=== PATIENT | male | born 1980 | race Caucasian/White ===

== ENCOUNTER 2022-07-29 08:32 | Emergency (ER) | payer OTHER, SELFPAY ==
--- NOTE | ~2022-07-29 | XR_ITS ---
EXAMINATION: XR SHOULDER, LEFT CLINICAL INFORMATION: Left shoulder pain. COMPARISON: None available. TECHNIQUE: AP, Grashey, and scapular Y views of the left shoulder. FINDINGS: Irregular calcifications adjacent to the greater tuberosity in the region of the distal supraspinatus tendon measuring up to 1.4 and 0.8 cm, consistent with calcific tendinitis. No acute fracture or dislocation. No joint space narrowing or marginal osteophytes. No concerning lytic or blastic osseous lesion. XR/XR shoulder LT min 2V IMPRESSION: 1. Supraspinatus calcific tendinitis. 2. No acute fracture or dislocation.
[2022-07-29 08:43] VITALS: BP 107/55; PULSE 81; RESP 16; TEMP 36.5; O2SAT 98; BMI 28.2
--- NOTE | 2022-07-29 10:04 | ED.EXTPRO ---
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 Reports pain worse with palpation and movement. Denies direct injury/trauma or fall, CP/SOB, numbness, tingling, weakness Complaint: extremity pain Onset (ago): day(s) Related Data Previous Rx's Medication Instructions Recorded acetaminophen 500 mg tablet 500 mg PO Q6H PRN fever or pain 07/29/22 (Tylenol Extra Strength) #14 tabs lidocaine 5 % topical patch 1 patch topical DAILY PRN pain #30 07/29/22 (Lidoderm) ea naproxen 500 mg tablet 500 mg PO BID PRN pain 10 days #20 07/29/22 tabs Allergies Allergy/AdvReac Type Severity Reaction Status Date / Time No Known Allergies Allergy Verified 07/29/22 08:47 Review of Systems Review of Systems: Constitutional: No Fever, No Chills ENT/Mouth: No Ear Pain, No Nasal Congestion, No sore throat, No Rhinorrhea, No Swallowing Difficulty Cardiovascular: No Chest Pain, No SOB Respiratory: No Cough, No Sputum Gastrointestinal: No Nausea, No Vomiting, No Abdominal pain Genitourinary: No Dysuria, No Urinary Frequency, No Hematuria, No Urinary Incontinence/retention Musculoskeletal: + joint pain, No Myalgias, + Joint Swelling Skin: No Skin Lesions, No rash Neuro: No Weakness, No Numbness, No Paresthesias Yes all other systems are reviewed and are negative Constitutional: Constitutional: Reports as per HPI [facility] Past Medical History Attestation statement: The following information was validated with the patient. Social History Social History Advance Directives: No Advance Directives Information Provided: Yes Physical Exam Vital Signs: Vital Signs: Last Vital Signs Temp 97.7 F 07/29/22 08:43 Pulse 81 07/29/22 08:43 Resp 16 07/29/22 08:43 BP 107/55 L 07/29/22 08:43 Pulse Ox 98 07/29/22 08:43 O2 Del Method Room Air 07/29/22 08:43 BMI result Body Mass Index 28.2 Const: General: cooperative, healthy appearing and no acute distress Orientation/consciousness: patient oriented x3 Limitations: no limitations HEENT: Head: Yes normal to inspection and Yes atraumatic Ears: hearing grossly normal bilaterally General nose exam: Normal external nose present Face and sinus: Yes normal facial exam Eyes: General: appearance normal, both eyes and all related structures EOM: EOMs intact bilaterally Neck: Neck: Yes normal visual inspection and Yes no meningeal signs Chest: Chest palpation & inspection: normal inspection of the chest Resp: Effort & Inspection: normal respiratory effort and no respiratory distress Cardio: Rate: regular rate Heart sounds: S1 normal heart sound present and S2 normal heart sound present Peripheral pulses: radial pulses present and ulnar radial pulses present Back/Spine/Pelvis: Other: No midline cervical/thoracic/lumbar spinous tenderness/step-off or deformity Skin: Rashes: no rashes Wounds: no wounds Neuro: General: patient oriented x3, tone normal and no meningeal signs Gait exam (Neuro): Normal gait present Extrem: Other: Left shoulder without appreciable deformity, no erythema or warmth. + tender to palpation > AC joint/anterior aspect. ROM limited secondary to pain. Neurovascularly intact distally General: Yes normal to inspection Course Course Course Narrative: XR shoulder LT min 2V IMPRESSION: 1. Supraspinatus calcific tendinitis. ? 2. No acute fracture or dislocation. Results discussed with patient including worrisome signs and symptoms and strict return precautions, and when to return to the emergency department. They verbalized understanding and feel safe for discharge at this time. 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 On exam vital signs stable, NAD, physical exam as above. Concern for strain vs tendinitis vs tendon/ligamental injury/tear or rotator cuff injury. Lower suspicion for fracture/dislocation. No evidence of septic joint/arthritis Plan: X-rays, IM Toradol Please refer to course for remaining clinical decision making, interpretation of labs/imaging results, and discussions with consultants and/or family members. Differential Diagnosis Differential Diagnoses: The differential diagnosis associated with the presentation includes As above Admission/Observation Consideration of admission/observation: Escalation of care including admission/observation considered Lab Data MDM Lab Attestation statement: I reviewed the patient's lab results. Radiology Impression Discussion of test interpretation with radiology: I have reviewed the radiologist's reading. External Record Review External record reviewed: Inpatient record, Office record, Outpatient record, Prior outpatient labs, Prior outpatient radiology, Primary care record and Outside ED record Discharge Plan Discharge Clinical Impression: Calcific supraspinatus tendinitis Patient Disposition: Home, Self-Care Instructions: Calcific Tendinitis (ED) Additional Instructions: Your x-ray is suggestive of tendinitis which is an overuse injury Rest Ice Naproxen as an anti-inflammatory/pain medication In addition take Tylenol Follow-up with your doctor and Orthopedics as needed Prescriptions: New acetaminophen [Tylenol Extra Strength] 500 mg tablet 500 mg PO Q6H PRN (Reason: fever or pain) Qty: 14 0RF lidocaine [Lidoderm] 5 % adhesive patch,medicated 1 patch topical DAILY MDD remove after 12 hours PRN (Reason: pain) Qty: 30 0RF Rx Instructions: leave on most painful area for up to 12 hrs naproxen 500 mg tablet 500 mg PO BID PRN (Reason: pain) 10 Days Qty: 20 0RF [place]: [facility] [facility] [Provider Group] (as needed) Physician,None [Primary Care Provider] - Interventions: ED Discharge Assessment Last Done: 07/29/22 11:27 Discharge Date/Time: 07/29/22 11:27
[2022-07-29] MEDS: Ketorolac Tromethamine 30 MG/ML VIAL IM (10:57)
--- NOTE | 2022-07-29 11:11 | MHC.EDTECH ---
pt refused EKG
== END 2022-07-29 11:27 | disposition home or self-care (01) ==
PROVIDERS: Emergency Provider Emergency Medicine
DX: M75.32 Calcific tendinitis of left shoulder (principal); M25.512 Pain in left shoulder
CPT/HCPCS: 73030; 96372; 99283; 99284; J1885

== ENCOUNTER 2022-11-28 15:55 | Outpatient (AMB) | payer OTHER, SELFPAY ==
[2022-11-28 15:57] VITALS: BP 104/62; PULSE 91; O2SAT 98; BMI 27.8
--- NOTE | 2022-11-28 15:57 | MHC.PC.OV ---
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 Patient has a past medical history significant for generalized anxiety disorder, HLD. .. HLD: Does report doing keto diet and report he was found to have elevated cholesterol. He reports whenever he is on the keto diet he gets very thirsty and drinks about a gal and 2 of water though when not on keto diet he does not have the symptoms .. Concern--> reports he has chronic ankle and Achilles tendon pain worse when running and standing for long periods of time. Has had full workup while in [facility] with MRI though no concerning findings. Has used shoe inserts which have been somewhat helpful. .. Generalized anxiety disorder: He reports he has had generalized anxiety since he has been a teenager. He does use clonazepam 0.5 mg on a nearly daily basis to help him sleep in reduce anxiety. He does admit he may be dependent on benzodiazepine at this time. He is open to the idea of starting SSRI therapy for his daily anxiety. Previous PCP was in [facility]. 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 1. Little interest or pleasure in doing things: several days 2. Feeling down, depressed, or hopeless: more than half the days 3. Trouble falling or staying asleep, or sleeping too much: nearly every day 4. Feeling tired or having little energy: several days 5. Poor appetite or overeating: several days 6. Feeling bad about yourself - or that you are a failure or have let yourself or your family down: not at all 7. Trouble concentrating on things, such as reading the newspaper or watching television: several days 8. Moving or speaking so slowly that other people could have noticed. Or the opposite - being so fidgety or restless that you have been moving around a lot more than usual: several days 9. Thoughts that you would be better off or of hurting yourself in some way: not at all Total score: 10 Depression Screening Interpretation: Positive 86176 - PHQ-9 Billing: Yes Source: Developed by Drs. Nigel Ingram, Jesenia Cummings, Primo Montana and colleagues, with an educational tyson from [employer]. Thrive Questionnaire Date Thrive assessed: 11/28/22 I am a: Patient What is your living situation today?: I have a steady place to live Within the past 12 months, did the food you bought not last and you didn't have the money to get more?: Never true Within the past 12 months, did you worry whether your food would run out before you got money to buy more?: Never true Do you have trouble paying for medicines?: No Do you have trouble getting transportation to medical appointments?: No Do you have trouble paying your heating and electricity bill?: No Do you have trouble taking care of your child, family member or friend?: No Do you have trouble with day-to-day activities such as bathing, preparing meals, shopping, managing finances, etc.?: No Are you currently unemployed and looking for a job?: No Are you interested in more education?: No Currently or been in a relationship where the following occur: no concerns reported AUDIT C Alcohol Use Questionnaire (AUDIT-C) 1. How often do you have a drink containing alcohol?: Never 3. How often do you have six or more drinks on one occasion?: Never Total Score: 0 JOSE-7 AMB Questionnaire JOSE-7 Date JOSE - 7 assessed: 11/28/22 Feeling nervous, anxious, or on edge: 3 = Nearly every day Not being able to stop or control worryin = More than half the days Worrying too much about different things: 0 = Not at all Trouble relaxin = Nearly every day Being so restless that it is hard to sit still: 1 = Several days Becoming easily annoyed or irritable: 2 = More than half the days Feeling afraid as if something awful might happen: 0 = Not at all Total JOSE-7 score (0-4 normal; 5-9 mild; 10-14 moderate; 15-21 severe): 11 Source: Developed by Drs. Nigel Ingram, Jesenia Cummings, Primo Montana and colleagues, with an educational tyson from [employer]. JOSE-7 Assessment Billing JOSE-7 Assessment Tool: JOSE-7 Assessment 18972 Review of Systems Const Denies body aches, Denies chills, Denies excessive sweating, Denies fatigue, Denies fever(s) and Denies headache(s) Eyes Denies blurry vision ENT Denies dysphagia, Denies vertigo, Denies dizziness, Denies headache(s), Denies hearing loss and Denies tinnitus Card Denies chest pain, Denies chest pain with activity, Denies syncope, Denies irregular heart rhythm and Denies dyspnea Resp Denies chest congestion, Denies cough, Denies hemoptysis, Denies dyspnea and Denies wheezing GI Denies abdominal pain, Denies melena, Denies hematochezia, Denies coffee ground emesis, Denies dysphagia, Denies diarrhea, Denies nausea and Denies vomiting Denies difficulty urinating, Denies dysuria, Denies urinary frequency, Denies urinary hesitancy and Denies urinary urgency Musc Denies arthralgias, Denies limited range of motion, Denies muscle cramps and Denies muscle weakness Skin/Breast Denies rash and Denies skin ulcer Neuro Denies Abnormal speech present, Denies confusion, Denies vertigo, Denies dizziness, Denies syncope, Denies headache(s), Denies memory loss and Denies seizure-like activity Psych Reports abnormal sleep pattern, Reports anxiety, Denies confusion, Reports depression, Denies memory loss, Denies panic attacks and Denies paranoia Endo Denies excessive sweating, Denies fatigue, Denies flushing, Denies polydipsia and Denies polyuria Aller/Immun Denies wheezing Physical exam (Primary Care) Vital Signs: Last Vital Signs Pulse 91 11/28/22 15:57 BP 104/62 11/28/22 15:57 Pulse Ox 98 11/28/22 15:57 Oxygen Delivery Method Room Air 11/28/22 15:57 BMI result Body Mass Index 27.8 Tobacco/Smoking Status: Tobacco use Status Tobacco use date assessed 11/28/22 11/28/22 16:18 Patient Tobacco Use Status Never used Tobacco 11/28/22 16:18 PHQ-9: PHQ-9 Score PHQ-9: Total score 10 11/28/22 17:04 Depression Screening Interpretation: Positive Thrive Assessment: Date of Thrive Assessment Date Thrive assessed 11/28/22 11/28/22 16:18 Currently or been in a relationship where the following occur: no concerns reported Const General: cooperative, comfortable, no acute distress, alert and awake; No confusion Orientation/consciousness: oriented to person, oriented to place, patient oriented x3 and No confusion HENMT Head: Yes normocephalic Ears: external ears normal and TM's normal bilaterally Face and sinus: No sinus tenderness Mouth: Normal oral and palatal mucosa present and tongue normal Teeth and gingiva: dentition normal and gingiva normal Throat: Yes posterior oropharynx normal, Yes tonsils normal and Yes uvula midline Eyes Conjunctivae: conjunctivae normal Sclerae: sclerae normal Pupils: Equal, round and reactive pupils present EOM: EOMs intact bilaterally Direct Ophthalmoscopy: No no photophobia Neck Neck: Yes no lymphadenopathy, No tender and Yes no JVD Thyroid: Thyroid normal Carotids: no bruits Chest Chest palpation & inspection: no tenderness Resp Effort & Inspection: normal respiratory effort, no audible wheezes, not labored and no stridor Auscultation: no crackles, no rales, no rhonchi and no wheezes Cardio Jugular venous distension: no JVD Rate: regular rate, not bradycardic and not tachycardic Rhythm: regular rhythm Bruits: no carotid bruits Peripheral pulses: Peripheral pulses 2+ throughout GI Inspection: Yes normal to inspection, No abdominal wall ecchymosis and No visible herniation Palpation (GI): Soft to palpation, nontender, no guarding, not rigid and No hepatosplenomegaly present Auscultation: normoactive bowel sounds General: Yes no CVA tenderness Back/Spine/Pelvis Back: no CVA tenderness and No back tenderness Cervical Spine: cervical ROM normal Thoracic/Lumbar Spine: thoracic and lumbar spine normal to inspection, straight leg raise negative bilaterally, No thoraco-lumbar ROM limited and No lumbar spinal tenderness Skin Lesions: no lesions Rashes: no rashes Wounds: no wounds Neuro General: oriented to person, oriented to place, patient oriented x3, CN's II-XI intact bilaterally and No confusion Cranial nerves: Yes Equal, round and reactive pupils present and Yes Normal accommodation reflex present Cognition (Neuro): normal cognition Speech: No Abnormal speech present Gait exam (Neuro): Normal gait present Motor exam (neuro): 5/5 motor strength present throughout Extrem Right upper extremity: full ROM; no cyanosis Left upper extremity: full ROM; no cyanosis Right lower extremity: no edema Left lower extremity: no edema Psych Appearance: grossly normal Mental Status: mental status grossly normal Affect: normal affect Attitude: cooperative Thought process: Normal thought process present Assessment and Plan Assessment & Plan (1) Annual physical exam: Code(s): Z00.00 - Encounter for general adult medical examination without abnormal findings (2) Generalized anxiety disorder: Code(s): F41.1 - Generalized anxiety disorder Plan: Patient's JOSE-7 score positive for moderate anxiety. As per HPI patient does have a chronic history of anxiety disorder to which he takes clonazepam for. He does understand that this medication can become habit-forming and cause dependency any feels he is dependent. He is willing to transition to low-dose SSRI therapy to help his anxiety. (3) Screening for diabetes mellitus (DM): Code(s): Z13.1 - Encounter for screening for diabetes mellitus (4) Polydipsia: Code(s): R63.1 - Polydipsia Plan: Reports polydipsia when on keto diet. (5) Achilles tendinitis: Code(s): M76.60 - Achilles tendinitis, unspecified leg Qualifiers: Laterality: right Qualified Code(s): M76.61 - Achilles tendinitis, right leg Plan: Patient's signs and symptoms of right ankle pain radiating intake have most consistent with an Achilles tendinitis. Will likely benefit from formal physical therapy. Will consider podiatry referral if physical therapy ineffective. (6) Borderline high cholesterol: Code(s): E78.9 - Disorder of lipoprotein metabolism, unspecified Plan: Patient reports having an elevated cholesterol when on keto diet. Will check lipid cholesterol to assure normal. Orders: Orders PT Evaluation and Treatment 11/28/22 M76.61 - Achilles tendinitis, right leg Comprehensive Ovid. Panel Fast 11/28/22 Z13.1 - Encounter for screening for diabetes mellitus Lipid Panel 11/28/22 E78.9 - Disorder of lipoprotein metabolism, unspecified Medications: New escitalopram oxalate (Lexapro) 5 mg PO DAILY 30 days 30 tabs 1RF F41.1 - Generalized anxiety disorder Coding Level of Care Code New Pt Prev Care 40-64y(40759) Diagnoses Annual physical exam Z00.00 Generalized anxiety disorder F41.1 Screening for diabetes mellitus (DM) Z13.1 Polydipsia R63.1 Achilles tendinitis M76.61 Laterality: right Borderline high cholesterol E78.9 Additional Codes JOSE-7 Assessment Billing - JOSE-7 Assessment Tool: JOSE-7 Assessment [id number] ([id number])
== END 2022-11-28 16:51 | disposition home or self-care (01) ==
PROVIDERS: PCP Physician Assistant; Visit Provider Physician Assistant
DX: Z00.00 Encounter for general adult medical examination without abnormal findings (principal); F41.1 Generalized anxiety disorder; Z13.1 Encounter for screening for diabetes mellitus; R63.1 Polydipsia; M76.61 Achilles tendinitis, right leg; E78.9 Disorder of lipoprotein metabolism, unspecified
CPT/HCPCS: 99386

== ENCOUNTER 2025-01-28 15:12 | Outpatient (AMB) | payer OTHER, SELFPAY ==
[2025-01-28 15:23] VITALS: BP 116/80; PULSE 96; O2SAT 98; BMI 32.2
--- NOTE | 2025-01-28 15:23 | A.OFFPC_ITS ---
Vital Signs 01/28/25 15:23 Height 5 ft 5 in Weight 193 lb 6 oz BMI 32.2 BP 116/80 Blood Pressure Location Lt brachial Position Sitting Pulse 96 Pulse Source Pulse Oximeter Pulse Oximetry (%) 98 Oxygen Delivery Method Room Air Intake Visit Reasons: annual exam Rv Servicer Required: No Accompanied by: Self / Same As Patient Allergies No Known Allergies Allergy (Verified 01/28/25 15:30) Medication List - Last Reconciled 01/28/25 by Fermín Red PA-C clonazepam 0.25 mg PO BEDTIME escitalopram oxalate (Lexapro) 5 mg PO DAILY 30 days Tobacco use date assessed: 01/28/25 Dental Screening Dental Screen Date: 01/28/25 HPI annual exam HPI Details Patient is a 44 year-old male here today for an annual physical Patient has a past medical history significant for generalized anxiety disorder, HLD. 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 Recently had a right shoulder surgery in his recovering. Concern--> The patient reports facial skin issues, diagnosed as acne rosacea, which causes redness and irritation, particularly after washing his face. He has been using a combination of antifungal and cortisone treatments, which provided temporary relief. Also concerned about ADD disorder--> The patient suspects he may have ADHD, noting difficulties with focus and hyperactivity, which affect his personal and professional life. He experiences racing thoughts and difficulty relaxing, which he initially considered normal. .. HLD: Patient does have a history of hyperlipidemia, has gained a significant amount of weight since last office visit. Will check his fasting lipids .. Class 1 obesity: BMI now at 32. Have noted significant weight gain since last office visit in 2022. .. ? Latent TB: The patient has a history of latent tuberculosis, identified through a positive skin test and chest X-ray findings, although he was cleared after further testing. 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 .. .. Generalized anxiety disorder: Patient was previously pretty anxious and was started on SSRI therapy though has never taken the medication. He is doing better now without medication. 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 1. Little interest or pleasure in doing things: not at all 2. Feeling down, depressed, or hopeless: not at all 3. Trouble falling or staying asleep, or sleeping too much: several days 4. Feeling tired or having little energy: not at all 5. Poor appetite or overeating: not at all 6. Feeling bad about yourself - or that you are a failure or have let yourself or your family down: not at all 7. Trouble concentrating on things, such as reading the newspaper or watching television: several days 8. Moving or speaking so slowly that other people could have noticed. Or the opposite - being so fidgety or restless that you have been moving around a lot more than usual: several days 9. Thoughts that you would be better off or of hurting yourself in some way: not at all Total score: 3 Source: Developed by Drs. Nigel Ingram, Jesenia Cummings, Primo Montana and colleagues, with an educational tyson from [employer]. Thrive Questionnaire Date Thrive assessed: 01/28/25 I am a: Patient What is your living situation today?: I have a steady place to live Within the past 12 months, did the food you bought not last and you didn't have the money to get more?: Never true Within the past 12 months, did you worry whether your food would run out before you got money to buy more?: Never true Do you have trouble paying for medicines?: No Do you have trouble getting transportation to medical appointments?: No Do you have trouble paying your heating and electricity bill?: No Do you have trouble taking care of your child, family member or friend?: I choose not to answer this question Do you have trouble with day-to-day activities such as bathing, preparing meals, shopping, managing finances, etc.?: Yes Are you currently unemployed and looking for a job?: No Are you interested in more education?: No Please select the resources that you would like help with: None Currently or been in a relationship where the following occur: I choose not to answer THRIVE Score: 0 AUDIT C Alcohol Use Questionnaire (AUDIT-C) 1. How often do you have a drink containing alcohol?: Never 3. How often do you have six or more drinks on one occasion?: Never Total Score: 0 JOSE-7 AMB Questionnaire JOSE-7 Date JOSE - 7 assessed: 01/28/25 Feeling nervous, anxious, or on edge: 1 = Several days Not being able to stop or control worryin = Several days Worrying too much about different things: 0 = Not at all Trouble relaxin = Several days Being so restless that it is hard to sit still: 1 = Several days Becoming easily annoyed or irritable: 1 = Several days Feeling afraid as if something awful might happen: 1 = Several days Total JOSE-7 score (0-4 normal; 5-9 mild; 10-14 moderate; 15-21 severe): 6 Source: Developed by Drs. Nigel Ingram, Jesenia Cummings, Primo Montana and colleagues, with an educational tyson from [employer]. Review of Systems Const Denies body aches, Denies chills, Denies excessive sweating, Denies fatigue, Denies fever(s) and Denies headache(s) Eyes Denies blurry vision ENT Denies dysphagia, Denies vertigo, Denies dizziness, Denies headache(s), Denies hearing loss and Denies tinnitus Card Denies chest pain, Denies chest pain with activity, Denies syncope, Denies irregular heart rhythm and Denies dyspnea Resp Denies chest congestion, Denies cough, Denies hemoptysis, Denies dyspnea and Denies wheezing GI Denies abdominal pain, Denies melena, Denies hematochezia, Denies coffee ground emesis, Denies dysphagia, Denies diarrhea, Denies nausea and Denies vomiting Denies difficulty urinating, Denies dysuria, Denies urinary frequency, Denies urinary hesitancy and Denies urinary urgency Musc Denies arthralgias, Denies limited range of motion, Denies muscle cramps and Denies muscle weakness Skin/Breast Denies rash and Denies skin ulcer Neuro Denies Abnormal speech present, Denies confusion, Denies vertigo, Denies dizziness, Denies syncope, Denies headache(s), Denies memory loss and Denies seizure-like activity Psych Denies anxiety, Denies confusion, Denies depression, Denies memory loss, Denies panic attacks and Denies paranoia Endo Denies excessive sweating, Denies fatigue, Denies flushing, Denies polydipsia and Denies polyuria Aller/Immun Denies wheezing Physical exam (Primary Care) Vital Signs: Last Vital Signs Pulse 96 01/28/25 15:23 BP 116/80 01/28/25 15:23 Pulse Ox 98 01/28/25 15:23 Oxygen Delivery Method Room Air 01/28/25 15:23 BMI result Body Mass Index 32.2 BMI Assessment/Plan discussion: High BMI High, discussed plan: lifestyle, weight reduction, dietary and physical activity Tobacco/Smoking Status: Tobacco use Status Tobacco use date assessed 01/28/25 01/28/25 15:29 Patient Tobacco Use Status Never used Tobacco 01/28/25 15:29 PHQ-9: PHQ-9 Score PHQ-9: Total score 3 01/28/25 15:44 Thrive Assessment: Date of Thrive Assessment Date Thrive assessed 01/28/25 01/28/25 15:29 Currently or been in a relationship where the following occur: I choose not to answer Const Other: Obese General: cooperative, comfortable, no acute distress, alert and awake; No confusion Orientation/consciousness: oriented to person, oriented to place, patient oriented x3 and No confusion HENMT Head: Yes normocephalic Ears: external ears normal and TM's normal bilaterally Face and sinus: No sinus tenderness Mouth: Normal oral and palatal mucosa present and tongue normal Teeth and gingiva: dentition normal and gingiva normal Throat: Yes posterior oropharynx normal, Yes tonsils normal and Yes uvula midline Eyes Conjunctivae: conjunctivae normal Sclerae: sclerae normal Pupils: Equal, round and reactive pupils present EOM: EOMs intact bilaterally Direct Ophthalmoscopy: No no photophobia Neck Neck: Yes no lymphadenopathy, No tender and Yes no JVD Thyroid: Thyroid normal Carotids: no bruits Chest Chest palpation & inspection: no tenderness Resp Effort & Inspection: normal respiratory effort, no audible wheezes, not labored and no stridor Auscultation: no crackles, no rales, no rhonchi and no wheezes Cardio Jugular venous distension: no JVD Rate: regular rate, not bradycardic and not tachycardic Rhythm: regular rhythm Bruits: no carotid bruits Peripheral pulses: Peripheral pulses 2+ throughout GI Inspection: Yes normal to inspection, No abdominal wall ecchymosis and No visible herniation Palpation (GI): Soft to palpation, nontender, no guarding, not rigid and No hepatosplenomegaly present Auscultation: normoactive bowel sounds General: Yes no CVA tenderness Back/Spine/Pelvis Back: no CVA tenderness and No back tenderness Cervical Spine: cervical ROM normal Thoracic/Lumbar Spine: thoracic and lumbar spine normal to inspection, straight leg raise negative bilaterally, No thoraco-lumbar ROM limited and No lumbar spinal tenderness Skin Lesions: no lesions Rashes: no rashes Wounds: no wounds Neuro General: oriented to person, oriented to place, patient oriented x3, CN's II-XI intact bilaterally and No confusion Cranial nerves: Yes Equal, round and reactive pupils present and Yes Normal accommodation reflex present Cognition (Neuro): normal cognition Speech: No Abnormal speech present Gait exam (Neuro): Normal gait present Motor exam (neuro): 5/5 motor strength present throughout Extrem Right upper extremity: full ROM; no cyanosis Left upper extremity: full ROM; no cyanosis Right lower extremity: no edema Left lower extremity: no edema Psych Appearance: grossly normal Mental Status: mental status grossly normal Affect: normal affect Attitude: cooperative Thought process: Normal thought process present Coding Level of Care Code Est Pt Prev Care 40-64y([id number]) Diagnoses Annual physical exam Z00.00 Borderline high cholesterol E78.9 Generalized anxiety disorder F41.1 Attention deficit hyperactivity disorder (ADHD), combined type F90.2 Attention deficit type: attention deficit hyperactivity disorder (ADHD) Attention deficit-hyperactivity disorder type: combined inattentive- hyperactive Latent tuberculosis by blood test Z22.7 Acne rosacea L71.9 Herpes simplex B00.9 Class 1 obesity E66.811 Assessment & Plan Assessment & Plan (1) Annual physical exam: Code(s): Z00.00 - Encounter for general adult medical examination without abnormal findings Category: Medical Plan: As per HPI (2) Borderline high cholesterol: Code(s): E78.9 - Disorder of lipoprotein metabolism, unspecified Category: Medical Plan: Patient has a history of borderline high cholesterol will recheck his fasting lipid panel to ensure stable total cholesterol and LDL. (3) Generalized anxiety disorder: Code(s): F41.1 - Generalized anxiety disorder Category: Medical Plan: Patient has a history of generalized anxiety disorder. He felt his anxious symptoms were only temporary. Was to start SSRI therapy though felt he did not need the medication. (4) ADD (attention deficit disorder): Code(s): F98.8 - Other specified behavioral and emotional disorders with onset usually occurring in childhood and adolescence Category: Medical Qualifiers: Attention deficit type: attention deficit hyperactivity disorder (ADHD) Attention deficit-hyperactivity disorder type: combined inattentive-hyperactive Qualified Code(s): F90.2 - Attention-deficit hyperactivity disorder, combined type Plan: The patient will be evaluated for ADHD, with a trial of Wellbutrin to assess its effectiveness in managing symptoms of inattention and hyperactivity. (5) Latent tuberculosis by blood test: Code(s): Z22.7 - Latent tuberculosis Category: Medical Plan: Patient has been told he had latent TB (6) Acne rosacea: Code(s): L71.9 - Rosacea, unspecified Category: Medical Plan: For the facial skin condition, a dermatology referral will be provided, and a topical treatment will be prescribed to address acne rosacea. (7) Herpes simplex: Code(s): B00.9 - Herpesviral infection, unspecified Category: Medical Plan: Will supply patient with antiviral to use as needed (8) Class 1 obesity: Code(s): E66.811 - Obesity, class 1 Category: Medical Plan: Patient does understand his BMI is over 30 will work on being more physically active and adapting better eating habits to reduce his weight Orders: Orders Lipid Panel 01/28/25 E78.9 - Disorder of lipoprotein metabolism, unspecified Complete Blood Count no Diff 01/28/25 E78.9 - Disorder of lipoprotein metabolism, unspecified Comprehensive [place]. Panel Fast 01/28/25 E78.9 - Disorder of lipoprotein metabolism, unspecified Referrals Infectious Disease Referral Z22.7 - Latent tuberculosis Dermatology Referral L71.9 - Rosacea, unspecified Medications: New metronidazole 1% (Metrogel) 1 appl topical DAILY 60 grams 0RF 4 weeks L71.9 - Rosacea, unspecified bupropion HCl SR (Wellbutrin SR) 150 mg PO DAILY 30 tabs 1RF 30 days F90.2 - Attention-deficit hyperactivity disorder, combined type valacyclovir (Valtrex) 500 mg PO BID PRN 20 tabs 0RF recurrences 10 days B00.9 - Herpesviral infection, unspecified ketoconazole 2% 1 appl topical 2XW 120 mL 1RF 4 weeks B35.0 - Tinea barbae and tinea capitis Discontinued escitalopram oxalate (Lexapro) Discontinued Reason: Doctor's Order 5 mg PO DAILY 30 days 30 tabs 3RF F41.1 - Generalized anxiety disorder
--- OUTSIDE RECORDS SUMMARY | 2025-01-28 19:03 | XMS_ITS | Continuity of Care Document ---
Author Organization [place] [facility] - [facility] PT Address [address] [place] [address] Care Team Providers Care Surfboard Designer Name Role Phone FERMÍN PRECIADO Primary Care Provider Assessment Encounter Date Assessment Date Assessment LastModified by Organization Details LastModified Time 01/28/2025 01/28/2025 Assessment: Nice improvement with flexion motion measure. Plan: Continue 2x/wk with gradual progression of motions and with remaining precautions. [email or web address] Not available 01/28/2025 12:27:22 Plan of Treatment Reminders Order Date Submit Date Provider Last Modified By Organization Details Last Modified Time Details Appointments PT FOLLOW-U P 2024 11:30A M Fermín Brewstre, DPT Not available Not available Not available PT FOLLOW-U P 2024 11:30A M Fermín Brewster, DPT Not available Not available Not available PT FOLLOW-U P 2024 01:30P M El Smith, PT Not available Not available Not available PT FOLLOW-U P 2024 12:30P M El Smith, PT Not available Not available Not available PT FOLLOW-U P 2024 01:00P M El Smith, PT Not available Not available Not available PT FOLLOW-U P 2024 01:30P M El Smith, PT Not available Not available Not available PT FOLLOW-U P 2024 02:00P M El Smith, PT Not available Not available Not available POST OP 15 2024 02:30P M Manas damon, PA-C Not available Not available Not available PT FOLLOW-U P 2024 02:00P M El Smith, PT Not available Not available Not available PT FOLLOW-U P 2024 11:00A M Fermín Brewster, DPT Not available Not available Not available PT FOLLOW-U P 2024 10:00A M Fermín Brewster, DPT Not available Not available Not available PT FOLLOW-U P 2024 11:30A M Fermín Brewster, DPT Not available Not available Not available PT FOLLOW-U P 2024 11:30A M Fermín Brewster, DPT Not available Not available Not available PT FOLLOW-U P 2024 11:00A M Fermín Brewster, DPT Not available Not available Not available PT FOLLOW-U P 2024 10:00A M Fermín Brewster, DPT Not available Not available Not available PT FOLLOW-U P 2024 12:00P M El Smith, PT Not available Not available Not available PT FOLLOW-U P 2024 01:00P M El Smith, PT Not available Not available Not available PT FOLLOW-U P 2024 10:00A M El Smith, PT Not available Not available Not available PT FOLLOW-U P 2024 10:00A M Ellilia Michaelek, PT Not available Not available Not available PT FOLLOW-U P 2024 11:30A M Fermín Brewster, DPT Not available Not available Not available RECHECK 15 2024 09:30A M En Magallanes MD Not available Not available Not available PT FOLLOW-U P 2024 10:00A M Fermín Brewster, DPT Not available Not available Not available PT FOLLOW-U P 2024 11:00A M Fermín Brewster, DPT Not available Not available Not available PT FOLLOW-U P 2025 10:00A M Fermín Brewster, DPT Not available Not available Not available POST OP 15 2025 09:30A M Marielos Phillips MD Not available Not available Not available Lab None recorded . Referral None recorded . Procedures None recorded . Surgeries None recorded . Imaging None recorded . Medication Orders None recorded . Patient TargetsNo targets recorded. Patient InstructionsNo instructions recorded. Reason for Referral None Reported. Problems Name Problem SNOMED Code Status Onset Date Resolution Date Notes Provider Name and Address Organization Details Recorded Time Acquired pes planus of right foot 040592366070033 Active 2023 En Magallanes MD [address], [facility] [place], [address], [facility] 4 16:55:50 Sinus tarsi syndrome of right ankle 262533539043197 07 Active 2023 En Magallanes MD [address], [place], [address], [facility] 4 16:55:51 Problem Notes None recorded. Procedures Surgical History Date Name Laterality Status Provider Name and Address Organization Details Recorded Time 5 61442 Therapeutic Exercise (1:1) completed Yordy Vega, AT [address], [place], [address], [facility] 01/28/2025 12:22:44 5 02148: Hot or Cold Pack completed Yordy Vega AT [address], [place], [address], [facility] 01/28/2025 12:22:44 5 87198: Manual therapy completed Yordy Vega, AT [address], [place], [address], [facility] 01/28/2025 12:22:44 5 37455 Therapeutic Exercise (1:1) completed Yordy Vega AT [address], [place], [address], [facility] 01/25/2025 13:31:43 5 76877: Hot or Cold Pack completed Yordy Vega, AT [address], [place], [address], [facility] 01/25/2025 13:31:43 08204: Manual therapy completed Yordy Vega, AT [address], [place], [address], [facility] 01/25/2025 13:31:43 43887 Therapeutic Exercise (1:1) completed Yordy Vega, AT [address], [place], [address], [facility] 01/21/2025 12:59:15 05071: Hot or Cold Pack completed Yordy Vega, AT [address], [place], [address], [facility] 01/21/2025 12:59:15 57673: Manual therapy completed Yordy Vega, AT [address], [place], [address], [facility] 01/21/2025 12:59:15 22880 Therapeutic Exercise (1:1) completed Yordy Vega, AT [address], [place], [address], [facility] 01/18/2025 14:48:44 29712: Hot or Cold Pack completed Yordy Vega, AT [address], [place], [address], [facility] 01/18/2025 14:48:44 54445: Manual therapy completed Yordy Vega, AT [address], [place], [address], [facility] 01/18/2025 14:48:44 90935 Therapeutic Exercise (1:1) completed Yordy Vega, AT [address], [place], [address], [facility] 01/15/2025 14:57:04 5 92390: Hot or Cold Pack completed Yordy Vega, AT [address], [place], [address], [facility] 01/15/2025 14:57:33 5 52765: Manual therapy completed Yordy Vega, AT [address], [place], [address], [facility] 01/15/2025 14:57:12 74910 Therapeutic Exercise (1:1) completed El Smith, PT [address], [place], [address], [facility] 01/14/2025 11:34:09 5 19281: Low complexity PT Eval completed El Smith, PT [address], [place], [address], [facility] 01/14/2025 11:34:11 4 Sports Shoulder completed Manas Vazquez PA-C [address] [facility], [place], [address], [facility] 09/25/2023 11:21:46 Imaging Results None recorded. Procedure Notes None recorded. Medical Equipment None Reported. Allergies No known drug allergies Medications Name Sig Start Date Stop Date Status Note LastModified by Organization Details LastModified Time Colace 100 mg capsule Take 1 capsule every day by oral route as needed. 2024 active Not Available Not Available Not Avai lable aspirin 325 mg tablet Take 1 tablet every day by oral route for 14 days. 01/15 completed Not Available Not Available Not Available acetaminophe n 500 mg tablet Take 2 tablets 3 times a day by oral route. 2024 active Not Available Not Available Not Avai lable naproxen 500 mg tablet Take 1 tablet twice a day by oral route for 5 days. 01/065 completed Not Available Not Available Not Available oxycodone 5 mg tablet Take 1 tablet every 4 hours by oral route as needed. 2024 active Not Available Not Available Not Avai lable escitalopram 5 mg tablet TAKE 1 TABLET BY MOUTH EVERY DAY active Not Available Not Available No t Available Vitals None Recorded Social History None recorded. Functional Status None recorded. Mental Status None recorded. Family History Nothing Reported. Medical History Condition Response Allergies/Hayfever N Coronary Artery Disease N Anxiety/Depression N Breathing or lung disorders N Emphysema N Nerve Disorders N Thyroid Problems N COPD N Pacemaker N Anemia N Kidney/Bladder Problems N Vascular Disease N Heart Trouble N Heart Attack ([place]) N Gastrointestinal Disease N Cholesterol N Diabetes N Autoimmune disease N Inflammatory Joint disease N Bleeding Disorder N Orthotics N Arthritis N Seizures/Epilepsy N Blood Clot N AIDS/HIV N Congestive Heart Failure (CHF) N Acid Reflux (GERD) N Cancer N Stroke N Asthma N Circulation Problems N Peripheral Vascular Disease N Sleep Apnea N Hepatitis Y Heart Disease N Rheumatoid Arthritis N Arrhythmia Y Pulmonary Embolism N Headaches N Fibromyalgia N Hypertension N Osteoporosis N Past Encounters Encounter ID Performer Location Encounter Start Date Encounter Closed Date Diagnosis/Indication Diagnosis SNOMED-CT Code Diagnosis ICD10 Code Diagnosis IMO Codes Diagnosis Note [id number] MD TIFFANI Morse [address] [place] [address] [place] [address] 01/15/2025 10:48:54 01/26/2025 12:35:56 Follow-up orthopedic assessment [id number] Z47.89 [id number] El Smith, PT [facility] PT [address] [place] [address] 01/14/2025 13:58:22 01/14/2025 17:16:55 Rupture of rotator cuff of right shoulder [id number] M75.772 [id number] Yordy Vega AT [facility] PT [address] [place] [address] 01/15/2025 13:30:50 01/15/2025 14:54:23 Rupture of rotator cuff of right shoulder 7979876386 [id number] M75.336 [id number] Yordy Vega AT [facility] PT [address] [place] [address] 01/18/2025 13:28:36 01/18/2025 14:09:17 Rupture of rotator cuff of right shoulder [id number] [id number] M75.050 [id number] [facility]ordy Vega[facility] [address] [place] [address] 01/21/2025 12:47:26 01/21/2025 13:49:12 Rupture of rotator cuff of right shoulder 2639725116 [id number] M75.519 [id number] Yordy Vega, AT [facility] [address] [place] [address] 01/25/2025 13:26:42 01/25/2025 14:43:58 Rupture of rotator cuff of right shoulder 2467740581 4107018 M75.219 [id number] [facility] [address] [place] [address] 01/28/2025 11:24:30 01/28/2025 12:44:29 Rupture of rotator cuff of right shoulder [id number] M75.101 Health Concerns Section Related Observation LastModified by Organization Detai ls LastModified Time None Recorded Concern Status LastModified by Organization Details LastModified Time None Recorded Payers Encounter Date Sequence Insurance Name Policy Number Policy Urbina Covered Member ID Urbina Member ID Guarantor Name 01/28/2025 1 [employer]UE [employer] [facility] (PPO) [id number] Giuliano Huitron [id number] Giuliano Huitron Notes Date Note Type Note Provider Name and Address Organization Details Recorded Time 01/28/2025 text/html Patient presents today reporting 4/10 pain. Pt states feeling comfortable out of the sling at home sometimes. Yordy Vega, AT [address], [place], [address], [facility] [place] [facility] 01/28/2025 12:27:43
--- OUTSIDE RECORDS SUMMARY | 2025-01-28 19:03 | XMS_ITS | Continuity of Care Document ---
Author Organization [place] [facility] [place] [facility] - [facility] Address [address] [place] [address] Care Team Providers Care Personalized Living Manager Nurse Name Role Phone FERMÍN PRECIADO Primary Care Provider [phone] Assessment Encounter Date Assessment Date Assessment LastModified by Organization Details LastModified Time 01/25/2025 01/25/2025 Assessment: Primary restriction remains ER. Plan: Continue 2x/wk with gradual progression of motions and with remaining precautions. [email or web address] Not available 01/25/2025 14:18:44 Plan of Treatment Reminders Order Date Submit [...] PT FOLLOW-U P 2024 11:30A M Fermín Brwester, DPT Not available Not available Not available PT FOLLOW-U P 2024 11:00A M Fermín Brewster, DPT Not available Not available Not available PT FOLLOW-U P 2024 10:00A M Fermín Brewster, DPT Not available Not available Not available PT FOLLOW-U P 2024 12:00P M El Smith, PT Not available Not available Not available PT FOLLOW-U P 2024 01:00P M El Michaelek, PT Not available Not available Not [...] PT FOLLOW-U P 2025 10:00A M Fermín Catjakis, DPT Not available Not available Not available [...] Time Acquired pes planus of right foot 337461226352542 Active 2023 En Magallanes MD [address], [place], [address], [facility] 4 16:55:50 Sinus tarsi syndrome of right ankle 114043968992454 07 Active 2023 En Magallanes MD [address], [place], [address], [facility] 16:55:51 Problem Notes None recorded. Procedures Surgical History Date Name Laterality Status Provider Name and Address Organization Details Recorded Time 5 19136 Therapeutic Exercise (1:1) completed Yordy Vega, AT [address], [place], [address], [facility] 01/28/2025 12:22:44 5 79900: Hot or Cold Pack completed Yordy Vega AT [address], [place], [address], [facility] 01/28/2025 12:22:44 5 51603: Manual therapy completed Yordy Vega, AT [address], [place], [address], [facility] 01/28/2025 12:22:44 5 35752 Therapeutic Exercise (1:1) completed Yordy Vega AT [address], [place], [address], [facility] 01/25/2025 13:31:43 5 01415: Hot or Cold Pack completed Yordy Vega, AT [address], [place], [address], [facility] 01/25/2025 13:31:43 96442: Manual therapy completed Yordy Vega, AT [address], [place], [address], [facility] 01/25/2025 13:31:43 81207 Therapeutic Exercise (1:1) completed Yordy Vega, AT [address], [place], [address], [facility] [place] [facility] 01/21/2025 12:59:15 89402: Hot or Cold Pack completed Yordy Vega, AT [address], [place], [address], [facility] 01/21/2025 12:59:15 01565: Manual therapy completed Yordy Vega, AT [address], [place], [address], [facility] [place] [facility] 01/21/2025 12:59:15 36738 Therapeutic Exercise (1:1) completed Yordy Vega, AT [address], [place], [address], [facility] 01/18/2025 14:48:44 30537: Hot or Cold Pack completed Yordy Vega, AT [address], [place], [address], [facility] 01/18/2025 14:48:44 11083: Manual therapy completed Yordy Vega, AT [address], [place], [address], [facility] 01/18/2025 14:48:44 20144 Therapeutic Exercise (1:1) completed Yordy Vega, AT [address], [place], [address], [facility] 01/15/2025 14:57:04 5 32850: Hot or Cold Pack completed Yordy Vega, AT [address], [place], [address], [facility] 01/15/2025 14:57:33 5 09705: Manual therapy completed Yordy Vega, AT [address], [place], [address], [facility] 01/15/2025 14:57:12 16870 Therapeutic Exercise (1:1) completed El Smith, PT [address] [facility], [place], [address], [facility] 01/14/2025 11:34:09 5 75025: Low complexity PT Eval completed El Smith, PT [address] [facility], [place], [address], [facility] 01/14/2025 11:34:11 4 Sports Shoulder completed Manas Vazquez PA-C [address] [facility], [place], [address], [facility] 09/25/2023 11:21:46 Imaging Results [...] day by oral route for 5 days. 01/06 completed Not Available Not Available Not Available [...] Disease N Heart Trouble N Heart Attack ([place]) N Gastrointestinal Disease N Cholesterol N Diabetes [...] ICD10 Code Diagnosis IMO Codes Diagnosis Note [id number] MD TIFFANI Morse [facility] [place] [address] 01/15/2025 10:48:54 01/26/2025 12:35:56 Follow-up orthopedic assessment [id number] Z47.89 [id number] [facility] [address] [place] [address] 01/14/2025 13:58:22 01/14/2025 17:16:55 Rupture of rotator cuff of right shoulder 6299713044 [id number] M75.245 [id number] Yordy Vega AT [facility] PT [address] [place] [address] 01/15/2025 13:30:50 01/15/2025 14:54:23 Rupture of rotator cuff of right shoulder 7560447821 [id number] M75.926 [id number] Yordy Vega AT [facility] PT [address] [place] [address] 01/18/2025 13:28:36 01/18/2025 14:09:17 Rupture of rotator cuff of right shoulder 9690296560 [id number] M75.539 [id number] Yordy Vega, AT [facility] PT [address] [place] [address] 01/21/2025 12:47:26 01/21/2025 13:49:12 Rupture of rotator cuff of right shoulder 1636753966 [id number] M75.247 [id number] Yordy Vega, AT [facility] PT [address] [place] [address] 01/25/2025 13:26:42 01/25/2025 14:43:58 Rupture of rotator cuff of right shoulder 4259502655 [id number] M75.101 Health Concerns Section Related Observation LastModified by Organization Detai ls LastModified Time None Recorded Concern Status LastModified by Organization Details LastModified Time None Recorded Payers Encounter Date Sequence Insurance Name Policy Number Policy Urbina Covered Member ID Urbina Member ID Guarantor Name 01/25/2025 1 [employer] [facility] (PP[place]) [id number] Giuliano Huitron [id number] Giuliano Huitron Notes Date Note Type Note Provider Name and Address Organization Details Recorded Time 01/25/2025 text/html Patient presents today reporting 4/10 pain. Pt states having front of the shoulder pains today after using the arm more for light activity. Yordy Vega, AT [address], [place], [address], [facility] [place] [facility] 01/25/2025 14:19:09
--- OUTSIDE RECORDS SUMMARY | 2025-01-28 19:03 | XMS_ITS | Data Portability ---
Author Organization [facility], [facility] Address [address] [place] [address] Care Team Providers Care Fiber Optics Engineer Name Role Phone FERMÍN PRECIADO Primary Care Provider [phone] Assessment Encounter Date Assessment Date Assessment LastModified by Organization Details LastModified Time 01/18/2025 01/18/2025 Assessment: Improved mobility from U-trap and diminished spasm. Plan: Continue skilled therapy per MD protocol. [email or web address] Not available 01/18/2025 14:50:51 01/21/2025 01/21/2025 Assessment: Nice gains with flexion measure. Plan: Continue 2x/wk with formal therapy and daily HEP. [email or web address] Not available 01/21/2025 13:47:55 01/25/2025 01/25/2025 Assessment: Primary restriction remains ER. Plan: Continue 2x/wk with gradual progression of motions and with remaining precautions. [email or web address] Not available 01/25/2025 14:18:44 01/28/2025 01/28/2025 Assessment: Nice improvement with flexion motion measure. Plan: Continue 2x/wk with gradual progression of motions and with remaining precautions. [email or web address] Not available 01/28/2025 12:27:22 Plan of Treatment Reminders Order Date Submit Date Provider Last Modified By Organization Details Last Modified Time Details Appointments PT FOLLOW-U P 2024 11:30A M Fermín Brewster DPT Not available Not available Not available PT FOLLOW-U P 2024 11:30A M Fermín Brewster DPT Not available Not available Not available PT FOLLOW-U P 2024 01:30P M [place], PT Not available Not available Not available PT FOLLOW-U P 2024 12:30P M [place], PT Not available Not available Not available PT FOLLOW-U P 2024 01:00P M [place], PT Not available Not available Not available PT FOLLOW-U P 2024 01:30P M [place], PT Not available Not available Not available PT FOLLOW-U P 2024 02:00P M [place], PT Not available Not available Not available POST OP 15 2024 02:30P M Manas damon PA-C Not available Not available Not available PT FOLLOW-U P 2024 02:00P M [place], PT Not available Not available Not available PT FOLLOW-U P 2024 11:00A M Fermín Brewster, DPT Not available Not available Not available PT FOLLOW-U P 2024 10:00A M Fermín Andersons, DPT Not available Not available Not available PT FOLLOW-U P 2024 11:30A M Fermín Monicas, DPT Not available Not available Not available PT FOLLOW-U P 2024 11:30A M Fermín Monicas, DPT Not available Not available Not available PT FOLLOW-U P 2024 11:00A M Fermín Monicas, DPT Not available Not available Not available PT FOLLOW-U P 2024 10:00A M Fremín Monicas, DPT Not available Not available Not available PT FOLLOW-U P 2024 12:00P M [place], PT Not available Not available Not available PT FOLLOW-U P 2024 01:00P M [place], PT Not available Not available Not available PT FOLLOW-U P 2024 10:00A M [place], PT Not available Not available Not available PT FOLLOW-U P 2024 10:00A M [place], PT Not available Not available Not available [...] Time Acquired pes planus of right foot [id number] Active 2023 En Magallanes MD [address], [place], [address], [facility] 4 16:55:50 Sinus tarsi syndrome of right ankle [id number] 07 Active 2023 En Magallanes MD [address], [place], [address], [facility] 4 16:55:51 Problem Notes None recorded. Procedures Surgical History Date Name Laterality Status Provider Name and Address Organization Details Recorded Time 5 75988 Therapeutic Exercise (1:1) completed Yordy Vega AT [address] [facility], [place], [address], [facility] 01/28/2025 12:22:44 5 25780: Hot or Cold Pack completed Yordy Vega AT [address] [facility], [place], [address], [facility] 01/28/2025 12:22:44 21557: Manual therapy completed Yordy Vega, AT [address], [place], [address], [facility] 01/28/2025 12:22:44 80654 Therapeutic Exercise (1:1) completed Yordy Vega, AT [address], [place], [address], [facility] 01/25/2025 13:31:43 18799: Hot or Cold Pack completed Yordy Vega, AT [address], [place], [address], [facility] 01/25/2025 13:31:43 56539: Manual therapy completed Yordy Vega, AT [address], [place], [address], [facility] 01/25/2025 13:31:43 04156 Therapeutic Exercise (1:1) completed Yordy Vega, AT [address], [place], [address], [facility] 01/21/2025 12:59:15 59280: Hot or Cold Pack completed Yordy Vega AT [address], [place], [address], [facility] 01/21/2025 12:59:15 47534: Manual therapy completed Yordy Vega, AT [address], [place], [address], [facility] 01/21/2025 12:59:15 87005 Therapeutic Exercise (1:1) completed Yordy Vega, AT [address], [place], [address], [facility] 01/18/2025 14:48:44 25785: Hot or Cold Pack completed Yordy Vega, AT [address], [place], [address], [facility] 01/18/2025 14:48:44 25012: Manual therapy completed Yordy Vega, AT [address], [place], [address], [facility] 01/18/2025 14:48:44 67437 Therapeutic Exercise (1:1) completed Yordy Vega, AT [address], [place], [address], [facility] 01/15/2025 14:57:04 08125: Hot or Cold Pack completed Yordy Vega, AT [address], [place], [address], [facility] 01/15/2025 14:57:33 96590: Manual therapy completed Yordy Vega, AT [address], [place], [address], [facility] 01/15/2025 14:57:12 34382 Therapeutic Exercise (1:1) completed El Smith, PT [address], [place], [address], [facility] 01/14/2025 11:34:09 5 39544: Low complexity PT Eval completed El Smith, PT [address], [place], [address], [facility] 01/14/2025 11:34:11 4 Sports Shoulder completed Manas Vazquez PA-C [address], [place], [address], [facility] 09/25/2023 11:21:46 [...] Available Not Available No t Available Vitals Date Recorded Body height Body mass index (BMI) Body weight Provider Name and Address Organization Details Last Updated DateTime 01/15/2025 165.1 cm 30 kg/m2 49025.63 g Terry Gallagher [facility] 01/15/2025 11:34:54 Social History None recorded. Functional Status None recorded. Mental Status None recorded. Family History Nothing Reported. Medical History Condition Response Allergies/Hayfever N Coronary Artery Disease N Anxiety/Depression N Breathing or lung disorders N Emphysema N Nerve Disorders N Thyroid Problems N COPD N Pacemaker N Anemia N Kidney/Bladder Problems N Vascular Disease N Heart Trouble N Heart Attack (ID) N Gastrointestinal Disease N Cholesterol N Diabetes [...] ICD10 Code Diagnosis IMO Codes Diagnosis Note [id number] MD Lwo Garza [address] [place] [address] 09/11/2023 13:26:03 10/09/2023 12:51:26 Ankle pain 106821898 M25.579 Acquired p es planus of right foot 7260133629 92467 M21.41 Sinus tars i syndrome of right ankle 7789863245 8175976 M25.836 [id number] SHU Ryder [address] [place] [address] 09/25/2023 10:39:23 10/30/2023 15:24:08 Pain of right shoulder joint 7133222999 6638509 M25.511 Calcific t endinitis of right shoulder 7638004064 25560 M75.31 [id number] MD [facility]FF[facility] [address] [place] [address] 11/13/2024 14:35:04 11/24/2024 09:27:50 Pain of right shoulder joint 2474450883 1810344 M25.511 806915 Pain of le ft shoulder joint 0177338645 6362329 M25.512 727400 Impingemen t syndrome of right shoulder region 0793875014 67145 M75.41 [id number] MD TIFFANI Morse [address] [place] [address] 12/04/2024 14:25:21 12/26/2024 08:10:46 Calcific tendinitis of right shoulder 2327396082 77522 M75.31 9411303 [id number] MD [facility] [address] [place] [address] 01/15/2025 10:48:54 01/26/2025 12:35:56 Follow-up orthopedic assessment 611583147 Z47.89 [id number] El Smith, PT [facility] [address] [place] [address] 01/14/2025 13:58:22 01/14/2025 17:16:55 Rupture of rotator cuff of right shoulder 4470336791 0090736 M75.528 [id number] Yordy Vega, AT [facility] [address] [place] [address] 01/15/2025 13:30:50 01/15/2025 14:54:23 Rupture of rotator cuff of right shoulder 7135820077 0622843 M75.936 [id number] Yordy Vivarolson, AT [facility] [address] [place] [address] 01/18/2025 13:28:36 01/18/2025 14:09:17 Rupture of rotator cuff of right shoulder 1564058055 9145469 M75.421 [id number] Yordy Vivarolson, AT [facility] [address] [place] [address] 01/21/2025 12:47:26 01/21/2025 13:49:12 Rupture of rotator cuff of right shoulder 9270124023 4875240 M75.233 [id number] Yordykisha VivarVega, AT [facility] [address] [place] [address] 01/25/2025 13:26:42 01/25/2025 14:43:58 Rupture of rotator cuff of right shoulder 1923960860 2021975 M75.973 [id number] Yordy Vivarolson, AT [facility] [address] [place] [address] 01/28/2025 11:24:30 01/28/2025 12:44:29 Rupture of rotator cuff of right shoulder 3614320629 0827479 M75.101 Health Concerns Section Related Observation LastModified by Organization Detai ls LastModified Time None Recorded Concern Status LastModified by Organization Details LastModified Time None Recorded Advance Directives Directive None Recorded Payers Insurance Date Sequence Insurance Name Policy Number Policy Urbina Covered Member ID Urbina Member ID Guarantor Name 09/25/2023 1 [employer]-[place] (PPO) Giuliano Huitron [id number] 33 Giuliano Huitron 01/27/2025 1 [facility] [id number] Giuliano Huitron [id number] Giuliano Huitron Notes Date Note Type Note Provider Name and Address Organization Details Recorded Time 01/15/2025 text/html Patient presents today reporting 4/10 pain. Pt states sleep is difficult. Yordy Vega, AT [address], [place], [address], [place] - [facility] 01/15/2025 14:59:49 01/15/2025 text/html Surgery: Right shoulder calcium excision with subsequent 1+1 double row supraspinatus repair, SAD DCE, 12/30/2024 Interval History: Giuliano returns today in follow-up now 2 weeks out from surgery as above, doing fairly well. The patient has been tolerating the sling. Weaning from narcotic medications. We have not yet started physical therapy. No issues with incisions. No numbness or tingling in arm or hand. We have not yet let the patient return to work. Past family, medical, social history and review of systems have been reviewed and updated on the medical history sheet saved to the patient's chart. A 12-point review of systems is negative x12 except as noted above and/or on the medical history sheet. Examination: Pleasant 44-year-old gentleman in no acute distress. On exam of the Right upper extremity, arthroscopic portal incisions are healing nicely. No significant swelling or bruising. No evidence for Juan deformity. Did not attempt range of motion of the shoulder today. Sensation intact in axillary and LABC distributions. Fires EPL, FPL and intrinsics. Hand is warm and well perfused. 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 Doing fairly well thus far. Plan: We will have the patient continue with sling use for another 4 weeks, though discussed that it is okay to begin taking some breaks from the sling when in a safe, quiet environment with the arm supported on the lap. We will start in with physical therapy at approximately 2 weeks postop. Copies of the therapy prescription and protocol were given to the patient today and scanned into the patient chart for future reference if needed. Therapy will consist of passive range of motion only to start, incorporating active assist range of motion at 5 weeks, active range of motion at 9 weeks, isometrics at 12 weeks and more advanced strengthening at 14 weeks postop. The patient will follow up with Mr. Augie Vazquez PA-C in 6 weeks to check on how the first few weeks of therapy have gone. I will plan to see the patient back at 4 months post-op, just before initiation of the strengthening phase of therapy. [facility] speech recognition degreaser operator software was used to create portions of this document. An attempt at proofreading has been made to minimize errors. Please call for corrections. Marielos Phillips MD [address] [facility], [place], [address], [facility] 01/15/2025 12:02:30 01/18/2025 text/html Patient presents today reporting 4/10 pain. Pt states having to take medication this weekend. Yordy Vega, AT [address] [facility] [address], [place], [address], [facility] 01/18/2025 14:51:18 01/21/2025 text/html Patient presents today reporting 4/10 pain. Pt states feeling less soreness with therapy. Yordy Vega, AT [address], [place], [address], [facility] 01/21/2025 13:48:15 01/25/2025 text/html Patient presents today reporting 4/10 pain. Pt states having front of the shoulder pains today after using the arm more for light activity. Yordy Vega, AT [address], [place], [address], [facility] 01/25/2025 14:19:09 01/28/2025 text/html Patient presents today reporting 4/10 pain. Pt states feeling comfortable out of the sling at home sometimes. Yordy Vega, AT [address], [place], [address], [facility] 01/28/2025 12:27:43
== END 2025-01-28 16:09 | disposition home or self-care (01) ==
LOC: HO.HMCH 15:13
PROVIDERS: PCP Physician Assistant; Visit Provider Physician Assistant
DX: Z00.00 Encounter for general adult medical examination without abnormal findings (principal); E78.9 Disorder of lipoprotein metabolism, unspecified; E66.811 Obesity, class 1; Z68.32 Body mass index [BMI] 32.0-32.9, adult; F41.1 Generalized anxiety disorder; F90.2 Attention-deficit hyperactivity disorder, combined type; Z22.7 Latent tuberculosis; L71.9 Rosacea, unspecified; B00.9 Herpesviral infection, unspecified

== ENCOUNTER 2025-02-05 15:00 | Outpatient (REF) | payer OTHER, SELFPAY ==
--- NOTE | ~2025-02-05 | XR_ITS ---
EXAMINATION: XR CHEST CLINICAL INFORMATION: Z22.7 - Latent tuberculosis COMPARISON: None available. TECHNIQUE: 2 views of the chest were obtained. FINDINGS: Cardiac and mediastinal silhouette is within normal limits. Pulmonary vascularity is within normal limits. The right feliciano slightly more prominent as compared to left side. No focal consolidation or effusion. No pneumothorax is seen. No acute osseous findings. No acute findings in the upper abdomen. XR/XR chest 2V IMPRESSION: No evidence of focal airspace disease. Slight asymmetric prominence of the right hilar as compared to the left side. Lymphadenopathy cannot be excluded. Given the clinical history, recommend correlation with prior imaging. Consider CT chest evaluation as clinically indicated. Electronically signed by: Lavon Garcia MD 02/05/2025 04:49 PM EDT
[2025-02-05 16:12] LABS: Hematocrit 45.3 % (42.0-52.0); Hemoglobin 16.1 g/dl (14.0-18.0); Mean Corpuscular HGB Conc 35.5 g/dl (31.0-36.0); Mean Corpuscular Hemoglobin 29.9 pg (27.0-33.0); Mean Corpuscular Volume 84.0 fL (80.0-98.0); NRBC Abs Auto 0.000 X10*3/uL (0.0-0.012); NRBC Pct Auto 0.0 /100WBC (0.0-0.2); Platelet Count 278 X10*3/uL (160-400); Red Blood Count 5.39 X10*6/uL (4.60-5.80); White Blood Count 9.3 X10*3/uL (4.8-10.8)
[2025-02-05 16:21] LABS: Alanine Aminotransferase 50 U/L (0-40); Albumin Level 5.0 g/dL (3.5-5.0); Alkaline Phosphatase 64 U/L (39-117); Anion Gap 11 (12-20); Aspartate Amino Transferase 31 U/L (5-37); Blood Urea Nitrogen 11 mg/dL (9-16); Calcium 9.6 mg/dL (8.4-10.2); Carbon Dioxide 29 mmol/L (22-29); Chloride 105 mmol/L (96-108); Cholesterol 263 mg/dL (<200); Estimated Glomerular Filt Rate > 60; HDL Cholesterol 41 mg/dL (>40); Potassium 4.2 mmol/L (3.3-5.1); Sodium 141 mmol/L (135-145); Total Protein 8.0 g/dL (6.5-8.0); Triglycerides 182 mg/dL (<150)
[2025-02-08 11:34] LABS: TS Negative Control Passed; TS Panel A 20; TS Panel B 35; TS Positive Control Passed; TSpotTB Positive (Negative)
== END 2025-02-05 15:01 | disposition home or self-care (01) ==
LOC: HO.XRAY 15:00
PROVIDERS: Absent Provider Physician Assistant; PCP Physician Assistant; Visit Provider Internal Medicine
DX: E78.9 Disorder of lipoprotein metabolism, unspecified (principal); Z22.7 Latent tuberculosis
CPT/HCPCS: 36415; 71046; 80053; 80061; 85027; 86481

== ENCOUNTER 2025-02-05 15:00 | Outpatient (AMB) | payer OTHER, SELFPAY ==
[2025-02-05 15:00] VITALS: PULSE 61; O2SAT 98; BMI 31.5
--- NOTE | 2025-02-05 15:00 | A.OFFVIS_ITS ---
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 Following a positive skin test for tuberculosis, indicating potential exposure to Mycobacterium tuberculosis, the patient has been referred by Dr. Ted Red. The patient denies any symptoms typically associated with tuberculosis, including cough, hemoptysis, weight loss, or lymphadenopathy. He is not aware of any recent exposure to individuals with active tuberculosis. Despite the positive test, the patient has not experienced any respiratory or systemic symptoms. Further diagnostics have revealed slight asymmetric prominence of the right hilar region on chest X-ray, necessitating further evaluation with a chest CT due to the need to rule out left-sided lymphadenopathy and to confirm the presence or absence of active disease. Review of Systems - Respiratory: Denies coughing, hemoptysis - Constitutional: Denies weight loss - Lymphatic: Denies lymphadenopathy - General: Denies any recent illness Physical Exam - Vital Signs- Stable - HEENT- Pupils equally round and reactive to light; oropharynx clear - Respiratory- Lungs clear - Cardiovascular- Heart rate and rhythm regular - Abdominal- Abdomen soft, non-tender - Musculoskeletal- Extremities non-tender - Neurological- Neurological exam grossly intact Results - Imaging: Chest X-ray showing slight asymmetric prominence of the right hilar region Plan Patient was informed and verbally consented to the use of an ambient scribe for clinic note documentation during this visit. 1. Nonspecific reaction to tuberculin skin test without active tuberculosis R76.11 Due to the positive tuberculosis test, additional evaluation is warranted to discern between latent and active tuberculosis, given the chest X-ray findings and absence of symptoms. A CT of the chest is required to gain clarity on the hilar prominence and exclude left-sided lymphadenopathy. Given the current stable health status, the emphasis lies in determining if the patient has latent tuberculosis infection, followed by appropriate counseling and treatment plan to avert any future points of activation. Discussion Notes I explained to the patient that although the tuberculosis skin test is positive, indicating potential exposure, he displays no current symptoms of active tuberculosis. I discussed the necessity of further diagnostic imaging via a chest CT to clarify any unusual findings noted on the chest X-ray, particularly the prominence at the right hilar region, and to rule out lymphadenopathy on the left side. The patient is aware that the primary objective is to exclude active tuberculosis and, if concluded as a latent infection, to consider prophylactic treatment options. He understands the plan of monitoring and agreed to the outlined CT scan and follow-up actions. Medical Decision Making Considering the positive tuberculosis test, my primary suspicion is latent tuberculosis infection, as the patient presents with no symptoms typical of active disease and no known recent exposures. The chest X-ray noted a right hilar prominence which necessitates further investigation via CT scan to determine the presence of any underlying pathology or lymphadenopathy. The emphasis remains on ruling out active disease and establishing a diagnosis of latent tuberculosis, with the intention to provide treatment if indicated to prevent future activation. The patient is asymptomatic, and the risk of progressing to active disease is low, but vigilance in evaluation is paramount. Patient Instructions - Undergo a CT scan of the chest to assess current findings more accurately. - Report any new symptoms such as cough, fever, or weight loss immediately. - Follow up as instructed for results discussion and further management plan. 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
--- OUTSIDE RECORDS SUMMARY | 2025-02-05 16:40 | XMS_ITS | Continuity of Care Document ---
Author Organization [place] [facility], [facility] Address [address] [place] [address] Care Team Providers Care Physician Relations Specialist Name Role Phone FERMÍN PRECIADO Primary Care Provider [phone] Assessment Encounter Date Assessment Date Assessment LastModified by Organization Details LastModified Time 02/04/2025 02/04/2025 Assessment: Weekly gains with P/AAROM measures. Plan: Continue 2x/wk with P/AAROM and wean from sling use. Sling at all times for 4 wks, especially when sleeping. No driving until at least 6 wks Weeks 3-5: Gentle PROM -Limit IR to stomach Weeks 6-8: Continue Gentle PROM to tolerance. May Begin AAROM Sling in unsupervised settings Weeks 9-11: Continue PROM and AAROM as tolerated. May begin AROM starting in a supine position. D/C sling fully Weeks 12-13: Progress AROM Begin Submaximal Isometrics. Weeks 14-16: Once full ROM with good control and biomechanics, add T-Bands with light resistance. [email or web address] Not available 02/04/2025 15:23:14 Plan of Treatment Reminders Order Date Submit Date Provider Last Modified By Organization Details Last Modified Time Details Appointments PT FOLLOW-U P 2024 04:30P M Fermín Brewster DPT Not available Not available Not available PT FOLLOW-U P 2024 01:00P M El Smith, PT Not available Not available Not available PT FOLLOW-U P 2024 01:30P Casie Smith, PT Not available Not available Not [...] PT FOLLOW-U P 2025 10:00A M Fermín Brewster DPT Not available Not [...] Time Acquired pes planus of right foot [id number] Active 2023 En Magallanes MD [address], [place], [address], [facility] 4 16:55:50 Sinus tarsi syndrome of right ankle 897796111032211 07 Active 2023 En Magallanes MD [address], [place], [address], [facility] 4 16:55:51 Problem Notes None recorded. Procedures Surgical History Date Name Laterality Status Provider Name and Address Organization Details Recorded Time 5 09222 Therapeutic Exercise (1:1) completed El Smith, PT [address] [facility], [place], [address], [facility] 02/04/2025 15:22:07 5 46175: Hot or Cold Pack completed El Smith, PT [address], [place], [address], [facility] 02/04/2025 07:04:59 5 23992: Manual therapy completed El Smith, PT [address], [place], [address], [facility] 02/04/2025 07:04:59 5 51152 Therapeutic Exercise (1:1) completed Yordy Vega, AT [address], [place], [address], [facility] 02/01/2025 14:30:41 40114: Hot or Cold Pack completed Yordy Vega, AT [address], [place], [address], [facility] 02/01/2025 14:30:41 17921: Manual therapy completed Yordy Vega, AT [address], [place], [address], [facility] 02/01/2025 14:30:41 47467 Therapeutic Exercise (1:1) completed Yordy Vega, AT [address], [place], [address], [facility] 01/28/2025 12:22:44 88407: Hot or Cold Pack completed Yordy Vega, AT [address], [place], [address], [facility] 01/28/2025 12:22:44 85699: Manual therapy completed Yordy Vega, AT [address], [place], [address], [facility] 01/28/2025 12:22:44 73657 Therapeutic Exercise (1:1) completed Yordy Vega, AT [address], [place], [address], [facility] 01/25/2025 13:31:43 01036: Hot or Cold Pack completed Yordy Vega, AT [address], [place], [address], [facility] 01/25/2025 13:31:43 44002: Manual therapy completed Yordy Vega, AT [address], [place], [address], [facility] 01/25/2025 13:31:43 90143 Therapeutic Exercise (1:1) completed Yordy Vega, AT [address], [place], [address], [facility] 01/21/2025 12:59:15 12869: Hot or Cold Pack completed Yordy Vega, AT [address], [place], [address], [facility] 01/21/2025 12:59:15 71302: Manual therapy completed Yordy Vega, AT [address], [place], [address], [facility] 01/21/2025 12:59:15 81157 Therapeutic Exercise (1:1) completed Yordy Vega, AT [address], [place], [address], [facility] 01/18/2025 14:48:44 32197: Hot or Cold Pack completed Yordy Vega, AT [address], [place], [address], [facility] 01/18/2025 14:48:44 47161: Manual therapy completed Yordy Vega, AT [address], [place], [address], [facility] 01/18/2025 14:48:44 23290 Therapeutic Exercise (1:1) completed Yordy Vega, AT [address], [place], [address], [facility] 01/15/2025 14:57:04 25917: Hot or Cold Pack completed Yordy Vega, AT [address], [place], [address], [facility] 01/15/2025 14:57:33 98541: Manual therapy completed Yordy Vega, AT [address], [place], [address], [facility] 01/15/2025 14:57:12 5 05418 Therapeutic Exercise (1:1) completed El Smith, PT [address], [place], [address], [facility] 01/14/2025 11:34:09 5 94032: Low complexity PT Eval completed El Smith, PT [address], [place], [address], [facility] 01/14/2025 11:34:11 4 Sports Shoulder completed Manas Vazquez PA-C [address], [place], [address], [facility] 09/25/2023 [...] Disease N Heart Trouble N Heart Attack ([place]) N Gastrointestinal Disease N Cholesterol N Diabetes [...] ICD10 Code Diagnosis IMO Codes Diagnosis Note [id number] MD TI[facility] Morse [address] [place] [address] 01/15/2025 10:48:54 01/26/2025 12:35:56 Follow-up orthopedic assessment [id number] Z47.89 [id number] El Smith, PT [facility] [address] [place] [address] 01/14/2025 13:58:22 01/14/2025 17:16:55 Rupture of rotator cuff of right shoulder 1633070464 7134445 M75.017 [id number] Yordy Vega, AT [facility] [address] [place] [address] 01/15/2025 13:30:50 01/15/2025 14:54:23 Rupture of rotator cuff of right shoulder 6303388287 6256731 M75.903 [id number] [facility], AT [facility] [address] [place] [address] 01/18/2025 13:28:36 01/18/2025 14:09:17 Rupture of rotator cuff of right shoulder 2180424162 6517793 M75.022 [id number] Yordy Vega, AT [facility] [address] [place] [address] 01/21/2025 12:47:26 01/21/2025 13:49:12 Rupture of rotator cuff of right shoulder 8513052893 9044458 M75.569 [id number] Yordy Vega, AT [facility] [address] [place] [address] 01/25/2025 13:26:42 01/25/2025 14:43:58 Rupture of rotator cuff of right shoulder 0172843829 5499350 M75.107 [id number] Yordy Vega, AT [facility] [address] [place] [address] 01/28/2025 11:24:30 01/28/2025 12:44:29 Rupture of rotator cuff of right shoulder 0672712626 1647876 M75.904 [id number] Yordy Vega, AT [facility] [address] [place] [address] 02/01/2025 11:30:11 02/01/2025 12:08:36 Rupture of rotator cuff of right shoulder 5342136189 6314837 M75.578 [id number] El Smith, PT [facility] [address] [place] [address] 02/04/2025 13:19:30 02/04/2025 14:04:40 Rupture of rotator cuff of right shoulder 9625798898 7578632 M75.101 Health Concerns Section Related Observation LastModified by Organization Detai ls LastModified Time None Recorded Concern Status LastModified by Organization Details LastModified Time None Recorded Payers Encounter Date Sequence Insurance Name Policy Number Policy Urbina Covered Member ID Urbina Member ID Guarantor Name 02/04/2025 1 [employer] [facility] (PPO) [id number] Giuliano Huitron [id number] Giuliano Huitron Notes Date Note Type Note Provider Name and Address Organization Details Recorded Time 02/04/2025 text/html Patient states pain 0/10 at rest, El Smith, PT [address], [place], [address], [facility] 02/04/2025 15:24:11
--- OUTSIDE RECORDS SUMMARY | 2025-02-05 16:40 | XMS_ITS | Data Portability ---
Author Organization [place] [facility], [facility] Sells Address [address] [place] [address] Care Team Providers Care Push Button Switch Assembler Name Role Phone FERMÍN PRECIADO Primary Care Provider Assessment Encounter Date Assessment Date Assessment LastModified by Organization Details LastModified Time 01/21/2025 01/21/2025 Assessment: Nice gains with flexion measure. Plan: Continue 2x/wk with formal therapy and daily HEP. [email or web address] Not available 01/21/2025 13:47:55 01/25/2025 01/25/2025 Assessment: Primary restriction remains ER. Plan: Continue 2x/wk with gradual progression of motions and with remaining precautions. [email or web address] Not available 01/25/2025 14:18:44 01/28/2025 01/28/2025 Assessment: Nice improvement with flexion motion measure. Plan: Continue 2x/wk with gradual progression of motions and with remaining precautions. [email or web address] Not available 01/28/2025 12:27:22 02/01/2025 02/01/2025 Assessment: Weekly gains with P/AAROM measures. Plan: Continue 2x/wk with P/AAROM and wean from sling use. [email or web address] Not available 02/01/2025 14:32:51 02/04/2025 02/04/2025 Assessment: Weekly gains with P/AAROM [...] PT FOLLOW-U P 2024 04:30P M Fermín Brewster, DPT Not available Not [...] available PT FOLLOW-U P 2024 02:00P M lE Smith, PT Not available Not available Not [...] Time Acquired pes planus of right foot 804702467385912 Active 2023 En Magallanes MD [address], [place], [address], [facility] 4 16:55:50 Sinus tarsi syndrome of right ankle 394461701507919 07 Active 2023 En Magallanes MD [address], [place], [address], [facility] [place] 4 16:55:51 Problem Notes None recorded. Procedures Surgical History Date Name Laterality Status Provider Name and Address Organization Details Recorded Time 05487 Therapeutic Exercise (1:1) completed El Smith, PT [address], [place], [address], [facility] 02/04/2025 15:22:07 55456: Hot or Cold Pack completed El Smith, PT [address], [place], [address], [facility] 02/04/2025 07:04:59 35450: Manual therapy completed El Smith, PT [address], [place], [address], [facility] 02/04/2025 07:04:59 23273 Therapeutic Exercise (1:1) completed Yordy Vega, AT [address], [place], [address], [facility] 02/01/2025 14:30:41 42809: Hot or Cold Pack completed Yordy Vega, AT [address], [place], [address], [facility] 02/01/2025 14:30:41 16513: Manual therapy completed Yordy Vega, AT [address], [place], [address], [facility] 02/01/2025 14:30:41 92108 Therapeutic Exercise (1:1) completed Yordy Vega, AT [address], [place], [address], [facility] 01/28/2025 12:22:44 20030: Hot or Cold Pack completed Yordy Vega, AT [address], [place], [address], [facility] 01/28/2025 12:22:44 96759: Manual therapy completed Yordy Vega, AT [address], [place], [address], [facility] 01/28/2025 12:22:44 92756 Therapeutic Exercise (1:1) completed Yordy Vega, AT [address], [place], [address], [facility] 01/25/2025 13:31:43 70779: Hot or Cold Pack completed Yordy Vega, AT [address], [place], [address], [facility] 01/25/2025 13:31:43 80283: Manual therapy completed Yordy Vega, AT [address] [facility] [address] [facility], [place], [address], [facility] 01/25/2025 13:31:43 43084 Therapeutic Exercise (1:1) completed Yordy Vega, AT [address], [place], [address], [facility] 01/21/2025 12:59:15 62291: Hot or Cold Pack completed Yordy Vega, AT [address], [place], [address], [facility] 01/21/2025 12:59:15 01046: Manual therapy completed Yordy Vega, AT [address], [place], [address], [facility] 01/21/2025 12:59:15 46690 Therapeutic Exercise (1:1) completed Yordy Vega, AT [address], [place], [address], [facility] 01/18/2025 14:48:44 5 69551: Hot or Cold Pack completed Yordy Vega AT [address], [place], [address], [facility] 01/18/2025 14:48:44 5 65713: Manual therapy completed Yordy Vega, AT [address] [facility], [place], [address], [facility] 01/18/2025 14:48:44 5 07112 Therapeutic Exercise (1:1) completed Yordy Vega, AT [address], [place], [address], [facility] 01/15/2025 14:57:04 5 01584: Hot or Cold Pack completed Yordy Vega, AT [email or web address] [facility], [place], [address], [facility] 01/15/2025 14:57:33 5 32845: Manual therapy completed Yordy Vega, AT [email or web address] [facility], [place], [address], [facility] 01/15/2025 14:57:12 5 24240 Therapeutic Exercise (1:1) completed El Smith, PT [email or web address] [facility], [place], [address], [facility] 01/14/2025 11:34:09 5 21093: Low complexity PT Eval completed El Smith, PT [address] [facility], [place], [address], [facility] 01/14/2025 11:34:11 4 Sports Shoulder completed Manas Vazquez PA-C [address] [facility], [place], [address], [facility] 09/25/2023 11:21:46 Imaging Results None recorded. Procedure [...] Disease N Heart Trouble N Heart Attack ([place]) N Gastrointestinal Disease N Cholesterol N Diabetes [...] ICD10 Code Diagnosis IMO Codes Diagnosis Note [id number] MD Low Garza [address] [place] [address] 09/11/2023 13:26:03 10/09/2023 12:51:26 Ankle pain [id number] M25.579 Acquired p es planus of right foot 0361628802 93327 M21.41 Sinus tars i syndrome of right ankle 7733408507 4494533 M25.757 [id number] SHU Ryder 2nd floor [address] [place] [address] 09/25/2023 10:39:23 10/30/2023 15:24:08 Pain of right shoulder joint 8679840136 0108455 M25.511 Calcific t endinitis of right shoulder 5595089445 38834 M75.31 [id number] MD [facility] Clinical [address] [place] [address] 11/13/2024 14:35:04 11/24/2024 09:27:50 Pain of right shoulder joint 9748449031 1077408 M25.511 118104 Pain of le ft shoulder joint 8219908483 2230144 M25.512 195407 Impingemen t syndrome of right shoulder region 2970084328 99678 M75.41 [id number] MD TIFFANI Morse 2nd floor [address] [place] [address] 12/04/2024 14:25:21 12/26/2024 08:10:46 Calcific tendinitis of right shoulder 8674108560 90030 M75.31 [id number] MD [facility] [address] [place] [address] 01/15/2025 10:48:54 01/26/2025 12:35:56 Follow-up orthopedic assessment [id number] Z47.89 [id number] El Smith, PT [facility] [address] [place] [address] 01/14/2025 13:58:22 01/14/2025 17:16:55 Rupture of rotator cuff of right shoulder 4658712900 0915546 M75.125 [id number] Yordy Vega, AT [facility] [address] [place] [address] 01/15/2025 13:30:50 01/15/2025 14:54:23 Rupture of rotator cuff of right shoulder 9850373650 7899742 M75.147 [id number] Yordy Vega, AT [facility] [address] [place] [address] 01/18/2025 13:28:36 01/18/2025 14:09:17 Rupture of rotator cuff of right shoulder 0629874944 0849933 M75.417 [id number] Yordy Vega, AT [facility] [address] [place] [address] 01/21/2025 12:47:26 01/21/2025 13:49:12 Rupture of rotator cuff of right shoulder 0397685535 9841475 M75.272 [id number] Yordy Vivarolson, AT [facility] [address] [place] [address] 01/25/2025 13:26:42 01/25/2025 14:43:58 Rupture of rotator cuff of right shoulder 4599416545 7912816 M75.029 [id number] Yordy Gary, AT [facility] [address] [place] [address] 01/28/2025 11:24:30 01/28/2025 12:44:29 Rupture of rotator cuff of right shoulder 1144328144 7928951 M75.633 [id number] Yordy Vivarolson, AT [facility] [address] [place] [address] 02/01/2025 11:30:11 02/01/2025 12:08:36 Rupture of rotator cuff of right shoulder 8226712824 6850868 M75.685 [id number] El Smith, PT [facility] [address] [place] [address] 02/04/2025 13:19:30 02/04/2025 14:04:40 Rupture of rotator cuff of right shoulder 4928568545 3807266 M75.101 Health Concerns Section Related Observation LastModified by Organization Detai ls LastModified Time None Recorded Concern Status LastModified by Organization Details LastModified Time None Recorded Advance Directives Directive None Recorded Payers Insurance Date Sequence Insurance Name Policy Number Policy Urbina Covered Member ID Urbina Member ID Guarantor Name 09/25/2023 1 BIJAN (PPO) Giuliano Huitron [id number] Giuliano Huitron 02/02/2025 1 [employer] [facility] (PPO) [id number] Giuliano Huitron [id number] Giuliano Huitron Notes Date Note Type Note Provider Name and Address Organization Details Recorded Time 01/21/2025 text/html Patient presents today reporting 4/10 pain. Pt states feeling less soreness with therapy. Yordy Vega, AT [email or web address], [place], [address], [facility] 01/21/2025 13:48:15 01/25/2025 text/html Patient presents today reporting 4/10 pain. Pt states having front of the shoulder pains today after using the arm more for light activity. Yordy Vega, AT [address], [place], [address], [facility] 01/25/2025 14:19:09 01/28/2025 text/html Patient presents today reporting 4/10 pain. Pt states feeling comfortable out of the sling at home sometimes. Yordy Vega, AT [email or web address], [place], [address], [facility] 01/28/2025 12:27:43 02/01/2025 text/html Patient presents today reporting 3/10 pain. Pt states sleeping much better lately. Yordy Vega, AT [address], [place], [address], [facility] 02/01/2025 14:33:46 02/04/2025 text/html Patient states pain 0/10 at rest, El Smith, PT [address], [place], [address], [facility] 02/04/2025 15:24:11
--- OUTSIDE RECORDS SUMMARY | 2025-02-05 16:40 | XMS_ITS | Continuity of Care Document ---
Author Organization [place] - [facility], [facility] Address [address] [place] [address] Care Team Providers Care Sales And Operations Trainee Name Role Phone FERMÍN PRECIADO Primary Care Provider [phone] Assessment Encounter Date Assessment Date Assessment LastModified by Organization Details LastModified Time 02/01/2025 02/01/2025 Assessment: Weekly gains with P/AAROM measures. Plan: Continue 2x/wk with P/AAROM and wean from sling use. [email or web address] Not available 02/01/2025 14:32:51 Plan of Treatment Reminders Order Date Submit Date Provider Last Modified By Organization Details Last Modified Time Details Appointments PT FOLLOW-U P 2024 04:30P JAXON BatresT Not available Not available Not available PT FOLLOW-U P 2024 01:00P M El Smith, PT Not available Not available Not available PT FOLLOW-U P 2024 01:30P M El Smith, PT Not available Not available Not available PT FOLLOW-U P 2024 02:00P M El Smith, PT Not available Not available Not available POST OP 15 2024 02:30P M Manas dmaon PA-C Not available Not available Not available PT FOLLOW-U P 2024 02:00P M El Smith, PT Not available Not available Not available PT FOLLOW-U P 2024 11:00A M JAXON GraysonT Not available Not available Not available PT [...] PT FOLLOW-U P 2024 10:00A M Fermín Shaikhshericekatie, DPT Not available Not available Not available PT FOLLOW-U P 2024 12:00P M Ellilia Smith, PT Not available Not available Not available PT FOLLOW-U P 2024 01:00P M Ellilia Michaelek, PT Not available Not available Not available PT FOLLOW-U P 2024 10:00A M Ellilia Michaelek, PT Not available Not available Not available PT FOLLOW-U P 2024 10:00A M Ellilia Michaelek, PT Not available Not available Not available PT FOLLOW-U P 2024 11:30A M Fermín Andersonkatie, DPT Not available Not available Not available RECHECK 15 2024 09:30A M En Magallanes MD Not available Not available Not available PT FOLLOW-U P 2024 10:00A M Fermín Ney, DPT Not available Not available Not available PT FOLLOW-U P 2024 11:00A M Fermín Ney, DPT Not available Not available Not available PT FOLLOW-U P 2025 10:00A M Fermín Ney, DPT Not available Not available Not available [...] Time Acquired pes planus of right foot [id number] Active 2023 En Magallanes MD [address], [place], [address], [facility] 4 16:55:50 Sinus tarsi syndrome of right ankle 488624827121919 07 Active 2023 En Magallanes MD [address], [place], [address], [facility] 4 16:55:51 Problem Notes None recorded. Procedures Surgical History Date Name Laterality Status Provider Name and Address Organization Details Recorded Time 65660 Therapeutic Exercise (1:1) completed El Smith, PT [address], [place], [address], [facility] 02/04/2025 15:22:07 94180: Hot or Cold Pack completed El Smith, PT [address], [place], [address], [facility] 02/04/2025 07:04:59 39521: Manual therapy completed El Smith, PT [address], [place], [address], [facility] 02/04/2025 07:04:59 5 85677 Therapeutic Exercise (1:1) completed Yordy Vega, AT [address], [place], [address], [facility] 02/01/2025 14:30:41 5 38370: Hot or Cold Pack completed Yordy Vega, AT [address], [place], [address], [facility] 02/01/2025 14:30:41 40938: Manual therapy completed Yordy Vega, AT [address], [place], [address], [facility] 02/01/2025 14:30:41 04730 Therapeutic Exercise (1:1) completed Yordy Vega, AT [address], [place], [address], [facility] 01/28/2025 12:22:44 70329: Hot or Cold Pack completed Yordy Vega, AT [address], [place], [address], [facility] 01/28/2025 12:22:44 70236: Manual therapy completed Yordy Vega, AT [address], [place], [address], [facility] 01/28/2025 12:22:44 26074 Therapeutic Exercise (1:1) completed Yordy Vega, AT [address], [place], [address], [facility] 01/25/2025 13:31:43 28773: Hot or Cold Pack completed Yordy Vega, AT [address], [place], [address], [facility] 01/25/2025 13:31:43 64717: Manual therapy completed Yordy Vega, AT [address], [place], [address], [facility] 01/25/2025 13:31:43 10551 Therapeutic Exercise (1:1) completed Yordy Vega, AT [address], [place], [address], [facility] 01/21/2025 12:59:15 46717: Hot or Cold Pack completed Yordy Vega AT [address], [place], [address], [facility] 01/21/2025 12:59:15 25874: Manual therapy completed Yordy Vega, AT [address], [place], [address], [facility] 01/21/2025 12:59:15 86903 Therapeutic Exercise (1:1) completed Yordy Vega, AT [address], [place], [address], [facility] 01/18/2025 14:48:44 76942: Hot or Cold Pack completed Yordy Vega, AT [address], [place], [address], [facility] 01/18/2025 14:48:44 73012: Manual therapy completed Yordy Vega, AT [address], [place], [address], [facility] 01/18/2025 14:48:44 44980 Therapeutic Exercise (1:1) completed Yordy Vega, AT [address], [place], [address], [facility] 01/15/2025 14:57:04 75724: Hot or Cold Pack completed Yordy Vega, AT [address], [place], [address], [facility] 01/15/2025 14:57:33 59194: Manual therapy completed Yordy Vega, AT [address], [place], [address], [facility] 01/15/2025 14:57:12 19969 Therapeutic Exercise (1:1) completed El Smith, PT [address], [place], [address], [facility] 01/14/2025 11:34:09 55262: Low complexity PT Eval completed El Smith, PT [address], [place], [address], [facility] 01/14/2025 11:34:11 4 Sports Shoulder completed Manas Vazquez PA-C [address], [place], [address], [facility] 09/25/2023 11:21:46 Imaging Results [...] Disease N Heart Trouble N Heart Attack (VT) N Gastrointestinal Disease N Cholesterol N Diabetes [...] ICD10 Code Diagnosis IMO Codes Diagnosis Note [id number] [place] [address] [place] [address] 01/15/2025 10:48:54 01/26/2025 12:35:56 Follow-up orthopedic assessment [id number] Z47.89 [id number] El Smith, PT [facility] [address] [place] [address] 01/14/2025 13:58:22 01/14/2025 17:16:55 Rupture of rotator cuff of right shoulder [id number] M75.916 [id number] Yordy Vega, AT [facility] [address] [place] [address] 01/15/2025 13:30:50 01/15/2025 14:54:23 Rupture of rotator cuff of right shoulder 6660622076 [id number] M75.191 [id number] Yordy Vega, AT [facility] [address] [place] [address] 01/18/2025 13:28:36 01/18/2025 14:09:17 Rupture of rotator cuff of right shoulder [id number] M75.213 [id number] Yordy Vega, AT [facility] [address] [place] [address] 01/21/2025 12:47:26 01/21/2025 13:49:12 Rupture of rotator cuff of right shoulder [id number] M75.891 [id number] Yordy Vega, AT [facility] [address] [place] [address] 01/25/2025 13:26:42 01/25/2025 14:43:58 Rupture of rotator cuff of right shoulder 0769733354 [id number] M75.331 [id number] Yordy Vega, AT [facility] [address] [place] [address] 01/28/2025 11:24:30 01/28/2025 12:44:29 Rupture of rotator cuff of right shoulder 8507430646 [id number] M75.087 [id number] Yordy Vega, AT [facility] [address] [place] [address] 02/01/2025 11:30:11 02/01/2025 12:08:36 Rupture of rotator cuff of right shoulder [id number] M75.101 Health Concerns Section Related Observation LastModified by Organization Detai ls LastModified Time None Recorded Concern Status LastModified by Organization Details LastModified Time None Recorded Payers Encounter Date Sequence Insurance Name Policy Number Policy Urbina Covered Member ID Urbina Member ID Guarantor Name 02/01/2025 1 [employer] [facility] (PPO) [id number] Giuliano Huitron [id number] Giuliano Huitron Notes Date Note Type Note Provider Name and Address Organization Details Recorded Time 02/01/2025 text/html Patient presents today reporting 3/10 pain. Pt states sleeping much better lately. Yordy Vega, AT [address], [place], [address], [facility] 02/01/2025 14:33:46
== END 2025-02-05 15:41 | disposition home or self-care (01) ==
LOC: HO.HID 15:00
PROVIDERS: PCP Physician Assistant; Visit Provider Internal Medicine
DX: Z22.7 Latent tuberculosis (principal)
CPT/HCPCS: 99203

== ENCOUNTER → 2025-02-05 15:55 | Outpatient (BNV) | payer OTHER, SELFPAY | PROVIDERS: Absent Provider Physician Assistant; PCP Physician Assistant; Visit Provider Radiology Diagnostic Ultrasound | DX: Z22.7 Latent tuberculosis (principal) | CPT/HCPCS: 71046 ==

== ENCOUNTER 2025-03-01 13:15 | Outpatient (AMB) | payer OTHER, SELFPAY ==
--- NOTE | 2025-03-01 13:18 | MHC.PC.OV ---
Vital Signs 03/01/25 13:19 Height 5 ft 6 in Weight 182 lb 8 oz BMI 29.5 BP 120/78 Blood Pressure Location Lt brachial Position Sitting Pulse 77 Pulse Source Pulse Oximeter Temp 97.3 F Temp Source Temporal Artery Scan Pulse Oximetry (%) 98 Oxygen Delivery Method Room Air Intake Visit Reasons: ( ADD med) Intake Note: Patient is here to follow up on Med review. 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 ? Attention deficit disorder with hyperactivity: The patient was recently started on bupropion (Wellbutrin) on 02/08, but experienced increased impulsivity, which led to a disciplinary issue at work, as well as insomnia. He has since stopped taking the medication. He describes lifelong symptoms consistent with hyperactivity and inattention, such as difficulty sitting still, needing background noise to concentrate or sleep, and trouble starting and finishing tasks, noting a family history of similar traits. Patient interested in being referred to Psychiatry for more in-depth analysis and proper diagnosis. .. HILAR LYMPHADENOPATHY: Has followed up with our infectious disease specialist about his positive TB. The patient reports a recent chest x-ray showed a slight asymmetric prominence of the right hilum compared to the left, with a note that lymphadenopathy cannot be excluded. A prior chest x-ray from March of the previous year was reportedly normal. He reports some shortness of breath when agitated but had no respiratory symptoms during strenuous activity like biking and hiking over the summer. He has a CT of the chest scheduled for March 15. // Hyperlipidemia: Regarding hypercholesterolemia, a past lipid panel showed a total cholesterol of 263 mg/dL and an LDL of 186 mg/dL. He has a family history of high cholesterol on his mother's side. He has since made intentional lifestyle changes, including dietary modifications such as cutting out red meat, cream, and butter, and has been practicing intermittent fasting. This has resulted in a 10-pound weight loss, from 193 lbs to 182 lbs. .. Acne rosacea: Had tried topical metronidazole though felt it was ineffective and burned his skin. He has an appointment with Dermatology though not until summer which is much too far for him. He would like to do research on his own and find a new thai masseur [facility] Medical History (Updated 03/01/25 @ 13:38 by Fermín Red PA-C) Latent tuberculosis Arrhythmia Surgical History History of arthroplasty of right shoulder Family History Maternal Grandfather Lung cancer Father Diabetes Paternal Grandfather Diabetes Brother Skin cancer Other Latent tuberculosis Mental health disorder Substance use disorder Social History Household Members: Significant Other Housing: House Alcohol intake: never Patient Tobacco Use Status: Never used Tobacco e-Cigarette/Vaping Use: Never Used Second Hand Smoke Exposure: No service: No Current occupational status: employed 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 Cognitive needs: No Hearing needs: No Vision needs: No Questionnaire Thrive Questionnaire Date Thrive assessed: 01/28/25 I am a: Patient What is your living situation today?: I have a steady place to live Within the past 12 months, did the food you bought not last and you didn't have the money to get more?: Never true Within the past 12 months, did you worry whether your food would run out before you got money to buy more?: Never true Do you have trouble paying for medicines?: No Do you have trouble getting transportation to medical appointments?: No Do you have trouble paying your heating and electricity bill?: No Do you have trouble taking care of your child, family member or friend?: I choose not to answer this question Do you have trouble with day-to-day activities such as bathing, preparing meals, shopping, managing finances, etc.?: Yes Are you currently unemployed and looking for a job?: No Are you interested in more education?: No Please select the resources that you would like help with: None Currently or been in a relationship where the following occur: I choose not to answer THRIVE Score: 0 AUDIT C Alcohol Use Questionnaire (AUDIT-C) 2. How many drinks containing alcohol do you have on a typical day when you are drinking?: 1 or 2 3. How often do you have six or more drinks on one occasion?: Never Total Score: 0 JOSE-7 AMB Questionnaire JOSE-7 Date JOSE - 7 assessed: 01/28/25 Source: Developed by Drs. Nigel Ingram, Jesenia Cummings, Primo Montana and colleagues, with an educational tyson from [employer]. Review of Systems Const Denies headache(s) Eyes Denies loss of vision ENT Denies vertigo, Denies dizziness, Denies headache(s) and Denies sore throat Card Denies chest pain, Denies leg edema and Denies lightheadedness Resp Denies cough, Denies hemoptysis and Denies wheezing GI Denies abdominal pain, Denies melena, Denies constipation, Denies diarrhea and Denies vomiting Denies dysuria, Denies urinary frequency and Denies urinary urgency Musc Denies arthralgias, Denies joint swelling, Denies numbness and Denies tingling Neuro Denies Abnormal speech present, Denies behavioral changes, Denies vertigo, Denies dizziness, Denies headache(s), Denies loss of vision, Denies memory loss, Denies numbness and Denies tingling Psych Denies anxiety, Denies behavioral changes, Denies depression, Denies memory loss and Denies panic attacks Benson/Lymph Denies easy bleeding and Denies easy bruising Aller/Immun Denies wheezing Physical exam (Primary Care) Vital Signs: Last Vital Signs Temp 97.3 F 03/01/25 13:19 Pulse 77 03/01/25 13:19 BP 120/78 03/01/25 13:19 Pulse Ox 98 03/01/25 13:19 Oxygen Delivery Method Room Air 03/01/25 13:19 BMI result Body Mass Index 29.5 Tobacco/Smoking Status: Tobacco use Status Tobacco use date assessed 03/01/25 03/01/25 13:25 Patient Tobacco Use Status Never used Tobacco 03/01/25 13:25 e-Cigarette/Vaping Use Never Used 03/01/25 13:25 Thrive Assessment: Date of Thrive Assessment Date Thrive assessed 01/28/25 03/01/25 13:25 Currently or been in a relationship where the following occur: I choose not to answer Const General: healthy appearing, no acute distress, alert and awake Nutritional Appearance: well nourished Orientation/consciousness: oriented to person, oriented to place and oriented to time HENMT Ears: TM's normal bilaterally General nose exam: Normal nasal mucous membranes and turbinates present Eyes Conjunctivae: conjunctivae normal Sclerae: sclerae normal Pupils: Equal, round and reactive pupils present Neck Neck: Yes no lymphadenopathy and Yes no JVD Thyroid: Thyroid normal Carotids: no bruits Resp Effort & Inspection: normal respiratory effort and not tachypneic Auscultation: no crackles, no rales, no rhonchi and no wheezes Cardio Rate: regular rate Rhythm: regular rhythm Heart sounds: no murmurs and normal S1 and S2 GI Palpation (GI): Soft to palpation, nontender, no hepatomegaly and no splenomegaly Auscultation: normal bowel sounds Skin General skin exam: no rashes or lesions noted and dry skin Neuro General: oriented to person, oriented to place and oriented to time Cranial nerves: Yes Equal, round and reactive pupils present Speech: No Abnormal speech present Gait exam (Neuro): Normal gait present Motor exam (neuro): no tremor noted Extrem Right upper extremity: full ROM Left upper extremity: full ROM Right lower extremity: full ROM; no edema Left lower extremity: full ROM; no edema Psych Mental Status: mental status grossly normal Speech and movement: Normal speech and movement present Affect: normal affect Attitude: cooperative Thought process: Normal thought process present Coding Level of Care Code Est Pt Level 4 (04939) Diagnoses Attention deficit hyperactivity disorder (ADHD), combined type F90.2 Attention deficit type: attention deficit hyperactivity disorder (ADHD) Attention deficit-hyperactivity disorder type: combined inattentive-hyperactive Mixed hyperlipidemia E78.2 Hyperlipidemia type: mixed hyperlipidemia Acne rosacea L71.9 Assessment & Plan Assessment & Plan (1) ADD (attention deficit disorder): Code(s): F98.8 - Other specified behavioral and emotional disorders with onset usually occurring in childhood and adolescence Category: Medical Qualifiers: Attention deficit type: attention deficit hyperactivity disorder (ADHD) Attention deficit-hyperactivity disorder type: combined inattentive-hyperactive Qualified Code(s): F90.2 - Attention-deficit hyperactivity disorder, combined type Plan: The patient will discontinue bupropion due to adverse effects, including impulsivity and insomnia, and it will be added to his adverse reaction list. A referral will be provided to psychiatry for formal diagnostic testing for ADHD. We will hold off on starting a different medication at this time. (2) HLD (hyperlipidemia): Code(s): E78.5 - Hyperlipidemia, unspecified Category: Medical Qualifiers: Hyperlipidemia type: mixed hyperlipidemia Qualified Code(s): E78.2 - Mixed hyperlipidemia Plan: For hypercholesterolemia, the patient will continue his current lifestyle modifications. An order will be placed for a fasting lipid panel to be completed in 3 months (around April). Based on those results, a decision on initiating pharmacotherapy will be made. (3) Acne rosacea: Code(s): L71.9 - Rosacea, unspecified Category: Medical Plan: Topical antibiotic treatment though felt it was ineffective and burn to his skin. A new, generic referral to dermatology will be printed for the patient to find a new provider for his skin condition due to the long wait time for his current appointment. Orders: Referrals Dermatology Referral L71.9 - Rosacea, unspecified Psychiatry Referral F90.2 - Attention-deficit hyperactivity disorder, combined type Medications: Discontinued metronidazole 1% (Metrogel) Discontinued Reason: Doctor's Order 1 appl topical DAILY 4 weeks 60 grams 0RF L71.9 - Rosacea, unspecified bupropion HCl SR (Wellbutrin SR) Discontinued Reason: Doctor's Order 150 mg PO DAILY 30 days 30 tabs 1RF F90.2 - Attention-deficit hyperactivity disorder, combined type
[2025-03-01 13:19] VITALS: BP 120/78; PULSE 77; TEMP 36.3; O2SAT 98; BMI 29.5
--- OUTSIDE RECORDS SUMMARY | 2025-03-02 02:06 | XMS_ITS | Continuity of Care Document ---
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 Plan: Continue 2x/wk with P/AAROM per MD protocol. Sling at all times for 4 wks, [...] and biomechanics, add T-Bands with light resistance. [email or web address] Not available 02/10/2025 18:21:18 Plan of Treatment Reminders Order Date Submit Date Provider Last Modified By Organization Details Last Modified Time Details Appointments PT FOLLOW-U P 2024 10:00A M Fermín Brewster DPT Not available Not available Not available PT FOLLOW-U P 2024 11:30A M Fermín Brewster DPT Not available Not available Not available PT FOLLOW-U P 2024 11:30A M Fermín Brewster DPT Not available Not available Not available PT FOLLOW-U P 2024 05:30P M Fermín Ney, DPT Not available Not [...] Time Acquired pes planus of right foot [id number] Active 2023 En Magallanes MD [address], [place], [address], [facility] 16:55:50 Sinus tarsi syndrome of right ankle [id number] 07 Active 2023 En Magallanes MD [address], [place], [address], [facility] 4 16:55:51 Problem Notes None recorded. Procedures Surgical History Date Name Laterality Status Provider Name and Address Organization Details Recorded Time 29730 Therapeutic Exercise (1:1) active Yordy Vega, AT [address], [place], [address], [facility] 03/01/2025 11:19:44 5 70811: Hot or Cold Pack active Yordy Vega, AT [address], [place], [address], [facility] 03/01/2025 11:19:44 5 01379: Manual therapy active Yordy Vega, AT [address], [place], [address], [facility] 03/01/2025 11:19:44 5 27605 Therapeutic Exercise (1:1) completed El Smith, PT [address], [place], [address], [facility] 02/24/2025 19:09:05 5 44302: Hot or Cold Pack completed El Smith, PT [address], [place], [address], [facility] 02/24/2025 19:09:05 5 41387: Manual therapy completed El Smith, PT [address], [place], [address], [facility] 02/24/2025 19:09:05 5 89421 Therapeutic Exercise (1:1) completed El Smith, PT [address], [place], [address], [facility] 02/21/2025 16:53:11 5 02562: Hot or Cold Pack completed El Smith, PT [address], [place], [address], [facility] 02/21/2025 16:53:11 5 43900: Manual therapy completed El Smith, PT [address], [place], [address], [facility] 02/21/2025 16:53:11 5 22929 Therapeutic Exercise (1:1) completed El Smith, PT [address], [place], [address], [facility] 02/17/2025 15:54:11 5 78996: Hot or Cold Pack completed El Smith, PT [address], [place], [address], [facility] 02/17/2025 15:54:11 5 14203: Manual therapy completed El Smith, PT [address], [place], [address], [facility] 02/17/2025 15:54:11 5 48656 Therapeutic Exercise (1:1) completed El Smith, PT [address], [place], [address], [facility] 02/14/2025 18:36:50 5 64835: Hot or Cold Pack completed El Smith, PT [address], [place], [address], [facility] 02/14/2025 18:36:50 5 30326: Manual therapy completed El Smith, PT [address], [place], [address], [facility] 02/14/2025 18:36:50 5 20235 Therapeutic Exercise (1:1) completed Yordy Vega, AT [address], [place], [address], [facility] 02/10/2025 18:15:04 19150: Hot or Cold Pack completed Yordy Vega, AT [address], [place], [address], [facility] 02/10/2025 18:15:04 84497: Manual therapy completed Yordy Vega, AT [address], [place], [address], [facility] 02/10/2025 18:15:04 58565 Therapeutic Exercise (1:1) completed El Smith, PT [address], [place], [address], [facility] 02/04/2025 15:22:07 04779: Hot or Cold Pack completed El Smith, PT [address], [place], [address], [facility] 02/04/2025 07:04:59 48236: Manual therapy completed El Smith, PT [address], [place], [address], [facility] 02/04/2025 07:04:59 43266 Therapeutic Exercise (1:1) completed Yordy Vega, AT [address], [place], [address], [facility] 02/01/2025 14:30:41 07800: Hot or Cold Pack completed Yordy Vega, AT [address], [place], [address], [facility] 02/01/2025 14:30:41 76418: Manual therapy completed Yordy Vega, AT [address], [place], [address], [facility] 02/01/2025 14:30:41 83158 Therapeutic Exercise (1:1) completed Yordy Vega, AT [address], [place], [address], [facility] 01/28/2025 12:22:44 88139: Hot or Cold Pack completed Yordy Vega, AT [address], [place], [address], [facility] 01/28/2025 12:22:44 73413: Manual therapy completed Yordy Vega, AT [address], [place], [address], [facility] 01/28/2025 12:22:44 22159 Therapeutic Exercise (1:1) completed Yordy Vega, AT [address], [place], [address], [facility] 01/25/2025 13:31:43 10705: Hot or Cold Pack completed Yordy Vega, AT [address], [place], [address], [facility] 01/25/2025 13:31:43 22259: Manual therapy completed Yordy Vega, AT [address], [place], [address], [facility] 01/25/2025 13:31:43 06848 Therapeutic Exercise (1:1) completed Yordy Vega, AT [address], [place], [address], [facility] 01/21/2025 12:59:15 24532: Hot or Cold Pack completed Yordy Vega, AT [address], [place], [address], [facility] 01/21/2025 12:59:15 64489: Manual therapy completed Yoryd Vega, AT [address], [place], [address], [facility] 01/21/2025 12:59:15 91537 Therapeutic Exercise (1:1) completed Yordy Vega, AT [address], [place], [address], [facility] 01/18/2025 14:48:44 35102: Hot or Cold Pack completed Yordy Vega, AT [address], [place], [address], [facility] 01/18/2025 14:48:44 36235: Manual therapy completed Yordy Vega, AT [address], [place], [address], [facility] 01/18/2025 14:48:44 35579 Therapeutic Exercise (1:1) completed Yordy Vega, AT [address], [place], [address], [facility] 01/15/2025 14:57:04 38920: Hot or Cold Pack completed Yordy Vega, AT [address], [place], [address], [facility] 01/15/2025 14:57:33 07834: Manual therapy completed Yordy Vega AT [address], [place], [address], [facility] 01/15/2025 14:57:12 40182 Therapeutic Exercise (1:1) completed El Smith, PT [address], [place], [address], [facility] 01/14/2025 11:34:09 18014: Low complexity PT Eval completed El Smith, PT [address], [place], [address], [facility] 01/14/2025 11:34:11 Sports Shoulder completed Manas Vazquez PA-C [address] [facility] [address], [place], [address], [facility] [place] [facility] 09/25/2023 11:21:46 Imaging Results None recorded. Procedure Notes None recorded. Medical Equipment None Reported. Allergies No known drug allergies Medications Name Sig Start Date Stop Date Status Note LastModified by Organization Details LastModified Time aspirin 325 mg tablet Take 1 tablet every day by oral route for 14 days. 01/15 completed Not Available Not Available Not Available acetaminophe n 500 mg tablet Take 2 tablets 3 times a day by oral route. 2024 active Not Available Not Available Not Avai lable docusate sodium 100 mg capsule TAKE 1 CAPSULE BY MOUTH EVERY DAY NEEDED active Not Available Not Available No t Available naproxen 500 mg tablet Take 1 tablet [...] Response Allergies/Hayfever N Coronary Artery Disease N Breathing or lung disorders N Anxiety/Depression N Emphysema N Nerve Disorders N Thyroid Problems N COPD N Pacemaker N Kidney/Bladder Problems N Anemia N Vascular Disease N Heart Trouble N Heart Attack (ID) N Gastrointestinal Disease N Cholesterol N Diabetes N Autoimmune disease N Inflammatory Joint disease N Bleeding Disorder N Orthotics N Seizures/Epilepsy N Arthritis N Blood Clot N AIDS/HIV N Congestive Heart Failure (CHF) N Acid Reflux (GERD) N Cancer N Stroke N Asthma N Circulation Problems N Peripheral Vascular Disease N Sleep Apnea N Hepatitis Y Heart Disease N Rheumatoid Arthritis N Pulmonary Embolism N Arrhythmia Y Headaches N Fibromyalgia N Hypertension N Osteoporosis N Past Encounters Encounter ID Performer Location Encounter Start Date Encounter Closed Date Diagnosis/Indication Diagnosis SNOMED-CT Code Diagnosis ICD10 Code Diagnosis IMO Codes Diagnosis Note [id number] [place] [address] 01/15/2025 10:48:54 01/26/2025 12:35:56 Follow-up orthopedic assessment [id number] Z47.89 [id number] El Luis, PT [facility] [address] [place] [address] 01/14/2025 13:58:22 01/14/2025 17:16:55 Rupture of rotator cuff of right shoulder [id number] M75.950 [id number] [facility] [address] [place] [address] 01/15/2025 13:30:50 01/15/2025 14:54:23 Rupture of rotator cuff of right shoulder [id number] M75.881 [id number] Yordy Vega, AT [facility] [address] [place] [address] 01/18/2025 13:28:36 01/18/2025 14:09:17 Rupture of rotator cuff of right shoulder [id number] M75.697 [id number] Yordy Vega, AT [facility] [address] [place] [address] 01/21/2025 12:47:26 01/21/2025 13:49:12 Rupture of rotator cuff of right shoulder [id number] M75.260 [id number] [facility]y Vega[facility] [address] [place] [address] 01/25/2025 13:26:42 01/25/2025 14:43:58 Rupture of rotator cuff of right shoulder [id number] M75.282 [id number] Y[facility]y Vega, [facility] [address] [place] [address] 01/28/2025 11:24:30 01/28/2025 12:44:29 Rupture of rotator cuff of right shoulder [id number] M75.903 [id number] Yordy Vega, AT [facility] [address] [place] [address] 02/01/2025 11:30:11 02/01/2025 12:08:36 Rupture of rotator cuff of right shoulder [id number] M75.566 [id number] El Smith, PT [facility] [address] [place] [address] 02/04/2025 13:19:30 02/04/2025 14:04:40 Rupture of rotator cuff of right shoulder [id number] M75.644 [id number] Yordy Vega, AT [facility] [address] [place] [address] 02/10/2025 16:10:37 02/10/2025 17:00:46 Rupture of rotator cuff of right shoulder [id number] M75.101 Health Concerns Section Related Observation LastModified by Organization Detai ls LastModified Time None Recorded Concern Status LastModified by Organization Details LastModified Time None Recorded Payers Encounter Date Sequence Insurance Name Policy Number Policy Urbina Covered Member ID Urbina Member ID Guarantor Name 02/10/2025 1 [employer] [facility] [id number] Giuliano Huitron [id number] Giuliano Huitron Notes Date Note Type Note Provider Name and Address Organization Details Recorded Time 02/10/2025 text/html Patient presents today reporting 0/10 pain. Pt states feeling ready to be out of the sling, no big pains anymore. Yordy Vega, AT [address], [place], [address], [facility] 02/10/2025 18:21:38
--- OUTSIDE RECORDS SUMMARY | 2025-03-02 02:06 | XMS_ITS | Continuity of Care Document ---
Author Organization [place] - [facility], [facility] Address [address] [place] [address] Care Team Providers Care Traveling Secretary Name Role Phone FERMÍN PRECIADO Primary Care Provider [phone] Assessment Encounter Date Assessment Date Assessment LastModified by Organization Details LastModified Time 02/18/2025 02/18/2025 Assessment: Making gains in ROM, a little more sore from painting a fence. Plan: Continue 2x/wk with P/AAROM per MD [...] T-Bands with light resistance. [email or web address] Not available 02/17/2025 15:54:11 Plan of Treatment Reminders Order Date Submit Date Provider Last Modified By Organization Details Last Modified Time Details Appointments PT FOLLOW-U P 2024 10:00A M JAXON GraysonT Not available Not available Not available PT FOLLOW-U P 2024 11:30A M JAXON GraysonT Not available Not available Not available PT FOLLOW-U P 2024 11:30A M Fermín Catjakis, DPT Not available Not [...] Time Acquired pes planus of right foot [id number] Active 2023 En Magallanes MD [address], [place], [address], [facility] - [facility] 4 16:55:50 Sinus tarsi syndrome of right ankle [id number] 07 Active 2023 En Magallanes MD [address], [place], [address], [facility] 4 16:55:51 Problem Notes None recorded. Procedures Surgical History Date Name Laterality Status Provider Name and Address Organization Details Recorded Time 5 40125 Therapeutic Exercise (1:1) active Yordy Vega, AT [address], [place], [address], [facility] 03/01/2025 11:19:44 5 43713: Hot or Cold Pack active Yordy Vega, AT [address], [place], [address], [facility] 03/01/2025 11:19:44 5 21813: Manual therapy active Yordy Vega, AT [address], [place], [address], [facility] 03/01/2025 11:19:44 5 40927 Therapeutic Exercise (1:1) completed El Smith, PT [address], [place], [address], [facility] 02/24/2025 19:09:05 5 26100: Hot or Cold Pack completed El Smith, PT [address], [place], [address], [facility] 02/24/2025 19:09:05 5 92140: Manual therapy completed El Smith, PT [address], [place], [address], [facility] 02/24/2025 19:09:05 5 00347 Therapeutic Exercise (1:1) completed El Smith, PT [address], [place], [address], [facility] 02/21/2025 16:53:11 5 34551: Hot or Cold Pack completed El Smith, PT [address], [place], [address], [facility] 02/21/2025 16:53:11 5 57399: Manual therapy completed El Smith, PT [address], [place], [address], [facility] 02/21/2025 16:53:11 5 13379 Therapeutic Exercise (1:1) completed El Smith, PT [address], [place], [address], [facility] 02/17/2025 15:54:11 5 90291: Hot or Cold Pack completed El Smith, PT [address], [place], [address], [facility] 02/17/2025 15:54:11 5 72987: Manual therapy completed El Smith, PT [address], [place], [address], [facility] 02/17/2025 15:54:11 5 75688 Therapeutic Exercise (1:1) completed El Smith, PT [address], [place], [address], [facility] 02/14/2025 18:36:50 5 39474: Hot or Cold Pack completed El Smith, PT [address], [place], [address], [facility] 02/14/2025 18:36:50 5 26013: Manual therapy completed El Smith, PT [address], [place], [address], [facility] 02/14/2025 18:36:50 5 30591 Therapeutic Exercise (1:1) completed Yordy Vega AT [address], [place], [address], [facility] 02/10/2025 18:15:04 12236: Hot or Cold Pack completed Yordy Vega, AT [address], [place], [address], [facility] 02/10/2025 18:15:04 28870: Manual therapy completed Yordy Vega, AT [address], [place], [address], [facility] 02/10/2025 18:15:04 19299 Therapeutic Exercise (1:1) completed El Smith, PT [address], [place], [address], [facility] 02/04/2025 15:22:07 41063: Hot or Cold Pack completed El Smith, PT [address], [place], [address], [facility] 02/04/2025 07:04:59 12280: Manual therapy completed El Smith, PT [address], [place], [address], [facility] 02/04/2025 07:04:59 18076 Therapeutic Exercise (1:1) completed Yordy Vega, AT [address], [place], [address], [facility] 02/01/2025 14:30:41 33173: Hot or Cold Pack completed Yordy Vega, AT [address], [place], [address], [facility] 02/01/2025 14:30:41 25667: Manual therapy completed Yordy Vega, AT [address], [place], [address], [facility] 02/01/2025 14:30:41 44766 Therapeutic Exercise (1:1) completed Yordy Vega, AT [address], [place], [address], [facility] 01/28/2025 12:22:44 72220: Hot or Cold Pack completed Yordy Vega, AT [address], [place], [address], [facility] 01/28/2025 12:22:44 97125: Manual therapy completed Yordy Vega, AT [address], [place], [address], [facility] 01/28/2025 12:22:44 62624 Therapeutic Exercise (1:1) completed Yordy Vega, AT [address], [place], [address], [facility] 01/25/2025 13:31:43 94646: Hot or Cold Pack completed Yordy Vega, AT [address], [place], [address], [facility] 01/25/2025 13:31:43 79752: Manual therapy completed Yordy Vega, AT [address], [place], [address], [facility] 01/25/2025 13:31:43 93286 Therapeutic Exercise (1:1) completed Yordy Vega, AT [address], [place], [address], [facility] 01/21/2025 12:59:15 85328: Hot or Cold Pack completed Yordy Vega, AT [address], [place], [address], [facility] 01/21/2025 12:59:15 35782: Manual therapy completed Yordy Vega, AT [address], [place], [address], [facility] 01/21/2025 12:59:15 82223 Therapeutic Exercise (1:1) completed Yordy Vega, AT [address], [place], [address], [facility] 01/18/2025 14:48:44 88436: Hot or Cold Pack completed Yordy Vega, AT [address] [facility], [place], [address], [facility] 01/18/2025 14:48:44 54418: Manual therapy completed Yordy Vega, AT [address] [facility], [place], [address], [facility] 01/18/2025 14:48:44 04646 Therapeutic Exercise (1:1) completed Yordy Vega, AT [address] [facility] [address] [facility], [place], [address], [facility] 01/15/2025 14:57:04 52993: Hot or Cold Pack completed Yordy Vega, AT [address] [facility] [address], [place], [address], [facility] 01/15/2025 14:57:33 67334: Manual therapy completed Yordy Vega, AT [address], [place], [address], [facility] 01/15/2025 14:57:12 15169 Therapeutic Exercise (1:1) completed El Smith, PT [address] [facility] [address] [facility], [place], [address], [facility] 01/14/2025 11:34:09 28922: Low complexity PT Eval completed El Smith, PT [address] [facility] [address] [facility], [place], [address], [facility] 01/14/2025 11:34:11 Sports Shoulder completed Manas Vazquez PA-C [facility] [address], [place], [address], [facility] - [facility] 09/25/2023 11:21:46 Imaging Results [...] Disease N Heart Trouble N Heart Attack ([place]) N Gastrointestinal Disease N Cholesterol N Diabetes [...] ICD10 Code Diagnosis IMO Codes Diagnosis Note [id number] Yordy Vega, AT [facility] [address] [place] [address] 01/18/2025 13:28:36 01/18/2025 14:09:17 Rupture of rotator cuff of right shoulder [id number] M75.643 [id number] Yordy Gary, AT [facility] [address] [place] [address] 01/21/2025 12:47:26 01/21/2025 13:49:12 Rupture of rotator cuff of right shoulder [id number] 4191274 M75.942 [id number] Yordy Gary, AT [facility] - [facility] [address] [place] [address] 01/25/2025 13:26:42 01/25/2025 14:43:58 Rupture of rotator cuff of right shoulder [id number] 8380961 M75.048 [id number] Yordy Vega, AT [facility] - [facility] [address] [place] [address] 01/28/2025 11:24:30 01/28/2025 12:44:29 Rupture of rotator cuff of right shoulder 4847791606 7587442 M75.326 [id number] Yordy Gary, AT [facility] [address] [place] [address] 02/01/2025 11:30:11 02/01/2025 12:08:36 Rupture of rotator cuff of right shoulder 1119298030 [id number] M75.395 [id number] El Smith, PT [facility] [address] [place] [address] 02/04/2025 13:19:30 02/04/2025 14:04:40 Rupture of rotator cuff of right shoulder [id number] 4907746 M75.681 [id number] Yordy Vega, AT [facility] [address] [place] [address] 02/10/2025 16:10:37 02/10/2025 17:00:46 Rupture of rotator cuff of right shoulder [id number] [id number] M75.189 [id number] El Smith, PT [facility] [address] [place] [address] 02/15/2025 12:58:31 02/15/2025 13:28:56 Rupture of rotator cuff of right shoulder [id number] [id number] M75.383 [id number] El Smith, PT [facility] [address] [place] [address] 02/18/2025 13:26:19 02/18/2025 17:15:10 Rupture of rotator cuff of right shoulder [id number] M75.101 Health Concerns Section Related Observation LastModified by Organization Detai ls LastModified Time None Recorded Concern Status LastModified by Organization Details LastModified Time None Recorded Payers Encounter Date Sequence Insurance Name Policy Number Policy Urbina Covered Member ID Urbina Member ID Guarantor Name 02/18/2025 1 [employer] [facility] [id number] Giuliano Huitron [id number] Giuliano Huitron Notes Date Note Type Note Provider Name and Address Organization Details Recorded Time 02/18/2025 text/html Patient state pain 0/10 at rest, pain 4/10 with movement. El Smith, PT [address], [place], [address], [facility] 02/19/2025 06:40:41
--- OUTSIDE RECORDS SUMMARY | 2025-03-02 02:06 | XMS_ITS | Continuity of Care Document ---
Author Organization [place] [facility], [facility] Address [address] [place] [address] Care Team Providers Care Cfd Engineer Name Role Phone FERMÍN PRECIADO Primary Care Provider Assessment Encounter Date Assessment Date Assessment LastModified by Organization Details LastModified Time 02/25/2025 02/25/2025 Assessment: Making gains in ROM, good biomechanics with all movements. Plan: Continue 2x/wk with P/AAROM per MD [...] T-Bands with light resistance. [email or web address] Not available 02/24/2025 19:09:05 Plan of Treatment Reminders Order Date Submit [...] PT FOLLOW-U P 2024 05:30P M Fermín Brewster, DPT Not available Not [...] Time Acquired pes planus of right foot [id number] Active 2023 En Magallanes MD [address], [place], [address], [place] [facility] 4 16:55:50 Sinus tarsi syndrome of right ankle [id number] 07 Active 2023 En Magallanes MD [address], [place], [address], [facility] 4 16:55:51 Problem Notes None recorded. Procedures Surgical History Date Name Laterality Status Provider Name and Address Organization Details Recorded Time 74427 Therapeutic Exercise (1:1) active Yordy Vega, AT [address], [place], [address], [facility] 03/01/2025 11:19:44 5 50059: Hot or Cold Pack active Yordy Vega, AT [address], [place], [address], [facility] 03/01/2025 11:19:44 5 13598: Manual therapy active Yordy Vega, AT [address], [place], [address], [facility] 03/01/2025 11:19:44 5 06617 Therapeutic Exercise (1:1) completed El Smith, PT [address], [place], [address], [facility] 02/24/2025 19:09:05 5 95815: Hot or Cold Pack completed El Smith, PT [address], [place], [address], [facility] 02/24/2025 19:09:05 5 20201: Manual therapy completed El Smith, PT [address], [place], [address], [facility] 02/24/2025 19:09:05 5 33374 Therapeutic Exercise (1:1) completed El Smith, PT [address], [place], [address], [facility] 02/21/2025 16:53:11 5 90528: Hot or Cold Pack completed El Smith, PT [address], [place], [address], [facility] 02/21/2025 16:53:11 5 04952: Manual therapy completed El Smith, PT [address], [place], [address], [facility] 02/21/2025 16:53:11 5 85125 Therapeutic Exercise (1:1) completed El Smith, PT [address], [place], [address], [facility] 02/17/2025 15:54:11 5 11953: Hot or Cold Pack completed El Smith, PT [address], [place], [address], [facility] 02/17/2025 15:54:11 5 39325: Manual therapy completed El Smith, PT [address], [place], [address], [facility] 02/17/2025 15:54:11 5 02992 Therapeutic Exercise (1:1) completed El Smith, PT [address], [place], [address], [facility] 02/14/2025 18:36:50 5 79933: Hot or Cold Pack completed El Smith, PT [address], [place], [address], [facility] 02/14/2025 18:36:50 5 59184: Manual therapy completed El Smith, PT [address], [place], [address], [facility] 02/14/2025 18:36:50 5 21878 Therapeutic Exercise (1:1) completed Yordy Vega, AT [address], [place], [address], [facility] 02/10/2025 18:15:04 90372: Hot or Cold Pack completed Yodry Vega, AT [address], [place], [address], [facility] 02/10/2025 18:15:04 69588: Manual therapy completed Yordy Vega, AT [address], [place], [address], [facility] 02/10/2025 18:15:04 39105 Therapeutic Exercise (1:1) completed El Smith, PT [address], [place], [address], [facility] 02/04/2025 15:22:07 35219: Hot or Cold Pack completed El Smith, PT [address], [place], [address], [facility] 02/04/2025 07:04:59 02788: Manual therapy completed El Smith, PT [address], [place], [address], [facility] 02/04/2025 07:04:59 33489 Therapeutic Exercise (1:1) completed Yordy Vega, AT [address], [place], [address], [facility] 02/01/2025 14:30:41 72438: Hot or Cold Pack completed Yordy Vega, AT [address], [place], [address], [facility] 02/01/2025 14:30:41 65437: Manual therapy completed Yordy Vega, AT [address], [place], [address], [facility] 02/01/2025 14:30:41 73119 Therapeutic Exercise (1:1) completed Yordy Vega, AT [address], [place], [address], [facility] 01/28/2025 12:22:44 07303: Hot or Cold Pack completed Yordy Vega, AT [address], [place], [address], [facility] 01/28/2025 12:22:44 17501: Manual therapy completed Yordy Vega, AT [address], [place], [address], [facility] 01/28/2025 12:22:44 38414 Therapeutic Exercise (1:1) completed Yordy Vega, AT [address], [place], [address], [facility] 01/25/2025 13:31:43 35176: Hot or Cold Pack completed Yordy Vega, AT [address], [place], [address], [facility] 01/25/2025 13:31:43 58407: Manual therapy completed Yordy Vega, AT [address], [place], [address], [facility] 01/25/2025 13:31:43 35342 Therapeutic Exercise (1:1) completed Yordy Vega, AT [address], [place], [address], [facility] 01/21/2025 12:59:15 84147: Hot or Cold Pack completed Yordy Vega, AT [address], [place], [address], [facility] 01/21/2025 12:59:15 49961: Manual therapy completed Yordy Vega, AT [address], [place], [address], [facility] 01/21/2025 12:59:15 47548 Therapeutic Exercise (1:1) completed Yordy Vega, AT [address], [place], [address], [facility] 01/18/2025 14:48:44 97241: Hot or Cold Pack completed Yordy Vega, AT [address], [place], [address], [facility] 01/18/2025 14:48:44 55604: Manual therapy completed Yordy Vega, AT [address], [place], [address], [facility] 01/18/2025 14:48:44 08372 Therapeutic Exercise (1:1) completed Yordy Vega, AT [address], [place], [address], [facility] 01/15/2025 14:57:04 21818: Hot or Cold Pack completed Yordy Vega AT [address], [place], [address], [facility] 01/15/2025 14:57:33 05208: Manual therapy completed Yordy Vega AT [address], [place], [address], [facility] 01/15/2025 14:57:12 06747 Therapeutic Exercise (1:1) completed El Smith, PT [address] [facility], [place], [address], [facility] 01/14/2025 11:34:09 94025: Low complexity PT Eval completed El Smith, PT [address], [place], [address], [facility] 01/14/2025 11:34:11 Sports Shoulder completed Manas Vazquez PA-C [address], [place], [address], [facility] 09/25/2023 11:21:46 Imaging Results [...] Disease N Heart Trouble N Heart Attack ([place]) N Gastrointestinal Disease N Cholesterol N Diabetes [...] ICD10 Code Diagnosis IMO Codes Diagnosis Note [id number] Yordy Vega, AT [facility] [address] [place] [address] 01/25/2025 13:26:42 01/25/2025 14:43:58 Rupture of rotator cuff of right shoulder [id number] M75.321 [id number] Yordy Vega, AT [facility] [address] [place] [address] 01/28/2025 11:24:30 01/28/2025 12:44:29 Rupture of rotator cuff of right shoulder [id number] [id number] M75.941 [id number] Yordy Vivarolson, AT [facility] [address] [place] [address] 02/01/2025 11:30:11 02/01/2025 12:08:36 Rupture of rotator cuff of right shoulder [id number] 0512041 M75.696 [id number] El Smith, PT [facility] [address] [place] [address] 02/04/2025 13:19:30 02/04/2025 14:04:40 Rupture of rotator cuff of right shoulder [id number] M75.314 [id number] Yordy Vega, AT [facility] [address] [place] [address] 02/10/2025 16:10:37 02/10/2025 17:00:46 Rupture of rotator cuff of right shoulder 8546315282 [id number] M75.480 [id number] El Smith, PT [facility] [address] [place] [address] 02/15/2025 12:58:31 02/15/2025 13:28:56 Rupture of rotator cuff of right shoulder [id number] 3305215 M75.145 [id number] El Smith, PT [facility] [address] [place] [address] 02/18/2025 13:26:19 02/18/2025 17:15:10 Rupture of rotator cuff of right shoulder [id number] 4806754 M75.142 [id number] El Smith, PT [facility] [address] [place] [address] 02/22/2025 13:59:50 02/23/2025 06:43:13 Rupture of rotator cuff of right shoulder 6799538120 1886057 M75.640 [id number] El Smith, PT [facility] [address] [place] [address] 02/25/2025 14:00:12 02/25/2025 14:31:29 Rupture of rotator cuff of right shoulder [id number] 3065842 M75.101 Health Concerns Section Related Observation LastModified by Organization Detai ls LastModified Time None Recorded Concern Status LastModified by Organization Details LastModified Time None Recorded Payers Encounter Date Sequence Insurance Name Policy Number Policy Urbina Covered Member ID Urbina Member ID Guarantor Name 02/25/2025 1 [employer] [facility] [id number] Giuliano Huitron [id number] Giuliano Huitron Notes Date Note Type Note Provider Name and Address Organization Details Recorded Time 02/25/2025 text/html Patient states pain 0/10 at rest, Did not sleep well last night. El Smith, PT [address], [place], [address], [facility] 02/25/2025 15:29:27
--- OUTSIDE RECORDS SUMMARY | 2025-03-02 02:06 | XMS_ITS | Continuity of Care Document ---
Author Organization [place] - [facility], [facility] Address [address] [place] [address] Care Team Providers Care Fire And Safety Helper Name Role Phone FERMÍN PRECIADO Primary Care Provider Assessment Encounter Date Assessment Date Assessment LastModified by Organization Details LastModified Time 02/01/2025 02/01/2025 Assessment: Weekly gains with P/AAROM measures. Plan: Continue 2x/wk with P/AAROM and wean from sling use. [email or web address] Not available 02/01/2025 14:32:51 Plan of Treatment [...] PT FOLLOW-U P 2024 05:30P M Fermín Brewster DPT Not available Not [...] Time Acquired pes planus of right foot [id number] Active 2023 En Magallanes MD [address], [place], [address], [facility] 4 16:55:50 Sinus tarsi syndrome of right ankle 909068636002064 07 Active 2023 En Magallanes MD [address], [place], [address], [facility] 4 16:55:51 Problem Notes None recorded. Procedures Surgical History Date Name Laterality Status Provider Name and Address Organization Details Recorded Time 5 43969 Therapeutic Exercise (1:1) active MARYELLEN Cornell [address], [place], [address], [facility] 03/01/2025 11:19:44 5 34249: Hot or Cold Pack active Yordy Vega, AT [address], [place], [address], [facility] 03/01/2025 11:19:44 5 41006: Manual therapy active Yordy Vega, AT [address], [place], [address], [facility] 03/01/2025 11:19:44 5 69553 Therapeutic Exercise (1:1) completed Ellilia Smith, PT [address], [place], [address], [facility] 02/24/2025 19:09:05 5 63440: Hot or Cold Pack completed El Smith, PT [address], [place], [address], [facility] 02/24/2025 19:09:05 5 98289: Manual therapy completed El Smith, PT [address], [place], [address], [facility] 02/24/2025 19:09:05 5 22094 Therapeutic Exercise (1:1) completed El Smith, PT [address], [place], [address], [facility] 02/21/2025 16:53:11 5 28060: Hot or Cold Pack completed El Smith, PT [address], [place], [address], [facility] 02/21/2025 16:53:11 5 92666: Manual therapy completed El Smith, PT [address], [place], [address], [facility] 02/21/2025 16:53:11 5 99279 Therapeutic Exercise (1:1) completed El Smith, PT [address], [place], [address], [facility] 02/17/2025 15:54:11 5 39581: Hot or Cold Pack completed El Smith, PT [address], [place], [address], [facility] 02/17/2025 15:54:11 5 34272: Manual therapy completed El Smith, PT [address], [place], [address], [facility] 02/17/2025 15:54:11 5 62296 Therapeutic Exercise (1:1) completed El Smith, PT [address], [place], [address], [facility] 02/14/2025 18:36:50 5 96496: Hot or Cold Pack completed El Smith, PT [address], [place], [address], [facility] 02/14/2025 18:36:50 5 32660: Manual therapy completed El Smith, PT [address], [place], [address], [facility] 02/14/2025 18:36:50 5 14473 Therapeutic Exercise (1:1) completed Yordy Vega, AT [address], [place], [address], [facility] 02/10/2025 18:15:04 5 88564: Hot or Cold Pack completed Yordy Vega, AT [address], [place], [address], [facility] 02/10/2025 18:15:04 5 78452: Manual therapy completed Yordy Vega, AT [address], [place], [address], [facility] 02/10/2025 18:15:04 29938 Therapeutic Exercise (1:1) completed El Smith, PT [address], [place], [address], [facility] 02/04/2025 15:22:07 51145: Hot or Cold Pack completed El Smith, PT [address], [place], [address], [facility] 02/04/2025 07:04:59 34943: Manual therapy completed El Smith, PT [address], [place], [address], [facility] 02/04/2025 07:04:59 26235 Therapeutic Exercise (1:1) completed Yordy Vega, AT [address], [place], [address], [facility] 02/01/2025 14:30:41 96451: Hot or Cold Pack completed Yordy Vega, AT [address], [place], [address], [facility] 02/01/2025 14:30:41 01098: Manual therapy completed Yordy Vega, AT [address], [place], [address], [facility] 02/01/2025 14:30:41 35711 Therapeutic Exercise (1:1) completed Yordy Vega, AT [address], [place], [address], [facility] 01/28/2025 12:22:44 06074: Hot or Cold Pack completed Yordy Vega, AT [address], [place], [address], [facility] 01/28/2025 12:22:44 26200: Manual therapy completed Yordy Vega, AT [address], [place], [address], [facility] 01/28/2025 12:22:44 95476 Therapeutic Exercise (1:1) completed Yordy Vega, AT [address], [place], [address], [facility] 01/25/2025 13:31:43 67691: Hot or Cold Pack completed Yordy Vega, AT [address], [place], [address], [facility] 01/25/2025 13:31:43 80071: Manual therapy completed Yordy Vega, AT [address], [place], [address], [facility] 01/25/2025 13:31:43 64521 Therapeutic Exercise (1:1) completed Yordy Vega, AT [address], [place], [address], [facility] 01/21/2025 12:59:15 59389: Hot or Cold Pack completed Yordy Vega, AT [address], [place], [address], [facility] 01/21/2025 12:59:15 37885: Manual therapy completed Yordy Vega, AT [address], [place], [address], [facility] 01/21/2025 12:59:15 44562 Therapeutic Exercise (1:1) completed Yordy Vega, AT [address], [place], [address], [facility] 01/18/2025 14:48:44 63214: Hot or Cold Pack completed Yordy Vega, AT [address], [place], [address], [facility] 01/18/2025 14:48:44 5 05879: Manual therapy completed Yordy Vega, AT [address] [facility], [place], [address], [facility] 01/18/2025 14:48:44 5 36323 Therapeutic Exercise (1:1) completed Yordy Veag, AT [address] [facility], [place], [address], [facility] 01/15/2025 14:57:04 5 94151: Hot or Cold Pack completed Yordy Vega, AT [address] [facility], [place], [address], [facility] 01/15/2025 14:57:33 5 11169: Manual therapy completed Yordy Vega, AT [address] [facility], [place], [address], [facility] 01/15/2025 14:57:12 5 31100 Therapeutic Exercise (1:1) completed El Smith, PT [address] [facility], [place], [address], [facility] 01/14/2025 11:34:09 5 53814: Low complexity PT Eval completed El Smith, PT [address] [facility], [place], [address], [facility] 01/14/2025 11:34:11 4 Sports Shoulder completed Manas Vazquez PA-C [address] [facility], [place], [address], [facility] 09/25/2023 11:21:46 Imaging Results None recorded. [...] ICD10 Code Diagnosis IMO Codes Diagnosis Note [id number] MD [facility] [address] [place] [address] 01/15/2025 10:48:54 01/26/2025 12:35:56 Follow-up orthopedic assessment [id number] Z47.89 [id number] El Smith, PT [facility] [address] [place] [address] 01/14/2025 13:58:22 01/14/2025 17:16:55 Rupture of rotator cuff of right shoulder 6471153167 3268051 M75.511 [id number] Yordy Vega, AT [facility] [address] [place] [address] 01/15/2025 13:30:50 01/15/2025 14:54:23 Rupture of rotator cuff of right shoulder 6175876056 7286478 M75.536 [id number] Yordy Vega, AT [facility] [address] [place] [address] 01/18/2025 13:28:36 01/18/2025 14:09:17 Rupture of rotator cuff of right shoulder 5582328752 9907597 M75.397 [id number] Yordy Vega, AT [facility] [address] [place] [address] 01/21/2025 12:47:26 01/21/2025 13:49:12 Rupture of rotator cuff of right shoulder 5949935517 2669777 M75.762 [id number] Yordy Vega, AT [facility] [address] [place] [address] 01/25/2025 13:26:42 01/25/2025 14:43:58 Rupture of rotator cuff of right shoulder 7735269770 5791071 M75.074 [id number] Yordy Vega, AT [facility] [address] [place] [address] 01/28/2025 11:24:30 01/28/2025 12:44:29 Rupture of rotator cuff of right shoulder 3899653714 0592792 M75.363 [id number] Yordykisha VivarVega, AT [facility] [address] [place] [address] 02/01/2025 11:30:11 02/01/2025 12:08:36 Rupture of rotator cuff of right shoulder 2679831601 0379022 M75.101 Health Concerns Section Related Observation LastModified by Organization Detai ls LastModified Time None Recorded Concern Status LastModified by Organization Details LastModified Time None Recorded Payers Encounter Date Sequence Insurance Name Policy Number Policy Urbina Covered Member ID Urbina Member ID Guarantor Name 02/01/2025 1 [employer] [facility] [facility] ([place] [id number] Giuliano Huitron [id number] Giuliano Huitron Notes Date Note Type Note Provider Name and Address Organization Details Recorded Time 02/01/2025 text/html Patient presents today reporting 3/10 pain. Pt states sleeping much better lately. Yordy Vega, AT [address] [facility] [address], [place], [address], [facility] 02/01/2025 14:33:46
--- OUTSIDE RECORDS SUMMARY | 2025-03-02 02:06 | XMS_ITS | Continuity of Care Document ---
Author Organization [place] [facility], [facility] Address [address] [place] [address] Care Team Providers Care Middleware Systems Architect Name Role Phone FERMÍN PRECIADO Primary Care Provider Assessment No assessment recorded. Plan of Treatment Reminders Order Date Submit [...] PT FOLLOW-U P 2024 12:00P M Ellilia Michaelek, PT Not available Not available Not available PT FOLLOW-U P 2024 01:00P M El Fernandaek, PT Not available Not available Not available PT FOLLOW-U P 2024 10:00A M El Fernandaek, PT Not available Not available Not available [...] Time Acquired pes planus of right foot 328804303619235 Active 2023 nE Magallanes MD [address], [place], [address], [facility] 4 16:55:50 Sinus tarsi syndrome of right ankle 132993079380636 07 Active 2023 En Magallanes MD [address], [place], [address], [facility] 4 16:55:51 Problem Notes None recorded. Procedures Surgical History Date Name Laterality Status Provider Name and Address Organization Details Recorded Time 5 67429 Therapeutic Exercise (1:1) active Yordy Vega, AT [address], [place], [address], [facility] 03/01/2025 11:19:44 5 40944: Hot or Cold Pack active Yordy Vega, AT [address], [place], [address], [facility] 03/01/2025 11:19:44 5 50645: Manual therapy active Yordy Vega, AT [address], [place], [address], [facility] 03/01/2025 11:19:44 5 41828 Therapeutic Exercise (1:1) completed Ellilia Smith, PT [address], [place], [address], [facility] 02/24/2025 19:09:05 5 17510: Hot or Cold Pack completed Ellilia Smith, PT [address], [place], [address], [facility] 02/24/2025 19:09:05 5 76069: Manual therapy completed El Smith, PT [address], [place], [address], [facility] 02/24/2025 19:09:05 5 77533 Therapeutic Exercise (1:1) completed El Smith, PT [address], [place], [address], [facility] 02/21/2025 16:53:11 5 96424: Hot or Cold Pack completed El Smith, PT [address], [place], [address], [facility] 02/21/2025 16:53:11 5 95666: Manual therapy completed El Smith, PT [address], [place], [address], [facility] 02/21/2025 16:53:11 5 44596 Therapeutic Exercise (1:1) completed El Smith, PT [address], [place], [address], [facility] 02/17/2025 15:54:11 5 95620: Hot or Cold Pack completed Ellilia Smith, PT [address], [place], [address], [facility] 02/17/2025 15:54:11 5 92998: Manual therapy completed El Smith, PT [address], [place], [address], [facility] 02/17/2025 15:54:11 5 22512 Therapeutic Exercise (1:1) completed El Smith, PT [address], [place], [address], [facility] 02/14/2025 18:36:50 5 50902: Hot or Cold Pack completed El Smith, PT [address], [place], [address], [facility] 02/14/2025 18:36:50 5 39197: Manual therapy completed El Smith, PT [address], [place], [address], [facility] 02/14/2025 18:36:50 5 55729 Therapeutic Exercise (1:1) completed Yordy Vega, AT [address], [place], [address], [facility] 02/10/2025 18:15:04 5 73738: Hot or Cold Pack completed Yordy Vega, AT [address], [place], [address], [facility] 02/10/2025 18:15:04 5 77959: Manual therapy completed Yordy Vega, AT [address], [place], [address], [facility] 02/10/2025 18:15:04 5 56776 Therapeutic Exercise (1:1) completed El Smith, PT [address], [place], [address], [facility] 02/04/2025 15:22:07 82096: Hot or Cold Pack completed El Smith, PT [address], [place], [address], [facility] 02/04/2025 07:04:59 51186: Manual therapy completed El Smith, PT [address], [place], [address], [facility] 02/04/2025 07:04:59 88971 Therapeutic Exercise (1:1) completed Yordy Vega, AT [address], [place], [address], [facility] 02/01/2025 14:30:41 40371: Hot or Cold Pack completed Yordy Vega, AT [address], [place], [address], [facility] 02/01/2025 14:30:41 67855: Manual therapy completed Yordy Vega, AT [address], [place], [address], [facility] 02/01/2025 14:30:41 17437 Therapeutic Exercise (1:1) completed Yordy Vega, AT [address], [place], [address], [facility] 01/28/2025 12:22:44 46913: Hot or Cold Pack completed Yordy Vega, AT [address], [place], [address], [facility] 01/28/2025 12:22:44 70165: Manual therapy completed Yordy Vega, AT [address], [place], [address], [facility] 01/28/2025 12:22:44 78227 Therapeutic Exercise (1:1) completed Yordy Vega, AT [address], [place], [address], [facility] 01/25/2025 13:31:43 19531: Hot or Cold Pack completed Yordy Vega, AT [address], [place], [address], [facility] 01/25/2025 13:31:43 27885: Manual therapy completed Yordy Vega, AT [address], [place], [address], [facility] 01/25/2025 13:31:43 79522 Therapeutic Exercise (1:1) completed Yordy Vega, AT [address] [facility], [place], [address], [facility] 01/21/2025 12:59:15 30733: Hot or Cold Pack completed Yordy Vega, AT [address], [place], [address], [facility] 01/21/2025 12:59:15 61362: Manual therapy completed Yordy Vega, AT [address], [place], [address], [facility] 01/21/2025 12:59:15 77407 Therapeutic Exercise (1:1) completed Yordy Vega, AT [address], [place], [address], [facility] 01/18/2025 14:48:44 60845: Hot or Cold Pack completed Yordy Vega, AT [address], [place], [address], [facility] 01/18/2025 14:48:44 78260: Manual therapy completed Yordy Vega, AT [address], [place], [address], [facility] 01/18/2025 14:48:44 5 08833 Therapeutic Exercise (1:1) completed Yordy Vega, AT [address] [facility], [place], [address], [facility] 01/15/2025 14:57:04 5 08218: Hot or Cold Pack completed Yordy Vega, AT [address], [place], [address], [facility] 01/15/2025 14:57:33 5 43947: Manual therapy completed Yordy Vega, AT [address] [facility], [place], [address], [facility] 01/15/2025 14:57:12 5 89604 Therapeutic Exercise (1:1) completed El Smith, PT [address] [facility], [place], [address], [facility] 01/14/2025 11:34:09 5 62535: Low complexity PT Eval completed El Smith, PT [address] [facility], [place], [address], [facility] 01/14/2025 11:34:11 4 Sports Shoulder completed Manas Vazquez PA-C [address] [facility], [place], [address], [facility] 09/25/2023 11:21:46 [...] Updated DateTime 01/15/2025 165.1 cm 30 kg/m2 68539.63 g Terry Gallagher [facility] 01/15/2025 11:34:54 Social History None recorded. Functional Status None recorded. Mental Status None recorded. Family History Nothing Reported. Medical History Condition Response Allergies/Hayfever N Coronary Artery Disease N Breathing or lung disorders N Anxiety/Depression N Emphysema N Nerve Disorders N Thyroid Problems N COPD N Pacemaker N Kidney/Bladder Problems N Anemia N Vascular Disease N Heart Trouble N Heart Attack ([place]) N Gastrointestinal Disease N Cholesterol N Diabetes [...] ICD10 Code Diagnosis IMO Codes Diagnosis Note [id number] MD [facility] [address] [place] [address] 01/15/2025 10:48:54 01/26/2025 12:35:56 Follow-up orthopedic assessment [id number] Z47.89 [id number] El Smith, PT [facility] [address] [place] [address] 01/14/2025 13:58:22 01/14/2025 17:16:55 Rupture of rotator cuff of right shoulder 3200508874 [id number] M75.477 [id number] Yordy Vega, AT [facility] [address] [place] [address] 01/15/2025 13:30:50 01/15/2025 14:54:23 Rupture of rotator cuff of right shoulder 0583374610 2888298 M75.101 Health Concerns Section Related Observation LastModified by Organization Detai ls LastModified Time None Recorded Concern Status LastModified by Organization Details LastModified Time None Recorded Payers Encounter Date Sequence Insurance Name Policy Number Policy Urbina Covered Member ID Urbina Member ID Guarantor Name 01/15/2025 1 [employer] [facility] (PPO) [id number] Giuliano Huitron [id number] Giuliano Huitron Notes Date Note Type Note Provider Name and Address Organization Details Recorded Time 01/15/2025 text/html Patient presents today reporting 4/10 pain. Pt states sleep is difficult. Yordy Vega, AT [address], [place], [address], [facility] 01/15/2025 14:59:49 01/15/2025 text/html Surgery: Right shoulder calcium excision with subsequent 1+1 double row supraspinatus repair, [facility], 12/30/2024 Interval History: Giuliano returns today in [...] and well perfused. 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 [facility] speech recognition broadcast technician software was used to create portions of this document. An attempt at proofreading has been made to minimize errors. Please call for corrections. Marielos Phillips MD [address] [place] [address] [address], [place], [address], [facility] 01/15/2025 12:02:30
--- OUTSIDE RECORDS SUMMARY | 2025-03-02 02:06 | XMS_ITS | Continuity of Care Document ---
Author Organization [place] - [facility], [facility] Address [address] [place] [address] Care Team Providers Care Spanish Speaking Babysitter Name Role Phone FERMÍN PRECIADO Primary Care Provider [phone] Assessment Encounter Date Assessment Date Assessment LastModified by Organization Details LastModified Time 02/15/2025 02/15/2025 Assessment: Making gains in ROM, a little [...] T-Bands with light resistance. [email or web address] Not available 02/15/2025 13:54:10 Plan of Treatment Reminders Order Date Submit [...] Time Acquired pes planus of right foot [id number] Active 2023 En Magallanes MD [address], [place], [address], [facility] 4 16:55:50 Sinus tarsi syndrome of right ankle [id number] 07 Active 2023 En Magallanes MD [address], [place], [address], [facility] 4 16:55:51 Problem Notes None recorded. Procedures Surgical History Date Name Laterality Status Provider Name and Address Organization Details Recorded Time 5 03077 Therapeutic Exercise (1:1) active Yordy Vega, AT [address], [place], [address], [facility] 03/01/2025 11:19:44 5 50000: Hot or Cold Pack active Yordy Vega, AT [address], [place], [address], [facility] 03/01/2025 11:19:44 5 31462: Manual therapy active Yordy Vega, AT [address], [place], [address], [facility] 03/01/2025 11:19:44 5 05832 Therapeutic Exercise (1:1) completed El Smith, PT [address], [place], [address], [facility] 02/24/2025 19:09:05 5 18932: Hot or Cold Pack completed El Smith, PT [address], [place], [address], [facility] 02/24/2025 19:09:05 5 86651: Manual therapy completed El Smith, PT [address], [place], [address], [facility] 02/24/2025 19:09:05 5 57783 Therapeutic Exercise (1:1) completed El Smith, PT [address], [place], [address], [facility] 02/21/2025 16:53:11 5 19390: Hot or Cold Pack completed El Smith, PT [address], [place], [address], [facility] 02/21/2025 16:53:11 5 31322: Manual therapy completed El Smith, PT [address], [place], [address], [facility] 02/21/2025 16:53:11 5 47967 Therapeutic Exercise (1:1) completed El Smith, PT [address], [place], [address], [facility] 02/17/2025 15:54:11 5 83095: Hot or Cold Pack completed El Smith, PT [address], [place], [address], [facility] 02/17/2025 15:54:11 5 72745: Manual therapy completed El Smith, PT [address], [place], [address], [facility] 02/17/2025 15:54:11 5 47811 Therapeutic Exercise (1:1) completed El Smith, PT [address], [place], [address], [facility] 02/14/2025 18:36:50 5 75219: Hot or Cold Pack completed El Smith, PT [address], [place], [address], [facility] 02/14/2025 18:36:50 5 42140: Manual therapy completed El Smith, PT [address], [place], [address], [facility] 02/14/2025 18:36:50 5 95678 Therapeutic Exercise (1:1) completed Yordy Vega AT [address], [place], [address], [facility] 02/10/2025 18:15:04 53812: Hot or Cold Pack completed Yordy Vega, AT [address], [place], [address], [facility] 02/10/2025 18:15:04 55527: Manual therapy completed Yordy Vega, AT [address], [place], [address], [facility] 02/10/2025 18:15:04 03124 Therapeutic Exercise (1:1) completed El Smith, PT [address], [place], [address], [facility] 02/04/2025 15:22:07 87916: Hot or Cold Pack completed El Smith, PT [address], [place], [address], [facility] 02/04/2025 07:04:59 68126: Manual therapy completed El Smith, PT [address], [place], [address], [facility] 02/04/2025 07:04:59 04444 Therapeutic Exercise (1:1) completed Yordy Vega, AT [address], [place], [address], [facility] 02/01/2025 14:30:41 91960: Hot or Cold Pack completed Yordy Vega, AT [address], [place], [address], [facility] 02/01/2025 14:30:41 19058: Manual therapy completed Yordy Vega, AT [address], [place], [address], [facility] 02/01/2025 14:30:41 08751 Therapeutic Exercise (1:1) completed Yordy Vega, AT [address], [place], [address], [facility] 01/28/2025 12:22:44 01537: Hot or Cold Pack completed Yordy Vega, AT [address], [place], [address], [facility] 01/28/2025 12:22:44 76743: Manual therapy completed Yordy Vega, AT [address], [place], [address], [facility] 01/28/2025 12:22:44 12150 Therapeutic Exercise (1:1) completed Yordy Vega, AT [address], [place], [address], [facility] 01/25/2025 13:31:43 84458: Hot or Cold Pack completed Yordy Vega, AT [address], [place], [address], [facility] 01/25/2025 13:31:43 06246: Manual therapy completed Yordy Vega, AT [address], [place], [address], [facility] 01/25/2025 13:31:43 38626 Therapeutic Exercise (1:1) completed Yordy Vega, AT [address], [place], [address], [facility] 01/21/2025 12:59:15 02529: Hot or Cold Pack completed Yordy Vega, AT [address], [place], [address], [facility] 01/21/2025 12:59:15 90473: Manual therapy completed Yordy Vega, AT [address], [place], [address], [facility] 01/21/2025 12:59:15 59063 Therapeutic Exercise (1:1) completed Yordy Vega, AT [address], [place], [address], [facility] 01/18/2025 14:48:44 75303: Hot or Cold Pack completed Yordy Vega, AT [address] [facility], [place], [address], [facility] 01/18/2025 14:48:44 94321: Manual therapy completed Yordy Vega, AT [address] [facility], [place], [address], [facility] 01/18/2025 14:48:44 77171 Therapeutic Exercise (1:1) completed Yordy Vega, AT [address] [facility] [facility], [place], [address], [facility] 01/15/2025 14:57:04 41270: Hot or Cold Pack completed Yordy Vega, AT [address], [place], [address], [facility] 01/15/2025 14:57:33 54350: Manual therapy completed Yordy Vega, AT [address], [place], [address], [facility] 01/15/2025 14:57:12 07477 Therapeutic Exercise (1:1) completed El Smith, PT [address] [facility], [place], [address], [facility] 01/14/2025 11:34:09 37658: Low complexity PT Eval completed El Smith, PT [address] [facility], [place], [address], [facility] 01/14/2025 11:34:11 Sports Shoulder completed [facility] [address], [place], [address], [facility] 09/25/2023 11:21:46 Imaging Results [...] Disease N Heart Trouble N Heart Attack (PA) N Gastrointestinal Disease N Cholesterol N Diabetes [...] ICD10 Code Diagnosis IMO Codes Diagnosis Note [id number] Marielos Phillips MD [facility] [address] [place] [address] 01/15/2025 10:48:54 01/26/2025 12:35:56 Follow-up orthopedic assessment [id number] Z47.89 [id number] Yordy Vega, AT [facility] [address] [place] [address] 01/15/2025 13:30:50 01/15/2025 14:54:23 Rupture of rotator cuff of right shoulder [id number] M75.303 [id number] Yordy Vega, AT [facility] [address] [place] [address] 01/18/2025 13:28:36 01/18/2025 14:09:17 Rupture of rotator cuff of right shoulder [id number] M75.386 [id number] Yordy Vega, AT [facility] [address] [place] [address] 01/21/2025 12:47:26 01/21/2025 13:49:12 Rupture of rotator cuff of right shoulder [id number] M75.798 [id number] Yordy Vega, AT [facility] [address] [place] [address] 01/25/2025 13:26:42 01/25/2025 14:43:58 Rupture of rotator cuff of right shoulder [id number] M75.972 [id number] Yordy Vega, AT [facility] [address] [place] [address] 01/28/2025 11:24:30 01/28/2025 12:44:29 Rupture of rotator cuff of right shoulder [id number] [id number] M75.382 [id number] Yordy Vega, AT [facility] [address] [place] [address] 02/01/2025 11:30:11 02/01/2025 12:08:36 Rupture of rotator cuff of right shoulder [id number] M75.722 [id number] El Smith, PT [facility] [address] [place] [address] 02/04/2025 13:19:30 02/04/2025 14:04:40 Rupture of rotator cuff of right shoulder [id number] M75.535 [id number] Yordy Vega, AT [facility] [address] [place] [address] 02/10/2025 16:10:37 02/10/2025 17:00:46 Rupture of rotator cuff of right shoulder [id number] M75.653 [id number] El Smith, PT [facility] [address] [place] [address] 02/15/2025 12:58:31 02/15/2025 13:28:56 Rupture of rotator cuff of right shoulder [id number] [id number] M75.101 Health Concerns Section Related Observation LastModified by Organization Detai ls LastModified Time None Recorded Concern Status LastModified by Organization Details LastModified Time None Recorded Payers Encounter Date Sequence Insurance Name Policy Number Policy Urbina Covered Member ID Urbina Member ID Guarantor Name 02/15/2025 1 [employer] [facility] [id number] Giuliano Huitron [id number] Giuliano Huitron Notes Date Note Type Note Provider Name and Address Organization Details Recorded Time 02/15/2025 text/html Patient state pain 0/10 at rest, pain 4/10 with movement. El Smith, PT [address], [place], [address], [facility] 02/15/2025 13:54:22
--- OUTSIDE RECORDS SUMMARY | 2025-03-02 02:06 | XMS_ITS | Continuity of Care Document ---
Author Organization [place] - [facility], [facility] 2nd floor Address [address] [place] [address] Care Team Providers Care Quality Coordinator Name Role Phone FERMÍN PRECIADO Primary Care Provider [phone] Assessment No assessment recorded. Plan of Treatment Reminders Order Date Submit Date Provider Last Modified By Organization Details Last Modified Time Details Appointments PT FOLLOW-UP 2024 10:00A M Fermín Brewster DPT Not available Not available Not available PT FOLLOW-UP 2024 11:30A M Fermín Brewster DPT Not available Not available Not available PT FOLLOW-UP 2024 11:30A M Fermín Brewster, DPT Not available Not available Not available PT FOLLOW-UP 2024 05:30P M Fermín Brewster DPT Not available Not available Not available PT FOLLOW-UP 2024 12:00P M El Smith, PT Not available Not available Not available PT FOLLOW-UP 2024 01:00P M El Smith, PT Not available Not available Not available PT FOLLOW-UP 2024 10:00A M El Smith, PT Not available Not available Not available PT FOLLOW-UP 2024 10:00A M El Smith, PT Not available Not available Not available PT FOLLOW-UP 2024 11:30A M Fermín Brewster DPT Not available Not available Not available RECHECK 15 2024 09:30A M En Magallanes MD Not available Not available Not available PT FOLLOW-UP 2024 10:00A M Fermín Brewster, DPT Not available Not available Not available PT FOLLOW-UP 2024 11:00A M Fermín Brewster, DPT Not available Not available Not available PT FOLLOW-UP 2025 10:00A M Fermín Brewster, DPT Not available Not available Not available POST OP 15 2025 09:30A M Marielos Phillips MD Not available Not available Not available Lab None recorded. Referral None recorded. Procedures None recorded. Surgeries None recorded. Imaging None recorded. Medication Orders oxycodone [address] [id number] [address] [place], [address], 12/25/2024 17:20:37 Colace 100 [address] capsule [address] [id number], [address] [place] [address], [address], 12/25/2024 17:20:35 acetamino phen 500 mg tablet [address] [id number], [address] [place], [address], 12/25/2024 17:20:35 naproxen 500 [address] tablet [address] [id number] [address] [place], [address], 01/06/2025 05:01:36 aspirin 325 mg tablet [address] [id number] [address] [place], [address], 01/15/2025 05:01:57 Patient TargetsNo targets recorded. Patient InstructionsNo instructions recorded. Reason for Referral None Reported. Results Created Date Observation Date Name Description Value Unit Range Abnormal Flag Note LastModifiedBy Organization Detail LastModifiedTime 11/14/19 25 11/13/2024 XR, shoul debra, 2 or more view [email or web address] ?Encry pted=s hAaTro YD8dLq bEUv6g %2BXZw aYqtaq 0bqfl% 2Fg9IQ a4ajBk vP9nXo QUaueC m3YtLR FvZlgJ JJ8mAn HZtai3 2e6895 AC0Klb niGVqu lKiQtr MwF INTERFACE [facility] [address], [place], [address], 11/13/2024 15:34:27 11/14/19 25 11/13/2024 XR, shoul debra, 2 or more view [email or web address] ?Encry pted=s hAaTro YD8dLq bEUv6g %2BXZw aYqtaq 0bqfl% 2Fg9IQ a4ajBk vP9nXo QUaueC m3YtLR FvZl JJ8mAn HZtai3 3b8012 AC0Klb niGVqu lKiQtr MwF INTERFACE [facility] [address], [place], [address], 11/13/2024 15:34:29 11/14/19 25 11/13/2024 XR, shoul debra, 2 or more view [email or web address] ?Encry pted=s hAaTro YD8dLq bEUv6g %2BXZw aYqtaq 0bqfl% 2Fg9IQ a4ajBk vP9nXo QUaueC m3YtLR FvZlg JJ8mAn HZtai3 2l5594 AC0Klb niBUKa uKiQtr MwF INTERFACE [facility] [address], [place], [address], 11/13/2024 16:07:54 11/14/19 25 11/13/2024 XR, shoul debra, 2 or more view [email or web address] ?Encry pted=s Diana YD8dLq bEUv6g %2BXZw aYqtaq 0bqfl% 2Fg9IQ a4ajBk vP9nXo QUaueC m3YtLR FvZlgJ JJ8mAn HZtai3 1d8864 AC0Klb niBUKa uKiQtr MwF INTERFACE [facility] [address], [place], [address], 11/13/2024 16:07:56 11/21/19 25 11/19/2024 MRI, dipika richardson, w/o contr ast [facility] Access ion Number : [id number] Fabiana thibodeaux Name: Giuliano Huitron Record Number : [id number] Date of : 1979 Date of Exam: 2024 Referr ing Physic joy: Marielos Phillips [address], Attn.: [place] [address] Exam: MR Should er (C-) CPT 06294 - Right Room Descri ption: [place] GE Pion 3T Should er MRI right Clinic al Histor y: Pain Findin gs: Some sequen jad are degrad ed by motion artifa ct. The supras pinatu s tendon is intact . The infras pinatu s tendon is intact . Foci of calcif ic tendin itis/H ADD within footpr int fibers at the conflu ence of the supras pinatu s and infras pinatu s tendon s. Small amount of adjace nt soft tissue edema with a small adjace nt subacr omial/ subdel toid bursit is. The teres minor tendon is intact . The subsca pulari s tendon is intact . The long head of the biceps tendon is intact . Possib le SLAP III lesion within the superi or and three knife trimmer ior-ortiz perior labrum on image 15 of series 4. Impres kaushik: Foci of calcif ic tendin itis/H ADD within footpr int fibers at the conflu ence of the supras pinatu s and infras pinatu s tendon s. There is a small amount of adjace nt soft tissue edema and a small adjace nt subacr omial/ subdel toid bursit is. Foci of HADD may be active given the adjace nt edema and bursit is Possib le SLAP III lesion . Electr onical ly Signed By: Asad Beavers MD [email or web address] [facility] ([facility]) [address], [place], [address], 11/25/2024 08:54:20 Result Notes None recorded. Problems Name Problem SNOMED Code Status Onset Date Resolution Date Notes Provider Name and Address Organization Details Recorded Time Acquired pes planus of right foot 814989566290890 Active 2023 En Magallanes MD [address], [place], [address], [facility] 4 16:55:50 Sinus tarsi syndrome of right ankle 447767123414846 07 Active 2023 En Magallanes MD [address], [place], [address], [facility] 4 16:55:51 Problem Notes None recorded. Procedures Surgical History Date Name Laterality Status Provider Name and Address Organization Details Recorded Time 5 34854 Therapeutic Exercise (1:1) active Yordy Vega, AT [address], [place], [address], [facility] 03/01/2025 11:19:44 5 88319: Hot or Cold Pack active Yordy Vega, AT [address], [place], [address], [facility] 03/01/2025 11:19:44 5 27715: Manual therapy active Yordy Vega, AT [address], [place], [address], [facility] 03/01/2025 11:19:44 5 30397 Therapeutic Exercise (1:1) completed El Smith, PT [address], [place], [address], [facility] 02/24/2025 19:09:05 5 22220: Hot or Cold Pack completed Ellilia Smith, PT [address], [place], [address], [facility] 02/24/2025 19:09:05 5 12637: Manual therapy completed El Smith, PT [address], [place], [address], [facility] 02/24/2025 19:09:05 5 93726 Therapeutic Exercise (1:1) completed El Smith, PT [address], [place], [address], [facility] 02/21/2025 16:53:11 5 29562: Hot or Cold Pack completed El Smith, PT [address], [place], [address], [facility] 02/21/2025 16:53:11 5 27244: Manual therapy completed El Smith, PT [address], [place], [address], [facility] 02/21/2025 16:53:11 5 35884 Therapeutic Exercise (1:1) completed El Smith, PT [address], [place], [address], [facility] 02/17/2025 15:54:11 5 43245: Hot or Cold Pack completed El Smith, PT [address], [place], [address], [facility] 02/17/2025 15:54:11 5 10259: Manual therapy completed El Smith, PT [address], [place], [address], [facility] 02/17/2025 15:54:11 5 18434 Therapeutic Exercise (1:1) completed El Smith, PT [address], [place], [address], [facility] 02/14/2025 18:36:50 5 94608: Hot or Cold Pack completed El Smith, PT [address], [place], [address], [facility] 02/14/2025 18:36:50 5 18055: Manual therapy completed El Smith, PT [address], [place], [address], [facility] 02/14/2025 18:36:50 5 72931 Therapeutic Exercise (1:1) completed Yordy Vega, AT [address], [place], [address], [facility] 02/10/2025 18:15:04 5 97623: Hot or Cold Pack completed Yordy Vega, AT [address], [place], [address], [facility] 02/10/2025 18:15:04 5 52032: Manual therapy completed Yordy Vega, AT [address], [place], [address], [facility] 02/10/2025 18:15:04 5 63744 Therapeutic Exercise (1:1) completed El Smith, PT [address], [place], [address], [facility] 02/04/2025 15:22:07 5 35521: Hot or Cold Pack completed El Smith, PT [address], [place], [address], [facility] 02/04/2025 07:04:59 5 39727: Manual therapy completed El Smith, PT [address], [place], [address], [facility] 02/04/2025 07:04:59 97477 Therapeutic Exercise (1:1) completed Yordy Vega, AT [address], [place], [address], [facility] 02/01/2025 14:30:41 51149: Hot or Cold Pack completed Yordy Vega, AT [address], [place], [address], [facility] 02/01/2025 14:30:41 60932: Manual therapy completed Yordy Vega, AT [address], [place], [address], [facility] 02/01/2025 14:30:41 27977 Therapeutic Exercise (1:1) completed Yordy Vega, AT [address], [place], [address], [facility] 01/28/2025 12:22:44 98765: Hot or Cold Pack completed Yordy Vega, AT [address], [place], [address], [facility] 01/28/2025 12:22:44 57702: Manual therapy completed Yordy Vega, AT [address], [place], [address], [facility] 01/28/2025 12:22:44 99192 Therapeutic Exercise (1:1) completed Yordy Vega, AT [address], [place], [address], [facility] 01/25/2025 13:31:43 75544: Hot or Cold Pack completed Yordy Vega, AT [address], [place], [address], [facility] 01/25/2025 13:31:43 10639: Manual therapy completed Yordy Vega, AT [address], [place], [address], [facility] 01/25/2025 13:31:43 61721 Therapeutic Exercise (1:1) completed Yordy Vega, AT [address], [place], [address], [facility] 01/21/2025 12:59:15 79331: Hot or Cold Pack completed Yordy Vega, AT [address], [place], [address], [facility] 01/21/2025 12:59:15 06853: Manual therapy completed Yordy Vega, AT [address], [place], [address], [facility] 01/21/2025 12:59:15 16101 Therapeutic Exercise (1:1) completed Yordy Vega, AT [address], [place], [address], [facility] 01/18/2025 14:48:44 16720: Hot or Cold Pack completed Yordy Vega AT [address], [place], [address], [facility] 01/18/2025 14:48:44 31785: Manual therapy completed Yordy Vega, AT [address], [place], [address], [facility] 01/18/2025 14:48:44 56669 Therapeutic Exercise (1:1) completed Yordy Vega AT [address], [place], [address], [facility] 01/15/2025 14:57:04 5 54156: Hot or Cold Pack completed Yordy Vega, AT [address] [facility], [place], [address], [facility] 01/15/2025 14:57:33 5 55912: Manual therapy completed Yordy Vega, AT [address], [place], [address], [facility] 01/15/2025 14:57:12 5 59225 Therapeutic Exercise (1:1) completed El Smith, PT [address] [facility], [place], [address], [facility] 01/14/2025 11:34:09 5 67478: Low complexity PT Eval completed El Smith, PT [address], [place], [address], [facility] 01/14/2025 11:34:11 4 Sports Shoulder completed Manas Vazquez PA-C [address] [facility], [place], [address], [facility] 09/25/2023 11:21:46 Imaging Results None recorded. [...] height Body mass index (BMI) Body weight Body temperature Oxygen saturation Oxygen saturation in Arterial blood by Pulse oximetry Heart rate Systolic And Diastolic Provider Name and Address Organization Details Last Updated DateTime 165.1 cm 30 kg/m2 10822.6 3 g 97.5 [degF] 97 % 97 % 79 /min 116/74 mm[Hg] Terry Gallagher [place] - [facility] 14:33:49 Social History None recorded. Functional Status None recorded. Mental Status None recorded. Family History Nothing Reported. Medical History Condition Response Allergies/Hayfever N Coronary Artery Disease N Breathing or lung disorders N Anxiety/Depression N Emphysema N Nerve Disorders N Thyroid Problems N COPD N Pacemaker N Kidney/Bladder Problems N Anemia N Vascular Disease N Heart Trouble N Heart Attack ([place]) N Gastrointestinal Disease N Cholesterol N Diabetes [...] ICD10 Code Diagnosis IMO Codes Diagnosis Note [id number] MD TIFFANI Morse Abiel [address] [place] [address] 11/13/2024 14:35:04 11/24/2024 09:27:50 Pain of right shoulder joint 1340921770 [id number] M25.511 908496 Pain of le ft shoulder joint 6855237266 1960615 M25.512 207048 Impingemen t syndrome of right shoulder region 7229297823 21320 M75.41 [id number] MD TIFFANI Morse 2nd floor [address] [facility] [place] [address] 12/04/2024 14:25:21 12/26/2024 08:10:46 Calcific tendinitis of right shoulder [id number] 45162 M75.31 [id number] Health Concerns Section Related Observation LastModified by Organization Detai ls LastModified Time None Recorded Concern Status LastModified by Organization Details LastModified Time None Recorded Payers Encounter Date Sequence Insurance Name Policy Number Policy Urbina Covered Member ID Urbina Member ID Guarantor Name 12/04/2024 1 [employer] [facility] ([id number]) [id number] Giuliano Huitron [id number] Giuliano Huitron Notes Date Note Type Note Provider Name and Address Organization Details Recorded Time 12/04/2024 text/html URGICAL DECISION MAKING Issue: Right shoulder calcific tendinitis HPI: 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 I first met him 2 years ago, at which point his biggest complaint was pain in the left shoulder. He responded very well to cortisone injection here. Right shoulder diagnosis has been calcific tendinitis. Cortisone injection here has been beneficial, but symptoms have recurred over time. Had a second injection a year ago, which again provided temporary improvement in symptoms. Does have a history of a previous injury here at 30 years old, never treated. Pain is felt of the lateral brachium, exacerbated by overhead reach, weightbearing, lifting, repetitive activity. This is limited his ability to go to the gym, something that is very important for his mental health. . Given ongoing symptoms refractory to conservative management, we are planning to move forward with surgical intervention. 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 . Denies tobacco or alcohol use. Family Hx: noncontributory ROS: Negative x12 except as noted above in the HPI Past family, medical, social history and review of systems have been reviewed and updated on the medical history sheet saved to the patient's chart. A 12-point review of systems is negative x12 except as noted above and/or on the medical history sheet. Examination: Pleasant 44-year-old gentleman in no acute distress. 5 feet 5 inches, 180 pounds. Neuro: Awake, alert and orientedNeck: SuppleHEENT: Oropharynx clearChest: No increased work of breathing, no audible wheezeHeart: Regular rate by palpation peripherallyAbdomen: Soft nontender nondistended MSK: On exam of the Right upper surgery, skin over the shoulder is intact. No effusion, no gross atrophy. Tender to palpation throughout. Active and passive forward elevation 160 with positive Neer and Gonzalez. Passive external rotation 70 with negative ER lag. Internal rotation L4 with pain at end ranges throughout. 5/5 strength with internal and external rotation as well as empty can. Pain with empty can and resisted external rotation. Positive Yergason's. Mild positive cross body adduction. Mildly positive Sunflower's. Sensation intact in an axillary distribution. Fires EPL, FPL and intrinsics. Hand is warm and well-perfused.Imaging : 4 views of the right shoulder were ordered and obtained at [facility] 11/13/2024 were reviewed on OrthoPACS during the visit. These demonstrate a calcium deposit sitting adjacent to the mid tuberosity. This is larger than seen on previous x-rays, with some heterogeneity, suggesting an acute on chronic process. Mild a.c. arthrosis. Type II acromion. Humeral head centered on axillary view. Approximately the humeral head. Right shoulder MRI performed at [facility] 11/19/2024 independently reviewed by me on Ortho PACS during the visit today. These demonstrate multiple small and 1 larger calcium deposit sitting within the posterior superior cuff, near the border between supraspinatus and infraspinatus and extending posteriorly from here. Deposit takes up at least 50% of the bursal surface of the rotator cuff. Type II acromion. Moderate AC arthrosis. Possible type II SLAP tear. Subscapularis is intact. Minimal degenerative changes to glenohumeral articular cartilage surfaces. 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 Given ongoing symptoms refractory to conservative management, we are planning to move forward with surgical intervention. Plan: Plan for surgery will be arthroscopy with calcium excision, possible rotator cuff repair, SA D DCE, possible biceps tenodesis if SLAP pathology identified intraoperatively. The technical details of surgery were reviewed during the visit. The typical downtime and recovery from such a surgery was discussed, and postoperative restrictions and instructions reviewed with appropriate handouts given. 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 The patient and his expressed understanding of this discussion. Questions were elicited and answered to the patient's satisfaction. Postoperative pain medication prescriptions (Tylenol, naproxen and oxycodone) e-prescribed to the patient's pharmacy from the office today. Postop DVT prophylaxis will be: Aspirin 325 daily x 2 weeks. The postoperative medication regimen was discussed in detail, including the risks and benefits of each medication in turn. We will have the patient go down stairs at the end of the appointment to be fit for a postoperative sling. The patient would benefit from a preoperative nerve block, to be performed by anesthesia, for postoperative pain control. DME: The patient has weakness and instability of their extremity which requires stabilization for this semi-rigid/rigid orthosis to improve their function. Verbal and written instructions for the use and application of this item were given. Patient was instructed that should the brace result in increased pain, decreased sensation, increased swelling or an overall worsening of their medical condition, to please contact our office immediately. [employer] speech recognition it associate software was used to create portions of this document. An attempt at proofreading has been made to minimize errors. Please call for corrections. Marielos Phillips MD [address] [place], [place] [address], [place], [address], [facility] 12/25/2024 17:20:35
--- OUTSIDE RECORDS SUMMARY | 2025-03-02 02:06 | XMS_ITS | Data Portability ---
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 [email or web address] Not available 02/10/2025 18:21:18 02/15/2025 02/15/2025 Assessment: Making gains in ROM, [...] and biomechanics, add T-Bands with light resistance. Not available 02/15/2025 13:54:10 02/18/2025 02/18/2025 Assessment: Making gains in ROM, [...] and biomechanics, add T-Bands with light resistance. Not available 02/17/2025 15:54:11 02/22/2025 02/22/2025 Assessment: Making gains in ROM, good biomechanics [...] and biomechanics, add T-Bands with light resistance. Not available 02/22/2025 19:15:10 02/25/2025 02/25/2025 Assessment: Making gains in ROM, [...] and biomechanics, add T-Bands with light resistance. Not available 02/24/2025 19:09:05 Plan of Treatment [...] Time Acquired pes planus of right foot [id number] Active 2023 En Magallanes MD [address], [place], [address], [facility] 4 16:55:50 Sinus tarsi syndrome of right ankle [id number] 07 Active 2023 En Magallanes MD [address], [place], [address], [facility] 4 16:55:51 Problem Notes None recorded. Procedures Surgical History Date Name Laterality Status Provider Name and Address Organization Details Recorded Time 5 99568 Therapeutic Exercise (1:1) active Yordy Vega, AT [address], [place], [address], [facility] 03/01/2025 11:19:44 5 60431: Hot or Cold Pack active Yordy Vega, AT [address], [place], [address], [facility] 03/01/2025 11:19:44 5 40098: Manual therapy active Yordy Vega, AT [address], [place], [address], [facility] 03/01/2025 11:19:44 5 45342 Therapeutic Exercise (1:1) completed El Smith, PT [address], [place], [address], [facility] 02/24/2025 19:09:05 5 09425: Hot or Cold Pack completed El Florek, PT [address], [place], [address], [facility] 02/24/2025 19:09:05 5 78743: Manual therapy completed El Florek, PT [address], [place], [address], [facility] 02/24/2025 19:09:05 5 70193 Therapeutic Exercise (1:1) completed El Florek, PT [address], [place], [address], [facility] 02/21/2025 16:53:11 5 78849: Hot or Cold Pack completed El Fernandaek, PT [address], [place], [address], [facility] 02/21/2025 16:53:11 5 55132: Manual therapy completed El Florek, PT [address], [place], [address], [facility] 02/21/2025 16:53:11 5 48426 Therapeutic Exercise (1:1) completed Ellilia Michaelek, PT [address], [place], [address], [facility] 02/17/2025 15:54:11 5 33559: Hot or Cold Pack completed El Florek, PT [address], [place], [address], [facility] 02/17/2025 15:54:11 5 42534: Manual therapy completed El Florek, PT [address], [place], [address], [facility] 02/17/2025 15:54:11 5 32383 Therapeutic Exercise (1:1) completed El Florek, PT [address], [place], [address], [facility] 02/14/2025 18:36:50 5 19588: Hot or Cold Pack completed El Smith, PT [address], [place], [address], [facility] 02/14/2025 18:36:50 5 97475: Manual therapy completed El Smith, PT [address], [place], [address], [facility] 02/14/2025 18:36:50 5 00483 Therapeutic Exercise (1:1) completed Yordy Vega, AT [address], [place], [address], [facility] 02/10/2025 18:15:04 5 92782: Hot or Cold Pack completed Yordy Vgea, AT [address], [place], [address], [facility] 02/10/2025 18:15:04 95363: Manual therapy completed Yordy Vega, AT [address], [place], [address], [facility] 02/10/2025 18:15:04 5 66203 Therapeutic Exercise (1:1) completed El Smith, PT [address], [place], [address], [facility] 02/04/2025 15:22:07 5 83937: Hot or Cold Pack completed El Smith, PT [address], [place], [address], [facility] 02/04/2025 07:04:59 35031: Manual therapy completed El Smith, PT [address], [place], [address], [facility] 02/04/2025 07:04:59 86457 Therapeutic Exercise (1:1) completed Yordy Vega, AT [address], [place], [address], [facility] 02/01/2025 14:30:41 86833: Hot or Cold Pack completed Yordy Vega, AT [address], [place], [address], [facility] 02/01/2025 14:30:41 99847: Manual therapy completed Yordy Vega, AT [address], [place], [address], [facility] 02/01/2025 14:30:41 19893 Therapeutic Exercise (1:1) completed Yordy Vega, AT [address], [place], [address], [facility] 01/28/2025 12:22:44 40195: Hot or Cold Pack completed Yordy Vega, AT [address], [place], [address], [facility] 01/28/2025 12:22:44 96131: Manual therapy completed Yordy Vega, AT [address], [place], [address], [facility] 01/28/2025 12:22:44 10277 Therapeutic Exercise (1:1) completed Yordy Vega, AT [address], [place], [address], [facility] 01/25/2025 13:31:43 99858: Hot or Cold Pack completed Yordy Vega, AT [address], [place], [address], [facility] 01/25/2025 13:31:43 24892: Manual therapy completed Yordy Vega, AT [address], [place], [address], [facility] 01/25/2025 13:31:43 44307 Therapeutic Exercise (1:1) completed Yordy Vega, AT [address], [place], [address], [facility] 01/21/2025 12:59:15 97277: Hot or Cold Pack completed Yordy Vega, AT [address], [place], [address], [facility] 01/21/2025 12:59:15 73235: Manual therapy completed Yordy Vega, AT [address], [place], [address], [facility] 01/21/2025 12:59:15 49165 Therapeutic Exercise (1:1) completed Yordy Vega, AT [address], [place], [address], [facility] 01/18/2025 14:48:44 89866: Hot or Cold Pack completed Yordy Vega, AT [address], [place], [address], [facility] 01/18/2025 14:48:44 88582: Manual therapy completed Yordy Vega, AT [address], [place], [address], [facility] 01/18/2025 14:48:44 57117 Therapeutic Exercise (1:1) completed Yordy Vega, AT [address], [place], [address], [facility] 01/15/2025 14:57:04 22446: Hot or Cold Pack completed Yordy Vega, AT [address], [place], [address], [facility] 01/15/2025 14:57:33 5 71639: Manual therapy completed Yordy Vega, AT [address], [place], [address], [facility] 01/15/2025 14:57:12 5 02826 Therapeutic Exercise (1:1) completed El Smith, PT [address], [place], [address], [facility] 01/14/2025 11:34:09 5 61216: Low complexity PT Eval completed El Smith, PT [address], [place], [address], [facility] 01/14/2025 11:34:11 4 Sports Shoulder completed Manas Vazquez PA-C [address], [place], [address], [facility] 09/25/2023 11:21:46 Imaging Results None recorded. [...] Disease N Heart Trouble N Heart Attack ([place]) N Gastrointestinal Disease N Cholesterol N Diabetes [...] ICD10 Code Diagnosis IMO Codes Diagnosis Note [id number] En Magallanes MD [facility] 1st Floor [address] [facility] [place] [address] 09/11/2023 13:26:03 10/09/2023 12:51:26 Ankle pain 839476349 M25.579 Acquired p es planus of right foot 4731738145 06897 M21.41 Sinus tars i syndrome of right ankle 3455572856 9175539 M25.081 [id number] [facility] 2nd floor [address] [facility] [place] [address] 09/25/2023 10:39:23 10/30/2023 15:24:08 Pain of right shoulder joint 7857527014 6914400 M25.511 Calcific t endinitis of right shoulder 1394618687 11230 M75.31 [id number] MD TIFFANI Morse Abiel [address] [place] [address] 11/13/2024 14:35:04 11/24/2024 09:27:50 Pain of right shoulder joint 2843907960 4794574 M25.511 540779 Pain of le ft shoulder joint 3885432030 3028622 M25.512 033036 Impingemen t syndrome of right shoulder region 5332730280 38709 M75.41 [id number] [facility] 2nd floor [address] [place] [address] 12/04/2024 14:25:21 12/26/2024 08:10:46 Calcific tendinitis of right shoulder 5870961719 13626 M75.31 [id number] MD TIFFANI Morse [address] [place] [address] 01/15/2025 10:48:54 01/26/2025 12:35:56 Follow-up orthopedic assessment [id number] Z47.89 [id number] El Smith, PT [facility] [address] [place] [address] 01/14/2025 13:58:22 01/14/2025 17:16:55 Rupture of rotator cuff of right shoulder 7532931499 0528443 M75.791 [id number] Yordy Vega, AT [facility] PT [address] [place] [address] 01/15/2025 13:30:50 01/15/2025 14:54:23 Rupture of rotator cuff of right shoulder 9919043704 1984072 M75.009 [id number] Yordy Vega, AT [facility] PT [address] [place] [address] 01/18/2025 13:28:36 01/18/2025 14:09:17 Rupture of rotator cuff of right shoulder 2076041132 0536566 M75.807 [id number] Yordy Vega, AT [facility] PT [address] [place] [address] 01/21/2025 12:47:26 01/21/2025 13:49:12 Rupture of rotator cuff of right shoulder 1016976557 1393648 M75.514 [id number] [facility] [address] [place] [address] 01/25/2025 13:26:42 01/25/2025 14:43:58 Rupture of rotator cuff of right shoulder 8396346518 9148933 M75.142 [id number] Yordykisha VivarVega, AT [facility] [address] [place] [address] 01/28/2025 11:24:30 01/28/2025 12:44:29 Rupture of rotator cuff of right shoulder 9830330725 5248353 M75.755 [id number] Yordykisha VivarVega, AT [facility] [address] [place] [address] 02/01/2025 11:30:11 02/01/2025 12:08:36 Rupture of rotator cuff of right shoulder 6202905150 2691984 M75.956 [id number] El Luis, PT [facility] [address] [place] [address] 02/04/2025 13:19:30 02/04/2025 14:04:40 Rupture of rotator cuff of right shoulder 5106926753 2415690 M75.332 [id number] Yordy Vivarolson, AT [facility] [address] [place] [address] 02/10/2025 16:10:37 02/10/2025 17:00:46 Rupture of rotator cuff of right shoulder 4759887920 4850712 M75.138 [id number] El Luis, PT [facility] [address] [place] [address] 02/15/2025 12:58:31 02/15/2025 13:28:56 Rupture of rotator cuff of right shoulder 1107667749 0714971 M75.617 [id number] El Smith, PT [facility] [address] [place] [address] 02/18/2025 13:26:19 02/18/2025 17:15:10 Rupture of rotator cuff of right shoulder 5640222544 9674696 M75.447 [id number] El Smith, PT [facility] [address] [place] [address] 02/22/2025 13:59:50 02/23/2025 06:43:13 Rupture of rotator cuff of right shoulder 5156346324 7002234 M75.294 [id number] El Smith, PT [facility] [address] [place] [address] 02/25/2025 14:00:12 02/25/2025 14:31:29 Rupture of rotator cuff of right shoulder 6086318293 6736643 M75.737 [id number] Yordy Vega, AT [facility] [address] [address] 03/01/2025 11:10:45 03/01/2025 11:35:27 Rupture of rotator cuff of right shoulder 7274034405 6798712 M75.101 Health Concerns Section Related Observation LastModified by Organization Detai ls LastModified Time None Recorded Concern Status LastModified by Organization Details LastModified Time None Recorded Advance Directives Directive None Recorded Payers Insurance Date Sequence Insurance Name Policy Number Policy Urbina Covered Member ID Urbina Member ID Guarantor Name 09/25/2023 1 [facility] Giuliano Huitron [id number] Giuliano Huitron 02/25/2025 1 [employer] [employer] [employer] [facility] ([facility] [id number] Giuliano Huitron [id number] Giuliano Huitron Notes Date Note Type Note Provider Name and Address Organization Details Recorded Time 02/10/2025 text/html Patient presents today reporting 0/10 pain. Pt states feeling ready to be out of the sling, no big pains anymore. Yordy Vega, AT [address], [place], [address], [facility] 02/10/2025 18:21:38 02/15/2025 text/html Patient state pain 0/10 at rest, pain 4/10 with movement. El Smith, PT [address], [place], [address], [facility] 02/15/2025 13:54:22 02/18/2025 text/html Patient state pain 0/10 at rest, pain 4/10 with movement. El Smith, PT [address], [place], [address], [facility] 02/19/2025 06:40:41 02/22/2025 text/html Patient state pain 0/10 at rest, pain 4/10 with movement. El Smith, PT [address], [place], [address], [facility] 02/22/2025 19:15:29 02/25/2025 text/html Patient states pain 0/10 at rest, Did not sleep well last night. El Smith, PT [address], [place], [address], [facility] 02/25/2025 15:29:27
--- OUTSIDE RECORDS SUMMARY | 2025-03-02 02:06 | XMS_ITS | Continuity of Care Document ---
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 Phone FERMÍN PRECIADO Primary Care Provider [phone] Assessment Encounter Date Assessment Date Assessment LastModified [...] Time Acquired pes planus of right foot [id number] Active 2023 En Magallanes MD [address], [place], [address], [place] [facility] 4 16:55:50 Sinus tarsi syndrome of right ankle [id number] 07 Active 2023 En Magallanes MD [address], [place], [address], [facility] 4 16:55:51 Problem Notes None recorded. Procedures Surgical History Date Name Laterality Status Provider Name and Address Organization Details Recorded Time 86058 Therapeutic Exercise (1:1) active Yordy Vega, AT [address], [place], [address], [facility] 03/01/2025 11:19:44 5 86312: Hot or Cold Pack active Yordy Vega, AT [address], [place], [address], [facility] 03/01/2025 11:19:44 5 60862: Manual therapy active Yordy Vega, AT [address], [place], [address], [facility] 03/01/2025 11:19:44 5 85228 Therapeutic Exercise (1:1) completed El Smith, PT [address], [place], [address], [facility] 02/24/2025 19:09:05 5 63530: Hot or Cold Pack completed El Smith, PT [address], [place], [address], [facility] 02/24/2025 19:09:05 5 95524: Manual therapy completed El Smith, PT [address], [place], [address], [facility] 02/24/2025 19:09:05 5 06818 Therapeutic Exercise (1:1) completed El Smith, PT [address], [place], [address], [facility] 02/21/2025 16:53:11 5 04237: Hot or Cold Pack completed El Smith, PT [address], [place], [address], [facility] 02/21/2025 16:53:11 5 60322: Manual therapy completed El Smith, PT [address], [place], [address], [facility] 02/21/2025 16:53:11 5 44242 Therapeutic Exercise (1:1) completed El Smith, PT [address], [place], [address], [facility] 02/17/2025 15:54:11 5 61857: Hot or Cold Pack completed El Smith, PT [address], [place], [address], [facility] 02/17/2025 15:54:11 5 60116: Manual therapy completed El Smith, PT [address], [place], [address], [facility] 02/17/2025 15:54:11 5 13055 Therapeutic Exercise (1:1) completed El Smith, PT [address], [place], [address], [facility] 02/14/2025 18:36:50 5 23987: Hot or Cold Pack completed El Smith, PT [address], [place], [address], [facility] 02/14/2025 18:36:50 5 28853: Manual therapy completed El Smith, PT [address], [place], [address], [facility] 02/14/2025 18:36:50 5 38976 Therapeutic Exercise (1:1) completed Yordy Vega, AT [address], [place], [address], [facility] 02/10/2025 18:15:04 83155: Hot or Cold Pack completed Yordy Vega, AT [address], [place], [address], [facility] 02/10/2025 18:15:04 25674: Manual therapy completed Yordy Vega, AT [address], [place], [address], [facility] 02/10/2025 18:15:04 26783 Therapeutic Exercise (1:1) completed El Smith, PT [address], [place], [address], [facility] 02/04/2025 15:22:07 25182: Hot or Cold Pack completed El Smith, PT [address], [place], [address], [facility] 02/04/2025 07:04:59 10393: Manual therapy completed El Smith, PT [address], [place], [address], [facility] 02/04/2025 07:04:59 28342 Therapeutic Exercise (1:1) completed Yordy Vega, AT [address], [place], [address], [facility] 02/01/2025 14:30:41 03006: Hot or Cold Pack completed Yordy Vega, AT [address], [place], [address], [facility] 02/01/2025 14:30:41 02195: Manual therapy completed Yordy Vega, AT [address], [place], [address], [facility] 02/01/2025 14:30:41 80144 Therapeutic Exercise (1:1) completed Yordy Vega, AT [address], [place], [address], [facility] 01/28/2025 12:22:44 96775: Hot or Cold Pack completed Yordy Vega, AT [address], [place], [address], [facility] 01/28/2025 12:22:44 87711: Manual therapy completed Yordy Vega, AT [address], [place], [address], [facility] 01/28/2025 12:22:44 39864 Therapeutic Exercise (1:1) completed Yordy Vega, AT [address], [place], [address], [facility] 01/25/2025 13:31:43 78033: Hot or Cold Pack completed Yordy Vega, AT [address], [place], [address], [facility] 01/25/2025 13:31:43 83243: Manual therapy completed Yordy Vega, AT [address], [place], [address], [facility] 01/25/2025 13:31:43 63832 Therapeutic Exercise (1:1) completed Yordy Vega, AT [address], [place], [address], [facility] 01/21/2025 12:59:15 35417: Hot or Cold Pack completed Yordy Vega, AT [address], [place], [address], [facility] 01/21/2025 12:59:15 10338: Manual therapy completed Yordy Vega, AT [address], [place], [address], [facility] 01/21/2025 12:59:15 38000 Therapeutic Exercise (1:1) completed Yordy Vega, AT [address], [place], [address], [facility] 01/18/2025 14:48:44 28050: Hot or Cold Pack completed Yordy Vega, AT [address], [place], [address], [facility] 01/18/2025 14:48:44 29966: Manual therapy completed Yordy Vega, AT [address], [place], [address], [facility] 01/18/2025 14:48:44 10405 Therapeutic Exercise (1:1) completed Yordy Vega, AT [address], [place], [address], [facility] 01/15/2025 14:57:04 12934: Hot or Cold Pack completed Yordy Vega AT [address], [place], [address], [facility] 01/15/2025 14:57:33 99819: Manual therapy completed Yordy Vega AT [address], [place], [address], [facility] 01/15/2025 14:57:12 12283 Therapeutic Exercise (1:1) completed El Smith, PT [address] [facility], [place], [address], [facility] 01/14/2025 11:34:09 39990: Low complexity PT Eval completed El Smith, PT [address], [place], [address], [facility] 01/14/2025 11:34:11 Sports Shoulder completed SHU [address], [place], [address], [facility] 09/25/2023 11:21:46 Imaging Results [...] ICD10 Code Diagnosis IMO Codes Diagnosis Note [id number] Marielos Jacqueline, [place] [address] 01/15/2025 10:48:54 01/26/2025 12:35:56 Follow-up orthopedic assessment [id number] Z47.89 [id number] El Smith, PT [facility] [address] [place] [address] 01/14/2025 13:58:22 01/14/2025 17:16:55 Rupture of rotator cuff of right shoulder 7891276995 2894663 M75.362 [id number] Yordy Vega, AT [facility] [address] [place] [address] 01/15/2025 13:30:50 01/15/2025 14:54:23 Rupture of rotator cuff of right shoulder 8026160104 5813349 M75.379 [id number] Yordy Vega, AT [facility] [address] [place] [address] 01/18/2025 13:28:36 01/18/2025 14:09:17 Rupture of rotator cuff of right shoulder 3437146665 1317652 M75.319 [id number] Yordy Vega, AT [facility] [address] [place] [address] 01/21/2025 12:47:26 01/21/2025 13:49:12 Rupture of rotator cuff of right shoulder 9163623037 5172483 M75.011 [id number] Yordy Vega, AT [facility] [address] [place] [address] 01/25/2025 13:26:42 01/25/2025 14:43:58 Rupture of rotator cuff of right shoulder 3167011570 9264671 M75.383 [id number] Yordy Vega, AT [facility] [address] [place] [address] 01/28/2025 11:24:30 01/28/2025 12:44:29 Rupture of rotator cuff of right shoulder 3294249512 [id number] M75.341 [id number] Yordy Vega, AT [facility] [address] [place] [address] 02/01/2025 11:30:11 02/01/2025 12:08:36 Rupture of rotator cuff of right shoulder 3230682490 [id number] M75.903 [id number] El Smith, PT [facility] [address] [place] [address] 02/04/2025 13:19:30 02/04/2025 14:04:40 Rupture of rotator cuff of right shoulder 4386239614 6030475 M75.101 Health Concerns Section Related Observation LastModified by Organization Detai ls LastModified Time None Recorded Concern Status LastModified by Organization Details LastModified Time None Recorded Payers Encounter Date Sequence Insurance Name Policy Number Policy Urbina Covered Member ID Urbina Member ID Guarantor Name 02/04/2025 1 [employer] [facility] (PPO) [id number] Giuliano Huitron [id number] Giuliano Huitron Notes Date Note Type Note Provider Name and Address Organization Details Recorded Time 02/04/2025 text/html Patient states pain 0/10 at rest, El Smith, PT [address], [place], [address], [facility] 02/04/2025 15:24:11
--- OUTSIDE RECORDS SUMMARY | 2025-03-02 02:06 | XMS_ITS | Continuity of Care Document ---
Author Organization [place] [facility], [facility] Address [address] [place] [address] Care Team Providers Care Earring Maker Name Role Phone FERMÍN PRECIADO Primary Care Provider Assessment Encounter Date Assessment Date Assessment LastModified by Organization Details LastModified Time 01/21/2025 01/21/2025 Assessment: Nice gains with flexion measure. Plan: Continue 2x/wk with formal therapy and daily HEP. [email or web address] Not available 01/21/2025 13:47:55 Plan of Treatment Reminders Order Date Submit [...] Time Acquired pes planus of right foot 550234598343115 Active 2023 En Magallanes MD [address], [place], [address], [facility] 4 16:55:50 Sinus tarsi syndrome of right ankle 845466087128169 07 Active 2023 En Magallanes MD [address], [place], [address], [facility] 4 16:55:51 Problem Notes None recorded. Procedures Surgical History Date Name Laterality Status Provider Name and Address Organization Details Recorded Time 5 95602 Therapeutic Exercise (1:1) active MARYELLEN Cornell [address], [place], [address], [facility] 03/01/2025 11:19:44 5 73629: Hot or Cold Pack active Yordy Vega, AT [address], [place], [address], [facility] 03/01/2025 11:19:44 5 82223: Manual therapy active Yordy Vega, AT [address], [place], [address], [facility] 03/01/2025 11:19:44 5 80998 Therapeutic Exercise (1:1) completed Ellilia Smith, PT [address], [place], [address], [facility] 02/24/2025 19:09:05 5 84479: Hot or Cold Pack completed El Smith, PT [address], [place], [address], [facility] 02/24/2025 19:09:05 5 58243: Manual therapy completed El Smith, PT [address], [place], [address], [facility] 02/24/2025 19:09:05 5 16818 Therapeutic Exercise (1:1) completed El Smith, PT [address], [place], [address], [facility] 02/21/2025 16:53:11 5 30307: Hot or Cold Pack completed El Smith, PT [address], [place], [address], [facility] 02/21/2025 16:53:11 5 35988: Manual therapy completed El Smith, PT [address], [place], [address], [facility] 02/21/2025 16:53:11 5 99282 Therapeutic Exercise (1:1) completed El Smith, PT [address], [place], [address], [facility] 02/17/2025 15:54:11 5 19580: Hot or Cold Pack completed El Smith, PT [address], [place], [address], [facility] 02/17/2025 15:54:11 5 08724: Manual therapy completed El Smith, PT [address], [place], [address], [facility] 02/17/2025 15:54:11 5 10516 Therapeutic Exercise (1:1) completed El mSith, PT [address], [place], [address], [facility] 02/14/2025 18:36:50 5 16621: Hot or Cold Pack completed El Smith, PT [address], [place], [address], [facility] 02/14/2025 18:36:50 5 27564: Manual therapy completed El Smith, PT [address], [place], [address], [facility] 02/14/2025 18:36:50 5 54369 Therapeutic Exercise (1:1) completed Yordy Vega, AT [address], [place], [address], [facility] 02/10/2025 18:15:04 5 70315: Hot or Cold Pack completed Yordy Vega, AT [address], [place], [address], [facility] 02/10/2025 18:15:04 5 95513: Manual therapy completed Yordy Vega, AT [address], [place], [address], [facility] 02/10/2025 18:15:04 5 63874 Therapeutic Exercise (1:1) completed El Smith, PT [address], [place], [address], [facility] 02/04/2025 15:22:07 28538: Hot or Cold Pack completed El Smith, PT [address], [place], [address], [facility] 02/04/2025 07:04:59 02985: Manual therapy completed El Smith, PT [address], [place], [address], [facility] 02/04/2025 07:04:59 21206 Therapeutic Exercise (1:1) completed Yordy Vega, AT [address], [place], [address], [facility] 02/01/2025 14:30:41 38887: Hot or Cold Pack completed Yordy Vega, AT [address], [place], [address], [facility] 02/01/2025 14:30:41 53678: Manual therapy completed Yordy Vega, AT [address], [place], [address], [facility] 02/01/2025 14:30:41 19221 Therapeutic Exercise (1:1) completed Yordy Vega, AT [address], [place], [address], [facility] 01/28/2025 12:22:44 75360: Hot or Cold Pack completed Yordy Vega, AT [address], [place], [address], [facility] 01/28/2025 12:22:44 70051: Manual therapy completed Yordy Vega, AT [address], [place], [address], [facility] 01/28/2025 12:22:44 32263 Therapeutic Exercise (1:1) completed Yordy Vega, AT [address], [place], [address], [facility] 01/25/2025 13:31:43 5 20929: Hot or Cold Pack completed Yordy Vega, AT [address], [place], [address], [facility] 01/25/2025 13:31:43 36926: Manual therapy completed Yordy Vega, AT [address] [facility], [place], [address], [facility] 01/25/2025 13:31:43 87178 Therapeutic Exercise (1:1) completed Yordy Vega, AT [address], [place], [address], [facility] 01/21/2025 12:59:15 61871: Hot or Cold Pack completed Yordy Vega, AT [address], [place], [address], [facility] 01/21/2025 12:59:15 66936: Manual therapy completed Yordy Vega, AT [address], [place], [address], [facility] 01/21/2025 12:59:15 00869 Therapeutic Exercise (1:1) completed Yordy Vega, AT [address], [place], [address], [facility] 01/18/2025 14:48:44 12863: Hot or Cold Pack completed Yordy Vega AT [address], [place], [address], [facility] 01/18/2025 14:48:44 5 48878: Manual therapy completed Yordy Vega, AT [address] [facility], [place], [address], [facility] 01/18/2025 14:48:44 5 01613 Therapeutic Exercise (1:1) completed Yordy Vega, AT [address] [facility], [place], [address], [facility] 01/15/2025 14:57:04 5 44692: Hot or Cold Pack completed Yordy Vega, AT [address] [facility], [place], [address], [facility] 01/15/2025 14:57:33 5 98009: Manual therapy completed Yordy Vega, AT [address] [facility], [place], [address], [facility] 01/15/2025 14:57:12 5 07288 Therapeutic Exercise (1:1) completed El Smith, PT [address] [facility], [place], [address], [facility] 01/14/2025 11:34:09 5 73020: Low complexity PT Eval completed El Smith, PT [address] [facility], [place], [address], [facility] 01/14/2025 11:34:11 4 Sports Shoulder completed Manas Vazquez PA-C [address] [facility], [place], [address], [facility] 09/25/2023 11:21:46 Imaging Results None recorded. Procedure [...] Disease N Heart Trouble N Heart Attack ([place]) N Gastrointestinal Disease N Cholesterol N Diabetes [...] ICD10 Code Diagnosis IMO Codes Diagnosis Note [id number] MD [facility] [address] [place] [address] 01/15/2025 10:48:54 01/26/2025 12:35:56 Follow-up orthopedic assessment [id number] Z47.89 [id number] El Smith, PT [facility] [address] [place] [address] 01/14/2025 13:58:22 01/14/2025 17:16:55 Rupture of rotator cuff of right shoulder 3976208437 5433277 M75.366 [id number] Yordy Vega, AT [facility] [address] [place] [address] 01/15/2025 13:30:50 01/15/2025 14:54:23 Rupture of rotator cuff of right shoulder 2131530263 8998862 M75.466 [id number] Yordy Vega, AT [facility] [address] [place] [address] 01/18/2025 13:28:36 01/18/2025 14:09:17 Rupture of rotator cuff of right shoulder 7658998540 [id number] M75.411 [id number] [facility] [address] [place] [address] 01/21/2025 12:47:26 01/21/2025 13:49:12 Rupture of rotator cuff of right shoulder 1021299456 [id number] M75.101 Health Concerns Section Related Observation LastModified by Organization Detai ls LastModified Time None Recorded Concern Status LastModified by Organization Details LastModified Time None Recorded Payers Encounter Date Sequence Insurance Name Policy Number Policy Urbina Covered Member ID Urbina Member ID Guarantor Name 01/21/2025 1 [employer] [facility] (PPO) [id number] Giuliano Huitron [id number] Giuliano Huitron Notes Date Note Type Note Provider Name and Address Organization Details Recorded Time 01/21/2025 text/html Patient presents today reporting 4/10 pain. Pt states feeling less soreness with therapy. Yordy Vega, AT [address], [place], [address], [facility] 01/21/2025 13:48:15
--- OUTSIDE RECORDS SUMMARY | 2025-03-02 02:06 | XMS_ITS | Continuity of Care Document ---
Author Organization [place] [facility], [facility] Address [address] [place] [address] Care Team Providers Care Athletic Monitor Name Role Phone FERMÍN PRECIADO Primary Care Provider Assessment Encounter Date Assessment Date Assessment LastModified by Organization Details LastModified Time 02/22/2025 02/22/2025 Assessment: Making gains in ROM, [...] T-Bands with light resistance. [email or web address] Not available 02/22/2025 19:15:10 Plan of Treatment Reminders Order Date Submit [...] Time Acquired pes planus of right foot 365049004609059 Active 2023 En Magallanes MD [address], [place], [address], [place] [facility] 4 16:55:50 Sinus tarsi syndrome of right ankle [id number] 07 Active 2023 En Magallanes MD [address], [place], [address], [facility] 4 16:55:51 Problem Notes None recorded. Procedures Surgical History Date Name Laterality Status Provider Name and Address Organization Details Recorded Time 46713 Therapeutic Exercise (1:1) active Yordy Vega, AT [address], [place], [address], [facility] 03/01/2025 11:19:44 5 76342: Hot or Cold Pack active Yordy Vega, AT [address], [place], [address], [facility] 03/01/2025 11:19:44 5 31636: Manual therapy active Yordy Vega, AT [address], [place], [address], [facility] 03/01/2025 11:19:44 5 22937 Therapeutic Exercise (1:1) completed El Smith, PT [address], [place], [address], [facility] 02/24/2025 19:09:05 5 04598: Hot or Cold Pack completed El Smith, PT [address], [place], [address], [facility] 02/24/2025 19:09:05 5 83697: Manual therapy completed El Smith, PT [address], [place], [address], [facility] 02/24/2025 19:09:05 5 00618 Therapeutic Exercise (1:1) completed El Smith, PT [address], [place], [address], [facility] 02/21/2025 16:53:11 5 86885: Hot or Cold Pack completed El Smith, PT [address], [place], [address], [facility] 02/21/2025 16:53:11 5 54447: Manual therapy completed El Smith, PT [address], [place], [address], [facility] 02/21/2025 16:53:11 5 96992 Therapeutic Exercise (1:1) completed El Smith, PT [address], [place], [address], [facility] 02/17/2025 15:54:11 5 72739: Hot or Cold Pack completed El Smith, PT [address], [place], [address], [facility] 02/17/2025 15:54:11 5 03365: Manual therapy completed El Smith, PT [address], [place], [address], [facility] 02/17/2025 15:54:11 5 31312 Therapeutic Exercise (1:1) completed El Smith, PT [address], [place], [address], [facility] 02/14/2025 18:36:50 5 47995: Hot or Cold Pack completed El Smith, PT [address], [place], [address], [facility] 02/14/2025 18:36:50 5 26548: Manual therapy completed El Smith, PT [address], [place], [address], [facility] 02/14/2025 18:36:50 5 53402 Therapeutic Exercise (1:1) completed Yordy Vega, AT [address], [place], [address], [facility] 02/10/2025 18:15:04 10078: Hot or Cold Pack completed Yordy Vega, AT [address], [place], [address], [facility] 02/10/2025 18:15:04 62254: Manual therapy completed Yordy Vega, AT [address], [place], [address], [facility] 02/10/2025 18:15:04 05415 Therapeutic Exercise (1:1) completed El Smith, PT [address], [place], [address], [facility] 02/04/2025 15:22:07 14970: Hot or Cold Pack completed El Smith, PT [address], [place], [address], [facility] 02/04/2025 07:04:59 59831: Manual therapy completed El Smith, PT [address], [place], [address], [facility] 02/04/2025 07:04:59 00254 Therapeutic Exercise (1:1) completed Yordy Vega, AT [address], [place], [address], [facility] 02/01/2025 14:30:41 66028: Hot or Cold Pack completed Yordy Vega, AT [address], [place], [address], [facility] 02/01/2025 14:30:41 40140: Manual therapy completed Yordy Vega, AT [address], [place], [address], [facility] 02/01/2025 14:30:41 55232 Therapeutic Exercise (1:1) completed Yordy Vega, AT [address], [place], [address], [facility] 01/28/2025 12:22:44 01810: Hot or Cold Pack completed Yordy Vega, AT [address], [place], [address], [facility] 01/28/2025 12:22:44 60553: Manual therapy completed Yordy Vega, AT [address], [place], [address], [facility] 01/28/2025 12:22:44 68725 Therapeutic Exercise (1:1) completed Yordy Vega, AT [address], [place], [address], [facility] 01/25/2025 13:31:43 47973: Hot or Cold Pack completed Yordy Vega, AT [address], [place], [address], [facility] 01/25/2025 13:31:43 46826: Manual therapy completed Yordy Vega, AT [address], [place], [address], [facility] 01/25/2025 13:31:43 01091 Therapeutic Exercise (1:1) completed Yordy Vega, AT [address], [place], [address], [facility] 01/21/2025 12:59:15 64163: Hot or Cold Pack completed Yordy Vega, AT [address], [place], [address], [facility] 01/21/2025 12:59:15 36560: Manual therapy completed Yordy Vega, AT [address], [place], [address], [facility] 01/21/2025 12:59:15 89042 Therapeutic Exercise (1:1) completed Yordy Vega, AT [address], [place], [address], [facility] 01/18/2025 14:48:44 24581: Hot or Cold Pack completed Yordy Vega, AT [address], [place], [address], [facility] 01/18/2025 14:48:44 16520: Manual therapy completed Yordy Vega, AT [address], [place], [address], [facility] 01/18/2025 14:48:44 53037 Therapeutic Exercise (1:1) completed Yordy Vega, AT [address], [place], [address], [facility] 01/15/2025 14:57:04 33196: Hot or Cold Pack completed Yordy Vega AT [address], [place], [address], [facility] 01/15/2025 14:57:33 24993: Manual therapy completed Yordy Vega AT [address], [place], [address], [facility] 01/15/2025 14:57:12 46631 Therapeutic Exercise (1:1) completed El Smith, PT [address] [facility], [place], [address], [facility] 01/14/2025 11:34:09 09978: Low complexity PT Eval completed El Smith, PT [address], [place], [address], [facility] 01/14/2025 11:34:11 Sports Shoulder completed Manas Vazquez PA-C [address], [place], [address], [facility] 09/25/2023 11:21:46 Imaging Results [...] Disease N Heart Trouble N Heart Attack ([place]) N Gastrointestinal Disease N Cholesterol N Diabetes [...] ICD10 Code Diagnosis IMO Codes Diagnosis Note [id number] Yordy Vega, AT [facility] [address] [place] [address] 01/25/2025 13:26:42 01/25/2025 14:43:58 Rupture of rotator cuff of right shoulder 1492162251 0727705 M75.322 [id number] Yordy Vega, AT [facility] [address] [place] [address] 01/28/2025 11:24:30 01/28/2025 12:44:29 Rupture of rotator cuff of right shoulder 0166426319 0432615 M75.842 [id number] Yordy Vivarolson, AT [facility] [address] [place] [address] 02/01/2025 11:30:11 02/01/2025 12:08:36 Rupture of rotator cuff of right shoulder 9133218526 9851822 M75.900 [id number] El Smith, PT [facility] [address] [place] [address] 02/04/2025 13:19:30 02/04/2025 14:04:40 Rupture of rotator cuff of right shoulder 7559228299 0727178 M75.371 [id number] Yordy Vega, AT [facility] [address] [place] [address] 02/10/2025 16:10:37 02/10/2025 17:00:46 Rupture of rotator cuff of right shoulder 3043930409 8929365 M75.658 [id number] El Smith, PT [facility] [address] [place] [address] 02/15/2025 12:58:31 02/15/2025 13:28:56 Rupture of rotator cuff of right shoulder 3433381148 3597941 M75.337 [id number] El Smith, PT [facility] [address] [place] [address] 02/18/2025 13:26:19 02/18/2025 17:15:10 Rupture of rotator cuff of right shoulder 9849444171 8300785 M75.811 [id number] El Smith, PT [facility] [address] [place] [address] 02/22/2025 13:59:50 02/23/2025 06:43:13 Rupture of rotator cuff of right shoulder 3933418040 8104696 M75.101 Health Concerns Section Related Observation LastModified by Organization Detai ls LastModified Time None Recorded Concern Status LastModified by Organization Details LastModified Time None Recorded Payers Encounter Date Sequence Insurance Name Policy Number Policy Urbina Covered Member ID Urbina Member ID Guarantor Name 02/22/2025 1 [employer] [facility] (PPO) [id number] Giuliano Huitron [id number] Giuliano Huitron Notes Date Note Type Note Provider Name and Address Organization Details Recorded Time 02/22/2025 text/html Patient state pain 0/10 at rest, pain 4/10 with movement. El Smith, PT [address], [place], [address], [facility] 02/22/2025 19:15:29
--- OUTSIDE RECORDS SUMMARY | 2025-03-02 02:06 | XMS_ITS | Continuity of Care Document ---
Author Organization [place] [facility], [facility] Address [address] [place] [address] Care Team Providers Care Analysis Evaluator Name Role Phone FERMÍN PRECIADO Primary Care Provider Assessment Encounter Date Assessment Date Assessment LastModified by Organization Details LastModified Time 01/25/2025 01/25/2025 Assessment: Primary restriction remains ER. Plan: Continue 2x/wk with gradual progression of motions and with remaining precautions. [email or web address] Not available 01/25/2025 14:18:44 Plan of Treatment Reminders Order Date Submit Date Provider Last Modified By Organization Details Last Modified Time Details Appointments PT FOLLOW-U P 2024 10:00A M Fermín Brewster, DPT Not available Not available Not available PT FOLLOW-U P 2024 11:30A M Fermín Breswter DPT Not available Not available Not available [...] Time Acquired pes planus of right foot 008215629153093 Active 2023 En Magallanes MD [address], [place], [address], [facility] 4 16:55:50 Sinus tarsi syndrome of right ankle 685399725806862 07 Active 2023 En Magallanes MD [address], [place], [address], [facility] 4 16:55:51 Problem Notes None recorded. Procedures Surgical History Date Name Laterality Status Provider Name and Address Organization Details Recorded Time 5 17975 Therapeutic Exercise (1:1) active MARYELLEN Cornell [address], [place], [address], [facility] 03/01/2025 11:19:44 5 20207: Hot or Cold Pack active Yordy Vega, AT [address], [place], [address], [facility] 03/01/2025 11:19:44 5 32400: Manual therapy active Yordy Vega, AT [address], [place], [address], [facility] 03/01/2025 11:19:44 5 74496 Therapeutic Exercise (1:1) completed El Smith, PT [address], [place], [address], [facility] 02/24/2025 19:09:05 5 01738: Hot or Cold Pack completed El Smith, PT [address], [place], [address], [facility] 02/24/2025 19:09:05 5 89166: Manual therapy completed El Smith, PT [address], [place], [address], [facility] 02/24/2025 19:09:05 5 62804 Therapeutic Exercise (1:1) completed El Smith, PT [address], [place], [address], [facility] 02/21/2025 16:53:11 5 50046: Hot or Cold Pack completed El Smith, PT [address], [place], [address], [facility] 02/21/2025 16:53:11 5 73957: Manual therapy completed El Smith, PT [address], [place], [address], [facility] 02/21/2025 16:53:11 5 07010 Therapeutic Exercise (1:1) completed El Smith, PT [address], [place], [address], [facility] 02/17/2025 15:54:11 5 18207: Hot or Cold Pack completed El Smith, PT [address], [place], [address], [facility] 02/17/2025 15:54:11 5 94005: Manual therapy completed El Smith, PT [address], [place], [address], [facility] 02/17/2025 15:54:11 5 95842 Therapeutic Exercise (1:1) completed El Smith, PT [address], [place], [address], [facility] 02/14/2025 18:36:50 5 74544: Hot or Cold Pack completed El Smith, PT [address], [place], [address], [facility] 02/14/2025 18:36:50 5 92828: Manual therapy completed El Smith, PT [address], [place], [address], [facility] 02/14/2025 18:36:50 5 90106 Therapeutic Exercise (1:1) completed Yordy Vega, AT [address], [place], [address], [facility] 02/10/2025 18:15:04 5 01380: Hot or Cold Pack completed Yordy Vega, AT [address], [place], [address], [facility] 02/10/2025 18:15:04 5 90373: Manual therapy completed Yordy Vega, AT [address], [place], [address], [facility] 02/10/2025 18:15:04 38725 Therapeutic Exercise (1:1) completed El Smith, PT [address], [place], [address], [facility] 02/04/2025 15:22:07 28547: Hot or Cold Pack completed El Smith, PT [address], [place], [address], [facility] 02/04/2025 07:04:59 20114: Manual therapy completed El Smith, PT [address], [place], [address], [facility] 02/04/2025 07:04:59 14582 Therapeutic Exercise (1:1) completed Yordy Vega, AT [address], [place], [address], [facility] 02/01/2025 14:30:41 71248: Hot or Cold Pack completed Yordy Vega, AT [address], [place], [address], [facility] 02/01/2025 14:30:41 29764: Manual therapy completed Yordy Vega, AT [address], [place], [address], [facility] 02/01/2025 14:30:41 06768 Therapeutic Exercise (1:1) completed Yordy Vega, AT [address], [place], [address], [facility] 01/28/2025 12:22:44 76266: Hot or Cold Pack completed Yordy Vega, AT [address], [place], [address], [facility] 01/28/2025 12:22:44 16350: Manual therapy completed Yordy Vega, AT [address], [place], [address], [facility] 01/28/2025 12:22:44 86129 Therapeutic Exercise (1:1) completed Yordy Vega, AT [address], [place], [address], [facility] 01/25/2025 13:31:43 5 48192: Hot or Cold Pack completed Yordy Vega, AT [address], [place], [address], [facility] 01/25/2025 13:31:43 71280: Manual therapy completed Yordy Vega, AT [address] [facility], [place], [address], [facility] 01/25/2025 13:31:43 64146 Therapeutic Exercise (1:1) completed Yordy Vega, AT [address], [place], [address], [facility] 01/21/2025 12:59:15 93960: Hot or Cold Pack completed Yordy Vega, AT [address], [place], [address], [facility] 01/21/2025 12:59:15 50241: Manual therapy completed Yordy Vega, AT [address], [place], [address], [facility] 01/21/2025 12:59:15 65276 Therapeutic Exercise (1:1) completed Yordy Vega, AT [address], [place], [address], [facility] 01/18/2025 14:48:44 93498: Hot or Cold Pack completed Yordy Vega, AT [address], [place], [address], [facility] 01/18/2025 14:48:44 5 92177: Manual therapy completed Yordy Vega, AT [address] [facility], [place], [address], [facility] 01/18/2025 14:48:44 5 99554 Therapeutic Exercise (1:1) completed Yordy Vega, AT [address], [place], [address], [facility] 01/15/2025 14:57:04 5 50875: Hot or Cold Pack completed Yordy Vega, AT [address] [facility], [place], [address], [facility] 01/15/2025 14:57:33 5 99700: Manual therapy completed Yordy Vega, AT [address] [facility], [place], [address], [facility] 01/15/2025 14:57:12 5 19797 Therapeutic Exercise (1:1) completed El Smith, PT [address] [facility], [place], [address], [facility] 01/14/2025 11:34:09 5 27134: Low complexity PT Eval completed lE Smith, PT [address] [facility], [place], [address], [facility] 01/14/2025 11:34:11 4 Sports Shoulder completed Manas Vazquez PA-C [address] [facility], [place], [address], [facility] 09/25/2023 11:21:46 Imaging Results None recorded. [...] Disease N Heart Trouble N Heart Attack ([place]) N Gastrointestinal Disease N Cholesterol N Diabetes [...] ICD10 Code Diagnosis IMO Codes Diagnosis Note [id number] MD [facility] [address] [place] [address] 01/15/2025 10:48:54 01/26/2025 12:35:56 Follow-up orthopedic assessment [id number] Z47.89 [id number] El Smith, PT [facility] [address] [place] [address] 01/14/2025 13:58:22 01/14/2025 17:16:55 Rupture of rotator cuff of right shoulder 6293003666 8136307 M75.456 [id number] Yordy Vega, AT [facility] [address] [place] [address] 01/15/2025 13:30:50 01/15/2025 14:54:23 Rupture of rotator cuff of right shoulder 9471062825 6398975 M75.868 [id number] Yordy Vega, AT [facility] [address] [place] [address] 01/18/2025 13:28:36 01/18/2025 14:09:17 Rupture of rotator cuff of right shoulder 2523391369 7999462 M75.591 [id number] Yordy Vega, AT [facility] [address] [place] [address] 01/21/2025 12:47:26 01/21/2025 13:49:12 Rupture of rotator cuff of right shoulder 6459238920 0646762 M75.405 [id number] Yordy Vega, AT [facility] [address] [place] [address] 01/25/2025 13:26:42 01/25/2025 14:43:58 Rupture of rotator cuff of right shoulder 5818314792 4399698 M75.101 Health Concerns Section Related Observation LastModified by Organization Detai ls LastModified Time None Recorded Concern Status LastModified by Organization Details LastModified Time None Recorded Payers Encounter Date Sequence Insurance Name Policy Number Policy Urbina Covered Member ID Urbina Member ID Guarantor Name 01/25/2025 1 [employer] [facility] ([place] [id number] Giuliano Huitron [id number] Giuliano Huitron Notes Date Note Type Note Provider Name and Address Organization Details Recorded Time 01/25/2025 text/html Patient presents today reporting 4/10 pain. Pt states having front of the shoulder pains today after using the arm more for light activity. Yordy Vega, AT [address], [place], [address], [facility] 01/25/2025 14:19:09
--- OUTSIDE RECORDS SUMMARY | 2025-03-02 02:06 | XMS_ITS | Continuity of Care Document ---
Author Organization [place] [facility], [facility] Address [address] [place] [address] Care Team Providers Care Book Binder Name Role Phone FERMÍN PRECIADO Primary Care Provider [phone] Assessment Encounter Date Assessment Date Assessment LastModified by Organization Details LastModified Time 01/18/2025 01/18/2025 Assessment: Improved mobility from U-trap and diminished spasm. Plan: Continue skilled therapy per MD protocol. [email or web address] Not available 01/18/2025 14:50:51 Plan of Treatment Reminders Order Date Submit [...] Time Acquired pes planus of right foot [id number] Active 2023 En Magallanes MD [address], [place], [address], [facility] 4 16:55:50 Sinus tarsi syndrome of right ankle [id number] 07 Active 2023 En Magallanes MD [address], [place], [address], [facility] 4 16:55:51 Problem Notes None recorded. Procedures Surgical History Date Name Laterality Status Provider Name and Address Organization Details Recorded Time 5 39246 Therapeutic Exercise (1:1) active MARYELLEN Cornell [address], [place], [address], [facility] 03/01/2025 11:19:44 5 81888: Hot or Cold Pack active Yordy Vega, AT [address], [place], [address], [facility] 03/01/2025 11:19:44 5 17490: Manual therapy active Yordy Vega, AT [address], [place], [address], [facility] 03/01/2025 11:19:44 5 94712 Therapeutic Exercise (1:1) completed Ellilia Smith, PT [address], [place], [address], [facility] 02/24/2025 19:09:05 5 20451: Hot or Cold Pack completed El Smith, PT [address], [place], [address], [facility] 02/24/2025 19:09:05 5 28174: Manual therapy completed El Smith, PT [address], [place], [address], [facility] 02/24/2025 19:09:05 5 77503 Therapeutic Exercise (1:1) completed El Smith, PT [address], [place], [address], [facility] 02/21/2025 16:53:11 5 29700: Hot or Cold Pack completed El Smith, PT [address], [place], [address], [facility] 02/21/2025 16:53:11 5 02456: Manual therapy completed El Smith, PT [address], [place], [address], [facility] 02/21/2025 16:53:11 5 24638 Therapeutic Exercise (1:1) completed El Smith, PT [address], [place], [address], [facility] 02/17/2025 15:54:11 5 74026: Hot or Cold Pack completed El Smith, PT [address], [place], [address], [facility] 02/17/2025 15:54:11 5 10689: Manual therapy completed El Smith, PT [address], [place], [address], [facility] 02/17/2025 15:54:11 5 61273 Therapeutic Exercise (1:1) completed El Smith, PT [address], [place], [address], [facility] 02/14/2025 18:36:50 5 44899: Hot or Cold Pack completed El Smith, PT [address], [place], [address], [facility] 02/14/2025 18:36:50 5 22054: Manual therapy completed El Smith, PT [address], [place], [address], [facility] 02/14/2025 18:36:50 5 79439 Therapeutic Exercise (1:1) completed Yordy Vega, AT [address], [place], [address], [facility] 02/10/2025 18:15:04 5 13981: Hot or Cold Pack completed Yordy Vega, AT [address], [place], [address], [facility] 02/10/2025 18:15:04 5 05268: Manual therapy completed Yordy Vega, AT [address], [place], [address], [facility] 02/10/2025 18:15:04 5 28082 Therapeutic Exercise (1:1) completed El Smith, PT [address], [place], [address], [facility] 02/04/2025 15:22:07 31834: Hot or Cold Pack completed El Smith, PT [address], [place], [address], [facility] 02/04/2025 07:04:59 59764: Manual therapy completed El Smith, PT [address], [place], [address], [facility] 02/04/2025 07:04:59 50848 Therapeutic Exercise (1:1) completed Yordy Vega, AT [address], [place], [address], [facility] 02/01/2025 14:30:41 38152: Hot or Cold Pack completed Yordy Vega, AT [address], [place], [address], [facility] 02/01/2025 14:30:41 30702: Manual therapy completed Yordy Vega, AT [address], [place], [address], [facility] 02/01/2025 14:30:41 69871 Therapeutic Exercise (1:1) completed Yordy Vega, AT [address], [place], [address], [facility] 01/28/2025 12:22:44 88767: Hot or Cold Pack completed Yordy Vega, AT [address], [place], [address], [facility] 01/28/2025 12:22:44 73439: Manual therapy completed Yordy Vega, AT [address], [place], [address], [facility] 01/28/2025 12:22:44 75486 Therapeutic Exercise (1:1) completed Yordy Vega, AT [address], [place], [address], [facility] 01/25/2025 13:31:43 5 43552: Hot or Cold Pack completed Yordy Vega, AT [address], [place], [address], [facility] 01/25/2025 13:31:43 40817: Manual therapy completed Yordy Vega, AT [address] [facility], [place], [address], [facility] 01/25/2025 13:31:43 14068 Therapeutic Exercise (1:1) completed Yordy Vega, AT [address], [place], [address], [facility] 01/21/2025 12:59:15 45310: Hot or Cold Pack completed Yordy Vega, AT [address], [place], [address], [facility] 01/21/2025 12:59:15 64518: Manual therapy completed Yordy Vega, AT [address], [place], [address], [facility] 01/21/2025 12:59:15 33544 Therapeutic Exercise (1:1) completed Yordy Vega, AT [address], [place], [address], [facility] 01/18/2025 14:48:44 51279: Hot or Cold Pack completed Yordy Vega AT [address], [place], [address], [facility] 01/18/2025 14:48:44 5 81706: Manual therapy completed Yordy Vega, AT [address] [facility], [place], [address], [facility] 01/18/2025 14:48:44 5 40513 Therapeutic Exercise (1:1) completed Yordy Vega, AT [address] [facility], [place], [address], [facility] 01/15/2025 14:57:04 5 63236: Hot or Cold Pack completed Yordy Vega, AT [address] [facility], [place], [address], [facility] 01/15/2025 14:57:33 5 16654: Manual therapy completed Yordy Vega, AT [address] [facility], [place], [address], [facility] 01/15/2025 14:57:12 5 06101 Therapeutic Exercise (1:1) completed El Smith, PT [address] [facility], [place], [address], [facility] 01/14/2025 11:34:09 5 05996: Low complexity PT Eval completed El Smith, PT [address] [facility], [place], [address], [facility] 01/14/2025 11:34:11 4 Sports Shoulder completed Manas Vazquez PA-C [address] [facility], [place], [address], [facility] [...] Disease N Heart Trouble N Heart Attack ([place]) N Gastrointestinal Disease N Cholesterol N Diabetes [...] ICD10 Code Diagnosis IMO Codes Diagnosis Note [id number] MD TIFFANI Morse Clinical [address] [place] [address] 01/15/2025 10:48:54 01/26/2025 12:35:56 Follow-up orthopedic assessment [id number] Z47.89 [id number] El Smith, PT [facility] [address] [place] [address] 01/14/2025 13:58:22 01/14/2025 17:16:55 Rupture of rotator cuff of right shoulder 1732820146 1524917 M75.011 [id number] [facility] [address] [address] 01/15/2025 13:30:50 01/15/2025 14:54:23 Rupture of rotator cuff of right shoulder [id number] 1964026 M75.638 [id number] [facility] [address] [place] [address] 01/18/2025 13:28:36 01/18/2025 14:09:17 Rupture of rotator cuff of right shoulder [id number] 7402849 M75.101 Health Concerns Section Related Observation LastModified by Organization Detai ls LastModified Time None Recorded Concern Status LastModified by Organization Details LastModified Time None Recorded Payers Encounter Date Sequence Insurance Name Policy Number Policy Urbina Covered Member ID Urbina Member ID Guarantor Name 01/18/2025 1 [employer] [facility] [id number] Giuliano Huitron [id number] Giuliano Huitron Notes Date Note Type Note Provider Name and Address Organization Details Recorded Time 01/18/2025 text/html Patient presents today reporting 4/10 pain. Pt states having to take medication this weekend. Yordy Vega, AT [address], [place], [address], [facility] [place] [facility] 01/18/2025 14:51:18
--- OUTSIDE RECORDS SUMMARY | 2025-03-02 02:06 | XMS_ITS | Continuity of Care Document ---
Author Organization [place] [facility] [place] [facility], [facility] - [facility] Address [address] [place] [address] Care Team Providers Care Monotype Setter Name Role Phone FERMÍN PRECIADO Primary Care Provider [phone] Assessment Encounter Date Assessment Date Assessment LastModified by Organization Details LastModified Time 01/28/2025 01/28/2025 Assessment: Nice improvement with flexion motion measure. Plan: Continue 2x/wk with gradual progression of motions and with remaining precautions. [email or web address] Not available 01/28/2025 12:27:22 Plan of Treatment [...] Time Acquired pes planus of right foot [id number] Active 2023 En Magallanes MD [address], [place], [address], [facility] 4 16:55:50 Sinus tarsi syndrome of right ankle [id number] 07 Active 2023 En Magallanes MD [address], [place], [address], [facility] 4 16:55:51 Problem Notes None recorded. Procedures Surgical History Date Name Laterality Status Provider Name and Address Organization Details Recorded Time 5 29708 Therapeutic Exercise (1:1) active MARYELLEN Cornell [address], [place], [address], [facility] 03/01/2025 11:19:44 5 07699: Hot or Cold Pack active Yordy Vega, AT [address], [place], [address], [facility] 03/01/2025 11:19:44 5 07595: Manual therapy active Yordy Vega, AT [address], [place], [address], [facility] 03/01/2025 11:19:44 5 78748 Therapeutic Exercise (1:1) completed El Smith, PT [address], [place], [address], [facility] 02/24/2025 19:09:05 5 24035: Hot or Cold Pack completed El Smith, PT [address], [place], [address], [facility] 02/24/2025 19:09:05 5 94604: Manual therapy completed El Smith, PT [address], [place], [address], [facility] 02/24/2025 19:09:05 5 78870 Therapeutic Exercise (1:1) completed El Smith, PT [address], [place], [address], [facility] 02/21/2025 16:53:11 5 39255: Hot or Cold Pack completed El Smith, PT [address], [place], [address], [facility] 02/21/2025 16:53:11 5 25317: Manual therapy completed El Smith, PT [address], [place], [address], [facility] 02/21/2025 16:53:11 5 64741 Therapeutic Exercise (1:1) completed El Smith, PT [address], [place], [address], [facility] 02/17/2025 15:54:11 5 63667: Hot or Cold Pack completed El Smith, PT [address], [place], [address], [facility] 02/17/2025 15:54:11 5 03419: Manual therapy completed El Smith, PT [address], [place], [address], [facility] 02/17/2025 15:54:11 5 66291 Therapeutic Exercise (1:1) completed El Smith, PT [address], [place], [address], [facility] 02/14/2025 18:36:50 5 10560: Hot or Cold Pack completed El Smith, PT [address], [place], [address], [facility] 02/14/2025 18:36:50 5 30414: Manual therapy completed El Smith, PT [address], [place], [address], [facility] 02/14/2025 18:36:50 5 05688 Therapeutic Exercise (1:1) completed Yordy Vega, AT [address], [place], [address], [facility] 02/10/2025 18:15:04 5 95334: Hot or Cold Pack completed Yordy Vega, AT [address], [place], [address], [facility] 02/10/2025 18:15:04 5 38417: Manual therapy completed Yordy Vega, AT [address], [place], [address], [facility] 02/10/2025 18:15:04 52357 Therapeutic Exercise (1:1) completed El Smith, PT [address], [place], [address], [facility] 02/04/2025 15:22:07 39796: Hot or Cold Pack completed El Smith, PT [address], [place], [address], [facility] 02/04/2025 07:04:59 11944: Manual therapy completed El Smith, PT [address], [place], [address], [facility] 02/04/2025 07:04:59 33269 Therapeutic Exercise (1:1) completed Yordy Vega, AT [address], [place], [address], [facility] 02/01/2025 14:30:41 05201: Hot or Cold Pack completed Yordy Veag, AT [address], [place], [address], [facility] 02/01/2025 14:30:41 34216: Manual therapy completed Yordy Vega, AT [address], [place], [address], [facility] 02/01/2025 14:30:41 29662 Therapeutic Exercise (1:1) completed Yordy Vega, AT [address], [place], [address], [facility] 01/28/2025 12:22:44 09769: Hot or Cold Pack completed Yordy Vega, AT [address], [place], [address], [facility] 01/28/2025 12:22:44 64731: Manual therapy completed Yordy Vega, AT [address], [place], [address], [facility] [place] [facility] 01/28/2025 12:22:44 90601 Therapeutic Exercise (1:1) completed Yordy Vega, AT [address], [place], [address], [facility] 01/25/2025 13:31:43 38363: Hot or Cold Pack completed Yordy Vega, AT [address], [place], [address], [facility] [place] [facility] 01/25/2025 13:31:43 34185: Manual therapy completed Yordy Vega, AT [address], [place], [address], [facility] 01/25/2025 13:31:43 48161 Therapeutic Exercise (1:1) completed Yordy Vega, AT [address], [place], [address], [facility] [place] [facility] 01/21/2025 12:59:15 77628: Hot or Cold Pack completed Yordy Vega, AT [address], [place], [address], [facility] 01/21/2025 12:59:15 40720: Manual therapy completed Yordy Vega, AT [address], [place], [address], [facility] 01/21/2025 12:59:15 02508 Therapeutic Exercise (1:1) completed Yordy Vega, AT [address], [place], [address], [facility] 01/18/2025 14:48:44 97691: Hot or Cold Pack completed Yordy Vega, AT [address], [place], [address], [facility] 01/18/2025 14:48:44 5 62536: Manual therapy completed Yordy Vega, AT [address] [facility], [place], [address], [facility] 01/18/2025 14:48:44 5 16861 Therapeutic Exercise (1:1) completed Yordy Vega, AT [address] [facility], [place], [address], [facility] 01/15/2025 14:57:04 5 16952: Hot or Cold Pack completed Yordy Vega, AT [address] [facility], [place], [address], [facility] 01/15/2025 14:57:33 30460: Manual therapy completed Yordy eVga, AT [address] [facility], [place], [address], [facility] 01/15/2025 14:57:12 34862 Therapeutic Exercise (1:1) completed El Smith, PT [address] [facility], [place], [address], [facility] 01/14/2025 11:34:09 5 93262: Low complexity PT Eval completed El Smith PT [address] [facility], [place], [address], [facility] 01/14/2025 11:34:11 4 Sports Shoulder completed Manas Vazquez PA-C [address] [facility], [place], [address], [facility] 09/25/2023 11:21:46 Imaging Results None [...] Disease N Heart Trouble N Heart Attack ([place]) N Gastrointestinal Disease N Cholesterol N Diabetes [...] ICD10 Code Diagnosis IMO Codes Diagnosis Note [id number] MD TIFFANI Morse Clinical [address] [place] [address] 01/15/2025 10:48:54 01/26/2025 12:35:56 Follow-up orthopedic assessment [id number] Z47.89 [id number] El Smith, PT [facility] [address] [place] [address] 01/14/2025 13:58:22 01/14/2025 17:16:55 Rupture of rotator cuff of right shoulder 8771384200 8397702 M75.365 [id number] Yordy Vega, AT [facility] PT [address] [place] [address] 01/15/2025 13:30:50 01/15/2025 14:54:23 Rupture of rotator cuff of right shoulder 5570782242 6913353 M75.954 [id number] Yordy Vega, AT [facility] PT [address] [place] [address] 01/18/2025 13:28:36 01/18/2025 14:09:17 Rupture of rotator cuff of right shoulder 5928977460 4842421 M75.743 [id number] Yordy Vega, AT [facility] [address] [place] [address] 01/21/2025 12:47:26 01/21/2025 13:49:12 Rupture of rotator cuff of right shoulder 4733314673 2893910 M75.487 [id number] Yordy Vega, AT [facility] [address] [place] [address] 01/25/2025 13:26:42 01/25/2025 14:43:58 Rupture of rotator cuff of right shoulder 6943958542 1009257 M75.226 [id number] Yordy Vega, AT [facility] [address] [place] [address] 01/28/2025 11:24:30 01/28/2025 12:44:29 Rupture of rotator cuff of right shoulder 8068065564 5961652 M75.101 Health Concerns Section Related Observation LastModified by Organization Detai ls LastModified Time None Recorded Concern Status LastModified by Organization Details LastModified Time None Recorded Payers Encounter Date Sequence Insurance Name Policy Number Policy Urbina Covered Member ID Urbina Member ID Guarantor Name 01/28/2025 1 [employer] [facility] (PPO) [id number] Giuliano Huitron [id number] Giuliano Huitron Notes Date Note Type Note Provider Name and Address Organization Details Recorded Time 01/28/2025 text/html Patient presents today reporting 4/10 pain. Pt states feeling comfortable out of the sling at home sometimes. Yordy Vega, AT [address] [facility] [address], [place], [address], [facility] [place] [facility] 01/28/2025 12:27:43
--- OUTSIDE RECORDS SUMMARY | 2025-03-02 02:07 | XMS_ITS | Continuity of Care Document ---
Author Organization [place] [facility], [facility] Address [address] [place] [address] Care Team Providers Care Legal Secretary Receptionist Name Role Phone KAREEM PRECIADOOLAS Primary Care Provider Assessment Encounter Date Assessment Date Assessment LastModified by Organization Details LastModified Time 01/15/2025 01/15/2025 Assessment: Guarded and tight passive motions into ER/FF. Plan: Continue PT @ 2x/wk for 8 weeks to decrease pain, increase ROM, optimize mechanics for functional movement, and facilitate independence in ADL's. [email or web address] Not available 01/15/2025 14:59:29 Plan of Treatment Reminders Order Date Submit [...] Not available PT FOLLOW-U P 2024 01:00P Casie Smith, PT Not available Not available Not available PT FOLLOW-U P 2024 10:00A M El Smith, PT Not available Not available Not available PT FOLLOW-U P 2024 10:00A M El Smith, PT Not available Not available Not available PT FOLLOW-U P 2024 11:30A M Fermín Ney, DPT Not available Not [...] Time Acquired pes planus of right foot [id number] Active 2023 En Magallanes MD [address], [place], [address], [facility] 4 16:55:50 Sinus tarsi syndrome of right ankle [id number] 07 Active 2023 En Magallanes MD [address], [place], [address], [facility] 4 16:55:51 Problem Notes None recorded. Procedures Surgical History Date Name Laterality Status Provider Name and Address Organization Details Recorded Time 5 26362 Therapeutic Exercise (1:1) active MARYELLEN Cornell [address], [place], [address], [facility] 03/01/2025 11:19:44 5 96036: Hot or Cold Pack active Yordy Vega, AT [address], [place], [address], [facility] 03/01/2025 11:19:44 5 59347: Manual therapy active Yordy Vega, AT [address], [place], [address], [facility] 03/01/2025 11:19:44 5 49168 Therapeutic Exercise (1:1) completed Ellilia Smith, PT [address], [place], [address], [facility] 02/24/2025 19:09:05 5 29435: Hot or Cold Pack completed Ellilia Smith, PT [address], [place], [address], [facility] 02/24/2025 19:09:05 5 58878: Manual therapy completed El Smith, PT [address], [place], [address], [facility] 02/24/2025 19:09:05 5 44666 Therapeutic Exercise (1:1) completed El Smith, PT [address], [place], [address], [facility] 02/21/2025 16:53:11 5 19259: Hot or Cold Pack completed Ellilia Smith, PT [address], [place], [address], [facility] 02/21/2025 16:53:11 5 98703: Manual therapy completed Ellilia Smith, PT [address], [place], [address], [facility] 02/21/2025 16:53:11 5 24027 Therapeutic Exercise (1:1) completed Ellilia Smith, PT [address], [place], [address], [facility] 02/17/2025 15:54:11 5 54515: Hot or Cold Pack completed El Smith, PT [address], [place], [address], [facility] 02/17/2025 15:54:11 5 06174: Manual therapy completed El Smith, PT [address], [place], [address], [facility] 02/17/2025 15:54:11 5 29621 Therapeutic Exercise (1:1) completed El Smith, PT [address], [place], [address], [facility] 02/14/2025 18:36:50 5 53943: Hot or Cold Pack completed El Smith, PT [address], [place], [address], [facility] 02/14/2025 18:36:50 5 35594: Manual therapy completed El Smith, PT [address], [place], [address], [facility] 02/14/2025 18:36:50 5 87968 Therapeutic Exercise (1:1) completed Yordy Vega, AT [address], [place], [address], [facility] 02/10/2025 18:15:04 5 77692: Hot or Cold Pack completed Yordy Vega, AT [address], [place], [address], [facility] 02/10/2025 18:15:04 5 60734: Manual therapy completed Yordy Vega, AT [address], [place], [address], [facility] 02/10/2025 18:15:04 91141 Therapeutic Exercise (1:1) completed El Smith, PT [address], [place], [address], [facility] 02/04/2025 15:22:07 25218: Hot or Cold Pack completed El Smith, PT [address], [place], [address], [facility] 02/04/2025 07:04:59 64726: Manual therapy completed El Smith, PT [address], [place], [address], [facility] 02/04/2025 07:04:59 89385 Therapeutic Exercise (1:1) completed Yordy Vega, AT [address], [place], [address], [facility] 02/01/2025 14:30:41 86904: Hot or Cold Pack completed Yordy Vega, AT [address], [place], [address], [facility] 02/01/2025 14:30:41 67115: Manual therapy completed Yordy Vega, AT [address], [place], [address], [facility] 02/01/2025 14:30:41 11086 Therapeutic Exercise (1:1) completed Yordy Vega, AT [address], [place], [address], [facility] 01/28/2025 12:22:44 10012: Hot or Cold Pack completed Yordy Vega, AT [address], [place], [address], [facility] 01/28/2025 12:22:44 02979: Manual therapy completed Yordy Vega, AT [address], [place], [address], [facility] 01/28/2025 12:22:44 13832 Therapeutic Exercise (1:1) completed Yordy Vega, AT [address], [place], [address], [facility] 01/25/2025 13:31:43 87987: Hot or Cold Pack completed Yordy Vega, AT [address], [place], [address], [facility] 01/25/2025 13:31:43 43485: Manual therapy completed Yordy Vega, AT [address], [place], [address], [facility] 01/25/2025 13:31:43 45692 Therapeutic Exercise (1:1) completed Yordy Vega, AT [address], [place], [address], [facility] 01/21/2025 12:59:15 95036: Hot or Cold Pack completed Yordy Vega, AT [address], [place], [address], [facility] 01/21/2025 12:59:15 49581: Manual therapy completed Yordy Vega, AT [address], [place], [address], [facility] 01/21/2025 12:59:15 12779 Therapeutic Exercise (1:1) completed Yordy Vega, AT [address], [place], [address], [facility] 01/18/2025 14:48:44 66584: Hot or Cold Pack completed Yordy Vega, AT [address], [place], [address], [facility] 01/18/2025 14:48:44 5 81797: Manual therapy completed Yordy Vega, AT [address], [place], [address], [facility] 01/18/2025 14:48:44 93504 Therapeutic Exercise (1:1) completed Yordy Vega, AT [address], [place], [address], [facility] 01/15/2025 14:57:04 09774: Hot or Cold Pack completed Yordy Vega, AT [address], [place], [address], [facility] 01/15/2025 14:57:33 87621: Manual therapy completed Yordy Vega, AT [address], [place], [address], [facility] 01/15/2025 14:57:12 77284 Therapeutic Exercise (1:1) completed El Smith, PT [address] [facility], [place], [address], [facility] 01/14/2025 11:34:09 5 78505: Low complexity PT Eval completed El Smith, PT [address], [place], [address], [facility] 01/14/2025 11:34:11 4 Sports Shoulder completed Manas Vazquez PA-C [address], [place], [address], [facility] 09/25/2023 11:21:46 [...] Updated DateTime 01/15/2025 165.1 cm 30 kg/m2 52276.63 g Terry Gallagher MA [facility] 01/15/2025 11:34:54 Social History None recorded. Functional Status None recorded. Mental Status None recorded. Family History Nothing Reported. Medical History Condition Response Allergies/Hayfever N Coronary Artery Disease N Breathing or lung disorders N Anxiety/Depression N Emphysema N Nerve Disorders N Thyroid Problems N COPD N Pacemaker N Kidney/Bladder Problems N Anemia N Vascular Disease N Heart Trouble N Heart Attack ([place]) N Gastrointestinal Disease N Cholesterol N Diabetes [...] ICD10 Code Diagnosis IMO Codes Diagnosis Note [id number] [place] [address] 01/15/2025 10:48:54 01/26/2025 12:35:56 Follow-up orthopedic assessment [id number] Z47.89 [id number] El Smith, PT [facility] [address] [place] [address] 01/14/2025 13:58:22 01/14/2025 17:16:55 Rupture of rotator cuff of right shoulder [id number] M75.378 [id number] Yordy Vega, AT [facility] [address] [place] [address] 01/15/2025 13:30:50 01/15/2025 14:54:23 Rupture of rotator cuff of right shoulder [id number] M75.101 Health Concerns Section Related Observation LastModified by Organization Detai ls LastModified Time None Recorded Concern Status LastModified by Organization Details LastModified Time None Recorded Payers Encounter Date Sequence Insurance Name Policy Number Policy Urbina Covered Member ID Urbina Member ID Guarantor Name 01/15/2025 1 [employer] [facility] ([id number] Giuliano Huitron [id number] Giuliano Huitron Notes Date Note Type Note Provider Name and Address Organization Details Recorded Time 01/15/2025 text/html Patient presents today reporting 4/10 pain. Pt states sleep is difficult. Yordy Vega, AT [address], [place], [address], [facility] 01/15/2025 14:59:49 01/15/2025 text/html Surgery: Right shoulder calcium excision with subsequent 1+1 double row supraspinatus repair, [facility], 12/30/2024 Interval History: Giuliano returns today [...] and well perfused. 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 [facility] speech recognition packaging sales representative software was used to create portions of this document. An attempt at proofreading has been made to minimize errors. Please call for corrections. Marielos Phillips MD [address] [place], [place] [address], [place], [address], [facility] 01/15/2025 12:02:30
--- OUTSIDE RECORDS SUMMARY | 2025-03-02 02:07 | XMS_ITS | Continuity of Care Document ---
Author Organization [place] [facility], [facility] Address [address] [place] [address] Care Team Providers Care Exercise Physiologist Certified Name Role Phone FERMÍN PRECIADO Primary Care Provider Assessment Encounter Date Assessment Date Assessment LastModified by Organization Details LastModified Time 01/14/2025 01/14/2025 Assessment: Patient presents with signs and symptoms consistent with ARCR, including pain, decreased ROM, and strength deficits. Plan: Continue PT @ 2x/wk for 8 weeks to decrease pain, increase ROM, optimize mechanics for functional movement, and facilitate independence in ADL's. [email or web address] Not available 01/14/2025 11:32:36 Plan of Treatment Reminders Order Date Submit [...] . Medication Orders None recorded . Patient Targets Encounter Date Encounter Id Patient Goals Patient Target Last Modified By Organization Details Last Modified Time 01/14/2025 [id number] 3 weeks of Right Shoulder PROM motion: external rotation: at 0 degrees of abduction: passive motion right (30 deg.) Not available Not available Not available 3 weeks of Right Shoulder PROM Motion: Internal Rotation: At 0 Degrees Abduction: Passive Motion Right (60 deg.) Not available Not available Not available 3 weeks of Right Shoulder PROM (normal) motion: forward flexion: passive motion right (120 deg.) Not available Not available Not available rn long term care goal of Right Shoulder PROM (normal) motion: internal rotation: at 0 degrees abduction: passive motion right (90 deg.) Not available Not available Not available rn long term care goal of Right Shoulder PROM (normal) motion: forward flexion: passive motion right (180 deg.) Not available Not available Not available rn long term care goal of Right Shoulder PROM (normal) motion: external rotation: at 0 degrees of abduction: passive motion right (80 deg.) Not available Not available Not available rn long term care goal of Right Shoulder Strength (normal) strength: shoulders: external rotation: right: at 0 degrees of abduction 5 (0-5) Not available Not available Not available group home goal of Right Shoulder Strength (normal) strength: shoulders: flexion: right 5 (0-5) Not available Not available Not available group home goal of Right Shoulder Strength (normal) strength: shoulders: internal rotation: right 5 (0-5) Not available Not available Not available 3 weeks of Sleeping no trouble sleeping Not available Not available Not available 3 weeks of Overall ADL's WFL Not available Not available Not available group home goal of Overall ADL's unlimited Not available Not available Not available rn long term care goal of Reaching performs without symptoms Not available Not available Not available group home goal of Lifting performs without symptoms Not available Not available Not available 3 weeks of Pain <5/10 Not available Not available Not available group home goal of Pain 0/10 Not available Not available Not available Patient InstructionsNo instructions recorded. Reason for Referral None Reported. Problems Name Problem SNOMED Code Status Onset Date Resolution Date Notes Provider Name and Address Organization Details Recorded Time Acquired pes planus of right foot [id number] Active 2023 En Magallanes MD [address], [place], [address], [facility] 4 16:55:50 Sinus tarsi syndrome of right ankle [id number] 07 Active 2023 En Magallanes MD [address], [place], [address], [facility] 4 16:55:51 Problem Notes None recorded. Procedures Surgical History Date Name Laterality Status Provider Name and Address Organization Details Recorded Time 5 91598 Therapeutic Exercise (1:1) bushra Vega, AT [address], [place], [address], [facility] 03/01/2025 11:19:44 5 93018: Hot or Cold Pack active Yordy Vega, AT [address], [place], [address], [facility] 03/01/2025 11:19:44 5 69928: Manual therapy active Yordy Vega, AT [address], [place], [address], [facility] 03/01/2025 11:19:44 5 04345 Therapeutic Exercise (1:1) completed Ellilia Smith, PT [address], [place], [address], [facility] 02/24/2025 19:09:05 5 44326: Hot or Cold Pack completed Ellilia Smith, PT [address], [place], [address], [facility] 02/24/2025 19:09:05 5 76239: Manual therapy completed El Smith, PT [address], [place], [address], [facility] 02/24/2025 19:09:05 5 85138 Therapeutic Exercise (1:1) completed El Smith, PT [address], [place], [address], [facility] 02/21/2025 16:53:11 5 90793: Hot or Cold Pack completed El Smith, PT [address], [place], [address], [facility] 02/21/2025 16:53:11 5 85781: Manual therapy completed El Smith, PT [address], [place], [address], [facility] 02/21/2025 16:53:11 5 95955 Therapeutic Exercise (1:1) completed El Smith, PT [address], [place], [address], [facility] 02/17/2025 15:54:11 5 15124: Hot or Cold Pack completed El Smith, PT [address], [place], [address], [facility] 02/17/2025 15:54:11 5 43484: Manual therapy completed El Smith, PT [address], [place], [address], [facility] 02/17/2025 15:54:11 5 23456 Therapeutic Exercise (1:1) completed El Smith, PT [address], [place], [address], [facility] 02/14/2025 18:36:50 5 98917: Hot or Cold Pack completed El Smith, PT [address], [place], [address], [facility] 02/14/2025 18:36:50 5 72993: Manual therapy completed El Smith, PT [address], [place], [address], [facility] 02/14/2025 18:36:50 5 87612 Therapeutic Exercise (1:1) completed Yordy Vega, AT [address], [place], [address], [facility] 02/10/2025 18:15:04 5 90808: Hot or Cold Pack completed Yordy Vega, AT [address], [place], [address], [facility] 02/10/2025 18:15:04 5 93301: Manual therapy completed Yordy Vega, AT [address], [place], [address], [facility] 02/10/2025 18:15:04 5 85749 Therapeutic Exercise (1:1) completed El Smith, PT [address], [place], [address], [facility] 02/04/2025 15:22:07 62558: Hot or Cold Pack completed El Smith, PT [address], [place], [address], [facility] 02/04/2025 07:04:59 19694: Manual therapy completed El Smith, PT [address], [place], [address], [facility] 02/04/2025 07:04:59 98301 Therapeutic Exercise (1:1) completed Yordy Vega, AT [address], [place], [address], [facility] 02/01/2025 14:30:41 29402: Hot or Cold Pack completed Yordy Vega, AT [address], [place], [address], [facility] 02/01/2025 14:30:41 84622: Manual therapy completed Yordy Vega, AT [address], [place], [address], [facility] 02/01/2025 14:30:41 42559 Therapeutic Exercise (1:1) completed Yordy Vega, AT [address], [place], [address], [facility] 01/28/2025 12:22:44 27066: Hot or Cold Pack completed Yordy Vega, AT [address], [place], [address], [facility] 01/28/2025 12:22:44 83752: Manual therapy completed Yordy Vega, AT [address], [place], [address], [facility] 01/28/2025 12:22:44 32331 Therapeutic Exercise (1:1) completed Yordy Vega, AT [address], [place], [address], [facility] 01/25/2025 13:31:43 32453: Hot or Cold Pack completed Yordy Vega, AT [address], [place], [address], [facility] 01/25/2025 13:31:43 49165: Manual therapy completed Yordy Vega, AT [address], [place], [address], [facility] 01/25/2025 13:31:43 92524 Therapeutic Exercise (1:1) completed Yordy Vega, AT [address], [place], [address], [facility] 01/21/2025 12:59:15 63515: Hot or Cold Pack completed Yordy Vega, AT [address], [place], [address], [facility] 01/21/2025 12:59:15 26966: Manual therapy completed Yordy Vega, AT [address], [place], [address], [facility] 01/21/2025 12:59:15 48056 Therapeutic Exercise (1:1) completed Yordy Vega, AT [address], [place], [address], [facility] 01/18/2025 14:48:44 50292: Hot or Cold Pack completed Yordy Vega, AT [address], [place], [address], [facility] 01/18/2025 14:48:44 67836: Manual therapy completed Yordy Vega, AT [address], [place], [address], [facility] 01/18/2025 14:48:44 5 67870 Therapeutic Exercise (1:1) completed Yordy Vega, AT [address] [facility], [place], [address], [facility] 01/15/2025 14:57:04 5 21608: Hot or Cold Pack completed Yordy Vega, AT [address], [place], [address], [facility] 01/15/2025 14:57:33 5 50398: Manual therapy completed Yordy Vega, AT [address] [facility], [place], [address], [facility] 01/15/2025 14:57:12 5 40269 Therapeutic Exercise (1:1) completed El Smith, PT [address] [facility], [place], [address], [facility] 01/14/2025 11:34:09 5 15506: Low complexity PT Eval completed El Smith, PT [address] [facility], [place], [address], [facility] 01/14/2025 11:34:11 4 Sports Shoulder completed Manas Vazquez PA-C [address] [facility], [place], [address], [facility] 09/25/2023 11:21:46 Imaging Results None [...] Disease N Heart Trouble N Heart Attack ([place]) N Gastrointestinal Disease N Cholesterol N Diabetes [...] ICD10 Code Diagnosis IMO Codes Diagnosis Note [id number] El Smith, PT [facility] [address] [place] [address] 01/14/2025 13:58:22 01/14/2025 17:16:55 Rupture of rotator cuff of right shoulder [id number] M75.101 Health Concerns Section Related Observation LastModified by Organization Detai ls LastModified Time None Recorded Concern Status LastModified by Organization Details LastModified Time None Recorded Payers Encounter Date Sequence Insurance Name Policy Number Policy [place] Covered Member ID [place] Member ID Guarantor Name 01/14/2025 1 [employer] [facility] [id number] Giuliano Huitron [id number] Giuliano Huitron Notes Date Note Type Note Provider Name and Address Organization Details Recorded Time 01/14/2025 text/html Patient is 44 year old male with history of chronic shoulder pain and RTC tear, no specific injury, presenting today s/p ARCR. Reports moderate pain and is taking tylenol as needed to control symptoms. Has no numbness and tingling in shoulder/arm. Appears to be compliant with sling use and shoulder precautions. 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 Patient goal is to be able to exercise again. El Smith, PT [address], [place], [address], [facility] 01/14/2025 14:43:56
== END 2025-03-01 15:31 | disposition home or self-care (01) ==
LOC: HO.HMCH 13:16
PROVIDERS: PCP Physician Assistant; Visit Provider Physician Assistant
DX: F90.2 Attention-deficit hyperactivity disorder, combined type (principal); E78.2 Mixed hyperlipidemia; L71.9 Rosacea, unspecified

== ENCOUNTER 2025-03-15 14:47 | Outpatient (REF) | payer OTHER, SELFPAY ==
--- NOTE | ~2025-03-15 | CT_ITS ---
EXAMINATION: CT CHEST WITH CONTRAST CLINICAL INFORMATION: Z22.7 - Latent tuberculosis COMPARISON: Chest x-ray 02/05/2025 TECHNIQUE: Multidetector volumetric CT imaging of the chest was obtained after the administration of 50 mL of Omnipaque 350 intravenous contrast without immediate adverse reactions. Axial MIP volume rendering provided. Sagittal and coronal reformatted images were obtained. This CT examination was performed using dose optimization techniques as appropriate, variously including the following: *Automated exposure control *Adjustment of mA and/or kV according to patient size (this includes techniques or standardized protocols for targeted exams where dose is matched to indication/reason for exam; i.e. extremities or head) *Use of iterative reconstruction technique FINDINGS: LUNGS: The lungs are clear with no evidence of inflammation or nodules. MEDIASTINUM: Unremarkable. PLEURA: There is no pleural effusion. No pleural mass or thickening. AXILLA: No lymphadenopathy. UPPER ABDOMEN: Unremarkable OSSEOUS STRUCTURES: Unremarkable. CT/CT chest wo con - High Res IMPRESSION: No acute disease and no changes of chronic granulomatous disease. Fleischner guidelines were followed. Electronically signed by: John Clark MD 03/15/2025 04:25 PM MADAY KIM
--- OUTSIDE RECORDS SUMMARY | 2025-03-15 18:04 | XMS_ITS | Continuity of Care Document ---
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 Role Phone ILANA FERMÍN Primary Care [...] Time Details Appointments PT FOLLOW-U P 2024 05:30P M Fermín Brewster DPT Not available Not available Not available PT FOLLOW-U P 2024 12:00P M El Smith PT Not available Not available Not available PT FOLLOW-U P 2024 01:00P Casie Smith PT Not available Not available Not available [...] Time Acquired pes planus of right foot [id number] Active 2023 En Magallanes MD [address], [place], [address], [facility] 4 16:55:50 Sinus tarsi syndrome of right ankle [id number] 07 Active 2023 En Magallanes MD [address], [place], [address], [facility] 4 16:55:51 Problem Notes None recorded. Procedures Surgical History Date Name Laterality Status Provider Name and Address Organization Details Recorded Time 5 40623 Therapeutic Exercise (1:1) completed MARYELLEN Cornell [address], [place], [address], [facility] 03/10/2025 12:55:09 5 46368: Hot or Cold Pack completed Yordy Vega, AT [address], [place], [address], [facility] 03/10/2025 12:55:09 5 29008: Manual therapy completed Yordy Vega, AT [address], [place], [address], [facility] 03/10/2025 12:55:09 5 05495 Therapeutic Exercise (1:1) completed Yordy Vega, AT [address], [place], [address], [facility] 03/08/2025 11:43:16 5 95887: Hot or Cold Pack completed Yordy Vega, AT [address], [place], [address], [facility] 03/08/2025 11:43:16 5 74579: Manual therapy completed Yordy Vega, AT [address], [place], [address], [facility] 03/08/2025 11:43:16 5 94147 Therapeutic Exercise (1:1) completed Yordy Vega, AT [address], [place], [address], [facility] 03/04/2025 11:56:39 5 08322: Hot or Cold Pack completed Yordy Vega, AT [address], [place], [address], [facility] 03/04/2025 11:56:39 5 98593: Manual therapy completed Yordy Vega, AT [address], [place], [address], [facility] 03/04/2025 11:56:39 5 67356 Therapeutic Exercise (1:1) completed Yordy Vega, AT [address], [place], [address], [facility] 03/01/2025 11:19:44 5 49707: Hot or Cold Pack completed Yordy Vega, AT [address], [place], [address], [facility] 03/01/2025 11:19:44 5 87350: Manual therapy completed Yordy Vega, AT [address], [place], [address], [facility] 03/01/2025 11:19:44 5 81178 Therapeutic Exercise (1:1) completed El Smith, PT [address], [place], [address], [facility] 02/24/2025 19:09:05 5 23397: Hot or Cold Pack completed El Smith, PT [address], [place], [address], [facility] 02/24/2025 19:09:05 5 32241: Manual therapy completed El Smith, PT [address], [place], [address], [facility] 02/24/2025 19:09:05 5 23395 Therapeutic Exercise (1:1) completed El Smith, PT [address], [place], [address], [facility] 02/21/2025 16:53:11 5 44769: Hot or Cold Pack completed El Smith, PT [address], [place], [address], [facility] 02/21/2025 16:53:11 5 59643: Manual therapy completed El Smith, PT [address], [place], [address], [facility] 02/21/2025 16:53:11 5 64478 Therapeutic Exercise (1:1) completed El Smith, PT [address], [place], [address], [facility] 02/17/2025 15:54:11 5 40225: Hot or Cold Pack completed El Smith, PT [address], [place], [address], [facility] 02/17/2025 15:54:11 5 96857: Manual therapy completed El Smith, PT [address], [place], [address], [facility] 02/17/2025 15:54:11 5 77886 Therapeutic Exercise (1:1) completed El Smith, PT [address], [place], [address], [facility] 02/14/2025 18:36:50 5 97960: Hot or Cold Pack completed El Smith, PT [address], [place], [address], [facility] 02/14/2025 18:36:50 5 35833: Manual therapy completed El Smith, PT [address], [place], [address], [facility] 02/14/2025 18:36:50 5 55816 Therapeutic Exercise (1:1) completed Yordy Vega AT [address], [place], [address], [facility] 02/10/2025 18:15:04 5 74305: Hot or Cold Pack completed Yordy Vega AT [address], [place], [address], [facility] 02/10/2025 18:15:04 53574: Manual therapy completed Yordy Vega, AT [address], [place], [address], [facility] 02/10/2025 18:15:04 75472 Therapeutic Exercise (1:1) completed El Smith, PT [address], [place], [address], [facility] 02/04/2025 15:22:07 11450: Hot or Cold Pack completed El Smith, PT [address], [place], [address], [facility] 02/04/2025 07:04:59 41785: Manual therapy completed El Smith, PT [address], [place], [address], [facility] 02/04/2025 07:04:59 87601 Therapeutic Exercise (1:1) completed Yordy Vega, AT [address], [place], [address], [facility] 02/01/2025 14:30:41 83991: Hot or Cold Pack completed Yordy Vega, AT [address], [place], [address], [facility] 02/01/2025 14:30:41 68082: Manual therapy completed Yordy Vega, AT [address], [place], [address], [facility] 02/01/2025 14:30:41 29155 Therapeutic Exercise (1:1) completed Yordy Vega, AT [address], [place], [address], [facility] 01/28/2025 12:22:44 62665: Hot or Cold Pack completed Yordy Vega, AT [address], [place], [address], [facility] 01/28/2025 12:22:44 49408: Manual therapy completed Yordy Vega, AT [address], [place], [address], [facility] 01/28/2025 12:22:44 20277 Therapeutic Exercise (1:1) completed Yordy Vega, AT [address], [place], [address], [facility] 01/25/2025 13:31:43 56156: Hot or Cold Pack completed Yordy Vega, AT [address], [place], [address], [facility] 01/25/2025 13:31:43 46261: Manual therapy completed Yordy Vega, AT [address], [place], [address], [facility] 01/25/2025 13:31:43 15612 Therapeutic Exercise (1:1) completed Yordy Vega, AT [address], [place], [address], [facility] 01/21/2025 12:59:15 32309: Hot or Cold Pack completed Yordy Vega, AT [address], [place], [address], [facility] 01/21/2025 12:59:15 00687: Manual therapy completed Yordy Vega, AT [address], [place], [address], [facility] 01/21/2025 12:59:15 33464 Therapeutic Exercise (1:1) completed Yordy Vega, AT [address], [place], [address], [facility] 01/18/2025 14:48:44 5 49345: Hot or Cold Pack completed Yordy Vega, AT [address], [place], [address], [facility] 01/18/2025 14:48:44 5 91609: Manual therapy completed Yordy Vega, AT [address], [place], [address], [facility] 01/18/2025 14:48:44 5 92830 Therapeutic Exercise (1:1) completed Yordy Vega, AT [address] [facility], [place], [address], [facility] 01/15/2025 14:57:04 5 65119: Hot or Cold Pack completed Yordy Vega, AT [address] [facility], [place], [address], [facility] 01/15/2025 14:57:33 5 79962: Manual therapy completed Yordy Vega, AT [address] [facility], [place], [address], [facility] 01/15/2025 14:57:12 5 00438 Therapeutic Exercise (1:1) completed El Smith, PT [address] [facility], [place], [address], [facility] 01/14/2025 11:34:09 5 55599: Low complexity PT Eval completed El Smith, PT [address] [facility], [place], [address], [facility] 01/14/2025 11:34:11 4 Sports Shoulder completed Manas Vazquez PA-C [address] [facility], [place], [address], [facility] 09/25/2023 11:21:46 Imaging [...] History Nothing Reported. Medical History Condition Response Coronary Artery Disease N Anxiety/Depression N Emphysema N COPD N Pacemaker N Vascular Disease N Heart Trouble N Gastrointestinal Disease N Autoimmune disease N Inflammatory Joint disease N Orthotics N Arthritis N Blood Clot N Acid Reflux (GERD) N Cancer N Stroke N Circulation Problems N Rheumatoid Arthritis N Arrhythmia Y Headaches N Fibromyalgia N Allergies/Hayfever N Breathing or lung disorders N Nerve Disorders N Thyroid Problems N Kidney/Bladder Problems N Anemia N Heart Attack ([place]) N Cholesterol N Diabetes N Bleeding Disorder N Seizures/Epilepsy N AIDS/HIV N Congestive Heart Failure (CHF) N Asthma N Peripheral Vascular Disease N Sleep Apnea N Hepatitis Y Heart Disease N Pulmonary Embolism N Hypertension N Osteoporosis N Past Encounters Encounter ID Performer Location Encounter Start Date Encounter Closed Date Diagnosis/Indication Diagnosis SNOMED-CT Code Diagnosis ICD10 Code Diagnosis IMO Codes Diagnosis Note [id number] MARYELLEN Cornell [facility] [address] [place] [address] 01/25/2025 13:26:42 01/25/2025 14:43:58 Rupture of rotator cuff of right shoulder [id number] M75.738 [id number] Yordy Vivarolson, AT [facility] [address] [place] [address] 01/28/2025 11:24:30 01/28/2025 12:44:29 Rupture of rotator cuff of right shoulder [id number] M75.609 [id number] Yordy Vivarolson, AT [facility] [address] [place] [address] 02/01/2025 11:30:11 02/01/2025 12:08:36 Rupture of rotator cuff of right shoulder [id number] M75.307 [id number] El Luis, PT [facility] [address] [place] [address] 02/04/2025 13:19:30 02/04/2025 14:04:40 Rupture of rotator cuff of right shoulder [id number] M75.697 [id number] Yordy Vivarolson, AT [facility] [address] [place] [address] 02/10/2025 16:10:37 02/10/2025 17:00:46 Rupture of rotator cuff of right shoulder [id number] M75.708 [id number] El Luis, PT [facility] [address] [place] [address] 02/15/2025 12:58:31 02/15/2025 13:28:56 Rupture of rotator cuff of right shoulder [id number] M75.869 [id number] El Smith, PT [facility] [address] [place] [address] 02/18/2025 13:26:19 02/18/2025 17:15:10 Rupture of rotator cuff of right shoulder [id number] M75.844 [id number] El Smith, PT [facility] [address] [place] [address] 02/22/2025 13:59:50 02/23/2025 06:43:13 Rupture of rotator cuff of right shoulder [id number] M75.101 Health Concerns Section Related Observation LastModified by Organization Detai ls LastModified Time None Recorded Concern Status LastModified by Organization Details LastModified Time None Recorded Payers Encounter Date Sequence Insurance Name Policy Number Policy Urbina Covered Member ID Urbina Member ID Guarantor Name 02/22/2025 1 [place] [employer] [facility] [id number] Giuliano Huitron [id number] Giuliano Huitron Notes Date Note Type Note Provider Name and Address Organization Details Recorded Time 02/22/2025 text/html Patient state pain 0/10 at rest, pain 4/10 with movement. El Smith, PT [address] [facility] [address], [place], [address], [facility] 02/22/2025 19:15:29
--- OUTSIDE RECORDS SUMMARY | 2025-03-15 18:04 | XMS_ITS | Continuity of Care Document ---
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 Procedures Surgical History Date Name Laterality Status Provider Name and Address Organization Details Recorded Time 5 26447 Therapeutic Exercise (1:1) completed MARYELLEN Cornell [address], [place], [address], [facility] 03/10/2025 12:55:09 5 81145: Hot or Cold Pack completed Yordy Vega, AT [address], [place], [address], [facility] 03/10/2025 12:55:09 5 65978: Manual therapy completed Yordy Vega, AT [address], [place], [address], [facility] 03/10/2025 12:55:09 5 14444 Therapeutic Exercise (1:1) completed Yordy Vega, AT [address], [place], [address], [facility] 03/08/2025 11:43:16 5 24114: Hot or Cold Pack completed Yordy Vega, AT [address], [place], [address], [facility] 03/08/2025 11:43:16 5 28792: Manual therapy completed Yordy Vega, AT [address], [place], [address], [facility] 03/08/2025 11:43:16 5 69734 Therapeutic Exercise (1:1) completed Yordy Vega, AT [address], [place], [address], [facility] 03/04/2025 11:56:39 5 21246: Hot or Cold Pack completed Yordy Vega, AT [address], [place], [address], [facility] 03/04/2025 11:56:39 5 90188: Manual therapy completed Yordy Vega, AT [address], [place], [address], [facility] 03/04/2025 11:56:39 5 61153 Therapeutic Exercise (1:1) completed Yordy Vega, AT [address], [place], [address], [facility] 03/01/2025 11:19:44 5 29049: Hot or Cold Pack completed Yordy Vega, AT [address], [place], [address], [facility] 03/01/2025 11:19:44 5 57468: Manual therapy completed Yordy Vega, AT [address], [place], [address], [facility] 03/01/2025 11:19:44 5 25401 Therapeutic Exercise (1:1) completed El Smith, PT [address], [place], [address], [facility] 02/24/2025 19:09:05 5 33735: Hot or Cold Pack completed El Smith, PT [address], [place], [address], [facility] 02/24/2025 19:09:05 5 80132: Manual therapy completed El Smith, PT [address], [place], [address], [facility] 02/24/2025 19:09:05 5 52419 Therapeutic Exercise (1:1) completed El Smith, PT [address], [place], [address], [facility] 02/21/2025 16:53:11 5 81753: Hot or Cold Pack completed El Smith, PT [address], [place], [address], [facility] 02/21/2025 16:53:11 5 59650: Manual therapy completed El Smith, PT [address], [place], [address], [facility] 02/21/2025 16:53:11 5 59477 Therapeutic Exercise (1:1) completed El Smith, PT [address], [place], [address], [facility] 02/17/2025 15:54:11 5 97706: Hot or Cold Pack completed El Smith, PT [address], [place], [address], [facility] 02/17/2025 15:54:11 5 56122: Manual therapy completed El Smith, PT [address], [place], [address], [facility] 02/17/2025 15:54:11 5 77402 Therapeutic Exercise (1:1) completed El Smith, PT [address], [place], [address], [facility] 02/14/2025 18:36:50 5 66045: Hot or Cold Pack completed El Smith, PT [address], [place], [address], [facility] 02/14/2025 18:36:50 5 58319: Manual therapy completed El Smith, PT [address], [place], [address], [facility] 02/14/2025 18:36:50 5 47530 Therapeutic Exercise (1:1) completed Yordy Vega, AT [address], [place], [address], [facility] 02/10/2025 18:15:04 5 78278: Hot or Cold Pack completed Yordy Vega AT [address], [place], [address], [facility] 02/10/2025 18:15:04 58996: Manual therapy completed Yordy Vega, AT [address], [place], [address], [facility] 02/10/2025 18:15:04 43128 Therapeutic Exercise (1:1) completed El Smith, PT [address], [place], [address], [facility] 02/04/2025 15:22:07 63675: Hot or Cold Pack completed El Smith, PT [address], [place], [address], [facility] 02/04/2025 07:04:59 87397: Manual therapy completed El Smith, PT [address], [place], [address], [facility] 02/04/2025 07:04:59 25896 Therapeutic Exercise (1:1) completed Yordy Vega, AT [address], [place], [address], [facility] 02/01/2025 14:30:41 83796: Hot or Cold Pack completed Yordy Vega, AT [address], [place], [address], [facility] 02/01/2025 14:30:41 21083: Manual therapy completed Yordy Vega, AT [address], [place], [address], [facility] 02/01/2025 14:30:41 81667 Therapeutic Exercise (1:1) completed Yordy Vega, AT [address], [place], [address], [facility] 01/28/2025 12:22:44 05438: Hot or Cold Pack completed Yordy Vega, AT [address], [place], [address], [facility] 01/28/2025 12:22:44 29703: Manual therapy completed Yordy Vega, AT [address], [place], [address], [facility] 01/28/2025 12:22:44 14946 Therapeutic Exercise (1:1) completed Yordy Vega, AT [address], [place], [address], [facility] 01/25/2025 13:31:43 25556: Hot or Cold Pack completed Yordy Vega, AT [address], [place], [address], [facility] 01/25/2025 13:31:43 98696: Manual therapy completed Yordy Vega, AT [address], [place], [address], [facility] 01/25/2025 13:31:43 70952 Therapeutic Exercise (1:1) completed Yordy Vega, AT [address], [place], [address], [facility] 01/21/2025 12:59:15 73421: Hot or Cold Pack completed Yordy Vega, AT [address], [place], [address], [facility] 01/21/2025 12:59:15 39571: Manual therapy completed Yordy Vega, AT [address], [place], [address], [facility] 01/21/2025 12:59:15 96364 Therapeutic Exercise (1:1) completed Yordy Vega, AT [address], [place], [address], [facility] 01/18/2025 14:48:44 5 70620: Hot or Cold Pack completed Yordy Vega, AT [address], [place], [address], [facility] 01/18/2025 14:48:44 5 97558: Manual therapy completed Yordy Vega, AT [address], [place], [address], [facility] 01/18/2025 14:48:44 5 10479 Therapeutic Exercise (1:1) completed Yordy Vega, AT [address] [facility], [place], [address], [facility] 01/15/2025 14:57:04 5 81041: Hot or Cold Pack completed Yordy Vega, AT [address] [facility], [place], [address], [facility] 01/15/2025 14:57:33 5 45516: Manual therapy completed Yordy Vega, AT [address] [facility], [place], [address], [facility] 01/15/2025 14:57:12 5 93718 Therapeutic Exercise (1:1) completed El Smith, PT [address] [facility], [place], [address], [facility] 01/14/2025 11:34:09 5 34349: Low complexity PT Eval completed El Smith, PT [address] [facility], [place], [address], [facility] 01/14/2025 11:34:11 4 Sports Shoulder completed Manas Vazquez PA-C [address] [facility], [place], [address], [facility] 09/25/2023 11:21:46 Imaging Results [...] Disease N Heart Trouble N Heart Attack (MS) N Gastrointestinal Disease N Cholesterol N Diabetes N Autoimmune disease N Bleeding Disorder N Inflammatory Joint disease N Orthotics N Arthritis N Seizures/Epilepsy N [...] ICD10 Code Diagnosis IMO Codes Diagnosis Note [id number] MARYELLEN Cornell [facility] [address] [place] [address] 01/18/2025 13:28:36 01/18/2025 14:09:17 Rupture of rotator cuff of right shoulder [id number] M75.984 [id number] Yordy Vega, AT [facility] [address] [place] [address] 01/21/2025 12:47:26 01/21/2025 13:49:12 Rupture of rotator cuff of right shoulder [id number] M75.909 [id number] Yordy Vega, AT [facility] [address] [place] [address] 01/25/2025 13:26:42 01/25/2025 14:43:58 Rupture of rotator cuff of right shoulder [id number] M75.449 [id number] Yordy Vega, AT [facility] [address] [place] [address] 01/28/2025 11:24:30 01/28/2025 12:44:29 Rupture of rotator cuff of right shoulder [id number] M75.163 [id number] Yordy Vega, AT [facility] [address] [place] [address] 02/01/2025 11:30:11 02/01/2025 12:08:36 Rupture of rotator cuff of right shoulder [id number] M75.342 [id number] El Smith, PT [facility] [address] [place] [address] 02/04/2025 13:19:30 02/04/2025 14:04:40 Rupture of rotator cuff of right shoulder [id number] M75.528 [id number] Yordy Vega, AT [facility] [address] [place] [address] 02/10/2025 16:10:37 02/10/2025 17:00:46 Rupture of rotator cuff of right shoulder [id number] M75.723 [id number] El Smith, PT [facility] [address] [place] [address] 02/15/2025 12:58:31 02/15/2025 13:28:56 Rupture of rotator cuff of right shoulder [id number] M75.088 [id number] El Smith, LYNNETTE [facility] [address] [place] [address] 02/18/2025 13:26:19 02/18/2025 17:15:10 Rupture of rotator cuff of right shoulder [id number] M75.101 Health Concerns Section Related Observation LastModified by Organization Detai ls LastModified Time None Recorded Concern Status LastModified by Organization Details LastModified Time None Recorded Payers Encounter Date Sequence Insurance Name Policy Number Policy Urbina Covered Member ID Urbina Member ID Guarantor Name 02/18/2025 1 [employer] [facility] [id number] Giuliano Huitron [id number] Giuliano Huitron Notes Date Note Type Note Provider Name and Address Organization Details Recorded Time 02/18/2025 text/html Patient state pain 0/10 at rest, pain 4/10 with movement. El Smith, LYNNETTE [address], [place], [address], [facility] 02/19/2025 06:40:41
--- OUTSIDE RECORDS SUMMARY | 2025-03-15 18:04 | XMS_ITS | Continuity of Care Document ---
Author Organization [place] [facility] [place] [facility], [facility] Address [address] [place] [address] Care Team Providers Care Maintenance Millwright Name Role Phone FERMÍN PRECIADO Primary Care [...] Time Acquired pes planus of right foot [id number] Active 2023 En Magallanes MD [address], [place], [address], [facility] 4 16:55:50 Sinus tarsi syndrome of right ankle [id number] 07 Active 2023 En Magallanes MD [address], [place], [address], [facility] 4 16:55:51 Problem Notes None recorded. Procedures Surgical History Date Name Laterality Status Provider Name and Address Organization Details Recorded Time 5 46351 Therapeutic Exercise (1:1) completed MARYELLEN Cornell [address], [place], [address], [facility] 03/10/2025 12:55:09 5 19644: Hot or Cold Pack completed Yordy Vega, AT [address], [place], [address], [facility] 03/10/2025 12:55:09 5 62920: Manual therapy completed Yordy Vega, AT [address], [place], [address], [facility] 03/10/2025 12:55:09 5 [id number] Therapeutic Exercise (1:1) completed Yordy Vega, AT [address], [place], [address], [facility] 03/08/2025 11:43:16 5 13247: Hot or Cold Pack completed Yordy Vega, AT [address], [place], [address], [facility] 03/08/2025 11:43:16 5 02831: Manual therapy completed Yordy Vega, AT [address], [place], [address], [facility] 03/08/2025 11:43:16 5 36221 Therapeutic Exercise (1:1) completed Yordy Vega, AT [address], [place], [address], [facility] 03/04/2025 11:56:39 5 51574: Hot or Cold Pack completed Yordy Vega, AT [address], [place], [address], [facility] 03/04/2025 11:56:39 5 56241: Manual therapy completed Yordy Vega, AT [address], [place], [address], [facility] 03/04/2025 11:56:39 5 51652 Therapeutic Exercise (1:1) completed Yordy Vega, AT [address], [place], [address], [facility] 03/01/2025 11:19:44 5 95979: Hot or Cold Pack completed Yordy Vega, AT [address], [place], [address], [facility] 03/01/2025 11:19:44 5 79674: Manual therapy completed Yordy Vega, AT [address], [place], [address], [facility] 03/01/2025 11:19:44 5 64969 Therapeutic Exercise (1:1) completed El Smith, PT [address], [place], [address], [facility] 02/24/2025 19:09:05 5 60881: Hot or Cold Pack completed El Smith, PT [address], [place], [address], [facility] 02/24/2025 19:09:05 5 15981: Manual therapy completed El Smith, PT [address], [place], [address], [facility] 02/24/2025 19:09:05 5 11392 Therapeutic Exercise (1:1) completed El Smith, PT [address], [place], [address], [facility] 02/21/2025 16:53:11 5 06925: Hot or Cold Pack completed El Smith, PT [address], [place], [address], [facility] 02/21/2025 16:53:11 5 27580: Manual therapy completed El Smith, PT [address], [place], [address], [facility] 02/21/2025 16:53:11 5 75691 Therapeutic Exercise (1:1) completed El Smith, PT [address], [place], [address], [facility] 02/17/2025 15:54:11 5 16414: Hot or Cold Pack completed El Smith, PT [address], [place], [address], [facility] 02/17/2025 15:54:11 5 56723: Manual therapy completed El Smith, PT [address], [place], [address], [facility] 02/17/2025 15:54:11 5 61346 Therapeutic Exercise (1:1) completed El Smith, PT [address], [place], [address], [facility] 02/14/2025 18:36:50 5 61504: Hot or Cold Pack completed El Smith, PT [address], [place], [address], [facility] 02/14/2025 18:36:50 5 69814: Manual therapy completed El Smith, PT [address], [place], [address], [facility] 02/14/2025 18:36:50 5 94007 Therapeutic Exercise (1:1) completed Yordy Vega AT [address], [place], [address], [facility] 02/10/2025 18:15:04 5 38684: Hot or Cold Pack completed Yordy Vega AT [address], [place], [address], [facility] 02/10/2025 18:15:04 92543: Manual therapy completed Yordy Vega, AT [address], [place], [address], [facility] 02/10/2025 18:15:04 91629 Therapeutic Exercise (1:1) completed El Smith, PT [address], [place], [address], [facility] 02/04/2025 15:22:07 71226: Hot or Cold Pack completed El Smith, PT [address], [place], [address], [facility] 02/04/2025 07:04:59 12287: Manual therapy completed El Smith, PT [address], [place], [address], [facility] 02/04/2025 07:04:59 92263 Therapeutic Exercise (1:1) completed Yordy Vega, AT [address], [place], [address], [facility] 02/01/2025 14:30:41 71871: Hot or Cold Pack completed Yordy Vega, AT [address], [place], [address], [facility] 02/01/2025 14:30:41 04288: Manual therapy completed Yordy Vega, AT [address], [place], [address], [facility] 02/01/2025 14:30:41 36306 Therapeutic Exercise (1:1) completed Yordy Vega, AT [address], [place], [address], [facility] 01/28/2025 12:22:44 41355: Hot or Cold Pack completed Yordy Vega, AT [address], [place], [address], [facility] [place] [facility] 01/28/2025 12:22:44 23433: Manual therapy completed Yordy Vega, AT [address], [place], [address], [facility] [place] [facility] 01/28/2025 12:22:44 88845 Therapeutic Exercise (1:1) completed Yordy Vega, AT [address], [place], [address], [facility] [place] [facility] 01/25/2025 13:31:43 36106: Hot or Cold Pack completed Yordy Vega, AT [address], [place], [address], [facility] 01/25/2025 13:31:43 56942: Manual therapy completed Yordy Vega, AT [address], [place], [address], [facility] [place] [facility] 01/25/2025 13:31:43 47876 Therapeutic Exercise (1:1) completed Yordy Vega, AT [address], [place], [address], [facility] 01/21/2025 12:59:15 74714: Hot or Cold Pack completed Yordy Vega, AT [address], [place], [address], [facility] 01/21/2025 12:59:15 23790: Manual therapy completed Yordy Vega, AT [address], [place], [address], [facility] 01/21/2025 12:59:15 27403 Therapeutic Exercise (1:1) completed Yordy Vega, AT [address], [place], [address], [facility] 01/18/2025 14:48:44 5 12204: Hot or Cold Pack completed Yordy Vega, AT [address], [place], [address], [facility] 01/18/2025 14:48:44 5 86563: Manual therapy completed Yordy Vega, AT [address], [place], [address], [facility] 01/18/2025 14:48:44 5 06400 Therapeutic Exercise (1:1) completed Yordy Vega, AT [address] [facility], [place], [address], [facility] 01/15/2025 14:57:04 5 35138: Hot or Cold Pack completed Yordy Vega, AT [address] [facility], [place], [address], [facility] 01/15/2025 14:57:33 5 17692: Manual therapy completed Yordy Vega, AT [address] [facility], [place], [address], [facility] 01/15/2025 14:57:12 5 02654 Therapeutic Exercise (1:1) completed El Smith, PT [address] [facility], [place], [address], [facility] 01/14/2025 11:34:09 5 21343: Low complexity PT Eval completed El Smith, PT [address] [facility], [place], [address], [facility] 01/14/2025 11:34:11 4 Sports Shoulder completed Manas Vazquez PA-C [address] [facility], [place], [address], [facility] 09/25/2023 11:21:46 Imaging [...] ICD10 Code Diagnosis IMO Codes Diagnosis Note [id number] [place] [address] 01/15/2025 10:48:54 01/26/2025 12:35:56 Follow-up orthopedic assessment [id number] El Smith, PT [facility] [address] [place] [address] 01/14/2025 13:58:22 01/14/2025 17:16:55 Rupture of rotator cuff of right shoulder [id number] M75.631 [id number] Yordy Vega, AT [facility] [address] [place] [address] 01/15/2025 13:30:50 01/15/2025 14:54:23 Rupture of rotator cuff of right shoulder [id number] M75.743 [id number] Yordy Vega, AT [facility] [address] [place] [address] 01/18/2025 13:28:36 01/18/2025 14:09:17 Rupture of rotator cuff of right shoulder [id number] M75.868 [id number] Yordy Vega, AT [facility] [address] [place] [address] 01/21/2025 12:47:26 01/21/2025 13:49:12 Rupture of rotator cuff of right shoulder [id number] M75.800 [id number] Yordy Vega, AT [facility] [address] [place] [address] 01/25/2025 13:26:42 01/25/2025 14:43:58 Rupture of rotator cuff of right shoulder [id number] M75.463 [id number] Yordy Vega, AT [facility] [address] [place] [address] 01/28/2025 11:24:30 01/28/2025 12:44:29 Rupture of rotator cuff of right shoulder [id number] M75.515 [id number] Yordy Vega, AT [facility] [address] [place] [address] 02/01/2025 11:30:11 02/01/2025 12:08:36 Rupture of rotator cuff of right shoulder [id number] M75.998 [id number] El Smith, PT [facility] [address] [place] [address] 02/04/2025 13:19:30 02/04/2025 14:04:40 Rupture of rotator cuff of right shoulder [id number] M75.101 Health Concerns Section Related Observation LastModified by Organization Detai ls LastModified Time None Recorded Concern Status LastModified by Organization Details LastModified Time None Recorded Payers Encounter Date Sequence Insurance Name Policy Number Policy Urbina Covered Member ID Urbina Member ID Guarantor Name 02/04/2025 1 [employer] [facility] ([place] [id number] Giuliano Huitron [id number] Giuliano Huitron Notes Date Note Type Note Provider Name and Address Organization Details Recorded Time 02/04/2025 text/html Patient states pain 0/10 at rest, El Smith, PT [address], [place], [address], [facility] 02/04/2025 15:24:11
--- OUTSIDE RECORDS SUMMARY | 2025-03-15 18:04 | XMS_ITS | Continuity of Care Document ---
Author Organization [place] [facility], [facility] Address [address] [place] [address] Care Team Providers Care Licensed Psychologist Director Name Role Phone FERMÍN PRECIADO Primary Care Provider Assessment Encounter Date Assessment Date Assessment LastModified by Organization Details LastModified Time 03/01/2025 03/01/2025 Assessment: Nearing complete AAROM and good initial response to AROM exs. Plan: Continue 2x/wk- per protocol/precau tions. Sling at all times for 4 wks, [...] and biomechanics, add T-Bands with light resistance. [email or web address] Not available 03/01/2025 21:14:15 Plan of Treatment Reminders Order Date Submit [...] Not available RECHECK 15 2024 09:30A M nE Magallanes MD Not available Not available Not [...] Time Acquired pes planus of right foot [id number] Active 2023 En Magallanes MD [address], [place], [address], [facility] 4 16:55:50 Sinus tarsi syndrome of right ankle [id number] 07 Active 2023 En Magallanes MD [address], [place], [address], [facility] 4 16:55:51 Problem Notes None recorded. Procedures Surgical History Date Name Laterality Status Provider Name and Address Organization Details Recorded Time 5 83525 Therapeutic Exercise (1:1) completed MARYELLEN Cornell [address], [place], [address], [facility] 03/10/2025 12:55:09 5 78299: Hot or Cold Pack completed Yordy Vega, AT [address], [place], [address], [facility] 03/10/2025 12:55:09 5 78743: Manual therapy completed Yoryd Vega, AT [address], [place], [address], [facility] 03/10/2025 12:55:09 5 73293 Therapeutic Exercise (1:1) completed Yordy Vega, AT [address], [place], [address], [facility] 03/08/2025 11:43:16 5 25915: Hot or Cold Pack completed Yordy Vega, AT [address], [place], [address], [facility] 03/08/2025 11:43:16 5 84095: Manual therapy completed Yordy Vega, AT [address], [place], [address], [facility] 03/08/2025 11:43:16 5 67417 Therapeutic Exercise (1:1) completed Yordy Vega, AT [address], [place], [address], [facility] 03/04/2025 11:56:39 5 06689: Hot or Cold Pack completed Yordy Vega, AT [address], [place], [address], [facility] 03/04/2025 11:56:39 5 20859: Manual therapy completed Yordy Vega, AT [address], [place], [address], [facility] 03/04/2025 11:56:39 5 19622 Therapeutic Exercise (1:1) completed Yordy Vega, AT [address], [place], [address], [facility] 03/01/2025 11:19:44 5 67400: Hot or Cold Pack completed Yordy Vega, AT [address], [place], [address], [facility] 03/01/2025 11:19:44 5 19467: Manual therapy completed Yordy Vega, AT [address], [place], [address], [facility] 03/01/2025 11:19:44 5 03554 Therapeutic Exercise (1:1) completed El Smith, PT [address], [place], [address], [facility] 02/24/2025 19:09:05 5 81021: Hot or Cold Pack completed El Smith, PT [address], [place], [address], [facility] 02/24/2025 19:09:05 5 27691: Manual therapy completed El Smith, PT [address], [place], [address], [facility] 02/24/2025 19:09:05 5 90343 Therapeutic Exercise (1:1) completed El Smith, PT [address], [place], [address], [facility] 02/21/2025 16:53:11 5 22947: Hot or Cold Pack completed El Smith, PT [address], [place], [address], [facility] 02/21/2025 16:53:11 5 30945: Manual therapy completed El Smith, PT [address], [place], [address], [facility] 02/21/2025 16:53:11 5 91575 Therapeutic Exercise (1:1) completed El Smith, PT [address], [place], [address], [facility] 02/17/2025 15:54:11 5 43360: Hot or Cold Pack completed El Smith, PT [address], [place], [address], [facility] 02/17/2025 15:54:11 5 34476: Manual therapy completed El Smith, PT [address], [place], [address], [facility] 02/17/2025 15:54:11 5 96847 Therapeutic Exercise (1:1) completed El Smith, PT [address], [place], [address], [facility] 02/14/2025 18:36:50 5 11961: Hot or Cold Pack completed El Smith, PT [address], [place], [address], [facility] 02/14/2025 18:36:50 5 81111: Manual therapy completed El Smith, PT [address], [place], [address], [facility] 02/14/2025 18:36:50 5 86727 Therapeutic Exercise (1:1) completed Yordy Vega, AT [address], [place], [address], [facility] 02/10/2025 18:15:04 5 52865: Hot or Cold Pack completed Yordy Vega AT [address], [place], [address], [facility] 02/10/2025 18:15:04 71284: Manual therapy completed Yordy Vega, AT [address], [place], [address], [facility] 02/10/2025 18:15:04 17284 Therapeutic Exercise (1:1) completed El Smith, PT [address], [place], [address], [facility] 02/04/2025 15:22:07 33964: Hot or Cold Pack completed El Smith, PT [address], [place], [address], [facility] 02/04/2025 07:04:59 52432: Manual therapy completed El Smith, PT [address], [place], [address], [facility] 02/04/2025 07:04:59 87462 Therapeutic Exercise (1:1) completed Yordy Vega, AT [address], [place], [address], [facility] 02/01/2025 14:30:41 03358: Hot or Cold Pack completed Yordy Vega, AT [address], [place], [address], [facility] 02/01/2025 14:30:41 85615: Manual therapy completed Yordy Vega, AT [address], [place], [address], [facility] 02/01/2025 14:30:41 23574 Therapeutic Exercise (1:1) completed Yordy Vega, AT [address], [place], [address], [facility] 01/28/2025 12:22:44 10/16/202 5 14735: Hot or Cold Pack completed Yordy Vega, AT [address], [place], [address], [facility] 01/28/2025 12:22:44 5 95297: Manual therapy completed Yordy Vega, AT [address], [place], [address], [facility] 01/28/2025 12:22:44 36798 Therapeutic Exercise (1:1) completed Yordy Vega, AT [address], [place], [address], [facility] 01/25/2025 13:31:43 23976: Hot or Cold Pack completed Yordy Vega, AT [address], [place], [address], [facility] 01/25/2025 13:31:43 68489: Manual therapy completed Yordy Vega, AT [address], [place], [address], [facility] 01/25/2025 13:31:43 61487 Therapeutic Exercise (1:1) completed Yordy Vega, AT [address], [place], [address], [facility] 01/21/2025 12:59:15 71123: Hot or Cold Pack completed Yordy Vega, AT [address], [place], [address], [facility] 01/21/2025 12:59:15 79898: Manual therapy completed Yordy Vega, AT [address], [place], [address], [facility] 01/21/2025 12:59:15 79317 Therapeutic Exercise (1:1) completed Yordy Vega, AT [address], [place], [address], [facility] 01/18/2025 14:48:44 5 07249: Hot or Cold Pack completed Yordy Vega, AT [address], [place], [address], [facility] 01/18/2025 14:48:44 5 66791: Manual therapy completed Yordy Vega, AT [address], [place], [address], [facility] 01/18/2025 14:48:44 5 64317 Therapeutic Exercise (1:1) completed Yordy Vega, AT [address] [facility], [place], [address], [facility] 01/15/2025 14:57:04 5 57665: Hot or Cold Pack completed Yordy Vega, AT [address] [facility], [place], [address], [facility] 01/15/2025 14:57:33 5 35384: Manual therapy completed Yordy Vega, AT [address] [facility], [place], [address], [facility] 01/15/2025 14:57:12 5 42803 Therapeutic Exercise (1:1) completed El Smith, PT [address] [facility], [place], [address], [facility] 01/14/2025 11:34:09 5 81592: Low complexity PT Eval completed El Smith, PT [address] [facility], [place], [address], [facility] 01/14/2025 11:34:11 4 Sports Shoulder completed Manas Vazquez PA-C [address] [facility], [place], [address], [facility] 09/25/2023 11:21:46 Imaging Results [...] ICD10 Code Diagnosis IMO Codes Diagnosis Note [id number] MARYELLEN Cornell [facility] [address] [place] [address] 02/01/2025 11:30:11 02/01/2025 12:08:36 Rupture of rotator cuff of right shoulder [id number] M75.285 [id number] El Smith, PT [facility] [address] [place] [address] 02/04/2025 13:19:30 02/04/2025 14:04:40 Rupture of rotator cuff of right shoulder [id number] M75.965 [id number] Yordy Vega, AT [facility] [address] [place] [address] 02/10/2025 16:10:37 02/10/2025 17:00:46 Rupture of rotator cuff of right shoulder [id number] M75.208 [id number] El Smith, PT [facility] [address] [place] [address] 02/15/2025 12:58:31 02/15/2025 13:28:56 Rupture of rotator cuff of right shoulder [id number] M75.497 [id number] El Smith, PT [facility] [address] [place] [address] 02/18/2025 13:26:19 02/18/2025 17:15:10 Rupture of rotator cuff of right shoulder [id number] M75.000 [id number] El Smith, PT [facility] [address] [place] [address] 02/22/2025 13:59:50 02/23/2025 06:43:13 Rupture of rotator cuff of right shoulder [id number] [id number] M75.016 [id number] El Smith, PT [facility] [address] [place] [address] 02/25/2025 14:00:12 02/25/2025 14:31:29 Rupture of rotator cuff of right shoulder 1419016769 [id number] M75.492 [id number] Yordykisha VivarVega, AT [facility] [address] [place] [address] 03/01/2025 11:10:45 03/01/2025 11:35:27 Rupture of rotator cuff of right shoulder [id number] M75.101 Health Concerns Section Related Observation LastModified by Organization Detai ls LastModified Time None Recorded Concern Status LastModified by Organization Details LastModified Time None Recorded Payers Encounter Date Sequence Insurance Name Policy Number Policy Urbina Covered Member ID Urbina Member ID Guarantor Name 03/01/2025 1 [facility] [employer] [facility] [id number] Giuliano Huitron [id number] 33 Giuliano Huitron Notes Date Note Type Note Provider Name and Address Organization Details Recorded Time 03/01/2025 text/html Patient presents today reporting 1/10 pain today but 4/10 pains this weekend after doing too much at home. Yordy Vega, AT [address] [facility] [address], [place], [address], [facility] 03/01/2025 21:14:42
--- OUTSIDE RECORDS SUMMARY | 2025-03-15 18:04 | XMS_ITS | Continuity of Care Document ---
Author Organization [place] [facility], [facility] Address [address] [place] [address] Care Team Providers Care Advertising Space Clerk Name Role Phone FERMÍN PRECIADO Primary Care [...] and biomechanics, add T-Bands with light resistance. [email or web address] Not available 02/10/2025 18:21:18 Plan of Treatment [...] Time Acquired pes planus of right foot [id number] Active 2023 En Magallanes MD [address], [place], [address], [facility] 4 16:55:50 Sinus tarsi syndrome of right ankle [id number] 07 Active 2023 En Magallanes MD [address], [place], [address], [facility] 4 16:55:51 Problem Notes None recorded. Procedures Surgical History Date Name Laterality Status Provider Name and Address Organization Details Recorded Time 5 11852 Therapeutic Exercise (1:1) completed MARYELLEN Cornell [address], [place], [address], [facility] 03/10/2025 12:55:09 5 12449: Hot or Cold Pack completed Yordy Vega, AT [address], [place], [address], [facility] 03/10/2025 12:55:09 5 69235: Manual therapy completed Yordy Vega, AT [address], [place], [address], [facility] 03/10/2025 12:55:09 5 36703 Therapeutic Exercise (1:1) completed Yordy Vega, AT [address], [place], [address], [facility] 03/08/2025 11:43:16 5 97606: Hot or Cold Pack completed Yordy Vega, AT [address], [place], [address], [facility] 03/08/2025 11:43:16 5 33821: Manual therapy completed Yordy Vega, AT [address], [place], [address], [facility] 03/08/2025 11:43:16 5 49626 Therapeutic Exercise (1:1) completed Yordy Vega, AT [address], [place], [address], [facility] 03/04/2025 11:56:39 5 19689: Hot or Cold Pack completed Yordy Vega, AT [address], [place], [address], [facility] 03/04/2025 11:56:39 5 89288: Manual therapy completed Yordy Vega, AT [address], [place], [address], [facility] 03/04/2025 11:56:39 5 20762 Therapeutic Exercise (1:1) completed Yordy Vega, AT [address], [place], [address], [facility] 03/01/2025 11:19:44 5 87377: Hot or Cold Pack completed Yordy Vega, AT [address], [place], [address], [facility] 03/01/2025 11:19:44 5 33004: Manual therapy completed Yordy Vega, AT [address], [place], [address], [facility] 03/01/2025 11:19:44 5 91746 Therapeutic Exercise (1:1) completed El Smith, PT [address], [place], [address], [facility] 02/24/2025 19:09:05 5 93229: Hot or Cold Pack completed El Smith, PT [address], [place], [address], [facility] 02/24/2025 19:09:05 5 64774: Manual therapy completed El Smith, PT [address], [place], [address], [facility] 02/24/2025 19:09:05 5 75582 Therapeutic Exercise (1:1) completed El Smith, PT [address], [place], [address], [facility] 02/21/2025 16:53:11 5 01564: Hot or Cold Pack completed El Smith, PT [address], [place], [address], [facility] 02/21/2025 16:53:11 5 71420: Manual therapy completed El Smith, PT [address], [place], [address], [facility] 02/21/2025 16:53:11 5 97857 Therapeutic Exercise (1:1) completed El Smith, PT [address], [place], [address], [facility] 02/17/2025 15:54:11 5 42045: Hot or Cold Pack completed El Smith, PT [address], [place], [address], [facility] 02/17/2025 15:54:11 5 99008: Manual therapy completed El Smith, PT [address], [place], [address], [facility] 02/17/2025 15:54:11 5 90372 Therapeutic Exercise (1:1) completed El Smith, PT [address], [place], [address], [facility] 02/14/2025 18:36:50 5 19844: Hot or Cold Pack completed El Smith, PT [address], [place], [address], [facility] 02/14/2025 18:36:50 5 19205: Manual therapy completed El Smith, PT [address], [place], [address], [facility] 02/14/2025 18:36:50 5 74504 Therapeutic Exercise (1:1) completed Yordy Vega, AT [address], [place], [address], [facility] 02/10/2025 18:15:04 5 65845: Hot or Cold Pack completed Yordy Vega AT [address], [place], [address], [facility] 02/10/2025 18:15:04 49531: Manual therapy completed Yordy Vega, AT [address], [place], [address], [facility] 02/10/2025 18:15:04 29831 Therapeutic Exercise (1:1) completed El Smith, PT [address], [place], [address], [facility] 02/04/2025 15:22:07 79690: Hot or Cold Pack completed El Smith, PT [address], [place], [address], [facility] 02/04/2025 07:04:59 86967: Manual therapy completed El Smith, PT [address], [place], [address], [facility] 02/04/2025 07:04:59 60821 Therapeutic Exercise (1:1) completed Yordy Vega, AT [address], [place], [address], [facility] 02/01/2025 14:30:41 62531: Hot or Cold Pack completed Yordy Vega, AT [address], [place], [address], [facility] 02/01/2025 14:30:41 35499: Manual therapy completed Yordy Vega, AT [address], [place], [address], [facility] 02/01/2025 14:30:41 96372 Therapeutic Exercise (1:1) completed Yordy Vega, AT [address], [place], [address], [facility] 01/28/2025 12:22:44 94540: Hot or Cold Pack completed Yordy Vega, AT [address], [place], [address], [facility] 01/28/2025 12:22:44 70193: Manual therapy completed Yordy Vega, AT [address], [place], [address], [facility] 01/28/2025 12:22:44 85651 Therapeutic Exercise (1:1) completed Yordy Vega, AT [address], [place], [address], [facility] 01/25/2025 13:31:43 10958: Hot or Cold Pack completed Yordy Vega, AT [address], [place], [address], [facility] 01/25/2025 13:31:43 29946: Manual therapy completed Yordy Vega, AT [address], [place], [address], [facility] 01/25/2025 13:31:43 61414 Therapeutic Exercise (1:1) completed Yordy Vega, AT [address], [place], [address], [facility] 01/21/2025 12:59:15 70794: Hot or Cold Pack completed Yordy Vega, AT [address], [place], [address], [facility] 01/21/2025 12:59:15 40303: Manual therapy completed Yordy Vega, AT [address], [place], [address], [facility] 01/21/2025 12:59:15 57281 Therapeutic Exercise (1:1) completed Yordy Vega, AT [address], [place], [address], [facility] 01/18/2025 14:48:44 5 06843: Hot or Cold Pack completed Yordy Vega, AT [address], [place], [address], [facility] 01/18/2025 14:48:44 5 62561: Manual therapy completed Yordy Vega, AT [address], [place], [address], [facility] 01/18/2025 14:48:44 5 27010 Therapeutic Exercise (1:1) completed Yordy Vega, AT [address], [place], [address], [facility] 01/15/2025 14:57:04 5 05340: Hot or Cold Pack completed Yordy Vega, AT [address], [place], [address], [facility] 01/15/2025 14:57:33 5 63198: Manual therapy completed Yordy Vega AT [address], [place], [address], [facility] 01/15/2025 14:57:12 5 60550 Therapeutic Exercise (1:1) completed El Smith, PT [address] [facility], [place], [address], [facility] 01/14/2025 11:34:09 5 29444: Low complexity PT Eval completed El Smith, PT [address] [facility], [place], [address], [facility] 01/14/2025 11:34:11 4 Sports Shoulder completed Manas Vazquez PA-C [address], [place], [address], [facility] 09/25/2023 11:21:46 Imaging Results [...] ICD10 Code Diagnosis IMO Codes Diagnosis Note [id number] MD [facility] [place] [address] 01/15/2025 10:48:54 01/26/2025 12:35:56 Follow-up orthopedic assessment [id number] Z47.89 [id number] El Smith, PT [facility] [address] [place] [address] 01/14/2025 13:58:22 01/14/2025 17:16:55 Rupture of rotator cuff of right shoulder [id number] M75.854 [id number] Yordy Vega, AT [facility] [address] [place] [address] 01/15/2025 13:30:50 01/15/2025 14:54:23 Rupture of rotator cuff of right shoulder [id number] M75.983 [id number] Yordy Vega, AT [facility] [address] [place] [address] 01/18/2025 13:28:36 01/18/2025 14:09:17 Rupture of rotator cuff of right shoulder [id number] M75.877 [id number] Yordy Vega, AT [facility] [address] [place] [address] 01/21/2025 12:47:26 01/21/2025 13:49:12 Rupture of rotator cuff of right shoulder [id number] M75.282 [id number] Yordy Vega, AT [facility] [address] [place] [address] 01/25/2025 13:26:42 01/25/2025 14:43:58 Rupture of rotator cuff of right shoulder [id number] M75.298 [id number] Yordy Vega, AT [facility] [address] [place] [address] 01/28/2025 11:24:30 01/28/2025 12:44:29 Rupture of rotator cuff of right shoulder [id number] M75.474 [id number] Yordy Vega, AT [facility] [address] [place] [address] 02/01/2025 11:30:11 02/01/2025 12:08:36 Rupture of rotator cuff of right shoulder 8829196179 [id number] M75.592 [id number] El Smith, PT [facility] [address] [place] [address] 02/04/2025 13:19:30 02/04/2025 14:04:40 Rupture of rotator cuff of right shoulder [id number] [id number] M75.514 [id number] Yordy Vega, AT [facility] [address] [place] [address] 02/10/2025 16:10:37 02/10/2025 17:00:46 Rupture of rotator cuff of right shoulder [id number] M75.101 Health Concerns Section Related Observation LastModified by Organization Detai ls LastModified Time None Recorded Concern Status LastModified by Organization Details LastModified Time None Recorded Payers Encounter Date Sequence Insurance Name Policy Number Policy Urbina Covered Member ID Urbina Member ID Guarantor Name 02/10/2025 1 [employer] [facility] [id number] Giuliano Huitron [id number] Giuliano Huitron Notes Date Note Type Note Provider Name and Address Organization Details Recorded Time 02/10/2025 text/html Patient presents today reporting 0/10 pain. Pt states feeling ready to be out of the sling, no big pains anymore. Yordy Vega, AT [address], [place], [address], [facility] 02/10/2025 18:21:38
--- OUTSIDE RECORDS SUMMARY | 2025-03-15 18:05 | XMS_ITS | Continuity of Care Document ---
Author Organization [place] [facility], [facility] Address [address] [place] [address] Care Team Providers Care Box Office Manager Name Role Phone FERMÍN PRECIADO Primary Care [...] Time Acquired pes planus of right foot [id number] Active 2023 En Magallanes MD [address], [place], [address], [facility] 4 16:55:50 Sinus tarsi syndrome of right ankle [id number] 07 Active 2023 En Magallanes MD [address], [place], [address], [facility] 4 16:55:51 Problem Notes None recorded. Procedures Surgical History Date Name Laterality Status Provider Name and Address Organization Details Recorded Time 5 89060 Therapeutic Exercise (1:1) completed MARYELLEN Cornell [address], [place], [address], [facility] 03/10/2025 12:55:09 5 70126: Hot or Cold Pack completed Yordy Vega, AT [address], [place], [address], [facility] 03/10/2025 12:55:09 5 47875: Manual therapy completed Yordy Vega, AT [address], [place], [address], [facility] 03/10/2025 12:55:09 5 38442 Therapeutic Exercise (1:1) completed Yordy Vega, AT [address], [place], [address], [facility] 03/08/2025 11:43:16 5 95965: Hot or Cold Pack completed Yordy Vega, AT [address], [place], [address], [facility] 03/08/2025 11:43:16 5 11559: Manual therapy completed Yordy Vega, AT [address], [place], [address], [facility] 03/08/2025 11:43:16 5 22222 Therapeutic Exercise (1:1) completed Yordy Vega, AT [address], [place], [address], [facility] 03/04/2025 11:56:39 5 13739: Hot or Cold Pack completed Yordy Vega, AT [address], [place], [address], [facility] 03/04/2025 11:56:39 5 58360: Manual therapy completed Yordy Vega, AT [address], [place], [address], [facility] 03/04/2025 11:56:39 5 99844 Therapeutic Exercise (1:1) completed Yordy Vega, AT [address], [place], [address], [facility] 03/01/2025 11:19:44 5 31901: Hot or Cold Pack completed Yordy Vega, AT [address], [place], [address], [facility] 03/01/2025 11:19:44 5 96981: Manual therapy completed Yordy Vega, AT [address], [place], [address], [facility] 03/01/2025 11:19:44 5 54589 Therapeutic Exercise (1:1) completed El Smith, PT [address], [place], [address], [facility] 02/24/2025 19:09:05 5 17047: Hot or Cold Pack completed El Smith, PT [address], [place], [address], [facility] 02/24/2025 19:09:05 5 16479: Manual therapy completed El Smith, PT [address], [place], [address], [facility] 02/24/2025 19:09:05 5 60775 Therapeutic Exercise (1:1) completed El Smith, PT [address], [place], [address], [facility] 02/21/2025 16:53:11 5 00511: Hot or Cold Pack completed El Smith, PT [address], [place], [address], [facility] 02/21/2025 16:53:11 5 21570: Manual therapy completed El Smith, PT [address], [place], [address], [facility] 02/21/2025 16:53:11 5 76397 Therapeutic Exercise (1:1) completed El Smith, PT [address], [place], [address], [facility] 02/17/2025 15:54:11 5 34612: Hot or Cold Pack completed El Smith, PT [address], [place], [address], [facility] 02/17/2025 15:54:11 5 29997: Manual therapy completed El Smith, PT [address], [place], [address], [facility] 02/17/2025 15:54:11 5 19107 Therapeutic Exercise (1:1) completed El Smith, PT [address], [place], [address], [facility] 02/14/2025 18:36:50 5 45571: Hot or Cold Pack completed El Smith, PT [address], [place], [address], [facility] 02/14/2025 18:36:50 5 04770: Manual therapy completed El Smith, PT [address], [place], [address], [facility] 02/14/2025 18:36:50 5 10641 Therapeutic Exercise (1:1) completed Yordy Vega, AT [address], [place], [address], [facility] 02/10/2025 18:15:04 5 80148: Hot or Cold Pack completed Yordy Vega AT [address], [place], [address], [facility] 02/10/2025 18:15:04 54610: Manual therapy completed Yordy Vega, AT [address], [place], [address], [facility] 02/10/2025 18:15:04 43655 Therapeutic Exercise (1:1) completed El Smith, PT [address], [place], [address], [facility] 02/04/2025 15:22:07 31391: Hot or Cold Pack completed El Smith, PT [address], [place], [address], [facility] 02/04/2025 07:04:59 88406: Manual therapy completed El Smith, PT [address], [place], [address], [facility] 02/04/2025 07:04:59 61285 Therapeutic Exercise (1:1) completed Yordy Vega, AT [address], [place], [address], [facility] 02/01/2025 14:30:41 44113: Hot or Cold Pack completed Yordy Vega, AT [address], [place], [address], [facility] 02/01/2025 14:30:41 80139: Manual therapy completed Yordy Vega, AT [address], [place], [address], [facility] 02/01/2025 14:30:41 08455 Therapeutic Exercise (1:1) completed Yordy Vega, AT [address], [place], [address], [facility] 01/28/2025 12:22:44 09171: Hot or Cold Pack completed Yordy Vega, AT [address], [place], [address], [facility] 01/28/2025 12:22:44 40042: Manual therapy completed Yordy Vega, AT [address], [place], [address], [facility] 01/28/2025 12:22:44 18402 Therapeutic Exercise (1:1) completed Yordy Vega, AT [address], [place], [address], [facility] 01/25/2025 13:31:43 85849: Hot or Cold Pack completed Yordy Vega, AT [address], [place], [address], [facility] 01/25/2025 13:31:43 38428: Manual therapy completed Yordy Vega, AT [address], [place], [address], [facility] 01/25/2025 13:31:43 85111 Therapeutic Exercise (1:1) completed Yordy Vega, AT [address], [place], [address], [facility] 01/21/2025 12:59:15 29705: Hot or Cold Pack completed Yordy Vega, AT [address], [place], [address], [facility] 01/21/2025 12:59:15 80095: Manual therapy completed Yordy Vega, AT [address], [place], [address], [facility] 01/21/2025 12:59:15 22170 Therapeutic Exercise (1:1) completed Yordy Vega, AT [address], [place], [address], [facility] 01/18/2025 14:48:44 5 70083: Hot or Cold Pack completed Yordy Vega, AT [address], [place], [address], [facility] 01/18/2025 14:48:44 5 42066: Manual therapy completed Yordy Vega, AT [address], [place], [address], [facility] 01/18/2025 14:48:44 5 66250 Therapeutic Exercise (1:1) completed Yordy Vega, AT [address] [facility], [place], [address], [facility] 01/15/2025 14:57:04 5 90617: Hot or Cold Pack completed Yordy Vega, AT [address] [facility], [place], [address], [facility] 01/15/2025 14:57:33 5 82675: Manual therapy completed Yordy Vega, AT [address] [facility], [place], [address], [facility] 01/15/2025 14:57:12 5 25794 Therapeutic Exercise (1:1) completed El Smith, PT [address] [facility], [place], [address], [facility] 01/14/2025 11:34:09 5 15484: Low complexity PT Eval completed El Smith, PT [address] [facility], [place], [address], [facility] 01/14/2025 11:34:11 4 Sports Shoulder completed Manas Vazquez PA-C [address] [facility], [place], [address], [facility] 09/25/2023 11:21:46 [...] Disease N Heart Trouble N Heart Attack ([place]) N Gastrointestinal Disease N Cholesterol N Diabetes [...] ICD10 Code Diagnosis IMO Codes Diagnosis Note [id number] [place] [address] 01/15/2025 10:48:54 01/26/2025 12:35:56 Follow-up orthopedic assessment [id number] Z47.89 [id number] Yordykisha VivarVega, AT [facility] [address] [place] [address] 01/15/2025 13:30:50 01/15/2025 14:54:23 Rupture of rotator cuff of right shoulder [id number] [id number] M75.377 [id number] Yordy Gary, AT [facility] [address] [place] [address] 01/18/2025 13:28:36 01/18/2025 14:09:17 Rupture of rotator cuff of right shoulder [id number] [id number] M75.409 [id number] Yordy Gary, AT [facility] [address] [place] [address] 01/21/2025 12:47:26 01/21/2025 13:49:12 Rupture of rotator cuff of right shoulder [id number] 3920351 M75.620 [id number] Yordy Vega, AT [facility] [address] [place] [address] 01/25/2025 13:26:42 01/25/2025 14:43:58 Rupture of rotator cuff of right shoulder [id number] M75.091 [id number] Yordy Vega, AT [facility] [address] [place] [address] 01/28/2025 11:24:30 01/28/2025 12:44:29 Rupture of rotator cuff of right shoulder [id number] [id number] M75.743 [id number] Yordykisha VivarVega, AT [facility] [address] [place] [address] 02/01/2025 11:30:11 02/01/2025 12:08:36 Rupture of rotator cuff of right shoulder [id number] M75.945 [id number] El Smith, PT [facility] [address] [place] [address] 02/04/2025 13:19:30 02/04/2025 14:04:40 Rupture of rotator cuff of right shoulder [id number] [id number] M75.390 [id number] Yordy Vega, AT [facility] [address] [place] [address] 02/10/2025 16:10:37 02/10/2025 17:00:46 Rupture of rotator cuff of right shoulder 1093301088 [id number] M75.162 [id number] El Smith, PT [facility] [address] [place] [address] 02/15/2025 12:58:31 02/15/2025 13:28:56 Rupture of rotator cuff of right shoulder [id number] 5091033 M75.101 Health Concerns Section Related Observation LastModified by Organization Detai ls LastModified Time None Recorded Concern Status LastModified by Organization Details LastModified Time None Recorded Payers Encounter Date Sequence Insurance Name Policy Number Policy U[place] Covered Member ID Urbina Member ID Guarantor Name 02/15/2025 1 [employer] [facility] [id number] Giuliano Huitron [id number] Giuliano Huitron Notes Date Note Type Note Provider Name and Address Organization Details Recorded Time 02/15/2025 text/html Patient state pain 0/10 at rest, pain 4/10 with movement. El Smith, PT [address], [place], [address], [facility] 02/15/2025 13:54:22
--- OUTSIDE RECORDS SUMMARY | 2025-03-15 18:05 | XMS_ITS | Continuity of Care Document ---
Author Organization [place] [facility], [facility] Address [address] [place] [address] Care Team Providers Care Cut In Station Operator Name Role Phone FERMÍN PRECIADO Primary Care Provider Assessment Encounter Date Assessment Date Assessment LastModified by Organization Details LastModified Time 01/28/2025 01/28/2025 Assessment: Nice improvement with flexion motion measure. Plan: Continue 2x/wk with gradual progression of motions and with remaining precautions. Not available 01/28/2025 12:27:22 Plan of Treatment [...] Time Acquired pes planus of right foot [id number] Active 2023 En Magallanes MD [address], [place], [address], [facility] 4 16:55:50 Sinus tarsi syndrome of right ankle [id number] 07 Active 2023 En Magallanes MD [address], [place], [address], [facility] 4 16:55:51 Problem Notes None recorded. Procedures Surgical History Date Name Laterality Status Provider Name and Address Organization Details Recorded Time 5 10841 Therapeutic Exercise (1:1) completed Yordy Vega AT [address], [place], [address], [facility] 03/10/2025 12:55:09 5 78101: Hot or Cold Pack completed Yordy Vega AT [address], [place], [address], [facility] 03/10/2025 12:55:09 5 43312: Manual therapy completed Yordy Vega AT [address], [place], [address], [facility] 03/10/2025 12:55:09 5 50809 Therapeutic Exercise (1:1) completed Yordy Vega, AT [address], [place], [address], [facility] 03/08/2025 11:43:16 5 02648: Hot or Cold Pack completed Yordy Vega, AT [address], [place], [address], [facility] 03/08/2025 11:43:16 5 85948: Manual therapy completed Yordy Vega, AT [address], [place], [address], [facility] 03/08/2025 11:43:16 5 28255 Therapeutic Exercise (1:1) completed Yordy Vega, AT [address], [place], [address], [facility] 03/04/2025 11:56:39 5 30377: Hot or Cold Pack completed Yordy Vega, AT [address], [place], [address], [facility] 03/04/2025 11:56:39 5 29991: Manual therapy completed Yordy Vega, AT [address], [place], [address], [facility] 03/04/2025 11:56:39 5 01828 Therapeutic Exercise (1:1) completed Yordy Vega, AT [address], [place], [address], [facility] 03/01/2025 11:19:44 5 46182: Hot or Cold Pack completed Yordy Vega, AT [address], [place], [address], [facility] 03/01/2025 11:19:44 5 58750: Manual therapy completed Yordy Vega, AT [address], [place], [address], [facility] 03/01/2025 11:19:44 5 58183 Therapeutic Exercise (1:1) completed Ellilia Smith, PT [address], [place], [address], [facility] 02/24/2025 19:09:05 5 18449: Hot or Cold Pack completed Ellilia Smith, PT [address], [place], [address], [facility] 02/24/2025 19:09:05 5 05182: Manual therapy completed El Smith, PT [address], [place], [address], [facility] 02/24/2025 19:09:05 5 94669 Therapeutic Exercise (1:1) completed El Smith, PT [address], [place], [address], [facility] 02/21/2025 16:53:11 5 58661: Hot or Cold Pack completed El Smith, PT [address], [place], [address], [facility] 02/21/2025 16:53:11 5 77140: Manual therapy completed El Smith, PT [address], [place], [address], [facility] 02/21/2025 16:53:11 5 31794 Therapeutic Exercise (1:1) completed El Smith, PT [address], [place], [address], [facility] 02/17/2025 15:54:11 5 46260: Hot or Cold Pack completed Ellilia Smith, PT [address], [place], [address], [facility] 02/17/2025 15:54:11 5 70078: Manual therapy completed El Smith, PT [address], [place], [address], [facility] 02/17/2025 15:54:11 5 90837 Therapeutic Exercise (1:1) completed El Smith, PT [address], [place], [address], [facility] 02/14/2025 18:36:50 5 68752: Hot or Cold Pack completed El Smith, PT [address], [place], [address], [facility] 02/14/2025 18:36:50 5 15447: Manual therapy completed El Smith, PT [address], [place], [address], [facility] 02/14/2025 18:36:50 11940 Therapeutic Exercise (1:1) completed Yordy Vega, AT [address], [place], [address], [facility] 02/10/2025 18:15:04 5 71543: Hot or Cold Pack completed Yordy Vega, AT [address], [place], [address], [facility] 02/10/2025 18:15:04 5 97304: Manual therapy completed Yordy Vega, AT [address], [place], [address], [facility] 02/10/2025 18:15:04 52997 Therapeutic Exercise (1:1) completed El Smith, PT [address], [place], [address], [facility] 02/04/2025 15:22:07 18705: Hot or Cold Pack completed El Smith, PT [address], [place], [address], [facility] 02/04/2025 07:04:59 61758: Manual therapy completed El Smith, PT [address], [place], [address], [facility] 02/04/2025 07:04:59 07399 Therapeutic Exercise (1:1) completed Yordy Vega, AT [address], [place], [address], [facility] 02/01/2025 14:30:41 12777: Hot or Cold Pack completed Yordy Vega, AT [address], [place], [address], [facility] 02/01/2025 14:30:41 46045: Manual therapy completed Yordy Vega, AT [address], [place], [address], [facility] 02/01/2025 14:30:41 13343 Therapeutic Exercise (1:1) completed Yordy Vega, AT [address], [place], [address], [facility] 01/28/2025 12:22:44 62292: Hot or Cold Pack completed Yordy Vega, AT [address], [place], [address], [facility] 01/28/2025 12:22:44 92534: Manual therapy completed Yordy Vega, AT [address], [place], [address], [facility] 01/28/2025 12:22:44 14955 Therapeutic Exercise (1:1) completed Yordy Vega, AT [address], [place], [address], [facility] 01/25/2025 13:31:43 52199: Hot or Cold Pack completed Yordy Vega, AT [address], [place], [address], [facility] 01/25/2025 13:31:43 37799: Manual therapy completed Yordy Vega, AT [address], [place], [address], [facility] 01/25/2025 13:31:43 45256 Therapeutic Exercise (1:1) completed Yordy Vega, AT [address], [place], [address], [facility] 01/21/2025 12:59:15 75573: Hot or Cold Pack completed Yordy Vega, AT [address], [place], [address], [facility] 01/21/2025 12:59:15 34629: Manual therapy completed Yordy Vega, AT [address], [place], [address], [facility] 01/21/2025 12:59:15 43755 Therapeutic Exercise (1:1) completed Yordy Vega, AT [address], [place], [address], [facility] 01/18/2025 14:48:44 14897: Hot or Cold Pack completed Yordy Vega, AT [address], [place], [address], [facility] 01/18/2025 14:48:44 18510: Manual therapy completed Yordy Vega, AT [address], [place], [address], [facility] 01/18/2025 14:48:44 5 60987 Therapeutic Exercise (1:1) completed Yordy Vega, AT [address] [facility], [place], [address], [facility] 01/15/2025 14:57:04 5 33035: Hot or Cold Pack completed Yordy Vega, AT [address] [facility], [place], [address], [facility] 01/15/2025 14:57:33 5 70815: Manual therapy completed Yordy Vega, AT [address] [facility] [address] [facility], [place], [address], [facility] 01/15/2025 14:57:12 5 43775 Therapeutic Exercise (1:1) completed El Smith, PT [address] [facility], [place], [address], [facility] 01/14/2025 11:34:09 5 07148: Low complexity PT Eval completed El Smith, PT [address] [facility], [place], [address], [facility] 01/14/2025 11:34:11 4 Sports Shoulder completed Manas Vazquez PA-C [address] [facility], [place], [address], [facility] 09/25/2023 [...] Disease N Heart Trouble N Heart Attack (SC) N Gastrointestinal Disease N Cholesterol N Diabetes [...] ICD10 Code Diagnosis IMO Codes Diagnosis Note [id number] MD [facility] Morse Beebe [address] [place] [address] 01/15/2025 10:48:54 01/26/2025 12:35:56 Follow-up orthopedic assessment [id number] Z47.89 [id number] El Smith, PT [facility] [address] [place] [address] 01/14/2025 13:58:22 01/14/2025 17:16:55 Rupture of rotator cuff of right shoulder [id number] M75.649 [id number] Yordy Vega, AT [facility] [address] [place] [address] 01/15/2025 13:30:50 01/15/2025 14:54:23 Rupture of rotator cuff of right shoulder [id number] M75.511 [id number] Yordy Vega, AT [facility] [address] [place] [address] 01/18/2025 13:28:36 01/18/2025 14:09:17 Rupture of rotator cuff of right shoulder [id number] M75.030 [id number] [facility] Vega[facility] [address] [place] [address] 01/21/2025 12:47:26 01/21/2025 13:49:12 Rupture of rotator cuff of right shoulder [id number] M75.837 [id number] Yordy Vega, [facility] [address] [place] [address] 01/25/2025 13:26:42 01/25/2025 14:43:58 Rupture of rotator cuff of right shoulder [id number] M75.157 [id number] Yordy Vega, AT [facility] [address] [place] [address] 01/28/2025 11:24:30 01/28/2025 12:44:29 Rupture of rotator cuff of right shoulder [id number] M75.101 Health Concerns Section Related Observation LastModified by Organization Detai ls LastModified Time None Recorded Concern Status LastModified by Organization Details LastModified Time None Recorded Payers Encounter Date Sequence Insurance Name Policy Number Policy Urbina Covered Member ID Urbina Member ID Guarantor Name 01/28/2025 1 [employer] [facility] [id number] Giuliano Hiutron [id number] Giuliano Huitron Notes Date Note Type Note Provider Name and Address Organization Details Recorded Time 01/28/2025 text/html Patient presents today reporting 4/10 pain. Pt states feeling comfortable out of the sling at home sometimes. Yordy Vega, AT [address], [place], [address], [facility] 01/28/2025 12:27:43
--- OUTSIDE RECORDS SUMMARY | 2025-03-15 18:05 | XMS_ITS | Continuity of Care Document ---
Author Organization [place] [facility], [facility] Address [address] [place] [address] Care Team Providers Care Director Of Patient Financial Services Name Role Phone FERMÍN PRECIADO Primary Care Provider Assessment Encounter Date Assessment Date Assessment LastModified by Organization Details LastModified Time 01/25/2025 01/25/2025 Assessment: Primary restriction remains ER. Plan: Continue 2x/wk with gradual progression of motions and with remaining precautions. [email or web address] Not available 01/25/2025 14:18:44 Plan of Treatment [...] Time Acquired pes planus of right foot [id number] Active 2023 En Magallanes MD [address], [place], [address], [facility] 4 16:55:50 Sinus tarsi syndrome of right ankle [id number] 07 Active 2023 En Magallanes MD [address], [place], [address], [facility] 4 16:55:51 Problem Notes None recorded. Procedures Surgical History Date Name Laterality Status Provider Name and Address Organization Details Recorded Time 5 77423 Therapeutic Exercise (1:1) completed Yordy Vega, AT [address] [facility], [place], [address], [facility] 03/10/2025 12:55:09 5 02424: Hot or Cold Pack completed Yordy Vega AT [address] [facility], [place], [address], [facility] 03/10/2025 12:55:09 5 58001: Manual therapy completed Yordy eVga AT [address] [facility], [place], [address], [facility] 03/10/2025 12:55:09 5 79332 Therapeutic Exercise (1:1) completed Yordy Vega, AT [address], [place], [address], [facility] 03/08/2025 11:43:16 5 38780: Hot or Cold Pack completed Yordy Vega, AT [address], [place], [address], [facility] 03/08/2025 11:43:16 5 56948: Manual therapy completed Yordy Vega, AT [address], [place], [address], [facility] 03/08/2025 11:43:16 5 76359 Therapeutic Exercise (1:1) completed Yordy Vega, AT [address], [place], [address], [facility] 03/04/2025 11:56:39 5 40891: Hot or Cold Pack completed Yordy Vega, AT [address], [place], [address], [facility] 03/04/2025 11:56:39 5 04228: Manual therapy completed Yordy Vega, AT [address], [place], [address], [facility] 03/04/2025 11:56:39 5 03190 Therapeutic Exercise (1:1) completed Yordy Vega, AT [address], [place], [address], [facility] 03/01/2025 11:19:44 5 56099: Hot or Cold Pack completed Yordy Vega, AT [address], [place], [address], [facility] 03/01/2025 11:19:44 5 51580: Manual therapy completed Yordy Vega, AT [address], [place], [address], [facility] 03/01/2025 11:19:44 5 55072 Therapeutic Exercise (1:1) completed Ellilia Smith, PT [address], [place], [address], [facility] 02/24/2025 19:09:05 5 51883: Hot or Cold Pack completed Ellilia Smith, PT [address], [place], [address], [facility] 02/24/2025 19:09:05 5 40238: Manual therapy completed El Smith, PT [address], [place], [address], [facility] 02/24/2025 19:09:05 5 02702 Therapeutic Exercise (1:1) completed El Smith, PT [address], [place], [address], [facility] 02/21/2025 16:53:11 5 41442: Hot or Cold Pack completed El Smith, PT [address], [place], [address], [facility] 02/21/2025 16:53:11 5 33795: Manual therapy completed El Smith, PT [address], [place], [address], [facility] 02/21/2025 16:53:11 5 88006 Therapeutic Exercise (1:1) completed Ellilia Smith, PT [address], [place], [address], [facility] 02/17/2025 15:54:11 5 67781: Hot or Cold Pack completed Ellilia Smith, PT [address], [place], [address], [facility] 02/17/2025 15:54:11 5 52987: Manual therapy completed El Smith, PT [address], [place], [address], [facility] 02/17/2025 15:54:11 5 60360 Therapeutic Exercise (1:1) completed El Smith, PT [address], [place], [address], [facility] 02/14/2025 18:36:50 5 81061: Hot or Cold Pack completed El Smith, PT [address], [place], [address], [facility] 02/14/2025 18:36:50 5 48570: Manual therapy completed El Smith, PT [address], [place], [address], [facility] 02/14/2025 18:36:50 5 95684 Therapeutic Exercise (1:1) completed Yordy Vega, AT [address], [place], [address], [facility] 02/10/2025 18:15:04 5 87983: Hot or Cold Pack completed Yordy Vega, AT [address], [place], [address], [facility] 02/10/2025 18:15:04 5 84825: Manual therapy completed Yordy Vega, AT [address], [place], [address], [facility] 02/10/2025 18:15:04 5 79587 Therapeutic Exercise (1:1) completed El Smith, PT [address], [place], [address], [facility] 02/04/2025 15:22:07 57607: Hot or Cold Pack completed El Smith, PT [address], [place], [address], [facility] 02/04/2025 07:04:59 21652: Manual therapy completed El Smith, PT [address], [place], [address], [facility] 02/04/2025 07:04:59 92539 Therapeutic Exercise (1:1) completed Yordy Vega, AT [address], [place], [address], [facility] 02/01/2025 14:30:41 46167: Hot or Cold Pack completed Yordy Vega, AT [address], [place], [address], [facility] 02/01/2025 14:30:41 76162: Manual therapy completed Yordy Vega, AT [address], [place], [address], [facility] 02/01/2025 14:30:41 95166 Therapeutic Exercise (1:1) completed Yordy Vega, AT [address], [place], [address], [facility] 01/28/2025 12:22:44 57769: Hot or Cold Pack completed Yordy Vega, AT [address], [place], [address], [facility] 01/28/2025 12:22:44 55463: Manual therapy completed Yordy Vega, AT [address], [place], [address], [facility] 01/28/2025 12:22:44 72543 Therapeutic Exercise (1:1) completed Yordy Vega, AT [address], [place], [address], [facility] 01/25/2025 13:31:43 56824: Hot or Cold Pack completed Yordy Vega, AT [address], [place], [address], [facility] 01/25/2025 13:31:43 37533: Manual therapy completed Yordy Vega, AT [address], [place], [address], [facility] 01/25/2025 13:31:43 72449 Therapeutic Exercise (1:1) completed Yordy Vega, AT [address], [place], [address], [facility] 01/21/2025 12:59:15 81990: Hot or Cold Pack completed Yordy Vega, AT [address], [place], [address], [facility] 01/21/2025 12:59:15 49155: Manual therapy completed Yordy Vega, AT [address], [place], [address], [facility] 01/21/2025 12:59:15 50169 Therapeutic Exercise (1:1) completed Yordy Vega, AT [address], [place], [address], [facility] 01/18/2025 14:48:44 76573: Hot or Cold Pack completed Yordy Vega, AT [address], [place], [address], [facility] 01/18/2025 14:48:44 70089: Manual therapy completed Yordy Vega, AT [address], [place], [address], [facility] 01/18/2025 14:48:44 5 81468 Therapeutic Exercise (1:1) completed Yordy Vega, AT [address], [place], [address], [facility] 01/15/2025 14:57:04 5 75410: Hot or Cold Pack completed Yordy Vega, AT [address], [place], [address], [facility] 01/15/2025 14:57:33 5 97363: Manual therapy completed Yordy Vega, AT [address], [place], [address], [facility] 01/15/2025 14:57:12 38283 Therapeutic Exercise (1:1) completed El Smith, PT [address], [place], [address], [facility] 01/14/2025 11:34:09 5 55109: Low complexity PT Eval completed El Smith, PT [address], [place], [address], [facility] 01/14/2025 11:34:11 4 Sports Shoulder completed Manas Vazquez PA-C [address] [facility], [place], [address], [facility] 09/25/2023 11:21:46 Imaging Results None recorded. [...] ICD10 Code Diagnosis IMO Codes Diagnosis Note [id number] MD TIFFANI Morse [address] [place] [address] 01/15/2025 10:48:54 01/26/2025 12:35:56 Follow-up orthopedic assessment [id number] Z47.89 [id number] El Smith, PT [facility] [address] [place] [address] 01/14/2025 13:58:22 01/14/2025 17:16:55 Rupture of rotator cuff of right shoulder [id number] M75.102 [id number] Yordy Vega, AT [facility] [address] [place] [address] 01/15/2025 13:30:50 01/15/2025 14:54:23 Rupture of rotator cuff of right shoulder [id number] M75.414 [id number] Yordy Vega, AT [facility] [address] [place] [address] 01/18/2025 13:28:36 01/18/2025 14:09:17 Rupture of rotator cuff of right shoulder [id number] 5248410 M75.931 [id number] [facility] [address] [place] [address] 01/21/2025 12:47:26 01/21/2025 13:49:12 Rupture of rotator cuff of right shoulder [id number] M75.456 [id number] [facility] Vega[facility] [address] [place] [address] 01/25/2025 13:26:42 01/25/2025 14:43:58 Rupture of rotator cuff of right shoulder [id number] M75.101 Health Concerns Section Related Observation LastModified by Organization Detai ls LastModified Time None Recorded Concern Status LastModified by Organization Details LastModified Time None Recorded Payers Encounter Date Sequence Insurance Name Policy Number Policy Urbina Covered Member ID Urbina Member ID Guarantor Name 01/25/2025 1 [employer] [facility] ([place] [id number] Giuliano Huitron [id number] Giuliano Huitron Notes Date Note Type Note Provider Name and Address Organization Details Recorded Time 01/25/2025 text/html Patient presents today reporting 4/10 pain. Pt states having front of the shoulder pains today after using the arm more for light activity. Yordy Vega, AT [address] [facility], [place], [address], [facility] 01/25/2025 14:19:09
--- OUTSIDE RECORDS SUMMARY | 2025-03-15 18:05 | XMS_ITS | Continuity of Care Document ---
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 Plan: Continue 2x/wk with formal therapy and daily HEP. [email or web address] Not available 01/21/2025 13:47:55 Plan of Treatment [...] Time Acquired pes planus of right foot [id number] Active 2023 En Magallanes MD [address], [place], [address], [facility] 4 16:55:50 Sinus tarsi syndrome of right ankle [id number] 07 Active 2023 En Magallanes MD [address], [place], [address], [facility] 4 16:55:51 Problem Notes None recorded. Procedures Surgical History Date Name Laterality Status Provider Name and Address Organization Details Recorded Time 5 57064 Therapeutic Exercise (1:1) completed Yordy Vega AT [address], [place], [address], [facility] 03/10/2025 12:55:09 5 52094: Hot or Cold Pack completed Yordy Vega AT [address], [place], [address], [facility] 03/10/2025 12:55:09 5 89130: Manual therapy completed Yordy Vega AT [address], [place], [address], [facility] 03/10/2025 12:55:09 5 68873 Therapeutic Exercise (1:1) completed Yordy Vega, AT [address], [place], [address], [facility] 03/08/2025 11:43:16 5 50386: Hot or Cold Pack completed Yordy Vega, AT [address], [place], [address], [facility] 03/08/2025 11:43:16 5 42105: Manual therapy completed Yordy Vega, AT [address], [place], [address], [facility] 03/08/2025 11:43:16 5 16904 Therapeutic Exercise (1:1) completed Yordy Vega, AT [address], [place], [address], [facility] 03/04/2025 11:56:39 5 72874: Hot or Cold Pack completed Yordy Vega, AT [address], [place], [address], [facility] 03/04/2025 11:56:39 5 34947: Manual therapy completed Yordy Vega, AT [address], [place], [address], [facility] 03/04/2025 11:56:39 5 26458 Therapeutic Exercise (1:1) completed Yordy Vega, AT [address], [place], [address], [facility] 03/01/2025 11:19:44 5 01472: Hot or Cold Pack completed Yordy Vega, AT [address], [place], [address], [facility] 03/01/2025 11:19:44 5 00009: Manual therapy completed Yordy Vega, AT [address], [place], [address], [facility] 03/01/2025 11:19:44 5 45564 Therapeutic Exercise (1:1) completed Ellilia Smith, PT [address], [place], [address], [facility] 02/24/2025 19:09:05 5 72775: Hot or Cold Pack completed Ellilia Smith, PT [address], [place], [address], [facility] 02/24/2025 19:09:05 5 74038: Manual therapy completed El Smith, PT [address], [place], [address], [facility] 02/24/2025 19:09:05 5 71015 Therapeutic Exercise (1:1) completed El Smith, PT [address], [place], [address], [facility] 02/21/2025 16:53:11 5 02792: Hot or Cold Pack completed El Smith, PT [address], [place], [address], [facility] 02/21/2025 16:53:11 5 34499: Manual therapy completed El Smith, PT [address], [place], [address], [facility] 02/21/2025 16:53:11 5 85196 Therapeutic Exercise (1:1) completed Ellilia Smith, PT [address], [place], [address], [facility] 02/17/2025 15:54:11 5 62770: Hot or Cold Pack completed Ellilia Smith, PT [address], [place], [address], [facility] 02/17/2025 15:54:11 5 95411: Manual therapy completed El Smith, PT [address], [place], [address], [facility] 02/17/2025 15:54:11 5 89761 Therapeutic Exercise (1:1) completed El Smith, PT [address], [place], [address], [facility] 02/14/2025 18:36:50 5 91046: Hot or Cold Pack completed El Smith, PT [address], [place], [address], [facility] 02/14/2025 18:36:50 5 55866: Manual therapy completed El Smith, PT [address], [place], [address], [facility] 02/14/2025 18:36:50 5 08871 Therapeutic Exercise (1:1) completed Yordy Vega, AT [address], [place], [address], [facility] 02/10/2025 18:15:04 5 11628: Hot or Cold Pack completed Yordy Vega, AT [address], [place], [address], [facility] 02/10/2025 18:15:04 5 60011: Manual therapy completed Yordy Vega, AT [address], [place], [address], [facility] 02/10/2025 18:15:04 5 08642 Therapeutic Exercise (1:1) completed El Smith, PT [address], [place], [address], [facility] 02/04/2025 15:22:07 60139: Hot or Cold Pack completed El Smith, PT [address], [place], [address], [facility] 02/04/2025 07:04:59 19139: Manual therapy completed El Smith, PT [address], [place], [address], [facility] 02/04/2025 07:04:59 34737 Therapeutic Exercise (1:1) completed Yordy Vega, AT [address], [place], [address], [facility] 02/01/2025 14:30:41 09756: Hot or Cold Pack completed Yordy Vega, AT [address], [place], [address], [facility] 02/01/2025 14:30:41 00332: Manual therapy completed Yordy Vega, AT [address], [place], [address], [facility] 02/01/2025 14:30:41 04555 Therapeutic Exercise (1:1) completed Yordy Vega, AT [address], [place], [address], [facility] 01/28/2025 12:22:44 33883: Hot or Cold Pack completed Yordy Vega, AT [address], [place], [address], [facility] 01/28/2025 12:22:44 81837: Manual therapy completed Yordy Vega, AT [address], [place], [address], [facility] 01/28/2025 12:22:44 97278 Therapeutic Exercise (1:1) completed Yordy Vega, AT [address], [place], [address], [facility] 01/25/2025 13:31:43 56460: Hot or Cold Pack completed Yordy Vega, AT [address], [place], [address], [facility] 01/25/2025 13:31:43 87996: Manual therapy completed Yordy Vega, AT [address], [place], [address], [facility] 01/25/2025 13:31:43 68168 Therapeutic Exercise (1:1) completed Yordy Vega, AT [address], [place], [address], [facility] 01/21/2025 12:59:15 71696: Hot or Cold Pack completed Yordy Vega, AT [address], [place], [address], [facility] 01/21/2025 12:59:15 37714: Manual therapy completed Yordy Vega, AT [address], [place], [address], [facility] 01/21/2025 12:59:15 30317 Therapeutic Exercise (1:1) completed Yordy Vega, AT [address], [place], [address], [facility] 01/18/2025 14:48:44 96285: Hot or Cold Pack completed Yordy Vega, AT [address], [place], [address], [facility] 01/18/2025 14:48:44 59262: Manual therapy completed Yordy Vega, AT [address], [place], [address], [facility] 01/18/2025 14:48:44 5 09604 Therapeutic Exercise (1:1) completed Yordy Vega, AT [address] [facility], [place], [address], [facility] 01/15/2025 14:57:04 5 71104: Hot or Cold Pack completed Yordy Vega, AT [address], [place], [address], [facility] 01/15/2025 14:57:33 5 34311: Manual therapy completed Yordy Vega, AT [address] [facility], [place], [address], [facility] 01/15/2025 14:57:12 89748 Therapeutic Exercise (1:1) completed El Smith, PT [address] [facility], [place], [address], [facility] 01/14/2025 11:34:09 5 42619: Low complexity PT Eval completed El Smith, PT [address] [facility], [place], [address], [facility] 01/14/2025 11:34:11 4 Sports Shoulder completed Manas Vazquez PA-C [address] [facility], [place], [address], [facility] 09/25/2023 11:21:46 [...] Disease N Heart Trouble N Heart Attack (NE) N Gastrointestinal Disease N Cholesterol N Diabetes [...] ICD10 Code Diagnosis IMO Codes Diagnosis Note [id number] MD TIFFANI Morse Abiel Mosley [address] [place] [address] [place] [address] 01/15/2025 10:48:54 01/26/2025 12:35:56 Follow-up orthopedic assessment [id number] Z47.89 [id number] El Smith, PT [facility] [address] [place] [address] 01/14/2025 13:58:22 01/14/2025 17:16:55 Rupture of rotator cuff of right shoulder [id number] M75.814 [id number] Yordy Vega, [facility] [address] [place] [address] 01/15/2025 13:30:50 01/15/2025 14:54:23 Rupture of rotator cuff of right shoulder [id number] 0800315 M75.340 [id number] Yordy eVga, AT [facility] [address] [place] [address] 01/18/2025 13:28:36 01/18/2025 14:09:17 Rupture of rotator cuff of right shoulder [id number] M75.819 [id number] Yordy Vega, AT [facility] [address] [facility] [place] [address] 01/21/2025 12:47:26 01/21/2025 13:49:12 Rupture of rotator cuff of right shoulder [id number] M75.101 Health Concerns Section Related Observation LastModified by Organization Detai ls LastModified Time None Recorded Concern Status LastModified by Organization Details LastModified Time None Recorded Payers Encounter Date Sequence Insurance Name Policy Number Policy Urbina Covered Member ID Urbina Member ID Guarantor Name 01/21/2025 1 [employer] [facility] ([facility]) [id number] Giuliano Huitron [id number] 33 Giuliano Huitron Notes Date Note Type Note Provider Name and Address Organization Details Recorded Time 01/21/2025 text/html Patient presents today reporting 4/10 pain. Pt states feeling less soreness with therapy. Yordy Vega, AT [address], [place], [address], [facility] 01/21/2025 13:48:15
--- OUTSIDE RECORDS SUMMARY | 2025-03-15 18:05 | XMS_ITS | Continuity of Care Document ---
Author Organization [place] [facility], [facility] Address [address] [place] [address] Care Team Providers Care Pearl Stringer Name Role Phone FERMÍN PRECIADO Primary Care Provider Assessment Encounter Date Assessment Date Assessment LastModified by Organization Details LastModified Time 02/01/2025 02/01/2025 Assessment: Weekly gains with P/AAROM measures. Plan: Continue 2x/wk with P/AAROM and wean from sling use. [email or web address] Not available 02/01/2025 14:32:51 Plan of Treatment [...] Time Acquired pes planus of right foot [id number] Active 2023 En Magallanes MD [address], [place], [address], [facility] 4 16:55:50 Sinus tarsi syndrome of right ankle [id number] 07 Active 2023 En Magallanes MD [address], [place], [address], [facility] 4 16:55:51 Problem Notes None recorded. Procedures Surgical History Date Name Laterality Status Provider Name and Address Organization Details Recorded Time 5 44036 Therapeutic Exercise (1:1) completed Yordy Vega AT [address] [facility], [place], [address], [facility] 03/10/2025 12:55:09 5 01670: Hot or Cold Pack completed Yordy Vega AT [address], [place], [address], [facility] 03/10/2025 12:55:09 5 41792: Manual therapy completed Yordy Vega AT [address], [place], [address], [facility] 03/10/2025 12:55:09 5 91808 Therapeutic Exercise (1:1) completed Yordy Vega, AT [address], [place], [address], [facility] 03/08/2025 11:43:16 5 85750: Hot or Cold Pack completed Yordy Vega, AT [address], [place], [address], [facility] 03/08/2025 11:43:16 5 90299: Manual therapy completed Yordy Vega, AT [address], [place], [address], [facility] 03/08/2025 11:43:16 5 48215 Therapeutic Exercise (1:1) completed Yordy Vega, AT [address], [place], [address], [facility] 03/04/2025 11:56:39 5 34080: Hot or Cold Pack completed Yordy Vega, AT [address], [place], [address], [facility] 03/04/2025 11:56:39 5 14424: Manual therapy completed Yordy Vega, AT [address], [place], [address], [facility] 03/04/2025 11:56:39 5 00740 Therapeutic Exercise (1:1) completed Yordy Vega, AT [address], [place], [address], [facility] 03/01/2025 11:19:44 5 00588: Hot or Cold Pack completed Yordy Vega, AT [address], [place], [address], [facility] 03/01/2025 11:19:44 5 30881: Manual therapy completed Yordy Vega, AT [address], [place], [address], [facility] 03/01/2025 11:19:44 5 88157 Therapeutic Exercise (1:1) completed Ellilia Smith, PT [address], [place], [address], [facility] 02/24/2025 19:09:05 5 85616: Hot or Cold Pack completed Ellilia Smith, PT [address], [place], [address], [facility] 02/24/2025 19:09:05 5 19685: Manual therapy completed El Smith, PT [address], [place], [address], [facility] 02/24/2025 19:09:05 5 39350 Therapeutic Exercise (1:1) completed El Smith, PT [address], [place], [address], [facility] 02/21/2025 16:53:11 5 89001: Hot or Cold Pack completed El Smith, PT [address], [place], [address], [facility] 02/21/2025 16:53:11 5 41245: Manual therapy completed El Smith, PT [address], [place], [address], [facility] 02/21/2025 16:53:11 5 82355 Therapeutic Exercise (1:1) completed Ellilia Smith, PT [address], [place], [address], [facility] 02/17/2025 15:54:11 5 39418: Hot or Cold Pack completed El Florek, PT [address], [place], [address], [facility] 02/17/2025 15:54:11 5 36822: Manual therapy completed El Smith, PT [address], [place], [address], [facility] 02/17/2025 15:54:11 5 81763 Therapeutic Exercise (1:1) completed El Smith, PT [address], [place], [address], [facility] 02/14/2025 18:36:50 5 62958: Hot or Cold Pack completed El Smith, PT [address], [place], [address], [facility] 02/14/2025 18:36:50 5 86215: Manual therapy completed El Smith, PT [address], [place], [address], [facility] 02/14/2025 18:36:50 79107 Therapeutic Exercise (1:1) completed Yodry Vega, AT [address], [place], [address], [facility] 02/10/2025 18:15:04 5 19082: Hot or Cold Pack completed Yordy Vega, AT [address], [place], [address], [facility] 02/10/2025 18:15:04 5 00599: Manual therapy completed Yordy Vega, AT [address], [place], [address], [facility] 02/10/2025 18:15:04 5 58756 Therapeutic Exercise (1:1) completed El Smith, PT [address], [place], [address], [facility] 02/04/2025 15:22:07 34503: Hot or Cold Pack completed El Smith, PT [address], [place], [address], [facility] 02/04/2025 07:04:59 39706: Manual therapy completed El Smith, PT [address], [place], [address], [facility] 02/04/2025 07:04:59 66505 Therapeutic Exercise (1:1) completed Yordy Vega, AT [address], [place], [address], [facility] 02/01/2025 14:30:41 57060: Hot or Cold Pack completed Yordy Vega, AT [address], [place], [address], [facility] 02/01/2025 14:30:41 15782: Manual therapy completed Yordy Vega, AT [address], [place], [address], [facility] 02/01/2025 14:30:41 23456 Therapeutic Exercise (1:1) completed Yordy Vega, AT [address], [place], [address], [facility] 01/28/2025 12:22:44 68769: Hot or Cold Pack completed Yordy Vega, AT [address], [place], [address], [facility] 01/28/2025 12:22:44 16830: Manual therapy completed Yordy Vega, AT [address], [place], [address], [facility] 01/28/2025 12:22:44 66810 Therapeutic Exercise (1:1) completed Yordy Vega, AT [address], [place], [address], [facility] 01/25/2025 13:31:43 80114: Hot or Cold Pack completed Yordy Vega, AT [address], [place], [address], [facility] 01/25/2025 13:31:43 20346: Manual therapy completed Yordy Vega, AT [address], [place], [address], [facility] 01/25/2025 13:31:43 99739 Therapeutic Exercise (1:1) completed Yordy Vega, AT [address], [place], [address], [facility] 01/21/2025 12:59:15 74452: Hot or Cold Pack completed Yordy Vega, AT [address], [place], [address], [facility] 01/21/2025 12:59:15 04813: Manual therapy completed Yordy Vega, AT [address], [place], [address], [facility] 01/21/2025 12:59:15 56280 Therapeutic Exercise (1:1) completed Yordy Vega, AT [address], [place], [address], [facility] 01/18/2025 14:48:44 86607: Hot or Cold Pack completed Yordy Vega, AT [address], [place], [address], [facility] 01/18/2025 14:48:44 59193: Manual therapy completed Yordy Vega, AT [address], [place], [address], [facility] 01/18/2025 14:48:44 5 30064 Therapeutic Exercise (1:1) completed Yordy Vega, AT [address], [place], [address], [facility] 01/15/2025 14:57:04 5 95751: Hot or Cold Pack completed Yordy Vega, AT [address], [place], [address], [facility] 01/15/2025 14:57:33 5 04557: Manual therapy completed Yordy Vega, AT [address] [facility], [place], [address], [facility] 01/15/2025 14:57:12 5 44177 Therapeutic Exercise (1:1) completed El Smith, PT [address] [facility], [place], [address], [facility] 01/14/2025 11:34:09 5 16797: Low complexity PT Eval completed El Smith, PT [address] [facility], [place], [address], [facility] 01/14/2025 11:34:11 4 Sports Shoulder completed Manas Vazquez PA-C [address] [facility], [place], [address], [facility] 09/25/2023 11:21:46 Imaging Results None recorded. [...] ICD10 Code Diagnosis IMO Codes Diagnosis Note [id number] MD [facility] Morse Abiel [address] [place] [address] 01/15/2025 10:48:54 01/26/2025 12:35:56 Follow-up orthopedic assessment [id number] Z47.89 [id number] El Smith, PT [facility] [address] [place] [address] 01/14/2025 13:58:22 01/14/2025 17:16:55 Rupture of rotator cuff of right shoulder [id number] M75.870 [id number] Yordy Vega, AT [facility] [address] [place] [address] 01/15/2025 13:30:50 01/15/2025 14:54:23 Rupture of rotator cuff of right shoulder [id number] [id number] M75.620 [id number] Yordykisha VivarVega, AT [facility] [address] [place] [address] 01/18/2025 13:28:36 01/18/2025 14:09:17 Rupture of rotator cuff of right shoulder [id number] M75.506 [id number] Yordykisha VivarVega, AT [facility] [address] [place] [address] 01/21/2025 12:47:26 01/21/2025 13:49:12 Rupture of rotator cuff of right shoulder [id number] M75.544 [id number] Yordy Gary, AT [facility] [address] [place] [address] 01/25/2025 13:26:42 01/25/2025 14:43:58 Rupture of rotator cuff of right shoulder [id number] M75.877 [id number] Yordy Gary, AT [facility] [address] [place] [address] 01/28/2025 11:24:30 01/28/2025 12:44:29 Rupture of rotator cuff of right shoulder [id number] M75.103 [id number] Yordy Vivarolson, AT [facility] [address] [place] [address] 02/01/2025 11:30:11 02/01/2025 12:08:36 Rupture of rotator cuff of right shoulder [id number] M75.101 Health Concerns Section Related Observation LastModified by Organization Detai ls LastModified Time None Recorded Concern Status LastModified by Organization Details LastModified Time None Recorded Payers Encounter Date Sequence Insurance Name Policy Number Policy Urbina Covered Member ID Urbina Member ID Guarantor Name 02/01/2025 1 [facility] [id number] [address] [id number] Giuliano Huitron Notes Date Note Type Note Provider Name and Address Organization Details Recorded Time 02/01/2025 text/html Patient presents today reporting 3/10 pain. Pt states sleeping much better lately. Yordy Vega, AT [address] [facility] [address], [place], [address], [facility] 02/01/2025 14:33:46
--- OUTSIDE RECORDS SUMMARY | 2025-03-15 18:05 | XMS_ITS | Continuity of Care Document ---
Author Organization [place] - [facility], [facility] Clinical Address [address] [place] [address] Care Team Providers [facility] [employer] Name Role Phone FERMÍN PRECIADO Primary Care Provider [phone] Assessment No assessment recorded. Plan of Treatment [...] PT FOLLOW-U P 2024 11:00A M Fermín Brewster DPT Not available Not [...] Time Acquired pes planus of right foot [id number] Active 2023 En Magallanes MD [address], [place], [address], [facility] 4 16:55:50 Sinus tarsi syndrome of right ankle [id number] 07 Active 2023 En Magallanes MD [address], [place], [address], [facility], [facility] 4 16:55:51 Problem Notes None recorded. Procedures Surgical History Date Name Laterality Status Provider Name and Address Organization Details Recorded Time 5 85840 Therapeutic Exercise (1:1) completed Yordy Vega AT [address] [facility], [place], [address], [facility] 03/10/2025 12:55:09 5 44631: Hot or Cold Pack completed Yordy Vega AT [address] [facility], [place], [address], [facility] 03/10/2025 12:55:09 5 69110: Manual therapy completed Yordy Vega AT [address] [facility], [place], [address], [facility] 03/10/2025 12:55:09 5 52270 Therapeutic Exercise (1:1) completed Yordy Vega AT [address], [place], [address], [facility] 03/08/2025 11:43:16 5 90972: Hot or Cold Pack completed Yordy Vega, AT [address], [place], [address], [facility] 03/08/2025 11:43:16 5 38588: Manual therapy completed Yordy Vega, AT [address], [place], [address], [facility] 03/08/2025 11:43:16 5 81131 Therapeutic Exercise (1:1) completed Yordy Vega, AT [address], [place], [address], [facility] 03/04/2025 11:56:39 5 88294: Hot or Cold Pack completed Yordy Vega, AT [address], [place], [address], [facility] 03/04/2025 11:56:39 5 71594: Manual therapy completed Yordy Vega, AT [address], [place], [address], [facility] 03/04/2025 11:56:39 5 22834 Therapeutic Exercise (1:1) completed Yordy Vega, AT [address], [place], [address], [facility] 03/01/2025 11:19:44 5 15368: Hot or Cold Pack completed Yordy Vega, AT [address], [place], [address], [facility] 03/01/2025 11:19:44 5 12790: Manual therapy completed Yordy Vega, AT [address], [place], [address], [facility] 03/01/2025 11:19:44 5 10331 Therapeutic Exercise (1:1) completed El Florek, PT [address], [place], [address], [facility] 02/24/2025 19:09:05 5 92326: Hot or Cold Pack completed El Florek, PT [address], [place], [address], [facility] 02/24/2025 19:09:05 5 92570: Manual therapy completed El Florek, PT [address], [place], [address], [facility] 02/24/2025 19:09:05 5 81830 Therapeutic Exercise (1:1) completed Ellilia Smith, PT [address], [place], [address], [facility] 02/21/2025 16:53:11 5 02400: Hot or Cold Pack completed El Fernandaek, PT [address], [place], [address], [facility] 02/21/2025 16:53:11 5 70012: Manual therapy completed El Smith, PT [address], [place], [address], [facility] 02/21/2025 16:53:11 5 40163 Therapeutic Exercise (1:1) completed Ellilia Michaelek, PT [address], [place], [address], [facility] 02/17/2025 15:54:11 5 82122: Hot or Cold Pack completed Ellilia Michaelek, PT [address], [place], [address], [facility] 02/17/2025 15:54:11 5 25500: Manual therapy completed Ellilia Smith, PT [address], [place], [address], [facility] 02/17/2025 15:54:11 5 13636 Therapeutic Exercise (1:1) completed El Smith, PT [address], [place], [address], [facility] 02/14/2025 18:36:50 5 14494: Hot or Cold Pack completed El Smith, PT [address], [place], [address], [facility] 02/14/2025 18:36:50 5 19345: Manual therapy completed El Smith, PT [address], [place], [address], [facility] 02/14/2025 18:36:50 5 65808 Therapeutic Exercise (1:1) completed Yordy Vega, AT [address], [place], [address], [facility] 02/10/2025 18:15:04 5 85910: Hot or Cold Pack completed Yordy Vega, AT [address], [place], [address], [facility] 02/10/2025 18:15:04 5 80462: Manual therapy completed Yordy Vega AT [address], [place], [address], [facility] 02/10/2025 18:15:04 5 24956 Therapeutic Exercise (1:1) completed El Smith, PT [address], [place], [address], [facility] 02/04/2025 15:22:07 5 03466: Hot or Cold Pack completed El Smith, PT [address], [place], [address], [facility] 02/04/2025 07:04:59 55423: Manual therapy completed El Smith, PT [address], [place], [address], [facility] 02/04/2025 07:04:59 75467 Therapeutic Exercise (1:1) completed Yordy Vega, AT [address], [place], [address], [facility] 02/01/2025 14:30:41 15096: Hot or Cold Pack completed Yordy Vega, AT [address], [place], [address], [facility] 02/01/2025 14:30:41 47903: Manual therapy completed Yordy Vega, AT [address], [place], [address], [facility] 02/01/2025 14:30:41 81292 Therapeutic Exercise (1:1) completed Yordy Vega, AT [address], [place], [address], [facility] 01/28/2025 12:22:44 60860: Hot or Cold Pack completed Yordy Vega, AT [address], [place], [address], [facility] 01/28/2025 12:22:44 84295: Manual therapy completed Yordy Vega, AT [address], [place], [address], [facility] 01/28/2025 12:22:44 57392 Therapeutic Exercise (1:1) completed Yordy Vega, AT [address], [place], [address], [facility] 01/25/2025 13:31:43 05630: Hot or Cold Pack completed Yordy Vega, AT [address], [place], [address], [facility] 01/25/2025 13:31:43 62130: Manual therapy completed Yordy Vega, AT [address], [place], [address], [facility] 01/25/2025 13:31:43 22336 Therapeutic Exercise (1:1) completed Yordy Vega, AT [address], [place], [address], [facility] 01/21/2025 12:59:15 02723: Hot or Cold Pack completed Yordy Vega, AT [address], [place], [address], [facility] 01/21/2025 12:59:15 46445: Manual therapy completed Yordy Vega, AT [address], [place], [address], [facility] 01/21/2025 12:59:15 87630 Therapeutic Exercise (1:1) completed Yordy Vega, AT [address], [place], [address], [facility] 01/18/2025 14:48:44 93079: Hot or Cold Pack completed Yordy Vega, AT [address], [place], [address], [facility] 01/18/2025 14:48:44 38161: Manual therapy completed Yordy Vega, AT [address], [place], [address], [facility] 01/18/2025 14:48:44 32128 Therapeutic Exercise (1:1) completed Yordy Vega, AT [address], [place], [address], [facility] 01/15/2025 14:57:04 5 65108: Hot or Cold Pack completed Yordy Vega, AT [address] [facility], [place], [address], [facility] 01/15/2025 14:57:33 5 98727: Manual therapy completed Yordy Vega, AT [address] [facility], [place], [address], [facility] 01/15/2025 14:57:12 5 22765 Therapeutic Exercise (1:1) completed El Smith, PT [address] [facility], [place], [address], [facility] 01/14/2025 11:34:09 24332: Low complexity PT Eval completed El Smith, PT [address] [facility], [place], [address], [facility] 01/14/2025 11:34:11 4 Sports Shoulder completed Manas Vazquez PA-C [address] [facility], [place], [address], [facility] 09/25/2023 11:21:46 [...] Updated DateTime 01/15/2025 165.1 cm 30 kg/m2 42758.63 g Terry Gallagher [place] - [facility] 01/15/2025 11:34:54 Social History None recorded. Functional Status None recorded. Mental Status None recorded. Family History Nothing Reported. Medical History Condition Response Allergies/Hayfever N Coronary Artery Disease N Anxiety/Depression N Breathing or lung disorders N Emphysema N Nerve Disorders N Thyroid Problems N COPD N Pacemaker N Anemia N Kidney/Bladder Problems N Vascular Disease N Heart Trouble N Heart Attack (OR) N Gastrointestinal Disease N Cholesterol N Diabetes [...] ICD10 Code Diagnosis IMO Codes Diagnosis Note [id number] MD TIFFANI Morse [address] [place] [address] [place] [address] 01/15/2025 10:48:54 01/26/2025 12:35:56 Follow-up orthopedic assessment [id number] Z47.89 [id number] El Smith, PT [facility] [address] [place] [address] 01/14/2025 13:58:22 01/14/2025 17:16:55 Rupture of rotator cuff of right shoulder [id number] M75.817 [id number] Yordy Vega, AT [facility] [address] [place] [address] 01/15/2025 13:30:50 01/15/2025 14:54:23 Rupture of rotator cuff of right shoulder [id number] [id number] M75.101 Health Concerns Section Related Observation LastModified by Organization Detai ls LastModified Time None Recorded Concern Status LastModified by Organization Details LastModified Time None Recorded Payers Encounter Date Sequence Insurance Name Policy Number Policy Urbina Covered Member ID Urbina Member ID Guarantor Name 01/15/2025 1 [employer] [facility] ([place]) [id number] Giuliano Huitron [id number] Giuliano Huitron Notes Date Note Type Note Provider Name and Address Organization Details Recorded Time 01/15/2025 text/html Patient presents today reporting 4/10 pain. Pt states sleep is difficult. Yordy Vega, AT [address] [facility] [address], [place], [address], [facility] - [facility] 01/15/2025 14:59:49 01/15/2025 text/html Surgery: Right shoulder calcium excision with subsequent 1+1 double row supraspinatus repair, [facility], 12/30/2024 Interval History: Giuliano returns today in [...] and well perfused. 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 [employer] speech recognition forms analyst software was used to create portions of this document. An attempt at proofreading has been made to minimize errors. Please call for corrections. Marielos Phillips MD [address] [place] [address] [address], [place], [address], [facility] - [facility] 01/15/2025 12:02:30
--- OUTSIDE RECORDS SUMMARY | 2025-03-15 18:05 | XMS_ITS | Continuity of Care Document ---
Author Organization [place] [facility], [facility] Address [address] [place] [address] Care Team Providers Care Inspector Outside [employer] Name Role Phone FERMÍN PRECIADO Primary Care Provider [phone] Assessment Encounter Date Assessment Date Assessment LastModified by Organization Details LastModified Time 03/10/2025 03/10/2025 Assessment: Weekly improvements with motion and reported functional use. Plan: Continue 2x/wk- per protocol/precau tions, progressing AROM mechanics. Sling at all times for 4 wks, [...] and biomechanics, add T-Bands with light resistance. [email or web address] Not available 03/10/2025 14:24:23 Plan of Treatment Reminders Order Date Submit [...] available PT FOLLOW-U P 2024 11:30A M Fermínkatie Brewster, DPT Not available Not available Not [...] Time Acquired pes planus of right foot [id number] Active 2023 En Magallanes MD [address], [place], [address], [facility] 4 16:55:50 Sinus tarsi syndrome of right ankle [id number] 07 Active 2023 En Magallanes MD [address], [place], [address], [facility] 4 16:55:51 Problem Notes None recorded. Procedures Surgical History Date Name Laterality Status Provider Name and Address Organization Details Recorded Time 5 11081 Therapeutic Exercise (1:1) completed MARYELLEN Cornell [address], [place], [address], [facility] 03/10/2025 12:55:09 5 82610: Hot or Cold Pack completed Yordy Vega, AT [address], [place], [address], [facility] 03/10/2025 12:55:09 5 02592: Manual therapy completed Yordy Vega, AT [address], [place], [address], [facility] 03/10/2025 12:55:09 5 62718 Therapeutic Exercise (1:1) completed Yordy Vega, AT [address], [place], [address], [facility] 03/08/2025 11:43:16 5 42216: Hot or Cold Pack completed Yordy Vega, AT [address], [place], [address], [facility] 03/08/2025 11:43:16 5 48336: Manual therapy completed Yordy Vega, AT [address], [place], [address], [facility] 03/08/2025 11:43:16 5 74103 Therapeutic Exercise (1:1) completed Yordy Vega, AT [address], [place], [address], [facility] 03/04/2025 11:56:39 5 62708: Hot or Cold Pack completed Yordy Vega, AT [address], [place], [address], [facility] 03/04/2025 11:56:39 5 96120: Manual therapy completed Yordy Vega, AT [address], [place], [address], [facility] 03/04/2025 11:56:39 5 16205 Therapeutic Exercise (1:1) completed Yordy Vega, AT [address], [place], [address], [facility] 03/01/2025 11:19:44 5 56726: Hot or Cold Pack completed Yordy Vega, AT [address], [place], [address], [facility] 03/01/2025 11:19:44 5 59321: Manual therapy completed Yordy Vega, AT [address], [place], [address], [facility] 03/01/2025 11:19:44 5 65858 Therapeutic Exercise (1:1) completed El Smith, PT [address], [place], [address], [facility] 02/24/2025 19:09:05 5 40536: Hot or Cold Pack completed El Smith, PT [address], [place], [address], [facility] 02/24/2025 19:09:05 5 35612: Manual therapy completed El Smith, PT [address], [place], [address], [facility] 02/24/2025 19:09:05 5 14272 Therapeutic Exercise (1:1) completed El Smith, PT [address], [place], [address], [facility] 02/21/2025 16:53:11 5 56308: Hot or Cold Pack completed El Smith, PT [address], [place], [address], [facility] 02/21/2025 16:53:11 5 93450: Manual therapy completed El Smith, PT [address], [place], [address], [facility] 02/21/2025 16:53:11 5 52505 Therapeutic Exercise (1:1) completed El Smith, PT [address], [place], [address], [facility] 02/17/2025 15:54:11 5 21227: Hot or Cold Pack completed El Smith, PT [address], [place], [address], [facility] 02/17/2025 15:54:11 5 95138: Manual therapy completed El Smith, PT [address], [place], [address], [facility] 02/17/2025 15:54:11 5 74813 Therapeutic Exercise (1:1) completed El Smith, PT [address], [place], [address], [facility] 02/14/2025 18:36:50 5 46670: Hot or Cold Pack completed El Smith, PT [address], [place], [address], [facility] 02/14/2025 18:36:50 5 34096: Manual therapy completed El Smith, PT [address], [place], [address], [facility] 02/14/2025 18:36:50 5 73611 Therapeutic Exercise (1:1) completed Yordy Vega, AT [address], [place], [address], [facility] 02/10/2025 18:15:04 5 83471: Hot or Cold Pack completed Yordy Vega AT [address], [place], [address], [facility] 02/10/2025 18:15:04 05275: Manual therapy completed Yordy Vega, AT [address], [place], [address], [facility] 02/10/2025 18:15:04 21155 Therapeutic Exercise (1:1) completed El Smith, PT [address], [place], [address], [facility] 02/04/2025 15:22:07 15258: Hot or Cold Pack completed El Smith, PT [address], [place], [address], [facility] 02/04/2025 07:04:59 16035: Manual therapy completed El Smith, PT [address], [place], [address], [facility] 02/04/2025 07:04:59 71162 Therapeutic Exercise (1:1) completed Yordy Vega, AT [address], [place], [address], [facility] 02/01/2025 14:30:41 36395: Hot or Cold Pack completed Yordy Vega, AT [address], [place], [address], [facility] 02/01/2025 14:30:41 75696: Manual therapy completed Yordy Vega, AT [address], [place], [address], [facility] 02/01/2025 14:30:41 77667 Therapeutic Exercise (1:1) completed Yordy Vega, AT [address], [place], [address], [facility] 01/28/2025 12:22:44 10/16/202 5 64244: Hot or Cold Pack completed Yordy Vega, AT [address], [place], [address], [facility] 01/28/2025 12:22:44 48482: Manual therapy completed Yordy Vega, AT [address], [place], [address], [facility] 01/28/2025 12:22:44 45443 Therapeutic Exercise (1:1) completed Yordy Vega, AT [address], [place], [address], [facility] 01/25/2025 13:31:43 89319: Hot or Cold Pack completed Yordy Vega, AT [address], [place], [address], [facility] 01/25/2025 13:31:43 46347: Manual therapy completed Yordy Vega, AT [address], [place], [address], [facility] 01/25/2025 13:31:43 45003 Therapeutic Exercise (1:1) completed Yordy Vega, AT [address], [place], [address], [facility] 01/21/2025 12:59:15 67019: Hot or Cold Pack completed Yordy Vega, AT [address], [place], [address], [facility] 01/21/2025 12:59:15 25125: Manual therapy completed Yordy Vega, AT [address], [place], [address], [facility] 01/21/2025 12:59:15 53959 Therapeutic Exercise (1:1) completed Yordy Vega, AT [address], [place], [address], [facility] 01/18/2025 14:48:44 5 56099: Hot or Cold Pack completed Yordy Vega, AT [address], [place], [address], [facility] 01/18/2025 14:48:44 5 42964: Manual therapy completed Yordy Vega, AT [address], [place], [address], [facility] 01/18/2025 14:48:44 5 51679 Therapeutic Exercise (1:1) completed Yordy Vega, AT [address] [facility] [place], [place], [address], [facility] 01/15/2025 14:57:04 5 86458: Hot or Cold Pack completed Yordy Vega, AT [address] [facility] [place], [place], [address], [facility] 01/15/2025 14:57:33 5 23662: Manual therapy completed Yordy Vega, AT [address] [facility] [place], [place], [address], [facility] 01/15/2025 14:57:12 5 53295 Therapeutic Exercise (1:1) completed El Smith, PT [address] [facility] [place], [place], [address], [facility] 01/14/2025 11:34:09 5 84066: Low complexity PT Eval completed El Smith, PT [address] [facility] [place], [place], [address], [facility] 01/14/2025 11:34:11 4 Sports Shoulder completed Manas Vazquez PA-C [address] [facility] [place], [place], [address], [facility] 09/25/2023 11:21:46 Imaging Results [...] N Heart Trouble N Gastrointestinal Disease N Heart Attack ([place]) N Cholesterol N Diabetes N Autoimmune disease [...] ICD10 Code Diagnosis IMO Codes Diagnosis Note [id number] [facility] [address] [place] [address] 02/10/2025 16:10:37 02/10/2025 17:00:46 Rupture of rotator cuff of right shoulder [id number] M75.988 [id number] El Smith, PT [facility] [address] [place] [address] 02/15/2025 12:58:31 02/15/2025 13:28:56 Rupture of rotator cuff of right shoulder [id number] [id number] M75.358 [id number] El Smith, PT [facility] [address] [place] [address] 02/18/2025 13:26:19 02/18/2025 17:15:10 Rupture of rotator cuff of right shoulder [id number] M75.329 [id number] El Smith, PT [facility] [address] [place] [address] 02/22/2025 13:59:50 02/23/2025 06:43:13 Rupture of rotator cuff of right shoulder [id number] M75.697 [id number] El Smith, PT [facility] [address] [place] [address] 02/25/2025 14:00:12 02/25/2025 14:31:29 Rupture of rotator cuff of right shoulder [id number] M75.098 [id number] Yordy Vega, AT [facility] [address] [place] [address] 03/01/2025 11:10:45 03/01/2025 11:35:27 Rupture of rotator cuff of right shoulder 5145062037 [id number] M75.571 [id number] Yordy Vega, AT [facility] [address] [place] [address] 03/04/2025 10:02:14 03/04/2025 10:33:27 Rupture of rotator cuff of right shoulder 3193022160 [id number] M75.071 [id number] Yordy Vega, AT [facility] [address] [place] [address] 03/08/2025 11:32:26 03/08/2025 14:44:32 Rupture of rotator cuff of right shoulder 3831036843 6816136 M75.074 [id number] MARYELLEN [facility] [address] [place] [address] 03/10/2025 11:30:18 03/10/2025 12:29:53 Rupture of rotator cuff of right shoulder [id number] 0948163 M75.101 Health Concerns Section Related Observation LastModified by Organization Detai ls LastModified Time None Recorded Concern Status LastModified by Organization Details LastModified Time None Recorded Payers Encounter Date Sequence Insurance Name Policy Number Policy Urbina Covered Member ID Urbina Member ID Guarantor Name 03/10/2025 1 [employer] [facility] [id number] Giuliano Huitron [id number] Giuliano Huitron Notes Date Note Type Note Provider Name and Address Organization Details Recorded Time 03/10/2025 text/html Patient presents today reporting 1/10 pain. Pt states feeling pleased with mobility now. Yordy Vega, AT [address], [place], [address], [facility] 03/10/2025 14:24:44
--- OUTSIDE RECORDS SUMMARY | 2025-03-15 18:05 | XMS_ITS | Continuity of Care Document ---
Author Organization [place] [facility], [facility] - [facility] Address [address] [place] [address] Care Team Providers Care Optician Apprentice Dispensing Name Role Phone FERMÍN PRECIADO Primary Care Provider Assessment Encounter Date Assessment Date Assessment LastModified by Organization Details LastModified Time 01/18/2025 01/18/2025 Assessment: Improved mobility from U-trap and diminished spasm. Plan: Continue skilled therapy per MD protocol. [email or web address] Not available 01/18/2025 14:50:51 Plan of Treatment [...] Time Acquired pes planus of right foot [id number] Active 2023 En Magallanes MD [address], [place], [address], [facility] 4 16:55:50 Sinus tarsi syndrome of right ankle [id number] 07 Active 2023 En Magallanes MD [address], [place], [address], [facility] 4 16:55:51 Problem Notes None recorded. Procedures Surgical History Date Name Laterality Status Provider Name and Address Organization Details Recorded Time 5 [id number] Therapeutic Exercise (1:1) completed Yordy Vega AT [address], [place], [address], [facility] 03/10/2025 12:55:09 5 03039: Hot or Cold Pack completed Yordy Vega AT [address], [place], [address], [facility] 03/10/2025 12:55:09 5 86985: Manual therapy completed Yordy Vega AT [address], [place], [address], [facility] 03/10/2025 12:55:09 5 88561 Therapeutic Exercise (1:1) completed Yordy Vega, AT [address], [place], [address], [facility] 03/08/2025 11:43:16 5 91735: Hot or Cold Pack completed Yordy Vega, AT [address], [place], [address], [facility] 03/08/2025 11:43:16 5 57044: Manual therapy completed Yordy Vega, AT [address], [place], [address], [facility] 03/08/2025 11:43:16 5 37622 Therapeutic Exercise (1:1) completed Yordy Vega, AT [address], [place], [address], [facility] 03/04/2025 11:56:39 5 88445: Hot or Cold Pack completed Yordy Vega, AT [address], [place], [address], [facility] 03/04/2025 11:56:39 5 05950: Manual therapy completed Yordy Vega, AT [address], [place], [address], [facility] 03/04/2025 11:56:39 5 54189 Therapeutic Exercise (1:1) completed Yordy Vega, AT [address], [place], [address], [facility] 03/01/2025 11:19:44 5 14023: Hot or Cold Pack completed Yordy Vega, AT [address], [place], [address], [facility] 03/01/2025 11:19:44 5 01169: Manual therapy completed Yordy Vega, AT [address], [place], [address], [facility] 03/01/2025 11:19:44 5 41682 Therapeutic Exercise (1:1) completed Ellilia Smith, PT [address], [place], [address], [facility] 02/24/2025 19:09:05 5 32792: Hot or Cold Pack completed Ellilia Smith, PT [address], [place], [address], [facility] 02/24/2025 19:09:05 5 22426: Manual therapy completed El Smith, PT [address], [place], [address], [facility] 02/24/2025 19:09:05 5 99003 Therapeutic Exercise (1:1) completed El Smith, PT [address], [place], [address], [facility] 02/21/2025 16:53:11 5 04838: Hot or Cold Pack completed El Smith, PT [address], [place], [address], [facility] 02/21/2025 16:53:11 5 06659: Manual therapy completed El Smith, PT [address], [place], [address], [facility] 02/21/2025 16:53:11 5 71328 Therapeutic Exercise (1:1) completed Ellilia Smith, PT [address], [place], [address], [facility] 02/17/2025 15:54:11 5 67674: Hot or Cold Pack completed Ellilia Smith, PT [address], [place], [address], [facility] 02/17/2025 15:54:11 5 98406: Manual therapy completed El Smith, PT [address], [place], [address], [facility] 02/17/2025 15:54:11 5 45248 Therapeutic Exercise (1:1) completed El Smith, PT [address], [place], [address], [facility] 02/14/2025 18:36:50 5 59573: Hot or Cold Pack completed El Smith, PT [address], [place], [address], [facility] 02/14/2025 18:36:50 5 06519: Manual therapy completed El Smith, PT [address], [place], [address], [facility] 02/14/2025 18:36:50 5 43121 Therapeutic Exercise (1:1) completed Yordy Vega, AT [address], [place], [address], [facility] 02/10/2025 18:15:04 5 31205: Hot or Cold Pack completed Yordy Vega, AT [address], [place], [address], [facility] 02/10/2025 18:15:04 5 16077: Manual therapy completed Yordy Vega, AT [address], [place], [address], [facility] 02/10/2025 18:15:04 5 48933 Therapeutic Exercise (1:1) completed El Smith, PT [address], [place], [address], [facility] 02/04/2025 15:22:07 57436: Hot or Cold Pack completed El Smith, PT [address], [place], [address], [facility] 02/04/2025 07:04:59 27599: Manual therapy completed El Smith, PT [address], [place], [address], [facility] 02/04/2025 07:04:59 87950 Therapeutic Exercise (1:1) completed Yordy Vega, AT [address], [place], [address], [facility] 02/01/2025 14:30:41 02955: Hot or Cold Pack completed Yordy Vega, AT [address], [place], [address], [facility] 02/01/2025 14:30:41 34534: Manual therapy completed Yordy Vega, AT [address], [place], [address], [facility] 02/01/2025 14:30:41 56935 Therapeutic Exercise (1:1) completed Yordy Vega, AT [address], [place], [address], [facility] 01/28/2025 12:22:44 86875: Hot or Cold Pack completed Yordy Vega, AT [address], [place], [address], [facility] 01/28/2025 12:22:44 45403: Manual therapy completed Yordy Vega, AT [address], [place], [address], [facility] 01/28/2025 12:22:44 10726 Therapeutic Exercise (1:1) completed Yordy Vega, AT [address], [place], [address], [facility] 01/25/2025 13:31:43 78049: Hot or Cold Pack completed Yordy Vega, AT [address], [place], [address], [facility] 01/25/2025 13:31:43 11546: Manual therapy completed Yordy Vega, AT [address], [place], [address], [facility] 01/25/2025 13:31:43 94458 Therapeutic Exercise (1:1) completed Yordy Vega, AT [address], [place], [address], [facility] 01/21/2025 12:59:15 01843: Hot or Cold Pack completed Yordy Vega, AT [address], [place], [address], [facility] 01/21/2025 12:59:15 80603: Manual therapy completed Yordy Vega, AT [address], [place], [address], [facility] 01/21/2025 12:59:15 38830 Therapeutic Exercise (1:1) completed Yordy Vega, AT [address], [place], [address], [facility] 01/18/2025 14:48:44 95173: Hot or Cold Pack completed Yordy Vega, AT [address], [place], [address], [facility] 01/18/2025 14:48:44 50468: Manual therapy completed Yordy Vega, AT [address], [place], [address], [facility] 01/18/2025 14:48:44 5 54573 Therapeutic Exercise (1:1) completed Yordy Vega, AT [address] [facility], [place], [address], [facility] 01/15/2025 14:57:04 5 64174: Hot or Cold Pack completed Yordy Vega, AT [address], [place], [address], [facility] 01/15/2025 14:57:33 5 18039: Manual therapy completed Yordy Vega, AT [address] [facility], [place], [address], [facility] 01/15/2025 14:57:12 66359 Therapeutic Exercise (1:1) completed El Smith, PT [address] [facility], [place], [address], [facility] 01/14/2025 11:34:09 5 91854: Low complexity PT Eval completed El Smith, PT [address] [facility], [place], [address], [facility] 01/14/2025 11:34:11 4 Sports Shoulder completed Manas Vazquez PA-C [address] [facility], [place], [address], [facility] 09/25/2023 11:21:46 Imaging Results None recorded. [...] ICD10 Code Diagnosis IMO Codes Diagnosis Note [id number] MD TIFFANI Morse Abiel Mosley [address] [place] [address] [place] [address] 01/15/2025 10:48:54 01/26/2025 12:35:56 Follow-up orthopedic assessment [id number] Z47.89 [id number] El Smith, PT [facility] [address] [place] [address] 01/14/2025 13:58:22 01/14/2025 17:16:55 Rupture of rotator cuff of right shoulder [id number] M75.798 [id number] Yordy Vega, AT [facility] [employer] [address] [place] [address] 01/15/2025 13:30:50 01/15/2025 14:54:23 Rupture of rotator cuff of right shoulder [id number] M75.790 [id number] MARYELLEN CornellA - [facility] PT [address] [place] [address] 01/18/2025 13:28:36 01/18/2025 14:09:17 Rupture of rotator cuff of right shoulder [id number] M75.101 Health Concerns Section Related Observation LastModified by Organization Detai ls LastModified Time None Recorded Concern Status LastModified by Organization Details LastModified Time None Recorded Payers Encounter Date Sequence Insurance Name Policy Number Policy Urbina Covered Member ID Urbina Member ID Guarantor Name 01/18/2025 1 [employer] [facility] [id number] Giuliano Huitron [id number] Giuliano Huitron Notes Date Note Type Note Provider Name and Address Organization Details Recorded Time 01/18/2025 text/html Patient presents today reporting 4/10 pain. Pt states having to take medication this weekend. Yordy Vega, AT [address], [place], [address], [facility] 01/18/2025 14:51:18
--- OUTSIDE RECORDS SUMMARY | 2025-03-15 18:05 | XMS_ITS | Continuity of Care Document ---
Author Organization [place] [facility], [facility] Address [address] [place] [address] Care Team Providers Care Stallion Keeper Name Role Phone FERMÍN PRECIADO Primary Care Provider [phone] Assessment Encounter Date Assessment Date Assessment LastModified by Organization Details LastModified Time 03/04/2025 03/04/2025 Assessment: Fair plus mechanics for active elevation. Plan: Continue 2x/wk- per protocol/precau tions. Sling [...] and biomechanics, add T-Bands with light resistance. [email or web address] Not available 03/04/2025 11:58:27 Plan of Treatment Reminders Order Date Submit [...] Time Acquired pes planus of right foot [id number] Active 2023 En Magallanes MD [address], [place], [address], [facility] 4 16:55:50 Sinus tarsi syndrome of right ankle [id number] 07 Active 2023 En Magallanes MD [address], [place], [address], [facility] 16:55:51 Problem Notes None recorded. Procedures Surgical History Date Name Laterality Status Provider Name and Address Organization Details Recorded Time 5 43659 Therapeutic Exercise (1:1) completed MARYELLEN Cornell [address], [place], [address], [facility] 03/10/2025 12:55:09 5 23729: Hot or Cold Pack completed Yordy Vega, AT [address], [place], [address], [facility] 03/10/2025 12:55:09 5 46443: Manual therapy completed Yordy Vega, AT [address], [place], [address], [facility] 03/10/2025 12:55:09 5 23214 Therapeutic Exercise (1:1) completed Yordy Vega, AT [address], [place], [address], [facility] 03/08/2025 11:43:16 5 69131: Hot or Cold Pack completed Yordy Vega, AT [address], [place], [address], [facility] 03/08/2025 11:43:16 5 36485: Manual therapy completed Yordy Vega, AT [address], [place], [address], [facility] 03/08/2025 11:43:16 5 23837 Therapeutic Exercise (1:1) completed Yordy Vega, AT [address], [place], [address], [facility] 03/04/2025 11:56:39 5 21402: Hot or Cold Pack completed Yordy Vega, AT [address], [place], [address], [facility] 03/04/2025 11:56:39 5 38065: Manual therapy completed Yordy Vega, AT [address], [place], [address], [facility] 03/04/2025 11:56:39 5 63883 Therapeutic Exercise (1:1) completed Yordy Vega, AT [address], [place], [address], [facility] 03/01/2025 11:19:44 5 47585: Hot or Cold Pack completed Yordy Vega, AT [address], [place], [address], [facility] 03/01/2025 11:19:44 5 25509: Manual therapy completed Yordy Vega, AT [address], [place], [address], [facility] 03/01/2025 11:19:44 5 00913 Therapeutic Exercise (1:1) completed El Smith, PT [address], [place], [address], [facility] 02/24/2025 19:09:05 5 47488: Hot or Cold Pack completed El Smith, PT [address], [place], [address], [facility] 02/24/2025 19:09:05 5 80377: Manual therapy completed El Smith, PT [address], [place], [address], [facility] 02/24/2025 19:09:05 5 32320 Therapeutic Exercise (1:1) completed El Smith, PT [address], [place], [address], [facility] 02/21/2025 16:53:11 5 37993: Hot or Cold Pack completed El Smith, PT [address], [place], [address], [facility] 02/21/2025 16:53:11 5 67933: Manual therapy completed El Smith, PT [address], [place], [address], [facility] 02/21/2025 16:53:11 5 86135 Therapeutic Exercise (1:1) completed El Smith, PT [address], [place], [address], [facility] 02/17/2025 15:54:11 5 82829: Hot or Cold Pack completed El Smith, PT [address], [place], [address], [facility] 02/17/2025 15:54:11 5 57651: Manual therapy completed El Smith, PT [address], [place], [address], [facility] 02/17/2025 15:54:11 5 50253 Therapeutic Exercise (1:1) completed El Smith, PT [address], [place], [address], [facility] 02/14/2025 18:36:50 5 58740: Hot or Cold Pack completed El Smith, PT [address], [place], [address], [facility] 02/14/2025 18:36:50 5 95493: Manual therapy completed El Smith, PT [address], [place], [address], [facility] 02/14/2025 18:36:50 5 81446 Therapeutic Exercise (1:1) completed Yordy Vega AT [address], [place], [address], [facility] 02/10/2025 18:15:04 5 66004: Hot or Cold Pack completed Yordy Vega AT [address], [place], [address], [facility] 02/10/2025 18:15:04 07394: Manual therapy completed Yordy Vega, AT [address], [place], [address], [facility] 02/10/2025 18:15:04 90851 Therapeutic Exercise (1:1) completed El Smith, PT [address], [place], [address], [facility] 02/04/2025 15:22:07 75351: Hot or Cold Pack completed El Smith, PT [address], [place], [address], [facility] 02/04/2025 07:04:59 25327: Manual therapy completed El Smith, PT [address], [place], [address], [facility] 02/04/2025 07:04:59 60421 Therapeutic Exercise (1:1) completed Yordy Vega, AT [address], [place], [address], [facility] 02/01/2025 14:30:41 85889: Hot or Cold Pack completed Yordy Vega, AT [address], [place], [address], [facility] 02/01/2025 14:30:41 46084: Manual therapy completed Yordy Vega, AT [address], [place], [address], [facility] 02/01/2025 14:30:41 43739 Therapeutic Exercise (1:1) completed Yordy Vega, AT [address], [place], [address], [facility] 01/28/2025 12:22:44 19548: Hot or Cold Pack completed Yordy Vega, AT [address], [place], [address], [facility] 01/28/2025 12:22:44 03036: Manual therapy completed Yordy Vega, AT [address], [place], [address], [facility] 01/28/2025 12:22:44 60112 Therapeutic Exercise (1:1) completed Yordy Vega, AT [address], [place], [address], [facility] 01/25/2025 13:31:43 35788: Hot or Cold Pack completed Yordy Vega, AT [address], [place], [address], [facility] 01/25/2025 13:31:43 23818: Manual therapy completed Yordy Vega, AT [address], [place], [address], [facility] 01/25/2025 13:31:43 60273 Therapeutic Exercise (1:1) completed Yordy Vega, AT [address], [place], [address], [facility] 01/21/2025 12:59:15 85586: Hot or Cold Pack completed Yordy Vega, AT [address], [place], [address], [facility] 01/21/2025 12:59:15 98305: Manual therapy completed Yordy Vega, AT [address], [place], [address], [facility] 01/21/2025 12:59:15 02703 Therapeutic Exercise (1:1) completed Yordy Vega, AT [address], [place], [address], [facility] 01/18/2025 14:48:44 5 06963: Hot or Cold Pack completed Yordy Vega, AT [address], [place], [address], [facility] 01/18/2025 14:48:44 5 26758: Manual therapy completed Yordy Vega, AT [address], [place], [address], [facility] 01/18/2025 14:48:44 5 74453 Therapeutic Exercise (1:1) completed Yordy Vega, AT [address] [facility], [place], [address], [facility] 01/15/2025 14:57:04 5 42813: Hot or Cold Pack completed Yordy Vega, AT [address] [facility], [place], [address], [facility] 01/15/2025 14:57:33 5 53934: Manual therapy completed Yordy Vega, AT [address], [place], [address], [facility] 01/15/2025 14:57:12 5 06032 Therapeutic Exercise (1:1) completed El Smith, PT [address] [facility], [place], [address], [facility] 01/14/2025 11:34:09 5 40161: Low complexity PT Eval completed El Smith, PT [address] [facility], [place], [address], [facility] 01/14/2025 11:34:11 4 Sports Shoulder completed Manas Vazquez PA-C [address] [facility], [place], [address], [facility] 09/25/2023 11:21:46 [...] ICD10 Code Diagnosis IMO Codes Diagnosis Note [id number] Yordy Vega, AT [facility] [address] [place] [address] 02/01/2025 11:30:11 02/01/2025 12:08:36 Rupture of rotator cuff of right shoulder [id number] M75.823 [id number] El Smith, PT [facility] [address] [place] [address] 02/04/2025 13:19:30 02/04/2025 14:04:40 Rupture of rotator cuff of right shoulder [id number] [id number] M75.164 [id number] Yordykisha VivarVega, AT [facility] [address] [place] [address] 02/10/2025 16:10:37 02/10/2025 17:00:46 Rupture of rotator cuff of right shoulder [id number] M75.857 [id number] El Smith, PT [facility] [address] [place] [address] 02/15/2025 12:58:31 02/15/2025 13:28:56 Rupture of rotator cuff of right shoulder [id number] M75.740 [id number] El Smith, PT [facility] [address] [place] [address] 02/18/2025 13:26:19 02/18/2025 17:15:10 Rupture of rotator cuff of right shoulder [id number] M75.824 [id number] El Smith, PT [facility] [address] [place] [address] 02/22/2025 13:59:50 02/23/2025 06:43:13 Rupture of rotator cuff of right shoulder [id number] [id number] M75.778 [id number] El Smith, PT [facility] [address] [place] [address] 02/25/2025 14:00:12 02/25/2025 14:31:29 Rupture of rotator cuff of right shoulder [id number] 0094691 M75.568 [id number] Yordykisha VivarVega, AT [facility] [address] [place] [address] 03/01/2025 11:10:45 03/01/2025 11:35:27 Rupture of rotator cuff of right shoulder 3140400170 5285795 M75.292 [id number] Yordy Vega, AT [facility] [address] [place] [address] 03/04/2025 10:02:14 03/04/2025 10:33:27 Rupture of rotator cuff of right shoulder 2132870442 0600714 M75.101 Health Concerns Section Related Observation LastModified by Organization Detai ls LastModified Time None Recorded Concern Status LastModified by Organization Details LastModified Time None Recorded Payers Encounter Date Sequence Insurance Name Policy Number Policy Urbina Covered Member ID Urbina Member ID Guarantor Name 03/04/2025 1 [employer] [facility] [id number] Giuliano Huitron [id number] Giuliano Huitron Notes Date Note Type Note Provider Name and Address Organization Details Recorded Time 03/04/2025 text/html Patient presents today reporting 1/10 pain, pt states feeling soreness into the front of the shoulder. Yordy Vega, AT [address], [place], [address], [facility] 03/04/2025 11:58:46
--- OUTSIDE RECORDS SUMMARY | 2025-03-15 18:05 | XMS_ITS | Continuity of Care Document ---
Author Organization [place] [facility], [facility] Address [address] [place] [address] Care Team Providers Care Middleware Solutions Architect Name Role Phone ILANA FERMÍN Primary Care Provider [phone] Assessment Encounter Date Assessment Date Assessment LastModified [...] Time Acquired pes planus of right foot [id number] Active 2023 En Magallanes MD [address], [place], [address], [facility] 4 16:55:50 Sinus tarsi syndrome of right ankle [id number] 07 Active 2023 En Magallanes MD [address], [place], [address], [facility] 4 16:55:51 Problem Notes None recorded. Procedures Surgical History Date Name Laterality Status Provider Name and Address Organization Details Recorded Time 5 70229 Therapeutic Exercise (1:1) completed MARYELLEN Cornell [address], [place], [address], [facility] 03/10/2025 12:55:09 5 02072: Hot or Cold Pack completed Yordy Vega, AT [address], [place], [address], [facility] 03/10/2025 12:55:09 5 71980: Manual therapy completed Yordy Vega, AT [address], [place], [address], [facility] 03/10/2025 12:55:09 5 64263 Therapeutic Exercise (1:1) completed Yordy Vega, AT [address], [place], [address], [facility] 03/08/2025 11:43:16 5 81492: Hot or Cold Pack completed Yordy Vega, AT [address], [place], [address], [facility] 03/08/2025 11:43:16 5 88139: Manual therapy completed Yordy Vega, AT [address], [place], [address], [facility] 03/08/2025 11:43:16 5 07022 Therapeutic Exercise (1:1) completed Yordy Vega, AT [address], [place], [address], [facility] 03/04/2025 11:56:39 5 94639: Hot or Cold Pack completed Yordy Vega, AT [address], [place], [address], [facility] 03/04/2025 11:56:39 5 46039: Manual therapy completed Yordy Vega, AT [address], [place], [address], [facility] 03/04/2025 11:56:39 5 29756 Therapeutic Exercise (1:1) completed Yordy Vega, AT [address], [place], [address], [facility] 03/01/2025 11:19:44 5 19501: Hot or Cold Pack completed Yordy Vega, AT [address], [place], [address], [facility] 03/01/2025 11:19:44 5 52279: Manual therapy completed Yordy Vega, AT [address], [place], [address], [facility] 03/01/2025 11:19:44 5 34820 Therapeutic Exercise (1:1) completed El Smith, PT [address], [place], [address], [facility] 02/24/2025 19:09:05 5 15325: Hot or Cold Pack completed El Smith, PT [address], [place], [address], [facility] 02/24/2025 19:09:05 5 82722: Manual therapy completed El Smith, PT [address], [place], [address], [facility] 02/24/2025 19:09:05 5 12981 Therapeutic Exercise (1:1) completed El Smith, PT [address], [place], [address], [facility] 02/21/2025 16:53:11 5 88456: Hot or Cold Pack completed El Smith, PT [address], [place], [address], [facility] 02/21/2025 16:53:11 5 28983: Manual therapy completed El Smith, PT [address], [place], [address], [facility] 02/21/2025 16:53:11 5 04087 Therapeutic Exercise (1:1) completed El Smith, PT [address], [place], [address], [facility] 02/17/2025 15:54:11 5 16048: Hot or Cold Pack completed El Smith, PT [address], [place], [address], [facility] 02/17/2025 15:54:11 5 27590: Manual therapy completed El Smith, PT [address], [place], [address], [facility] 02/17/2025 15:54:11 5 27685 Therapeutic Exercise (1:1) completed El Smith, PT [address], [place], [address], [facility] 02/14/2025 18:36:50 5 75358: Hot or Cold Pack completed El Smith, PT [address], [place], [address], [facility] 02/14/2025 18:36:50 5 27718: Manual therapy completed El Smith, PT [address], [place], [address], [facility] 02/14/2025 18:36:50 5 78204 Therapeutic Exercise (1:1) completed Yordy Vega AT [address], [place], [address], [facility] 02/10/2025 18:15:04 5 75414: Hot or Cold Pack completed Yordy Vega AT [address], [place], [address], [facility] 02/10/2025 18:15:04 28039: Manual therapy completed Yordy Vega, AT [address], [place], [address], [facility] 02/10/2025 18:15:04 64221 Therapeutic Exercise (1:1) completed El Smith, PT [address], [place], [address], [facility] 02/04/2025 15:22:07 21754: Hot or Cold Pack completed El Smith, PT [address], [place], [address], [facility] 02/04/2025 07:04:59 88202: Manual therapy completed El Smith, PT [address], [place], [address], [facility] 02/04/2025 07:04:59 94382 Therapeutic Exercise (1:1) completed Yordy Vega, AT [address], [place], [address], [facility] 02/01/2025 14:30:41 95393: Hot or Cold Pack completed Yordy Vega, AT [address], [place], [address], [facility] 02/01/2025 14:30:41 94612: Manual therapy completed Yordy Vega, AT [address], [place], [address], [facility] 02/01/2025 14:30:41 13797 Therapeutic Exercise (1:1) completed Yordy Vega, AT [address], [place], [address], [facility] 01/28/2025 12:22:44 16504: Hot or Cold Pack completed Yordy Vega, AT [address], [place], [address], [facility] 01/28/2025 12:22:44 12835: Manual therapy completed Yordy Vega, AT [address], [place], [address], [facility] 01/28/2025 12:22:44 88264 Therapeutic Exercise (1:1) completed Yordy Vega, AT [address], [place], [address], [facility] 01/25/2025 13:31:43 65080: Hot or Cold Pack completed Yordy Vega, AT [address], [place], [address], [facility] 01/25/2025 13:31:43 63769: Manual therapy completed Yordy Vega, AT [address], [place], [address], [facility] 01/25/2025 13:31:43 21388 Therapeutic Exercise (1:1) completed Yordy Vega, AT [address], [place], [address], [facility] 01/21/2025 12:59:15 47253: Hot or Cold Pack completed Yordy Vega, AT [address], [place], [address], [facility] 01/21/2025 12:59:15 57321: Manual therapy completed Yordy Vega, AT [address], [place], [address], [facility] 01/21/2025 12:59:15 65403 Therapeutic Exercise (1:1) completed Yordy Vega, AT [address], [place], [address], [facility] 01/18/2025 14:48:44 5 71202: Hot or Cold Pack completed Yordy Vega, AT [address] [facility] [address], [place], [address], [facility] 01/18/2025 14:48:44 5 42391: Manual therapy completed Yordy Vega, AT [address] [facility] [address], [place], [address], [facility] 01/18/2025 14:48:44 5 51482 Therapeutic Exercise (1:1) completed Yordy Vega, AT [address] [facility] [address] [facility], [place], [address], [facility] 01/15/2025 14:57:04 5 52463: Hot or Cold Pack completed Yordy Vega, AT [address] [facility] [address] [facility], [place], [address], [facility] 01/15/2025 14:57:33 5 32497: Manual therapy completed Yordy Vega, AT [address] [facility] [address] [facility], [place], [address], [facility] 01/15/2025 14:57:12 5 78737 Therapeutic Exercise (1:1) completed El Smith, PT [address] [facility] [address] [facility], [place], [address], [facility] 01/14/2025 11:34:09 5 71738: Low complexity PT Eval completed El Smith, PT [address] [facility] [address] [facility], [place], [address], [facility] 01/14/2025 11:34:11 4 Sports Shoulder completed Manas Vazquez PA-C [address] [facility] [address] [facility], [place], [address], [facility] 09/25/2023 11:21:46 Imaging Results [...] Disease N Heart Trouble N Heart Attack (CA) N Gastrointestinal Disease N Cholesterol N Diabetes [...] ICD10 Code Diagnosis IMO Codes Diagnosis Note [id number] MARYELLEN Cornell [facility] [address] [place] [address] 01/25/2025 13:26:42 01/25/2025 14:43:58 Rupture of rotator cuff of right shoulder [id number] M75.122 [id number] Yordy Vivarolson, AT [facility] [address] [place] [address] 01/28/2025 11:24:30 01/28/2025 12:44:29 Rupture of rotator cuff of right shoulder [id number] M75.471 [id number] Yordy Vivarolson, AT [facility] [address] [place] [address] 02/01/2025 11:30:11 02/01/2025 12:08:36 Rupture of rotator cuff of right shoulder [id number] 3880039 M75.969 [id number] El Luis, PT [facility] [address] [place] [address] 02/04/2025 13:19:30 02/04/2025 14:04:40 Rupture of rotator cuff of right shoulder [id number] [id number] M75.061 [id number] Yordy Vivarolson, AT [facility] [address] [place] [address] 02/10/2025 16:10:37 02/10/2025 17:00:46 Rupture of rotator cuff of right shoulder 6930247530 3680044 M75.291 [id number] El Luis, PT [facility] [address] [place] [address] 02/15/2025 12:58:31 02/15/2025 13:28:56 Rupture of rotator cuff of right shoulder 2679741095 9167552 M75.837 [id number] El Smith, PT [facility] [address] [place] [address] 02/18/2025 13:26:19 02/18/2025 17:15:10 Rupture of rotator cuff of right shoulder 4413389423 8800041 M75.915 [id number] El Smith, PT [facility] [address] [place] [address] 02/22/2025 13:59:50 02/23/2025 06:43:13 Rupture of rotator cuff of right shoulder 1083481520 6198580 M75.762 [id number] El Smith, PT [facility] [address] [place] [address] 02/25/2025 14:00:12 02/25/2025 14:31:29 Rupture of rotator cuff of right shoulder [id number] 4856812 M75.101 Health Concerns Section Related Observation LastModified by Organization Detai ls LastModified Time None Recorded Concern Status LastModified by Organization Details LastModified Time None Recorded Payers Encounter Date Sequence Insurance Name Policy Number Policy Urbina Covered Member ID Urbina Member ID Guarantor Name 02/25/2025 1 [employer] [place] [facility] [place] [id number] Giuliano Huitron [id number] Giuliano Huitron Notes Date Note Type Note Provider Name and Address Organization Details Recorded Time 02/25/2025 text/html Patient states pain 0/10 at rest, Did not sleep well last night. El Smith, PT [address], [place], [address], [facility] 02/25/2025 15:29:27
--- OUTSIDE RECORDS SUMMARY | 2025-03-15 18:05 | XMS_ITS | Data Portability ---
Author Organization [place] [facility], [facility] [place] Address [address] [place] [address] Care Team Providers Care Lost Charge Card Clerk Name Role Phone FERMÍN PRECIADO Primary Care Provider [phone] Assessment Encounter Date Assessment Date Assessment LastModified [...] light resistance. [email or web address] Not available 02/24/2025 19:09:05 03/01/2025 03/01/2025 Assessment: Nearing complete AAROM and [...] and biomechanics, add T-Bands with light resistance. [email or web address] Not available 03/01/2025 21:14:15 03/04/2025 03/04/2025 Assessment: Fair plus mechanics for [...] and biomechanics, add T-Bands with light resistance. [email or web address] Not available 03/04/2025 11:58:27 03/08/2025 03/08/2025 Assessment: Primary limitation remains ER. Plan: Continue 2x/wk- per protocol/precau tions, progressing [...] and biomechanics, add T-Bands with light resistance. [email or web address] Not available 03/08/2025 12:18:47 03/10/2025 03/10/2025 Assessment: Weekly improvements with motion [...] and biomechanics, add T-Bands with light resistance. [email or web address] Not available 03/10/2025 14:24:23 Plan of Treatment [...] Time Acquired pes planus of right foot [id number] Active 2023 En Magallanes MD [address], [place], [address], [facility] 4 16:55:50 Sinus tarsi syndrome of right ankle [id number] 07 Active 2023 En Magallanes MD [address], [place], [address], [facility] 4 16:55:51 Problem Notes None recorded. Procedures Surgical History Date Name Laterality Status Provider Name and Address Organization Details Recorded Time 5 05509 Therapeutic Exercise (1:1) completed Yordy Vega, AT [address], [place], [address], [facility] 03/10/2025 12:55:09 5 56838: Hot or Cold Pack completed Yordy Vega, AT [address] [facility], [place], [address], [facility] 03/10/2025 12:55:09 5 28418: Manual therapy completed Yordy Vega AT [address] [facility], [place], [address], [facility] 03/10/2025 12:55:09 5 91142 Therapeutic Exercise (1:1) completed Yordy Vega AT [address], [place], [address], [facility] 03/08/2025 11:43:16 5 47211: Hot or Cold Pack completed Yordy Vega AT [address], [place], [address], [facility] 03/08/2025 11:43:16 5 07483: Manual therapy completed Yordy Vega AT [address], [place], [address], [facility] 03/08/2025 11:43:16 5 13580 Therapeutic Exercise (1:1) completed Yordy Vega, AT [address], [place], [address], [facility] 03/04/2025 11:56:39 5 03911: Hot or Cold Pack completed Yordy Vega, AT [address], [place], [address], [facility] 03/04/2025 11:56:39 5 12834: Manual therapy completed Yordy Vega, AT [address], [place], [address], [facility] 03/04/2025 11:56:39 5 94258 Therapeutic Exercise (1:1) completed Yordy Vega, AT [address], [place], [address], [facility] 03/01/2025 11:19:44 5 32702: Hot or Cold Pack completed Yordy Vega, AT [address], [place], [address], [facility] 03/01/2025 11:19:44 5 79215: Manual therapy completed Yordy Vega, AT [address], [place], [address], [facility] 03/01/2025 11:19:44 5 33323 Therapeutic Exercise (1:1) completed El Smith, PT [address], [place], [address], [facility] 02/24/2025 19:09:05 5 96129: Hot or Cold Pack completed El Smith, PT [address], [place], [address], [facility] 02/24/2025 19:09:05 5 39911: Manual therapy completed El Florek, PT [address], [place], [address], [facility] 02/24/2025 19:09:05 5 51390 Therapeutic Exercise (1:1) completed Ellilia Michaelek, PT [address], [place], [address], [facility] 02/21/2025 16:53:11 5 18598: Hot or Cold Pack completed El Florek, PT [address], [place], [address], [facility] 02/21/2025 16:53:11 5 37369: Manual therapy completed Ellilia Smith, PT [address], [place], [address], [facility] 02/21/2025 16:53:11 5 03268 Therapeutic Exercise (1:1) completed Ellilia Smith, PT [address], [place], [address], [facility] 02/17/2025 15:54:11 5 08721: Hot or Cold Pack completed Ellilia Michaelek, PT [address], [place], [address], [facility] 02/17/2025 15:54:11 5 52116: Manual therapy completed El Fernandaek, PT [address], [place], [address], [facility] 02/17/2025 15:54:11 5 08210 Therapeutic Exercise (1:1) completed El Florek, PT [address], [place], [address], [facility] 02/14/2025 18:36:50 5 21794: Hot or Cold Pack completed El Florek, PT [address], [place], [address], [facility] 02/14/2025 18:36:50 5 49493: Manual therapy completed El Smith, PT [address], [place], [address], [facility] 02/14/2025 18:36:50 01955 Therapeutic Exercise (1:1) completed Yordy Vega, AT [address], [place], [address], [facility] 02/10/2025 18:15:04 85954: Hot or Cold Pack completed Yordy Vega, AT [address], [place], [address], [facility] 02/10/2025 18:15:04 31722: Manual therapy completed Yordy Vega, AT [address], [place], [address], [facility] 02/10/2025 18:15:04 74229 Therapeutic Exercise (1:1) completed El Smith, PT [address], [place], [address], [facility] 02/04/2025 15:22:07 32734: Hot or Cold Pack completed El Smith, PT [address], [place], [address], [facility] 02/04/2025 07:04:59 12325: Manual therapy completed El Smith, PT [address], [place], [address], [facility] 02/04/2025 07:04:59 09828 Therapeutic Exercise (1:1) completed Yordy Vega, AT [address], [place], [address], [facility] 02/01/2025 14:30:41 87098: Hot or Cold Pack completed Yordy Vega, AT [address], [place], [address], [facility] 02/01/2025 14:30:41 93611: Manual therapy completed Yordy Vega, AT [address], [place], [address], [facility] 02/01/2025 14:30:41 97794 Therapeutic Exercise (1:1) completed Yordy Vega, AT [address], [place], [address], [facility] 01/28/2025 12:22:44 79898: Hot or Cold Pack completed Yordy Vega, AT [address], [place], [address], [facility] 01/28/2025 12:22:44 59056: Manual therapy completed Yordy Vega, AT [address], [place], [address], [facility] 01/28/2025 12:22:44 10800 Therapeutic Exercise (1:1) completed Yordy Vega, AT [address], [place], [address], [facility] 01/25/2025 13:31:43 73484: Hot or Cold Pack completed Yordy Vega, AT [address], [place], [address], [facility] 01/25/2025 13:31:43 50654: Manual therapy completed Yordy Vega, AT [address], [place], [address], [facility] 01/25/2025 13:31:43 13394 Therapeutic Exercise (1:1) completed Yordy Vega, AT [address], [place], [address], [facility] 01/21/2025 12:59:15 22062: Hot or Cold Pack completed Yordy Vega, AT [address], [place], [address], [facility] 01/21/2025 12:59:15 33330: Manual therapy completed Yordy Vega, AT [address], [place], [address], [facility] 01/21/2025 12:59:15 38336 Therapeutic Exercise (1:1) completed Yordy Vega, AT [address], [place], [address], [facility] 01/18/2025 14:48:44 40338: Hot or Cold Pack completed Yordy Vega, AT [address], [place], [address], [facility] 01/18/2025 14:48:44 55845: Manual therapy completed Yordy Vega, AT [address], [place], [address], [facility] 01/18/2025 14:48:44 86657 Therapeutic Exercise (1:1) completed Yordy Vega, AT [address], [place], [address], [facility] 01/15/2025 14:57:04 08302: Hot or Cold Pack completed Yordy Vega, AT [address], [place], [address], [facility] 01/15/2025 14:57:33 37939: Manual therapy completed Yordy Vega, AT [address], [place], [address], [facility] 01/15/2025 14:57:12 5 70080 Therapeutic Exercise (1:1) completed El Smith, PT [address], [place], [address], [facility] 01/14/2025 11:34:09 5 86124: Low complexity PT Eval completed El Smith, PT [address], [place], [address], [facility] 01/14/2025 11:34:11 4 Sports Shoulder completed Manas Vazquez PA-C [address], [place], [address], [facility] 09/25/2023 11:21:46 Imaging [...] Trouble N Gastrointestinal Disease N Heart Attack ([place]) N Cholesterol N Diabetes N Autoimmune disease [...] ICD10 Code Diagnosis IMO Codes Diagnosis Note [id number] MD Kelly Garza [address] [place] [address] 09/11/2023 13:26:03 10/09/2023 12:51:26 Ankle pain 681035661 M25.579 Acquired p es planus of right foot 8114836606 68369 M21.41 Sinus tars i syndrome of right ankle 0996144750 8356482 M25.615 [id number] SHU Ryder [address] [place] [address] 09/25/2023 10:39:23 10/30/2023 15:24:08 Pain of right shoulder joint 2350156502 4105645 M25.511 Calcific t endinitis of right shoulder 9897964387 40199 M75.31 [id number] MD TIFFANI Morse [address] [place] [address] 11/13/2024 14:35:04 11/24/2024 09:27:50 Pain of right shoulder joint 6732530962 4030046 M25.511 299447 Pain of le ft shoulder joint 8091407822 3661002 M25.512 065074 Impingemen t syndrome of right shoulder region 7274387347 17855 M75.41 [id number] MD TIFFANI Morse 2[address] [place] [address] 12/04/2024 14:25:21 12/26/2024 08:10:46 Calcific tendinitis of right shoulder 6501601937 73894 M75.31 [id number] MD TIFFANI Morse [facility] [address] [place] [address] 01/15/2025 10:48:54 01/26/2025 12:35:56 Follow-up orthopedic assessment [id number] Z47.89 [id number] El Smith, PT [facility] [address] [place] [address] 01/14/2025 13:58:22 01/14/2025 17:16:55 Rupture of rotator cuff of right shoulder 1037219159 5727321 M75.463 [id number] Yordy Vega, AT [facility] [address] [place] [address] 01/15/2025 13:30:50 01/15/2025 14:54:23 Rupture of rotator cuff of right shoulder 7785128386 6555762 M75.053 [id number] Yordy Vega, AT [facility] [address] [place] [address] 01/18/2025 13:28:36 01/18/2025 14:09:17 Rupture of rotator cuff of right shoulder 0098256566 9403899 M75.015 [id number] Yordy Vega, AT [facility] [address] [place] [address] 01/21/2025 12:47:26 01/21/2025 13:49:12 Rupture of rotator cuff of right shoulder 2504933487 4926635 M75.718 [id number] Yordy Vega, AT [facility] [address] [place] [address] 01/25/2025 13:26:42 01/25/2025 14:43:58 Rupture of rotator cuff of right shoulder 0150197070 0589296 M75.983 [id number] Yordy Vega, AT [facility] [address] [place] [address] 01/28/2025 11:24:30 01/28/2025 12:44:29 Rupture of rotator cuff of right shoulder 7818716614 4237837 M75.054 [id number] Yordy Vega, AT [facility] [address] [place] [address] 02/01/2025 11:30:11 02/01/2025 12:08:36 Rupture of rotator cuff of right shoulder 1897477943 0605303 M75.487 [id number] El Smith, PT [facility] [address] [place] [address] 02/04/2025 13:19:30 02/04/2025 14:04:40 Rupture of rotator cuff of right shoulder 5660074290 1880891 M75.683 [id number] Yordy Vega, AT [facility] [address] [place] [address] 02/10/2025 16:10:37 02/10/2025 17:00:46 Rupture of rotator cuff of right shoulder 1297405044 8346548 M75.711 [id number] El Smith, PT [facility] [address] [place] [address] 02/15/2025 12:58:31 02/15/2025 13:28:56 Rupture of rotator cuff of right shoulder 8838128382 8640230 M75.021 [id number] El Smith, PT [facility] [address] [place] [address] 02/18/2025 13:26:19 02/18/2025 17:15:10 Rupture of rotator cuff of right shoulder 1831797900 6626366 M75.286 [id number] El Smith, PT [facility] [address] [place] [address] 02/22/2025 13:59:50 02/23/2025 06:43:13 Rupture of rotator cuff of right shoulder 1800434278 3414092 M75.858 [id number] Ellilia Smith, PT [facility] [address] [place] [address] 02/25/2025 14:00:12 02/25/2025 14:31:29 Rupture of rotator cuff of right shoulder 0781122842 1737068 M75.292 [id number] Yordy Vivarolson, AT [facility] [address] [place] [address] 03/01/2025 11:10:45 03/01/2025 11:35:27 Rupture of rotator cuff of right shoulder 3268461205 2590035 M75.715 [id number] Yordykisha VivarVega, AT [facility] [address] [place] [address] 03/04/2025 10:02:14 03/04/2025 10:33:27 Rupture of rotator cuff of right shoulder 3851622634 7341768 M75.375 [id number] Yordy Vivarolson, AT [facility] [address] [place] [address] 03/08/2025 11:32:26 03/08/2025 14:44:32 Rupture of rotator cuff of right shoulder 4964500865 0214338 M75.642 [id number] Yordy Vivarolson, AT [facility] [address] [place] [address] 03/10/2025 11:30:18 03/10/2025 12:29:53 Rupture of rotator cuff of right shoulder 2450828961 3247479 M75.101 Health Concerns Section Related Observation LastModified by Organization Detai ls LastModified Time None Recorded Concern Status LastModified by Organization Details LastModified Time None Recorded Advance Directives Directive None Recorded Payers Insurance Date Sequence Insurance Name Policy Number Policy Urbina Covered Member ID Urbina Member ID Guarantor Name 09/25/2023 1 [employer] (PP[place]) Giuliano Huitron [id number] Giuliano Huitron 03/15/2025 1 [facility] (PPO) [id number] Giuliano Huitron [id number] Giuliano Huitron Notes Date Note Type Note Provider Name and Address Organization Details Recorded Time 02/25/2025 text/html Patient states pain 0/10 at rest, Did not sleep well last night. El Smith, PT [address], [place], [address], [facility] 02/25/2025 15:29:27 03/01/2025 text/html Patient presents today reporting 1/10 pain today but 4/10 pains this weekend after doing too much at home. Yordy Vega, AT [address], [place], [address], [facility] 03/01/2025 21:14:42 03/04/2025 text/html Patient presents today reporting 1/10 pain, pt states feeling soreness into the front of the shoulder. Yordy Vega, AT [address], [place], [address], [facility] 03/04/2025 11:58:46 03/08/2025 text/html Patient presents today reporting 1/10 pain. Pt reports low compliance with HEP but using the arm more for light ADL's without difficulty now. Yordy Vega, AT [address], [place], [address], [facility] 03/08/2025 12:19:07 03/10/2025 text/html Patient presents today reporting 1/10 pain. Pt states feeling pleased with mobility now. Yordy Vega, AT [address], [place], [address], [facility] 03/10/2025 14:24:44
--- OUTSIDE RECORDS SUMMARY | 2025-03-15 18:06 | XMS_ITS | Continuity of Care Document ---
Author Organization [place] [facility], [facility] Address [address] [place] [address] Care Team Providers Care Attic Blower Name Role Phone FERMÍN PRECIADO Primary Care [...] Appointments PT FOLLOW-U P 2024 05:30P M JAXON GraysonT Not available Not available [...] By Organization Details Last Modified Time 01/14/2025 [id number] 3 weeks of Right Shoulder PROM motion: [...] deg.) Not available Not available Not available [facility] goal of Right Shoulder PROM (normal) motion: internal rotation: at 0 degrees abduction: passive motion right (90 deg.) Not available Not available Not available [facility] goal of Right Shoulder PROM (normal) motion: forward flexion: passive motion right (180 deg.) Not available Not available 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 Shoulder 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 (normal) motion: external rotation: at 0 degrees of abduction: passive motion right (80 deg.) Not available Not available Not available [facility] goal of Right Shoulder Strength (normal) strength: shoulders: external rotation: right: at 0 degrees of abduction 5 (0-5) Not available Not available Not available [facility] goal of Right Shoulder Strength (normal) strength: shoulders: flexion: right 5 (0-5) Not available Not available Not available [facility] goal of Right Shoulder Strength (normal) strength: shoulders: internal rotation: right 5 (0-5) Not available Not available Not available 3 weeks of Sleeping no trouble sleeping Not available Not available Not available 3 weeks of Overall ADL's WFL Not available Not available Not available [facility] goal of Overall ADL's unlimited Not available Not available Not available [facility] goal of Reaching performs without symptoms Not available Not available Not available [facility] goal of Lifting performs without symptoms Not available Not available Not available 3 weeks of Pain <5/10 Not available Not available Not available [facility] goal of Pain 0/10 Not available Not available Not available Patient InstructionsNo instructions recorded. Reason for Referral None Reported. Problems Name Problem SNOMED Code Status Onset Date Resolution Date Notes Provider Name and Address Organization Details Recorded Time Acquired pes planus of right foot [id number] Active 2023 En Magallanes MD [address], [place], [address], [facility] 4 16:55:50 Sinus tarsi syndrome of right ankle [id number] 07 Active 2023 En Magallanes MD [address], [place], [address], [facility] 4 16:55:51 Problem Notes None recorded. Procedures Surgical History Date Name Laterality Status Provider Name and Address Organization Details Recorded Time 5 27365 Therapeutic Exercise (1:1) completed Yordy Vega AT [address] [facility], [place], [address], [facility] 03/10/2025 12:55:09 5 12560: Hot or Cold Pack completed Yordy Vega AT [address] [facility], [place], [address], [facility] 03/10/2025 12:55:09 5 09029: Manual therapy completed Yordy Vega AT [address] [facility], [place], [address], [facility] 03/10/2025 12:55:09 5 18387 Therapeutic Exercise (1:1) completed Yordy Vega AT [address] [facility], [place], [address], [facility] 03/08/2025 11:43:16 5 81811: Hot or Cold Pack completed Yordy Vega, AT [address], [place], [address], [facility] 03/08/2025 11:43:16 5 54819: Manual therapy completed Yordy Vega, AT [address], [place], [address], [facility] 03/08/2025 11:43:16 5 05646 Therapeutic Exercise (1:1) completed Yordy Vega, AT [address], [place], [address], [facility] 03/04/2025 11:56:39 5 51082: Hot or Cold Pack completed Yordy Vega, AT [address], [place], [address], [facility] 03/04/2025 11:56:39 5 01972: Manual therapy completed Yordy Vega, AT [address], [place], [address], [facility] 03/04/2025 11:56:39 5 70934 Therapeutic Exercise (1:1) completed Yordy Vega, AT [address], [place], [address], [facility] 03/01/2025 11:19:44 5 96005: Hot or Cold Pack completed Yordy Vega, AT [address], [place], [address], [facility] 03/01/2025 11:19:44 5 17373: Manual therapy completed Yordy Vega, AT [address], [place], [address], [facility] 03/01/2025 11:19:44 5 76739 Therapeutic Exercise (1:1) completed El Florek, PT [address], [place], [address], [facility] 02/24/2025 19:09:05 5 82756: Hot or Cold Pack completed El Florek, PT [address], [place], [address], [facility] 02/24/2025 19:09:05 5 56543: Manual therapy completed El Florek, PT [address], [place], [address], [facility] 02/24/2025 19:09:05 5 09843 Therapeutic Exercise (1:1) completed El Fernandaek, PT [address], [place], [address], [facility] 02/21/2025 16:53:11 5 98695: Hot or Cold Pack completed El Florek, PT [address], [place], [address], [facility] 02/21/2025 16:53:11 5 93470: Manual therapy completed Ellilia Michaelek, PT [address], [place], [address], [facility] 02/21/2025 16:53:11 5 58922 Therapeutic Exercise (1:1) completed El Florek, PT [address], [place], [address], [facility] 02/17/2025 15:54:11 5 83379: Hot or Cold Pack completed El Florek, PT [address], [place], [address], [facility] 02/17/2025 15:54:11 5 46610: Manual therapy completed El Florek, PT [address], [place], [address], [facility] 02/17/2025 15:54:11 25901 Therapeutic Exercise (1:1) completed El Smith, PT [address], [place], [address], [facility] 02/14/2025 18:36:50 5 49646: Hot or Cold Pack completed El Smith, PT [address], [place], [address], [facility] 02/14/2025 18:36:50 5 79362: Manual therapy completed El Smith, PT [address], [place], [address], [facility] 02/14/2025 18:36:50 5 90979 Therapeutic Exercise (1:1) completed Yordy Vega, AT [address], [place], [address], [facility] 02/10/2025 18:15:04 5 41602: Hot or Cold Pack completed Yordy Veag, AT [address], [place], [address], [facility] 02/10/2025 18:15:04 5 82369: Manual therapy completed Yordy Vega, AT [address], [place], [address], [facility] 02/10/2025 18:15:04 5 83627 Therapeutic Exercise (1:1) completed El Smith, PT [address], [place], [address], [facility] 02/04/2025 15:22:07 5 19351: Hot or Cold Pack completed El Smith, PT [address], [place], [address], [facility] 02/04/2025 07:04:59 30958: Manual therapy completed El Smith, PT [address], [place], [address], [facility] 02/04/2025 07:04:59 72567 Therapeutic Exercise (1:1) completed Yordy Vega, AT [address], [place], [address], [facility] 02/01/2025 14:30:41 94235: Hot or Cold Pack completed Yordy Vega, AT [address], [place], [address], [facility] 02/01/2025 14:30:41 45132: Manual therapy completed Yordy Vega, AT [address], [place], [address], [facility] 02/01/2025 14:30:41 79692 Therapeutic Exercise (1:1) completed Yordy Vega, AT [address], [place], [address], [facility] 01/28/2025 12:22:44 65441: Hot or Cold Pack completed Yordy Vega, AT [address], [place], [address], [facility] 01/28/2025 12:22:44 36037: Manual therapy completed Yordy Vega, AT [address], [place], [address], [facility] 01/28/2025 12:22:44 03798 Therapeutic Exercise (1:1) completed Yordy Vega, AT [address], [place], [address], [facility] 01/25/2025 13:31:43 37480: Hot or Cold Pack completed Yordy Vega, AT [address], [place], [address], [facility] 01/25/2025 13:31:43 64323: Manual therapy completed Yordy Vega, AT [address], [place], [address], [facility] 01/25/2025 13:31:43 26426 Therapeutic Exercise (1:1) completed Yordy Vega, AT [address], [place], [address], [facility] 01/21/2025 12:59:15 02383: Hot or Cold Pack completed Yordy Vega, AT [address], [place], [address], [facility] 01/21/2025 12:59:15 86491: Manual therapy completed Yordy Vega, AT [address], [place], [address], [facility] 01/21/2025 12:59:15 27215 Therapeutic Exercise (1:1) completed Yordy Vega, AT [address], [place], [address], [facility] 01/18/2025 14:48:44 77481: Hot or Cold Pack completed Yordy Vega, AT [address], [place], [address], [facility] 01/18/2025 14:48:44 52069: Manual therapy completed Yordy Vega, AT [address], [place], [address], [facility] 01/18/2025 14:48:44 79496 Therapeutic Exercise (1:1) completed Yordy Vega, AT [address], [place], [address], [facility] 01/15/2025 14:57:04 90437: Hot or Cold Pack completed Yordy Vega, AT [address], [place], [address], [facility] 01/15/2025 14:57:33 5 16815: Manual therapy completed Yordy Vega, AT [address], [place], [address], [facility] 01/15/2025 14:57:12 57583 Therapeutic Exercise (1:1) completed El Smith, PT [address] [facility], [place], [address], [facility] 01/14/2025 11:34:09 67745: Low complexity PT Eval completed El Smith, PT [address] [facility], [place], [address], [facility] 01/14/2025 11:34:11 4 Sports Shoulder completed Manas Vazquez PA-C [address] [facility], [place], [address], [facility] 09/25/2023 11:21:46 Imaging Results None [...] Kidney/Bladder Problems N Anemia N Heart Attack ([place]) N Cholesterol N Diabetes N Bleeding Disorder N Seizures/Epilepsy N AIDS/HIV N Congestive Heart Failure (CHF) N Asthma N Peripheral Vascular Disease N Sleep Apnea N Hepatitis Y Heart Disease N Pulmonary Embolism N Hypertension N Osteoporosis N Past Encounters Encounter ID Performer Location Encounter Start Date Encounter Closed Date Diagnosis/Indication Diagnosis SNOMED-CT Code Diagnosis ICD10 Code Diagnosis IMO Codes Diagnosis Note [id number] El Smith, PT [facility] [address] [place] [address] 01/14/2025 13:58:22 01/14/2025 17:16:55 Rupture of rotator cuff of right shoulder [id number] M75.101 Health Concerns Section Related Observation LastModified by Organization Detai ls LastModified Time None Recorded Concern Status LastModified by Organization Details LastModified Time None Recorded Payers Encounter Date Sequence Insurance Name Policy Number Policy Urbina Covered Member ID Urbina Member ID Guarantor Name 01/14/2025 1 [employer] [facility] ([place]) [id number] Giuliano Huitron [id number] Giuliano Huitron Notes Date Note Type [...] shoulder precautions. 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 Patient goal is to be able to exercise again. El Smith, PT [address], [place], [address], [facility] 01/14/2025 14:43:56
--- OUTSIDE RECORDS SUMMARY | 2025-03-15 18:06 | XMS_ITS | Continuity of Care Document ---
Author Organization [place] [facility], [facility] Address [address] [place] [address] Care Team Providers Care Hydraulics Teacher Name Role Phone FERMÍN PRECIADO Primary Care Provider [phone] Assessment Encounter Date Assessment Date Assessment LastModified by Organization Details LastModified Time 01/15/2025 01/15/2025 Assessment: Guarded and tight passive motions into ER/FF. Plan: Continue PT @ 2x/wk for 8 weeks to decrease pain, increase ROM, optimize mechanics for functional movement, and facilitate independence in ADL's. [email or web address] Not available 01/15/2025 14:59:29 Plan of Treatment [...] Time Acquired pes planus of right foot [id number] Active 2023 En Magallanes MD [address], [place], [address], [facility] 4 16:55:50 Sinus tarsi syndrome of right ankle [id number] 07 Active 2023 En Magallanes MD [address], [facility] [place], [address], [facility] 4 16:55:51 Problem Notes None recorded. Procedures Surgical History Date Name Laterality Status Provider Name and Address Organization Details Recorded Time 5 22017 Therapeutic Exercise (1:1) completed Yordy Vega, AT [address] [facility], [place], [address], [facility] 03/10/2025 12:55:09 5 54139: Hot or Cold Pack completed Yordy Vega, AT [address] [facility], [place], [address], [facility] 03/10/2025 12:55:09 5 00761: Manual therapy completed Yordy Vega AT [address], [place], [address], [facility] 03/10/2025 12:55:09 5 21240 Therapeutic Exercise (1:1) completed Yordy Vega, AT [address], [place], [address], [facility] 03/08/2025 11:43:16 5 24610: Hot or Cold Pack completed Yordy Vega, AT [address], [place], [address], [facility] 03/08/2025 11:43:16 5 02202: Manual therapy completed Yordy Vega, AT [address] [facility], [place], [address], [facility] 03/08/2025 11:43:16 5 49715 Therapeutic Exercise (1:1) completed Yordy Vega, AT [address], [place], [address], [facility] 03/04/2025 11:56:39 5 09875: Hot or Cold Pack completed Yordy Vega, AT [address], [place], [address], [facility] 03/04/2025 11:56:39 5 74806: Manual therapy completed Yordy Vega, AT [address], [place], [address], [facility] 03/04/2025 11:56:39 5 69399 Therapeutic Exercise (1:1) completed Yordy Vega, AT [address], [place], [address], [facility] 03/01/2025 11:19:44 5 07952: Hot or Cold Pack completed Yordy Vega AT [address], [place], [address], [facility] 03/01/2025 11:19:44 5 61357: Manual therapy completed Yordy Vega, AT [address], [place], [address], [facility] 03/01/2025 11:19:44 5 30021 Therapeutic Exercise (1:1) completed Ellilia Smith, PT [address], [place], [address], [facility] 02/24/2025 19:09:05 5 96462: Hot or Cold Pack completed El Smith, PT [address], [place], [address], [facility] 02/24/2025 19:09:05 5 38936: Manual therapy completed El Smith, PT [address], [place], [address], [facility] 02/24/2025 19:09:05 5 57866 Therapeutic Exercise (1:1) completed El Smith, PT [address], [place], [address], [facility] 02/21/2025 16:53:11 5 29074: Hot or Cold Pack completed El Smith, PT [address], [place], [address], [facility] 02/21/2025 16:53:11 5 86664: Manual therapy completed El Smith, PT [address], [place], [address], [facility] 02/21/2025 16:53:11 5 69754 Therapeutic Exercise (1:1) completed El Smith, PT [address], [place], [address], [facility] 02/17/2025 15:54:11 5 77458: Hot or Cold Pack completed El Smith, PT [address], [place], [address], [facility] 02/17/2025 15:54:11 5 63584: Manual therapy completed El Smith, PT [address], [place], [address], [facility] 02/17/2025 15:54:11 5 83289 Therapeutic Exercise (1:1) completed El Smith, PT [address], [place], [address], [facility] 02/14/2025 18:36:50 5 23049: Hot or Cold Pack completed El Smith, PT [address], [place], [address], [facility] 02/14/2025 18:36:50 5 76804: Manual therapy completed El Smith, PT [address], [place], [address], [facility] 02/14/2025 18:36:50 5 42051 Therapeutic Exercise (1:1) completed Yordy Vega, AT [address], [place], [address], [facility] 02/10/2025 18:15:04 5 24932: Hot or Cold Pack completed Yordy Vega, AT [address], [place], [address], [facility] 02/10/2025 18:15:04 5 24583: Manual therapy completed Yordy Vega, AT [address], [place], [address], [facility] 02/10/2025 18:15:04 5 33209 Therapeutic Exercise (1:1) completed El Smith, PT [address], [place], [address], [facility] 02/04/2025 15:22:07 72471: Hot or Cold Pack completed El Smith, PT [address], [place], [address], [facility] 02/04/2025 07:04:59 92827: Manual therapy completed El Smith, PT [address], [place], [address], [facility] 02/04/2025 07:04:59 00592 Therapeutic Exercise (1:1) completed Yordy Vega, AT [address], [place], [address], [facility] 02/01/2025 14:30:41 25752: Hot or Cold Pack completed Yordy Vega, AT [address], [place], [address], [facility] 02/01/2025 14:30:41 14908: Manual therapy completed Yordy Vega, AT [address], [place], [address], [facility] 02/01/2025 14:30:41 09522 Therapeutic Exercise (1:1) completed Yordy Vega, AT [address], [place], [address], [facility] 01/28/2025 12:22:44 34121: Hot or Cold Pack completed Yordy Vega AT [address], [place], [address], [facility] 01/28/2025 12:22:44 05906: Manual therapy completed Yordy Vega, AT [address], [place], [address], [facility] 01/28/2025 12:22:44 63497 Therapeutic Exercise (1:1) completed Yordy Vega, AT [address], [place], [address], [facility] 01/25/2025 13:31:43 72463: Hot or Cold Pack completed Yordy Vega, AT [address], [place], [address], [facility] 01/25/2025 13:31:43 01648: Manual therapy completed Yordy Vega, AT [address], [place], [address], [facility] 01/25/2025 13:31:43 79334 Therapeutic Exercise (1:1) completed Yordy Vega, AT [address], [place], [address], [facility] 01/21/2025 12:59:15 15234: Hot or Cold Pack completed Yordy Vega, AT [address], [place], [address], [facility] 01/21/2025 12:59:15 64683: Manual therapy completed Yordy Vega, AT [address], [place], [address], [facility] 01/21/2025 12:59:15 21749 Therapeutic Exercise (1:1) completed Yordy Vega, AT [address], [place], [address], [facility] 01/18/2025 14:48:44 99029: Hot or Cold Pack completed Yordy Vega, AT [address], [place], [address], [facility] 01/18/2025 14:48:44 58560: Manual therapy completed Yordy Vega, AT [address], [place], [address], [facility] 01/18/2025 14:48:44 5 80122 Therapeutic Exercise (1:1) completed Yordy Vega, AT [address], [place], [address], [facility] 01/15/2025 14:57:04 5 74376: Hot or Cold Pack completed Yordy Vega, AT [address], [place], [address], [facility] 01/15/2025 14:57:33 5 34059: Manual therapy completed Yordy Vega, AT [address], [place], [address], [facility] 01/15/2025 14:57:12 5 23212 Therapeutic Exercise (1:1) completed El Smith, PT [address], [place], [address], [facility] 01/14/2025 11:34:09 5 15426: Low complexity PT Eval completed El Smith, PT [address], [place], [address], [facility] 01/14/2025 11:34:11 4 Sports Shoulder completed Manas Vazquez PA-C [address], [place], [address], [facility] 09/25/2023 11:21:46 Imaging Results [...] Updated DateTime 01/15/2025 165.1 cm 30 kg/m2 08899.63 g Terry Gallagher [place] - [facility] 01/15/2025 11:34:54 Social History None recorded. [...] Kidney/Bladder Problems N Anemia N Heart Attack (VT) N Cholesterol N Diabetes N Bleeding Disorder N Seizures/Epilepsy N AIDS/HIV N Congestive Heart Failure (CHF) N Asthma N Peripheral Vascular Disease N Sleep Apnea N Hepatitis Y Heart Disease N Pulmonary Embolism N Hypertension N Osteoporosis N Past Encounters Encounter ID Performer Location Encounter Start Date Encounter Closed Date Diagnosis/Indication Diagnosis SNOMED-CT Code Diagnosis ICD10 Code Diagnosis IMO Codes Diagnosis Note [id number] MD [facility] Morse - Tarah Mosley [address] [place] [address] 01/15/2025 10:48:54 01/26/2025 12:35:56 Follow-up orthopedic assessment [id number] Z47.89 [id number] El Smith, PT [facility] [address] [place] [address] 01/14/2025 13:58:22 01/14/2025 17:16:55 Rupture of rotator cuff of right shoulder [id number] M75.546 [id number] Yordy Vega, [facility] [address] [address] 01/15/2025 13:30:50 01/15/2025 14:54:23 Rupture of rotator cuff of right shoulder [id number] M75.101 Health Concerns Section Related Observation LastModified by Organization Detai ls LastModified Time None Recorded Concern Status LastModified by Organization Details LastModified Time None Recorded Payers Encounter Date Sequence Insurance Name Policy Number Policy Urbina Covered Member ID Urbina Member ID Guarantor Name 01/15/2025 1 [employer] [facility] [id number] Giuliano Huitron [id number] Giuliano Huitron Notes Date Note Type Note Provider Name and Address Organization Details Recorded Time 01/15/2025 text/html Patient presents today reporting 4/10 pain. Pt states sleep is difficult. Yordy Vega, AT [address], [place], [address], [facility] 01/15/2025 14:59:49 01/15/2025 text/html Surgery: Right shoulder calcium excision with subsequent 1+1 double row supraspinatus repair, [facility], 12/30/2024 Interval History: Giuliano returns today [...] and well perfused. 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 [employer] speech recognition contract law specialist software was used to create portions of this document. An attempt at proofreading has been made to minimize errors. Please call for corrections. Marielos Phillips MD [address] [place], [place] [address], [place], [address], [facility] 01/15/2025 12:02:30
--- OUTSIDE RECORDS SUMMARY | 2025-03-15 18:06 | XMS_ITS | Continuity of Care Document ---
Author Organization [place] [facility], [facility] Address [address] [place] [address] Care Team Providers Care Entry Level Account Representative Name Role Phone FERMÍN PRECIADO Primary Care Provider Assessment Encounter Date Assessment Date Assessment LastModified by Organization Details LastModified Time 03/08/2025 03/08/2025 Assessment: Primary limitation remains ER. [...] and biomechanics, add T-Bands with light resistance. [email or web address] Not available 03/08/2025 12:18:47 Plan of Treatment Reminders Order Date Submit [...] Time Acquired pes planus of right foot [id number] Active 2023 En Magallanes MD [address], [place], [address], [facility] 4 16:55:50 Sinus tarsi syndrome of right ankle [id number] 07 Active 2023 En Magallanes MD [address], [place], [address], [facility] 4 16:55:51 Problem Notes None recorded. Procedures Surgical History Date Name Laterality Status Provider Name and Address Organization Details Recorded Time 5 04927 Therapeutic Exercise (1:1) completed MARYELLEN Cornell [address], [place], [address], [facility] 03/10/2025 12:55:09 5 25956: Hot or Cold Pack completed Yordy Vega, AT [address], [place], [address], [facility] 03/10/2025 12:55:09 5 88129: Manual therapy completed Yordy Vega, AT [address], [place], [address], [facility] 03/10/2025 12:55:09 5 31070 Therapeutic Exercise (1:1) completed Yordy Vega, AT [address], [place], [address], [facility] 03/08/2025 11:43:16 5 94832: Hot or Cold Pack completed Yordy Vega, AT [address], [place], [address], [facility] 03/08/2025 11:43:16 5 99504: Manual therapy completed Yordy Vega, AT [address], [place], [address], [facility] 03/08/2025 11:43:16 5 20806 Therapeutic Exercise (1:1) completed Yordy Vega, AT [address], [place], [address], [facility] 03/04/2025 11:56:39 5 89490: Hot or Cold Pack completed Yordy Vega, AT [address], [place], [address], [facility] 03/04/2025 11:56:39 5 78284: Manual therapy completed Yordy Vega, AT [address], [place], [address], [facility] 03/04/2025 11:56:39 5 49956 Therapeutic Exercise (1:1) completed Yordy Vega, AT [address], [place], [address], [facility] 03/01/2025 11:19:44 5 96089: Hot or Cold Pack completed Yordy Vega, AT [address], [place], [address], [facility] 03/01/2025 11:19:44 5 91815: Manual therapy completed Yordy Vega, AT [address], [place], [address], [facility] 03/01/2025 11:19:44 5 03560 Therapeutic Exercise (1:1) completed El Smith, PT [address], [place], [address], [facility] 02/24/2025 19:09:05 5 85672: Hot or Cold Pack completed El Smith, PT [address], [place], [address], [facility] 02/24/2025 19:09:05 5 34710: Manual therapy completed El Smith, PT [address], [place], [address], [facility] 02/24/2025 19:09:05 5 02385 Therapeutic Exercise (1:1) completed El Smith, PT [address], [place], [address], [facility] 02/21/2025 16:53:11 5 03839: Hot or Cold Pack completed El Smith, PT [address], [place], [address], [facility] 02/21/2025 16:53:11 5 71168: Manual therapy completed El Smith, PT [address], [place], [address], [facility] 02/21/2025 16:53:11 5 37816 Therapeutic Exercise (1:1) completed El Smith, PT [address], [place], [address], [facility] 02/17/2025 15:54:11 5 80863: Hot or Cold Pack completed El Smith, PT [address], [place], [address], [facility] 02/17/2025 15:54:11 5 17029: Manual therapy completed El Smith, PT [address], [place], [address], [facility] 02/17/2025 15:54:11 5 36409 Therapeutic Exercise (1:1) completed El Smith, PT [address], [place], [address], [facility] 02/14/2025 18:36:50 5 20649: Hot or Cold Pack completed El Smith, PT [address], [place], [address], [facility] 02/14/2025 18:36:50 5 11003: Manual therapy completed El Smith, PT [address], [place], [address], [facility] 02/14/2025 18:36:50 5 97012 Therapeutic Exercise (1:1) completed Yordy Vega AT [address], [place], [address], [facility] 02/10/2025 18:15:04 5 98626: Hot or Cold Pack completed Yordy Vega AT [address], [place], [address], [facility] 02/10/2025 18:15:04 94687: Manual therapy completed Yordy Vega, AT [address], [place], [address], [facility] 02/10/2025 18:15:04 16415 Therapeutic Exercise (1:1) completed El Smith, PT [address], [place], [address], [facility] 02/04/2025 15:22:07 75202: Hot or Cold Pack completed El Smith, PT [address], [place], [address], [facility] 02/04/2025 07:04:59 48439: Manual therapy completed El Smith, PT [address], [place], [address], [facility] 02/04/2025 07:04:59 80242 Therapeutic Exercise (1:1) completed Yordy Vega, AT [address], [place], [address], [facility] 02/01/2025 14:30:41 66416: Hot or Cold Pack completed Yordy Vega, AT [address], [place], [address], [facility] 02/01/2025 14:30:41 99015: Manual therapy completed Yordy Vega, AT [address], [place], [address], [facility] 02/01/2025 14:30:41 75072 Therapeutic Exercise (1:1) completed Yordy Vega, AT [address], [place], [address], [facility] 01/28/2025 12:22:44 85627: Hot or Cold Pack completed Yordy Vega, AT [address], [place], [address], [facility] 01/28/2025 12:22:44 87692: Manual therapy completed Yordy Vega, AT [address], [place], [address], [facility] 01/28/2025 12:22:44 01985 Therapeutic Exercise (1:1) completed Yordy Vega, AT [address], [place], [address], [facility] 01/25/2025 13:31:43 19293: Hot or Cold Pack completed Yordy Vega, AT [address], [place], [address], [facility] 01/25/2025 13:31:43 26828: Manual therapy completed Yordy Vega, AT [address], [place], [address], [facility] 01/25/2025 13:31:43 55132 Therapeutic Exercise (1:1) completed Yordy Vega, AT [address], [place], [address], [facility] 01/21/2025 12:59:15 83546: Hot or Cold Pack completed Yordy Vega, AT [address], [place], [address], [facility] 01/21/2025 12:59:15 72861: Manual therapy completed Yordy Vega, AT [address], [place], [address], [facility] 01/21/2025 12:59:15 57998 Therapeutic Exercise (1:1) completed Yordy Vega, AT [address], [place], [address], [facility] 01/18/2025 14:48:44 5 32726: Hot or Cold Pack completed Yordy Vega, AT [address] [facility], [place], [address], [facility] 01/18/2025 14:48:44 5 89429: Manual therapy completed Yordy Vega, AT [address], [place], [address], [facility] 01/18/2025 14:48:44 5 42715 Therapeutic Exercise (1:1) completed Yordy Vega, AT [address] [facility], [place], [address], [facility] 01/15/2025 14:57:04 5 14407: Hot or Cold Pack completed Yordy Vega, AT [address] [facility], [place], [address], [facility] 01/15/2025 14:57:33 5 10267: Manual therapy completed Yordy Vega, AT [address] [facility], [place], [address], [facility] 01/15/2025 14:57:12 5 90869 Therapeutic Exercise (1:1) completed El Smith, PT [address] [facility], [place], [address], [facility] 01/14/2025 11:34:09 5 60015: Low complexity PT Eval completed El Smith, PT [address] [facility], [place], [address], [facility] 01/14/2025 11:34:11 4 Sports Shoulder completed Manas Vazquez PA-C [address] [facility], [place], [address], [facility] 09/25/2023 11:21:46 Imaging Results [...] Disease N Heart Trouble N Heart Attack ([place]) N Gastrointestinal Disease N Cholesterol N Diabetes [...] ICD10 Code Diagnosis IMO Codes Diagnosis Note [id number] MARYELLEN Cornell [facility], [facility] [address] [place] [address] 02/10/2025 16:10:37 02/10/2025 17:00:46 Rupture of rotator cuff of right shoulder [id number] [id number] M75.826 [id number] El Smith, PT [facility] [address] [place] [address] 02/15/2025 12:58:31 02/15/2025 13:28:56 Rupture of rotator cuff of right shoulder [id number] M75.594 [id number] El Smith, PT [facility] [address] [place] [address] 02/18/2025 13:26:19 02/18/2025 17:15:10 Rupture of rotator cuff of right shoulder [id number] M75.936 [id number] El Smith, PT [facility] [address] [place] [address] 02/22/2025 13:59:50 02/23/2025 06:43:13 Rupture of rotator cuff of right shoulder [id number] M75.386 [id number] El Smith, PT [facility] [address] [place] [address] 02/25/2025 14:00:12 02/25/2025 14:31:29 Rupture of rotator cuff of right shoulder [id number] M75.224 [id number] Yordy Vega, AT [facility] [address] [place] [address] 03/01/2025 11:10:45 03/01/2025 11:35:27 Rupture of rotator cuff of right shoulder [id number] [id number] M75.109 [id number] Yordy Vega, AT [facility] [address] [place] [address] 03/04/2025 10:02:14 03/04/2025 10:33:27 Rupture of rotator cuff of right shoulder [id number] M75.195 [id number] Yordy Vega, AT [facility] [address] [place] [address] 03/08/2025 11:32:26 03/08/2025 14:44:32 Rupture of rotator cuff of right shoulder [id number] M75.101 Health Concerns Section Related Observation LastModified by Organization Detai ls LastModified Time None Recorded Concern Status LastModified by Organization Details LastModified Time None Recorded Payers Encounter Date Sequence Insurance Name Policy Number Policy Urbina Covered Member ID Urbina Member ID Guarantor Name 03/08/2025 1 [facility] [employer] [facility] ([place]) [id number] Giuliano Huitron [id number] Giuliano Huitron Notes Date Note Type Note Provider Name and Address Organization Details Recorded Time 03/08/2025 text/html Patient presents today reporting 1/10 pain. Pt reports low compliance with HEP but using the arm more for light ADL's without difficulty now. Yordy Vega, AT [address] [facility] [address], [place], [address], [facility] 03/08/2025 12:19:07
== END 2025-03-15 14:48 | disposition home or self-care (01) ==
LOC: HO.CT 14:47
PROVIDERS: PCP Physician Assistant; Visit Provider Internal Medicine
DX: Z22.7 Latent tuberculosis (principal)
CPT/HCPCS: 71250

== ENCOUNTER → 2025-03-15 14:50 | Outpatient (BNV) | payer OTHER, SELFPAY | PROVIDERS: PCP Physician Assistant; Visit Provider Radiology Diagnostic Radiology | DX: Z22.7 Latent tuberculosis (principal) | CPT/HCPCS: 71250 ==

== ENCOUNTER 2025-03-31 13:55 | Outpatient (AMB) | payer OTHER, SELFPAY ==
--- NOTE | 2025-03-31 14:00 | MHC.OFFVIS ---
Vital Signs 03/31/25 14:12 Height 5 ft 6 in Pulse 72 Pulse Source Pulse Oximeter Pulse Oximetry (%) 97 Oxygen Delivery Method Room Air Intake Visit Reasons: follow up CT scan/latent TB Allergies bupropion (From Wellbutrin) Adverse Reaction (Intermediate, Verified 03/31/25 14:47) impulsivity HPI HPI follow up CT scan/latent TB: Details: He has no evidence of cavitary lesion on CT of lung He has no complaints PFSH Medical History Latent tuberculosis Arrhythmia Surgical History History of arthroplasty of right shoulder Family History Maternal Grandfather Lung cancer Father Diabetes Paternal Grandfather Diabetes Brother Skin cancer Other Latent tuberculosis Mental health disorder Substance use disorder Social History Household Members: Significant Other Housing: House Alcohol intake: never Patient Tobacco Use Status: Never used Tobacco e-Cigarette/Vaping Use: Never Used Second Hand Smoke Exposure: No service: No Current occupational status: employed 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 Cognitive needs: No Hearing needs: No Vision needs: No Review of Systems Const All systems reviewed & are unremarkable except as noted in HPI and below Physical Exam Vital Signs: Last Vital Signs Pulse 72 03/31/25 14:12 Pulse Ox 97 03/31/25 14:12 Oxygen Delivery Method Room Air 03/31/25 14:12 Const General: cooperative Orientation/consciousness: patient oriented x3 HEENT Head: Yes normal to inspection Mouth: Normal oral and palatal mucosa present Eyes General: appearance normal, both eyes and all related structures Pupils: Equal, round and reactive pupils present Resp Effort & Inspection: normal respiratory effort Cardio Rate: regular rate Rhythm: regular rhythm GI Palpation (GI): Soft to palpation and nontender General: Yes no CVA tenderness Back/Spine/Pelvis Back: no CVA tenderness Skin General skin exam: no rashes or lesions noted Neuro General: patient oriented x3 Cranial nerves: Yes CN's II-XII intact bilaterally and Yes Equal, round and reactive pupils present Extrem General: Yes normal to inspection Psych Appearance: grossly normal Assessment & Plan Assessment & Plan (1) Latent tuberculosis by blood test: Code(s): Z22.7 - Latent tuberculosis Category: Medical Plan: no treatment for active TB Plan rx latent TB ,patient to check it treated if not INH 300 daily and B6 50 daily,6 months Coding Level of Care Code Est Pt Level 3 (88287) Diagnoses Latent tuberculosis by blood test Z22.7
[2025-03-31 14:12] VITALS: PULSE 72; O2SAT 97
== END 2025-03-31 14:50 | disposition home or self-care (01) ==
LOC: HO.HID 13:55
PROVIDERS: PCP Physician Assistant; Visit Provider Internal Medicine
DX: Z22.7 Latent tuberculosis (principal)
CPT/HCPCS: 99213